=== PATIENT | female | born 1935 | race Caucasian/White ===

== ENCOUNTER 2017-04-15 12:17 | Observation (INO) | payer OTHER ==
[~2017-04-15] VITALS: Ht 157.5 cm; Wt 84.3 kg
[~2017-04-15 12:17] MED LIST: ACET-1487 PO; ASPI325T45 PO; CALC-354 PO; CYAN10004 PO; FLVHFA220 INH; LISI40TA PO; MULTCHW PO; NITR0.4S UT; PRLSR20 PO; ROSU20TA PO; TPRSR/100 PO; WARF-246 PO; WARF5TAB90 PO
--- NOTE | 2017-04-15 12:52 | EMERGENCY ROOM VISIT NOTE ---
History Report prepared by Justine: Demetra Ambrosio Under the Supervision of: Dr. Wilfredo Hauser M.D. First contact with patient: 12:43 Chief Complaint: NECK PAIN Stated Complaint: neck pain History of Present Illness The patient is a 82 year old female who presents to the Emergency Room with complaints of worsening neck pain beginning about 2 months prior to arrival. She notes the pain radiates to the top of her head. She is experiencing a headache, shortness of breath and vomited this morning due to the pain intensity. 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 She notes that the Prednisone works and once she stops the course of steroid her symptoms worsen. The patient is prescribed Tramadol but does not take on a regular basis and notes it has not been alleviating her pain. She is on Coumadin. The patient denies fever. Source of History: patient Onset: 2 months [employer] Position: neck Timing: worsening Associated Symptoms: + headache, + SOB, + vomiting, No fevers Review of Systems See HPI for pertinent positives & negatives. A total of 10 systems reviewed and were otherwise negative. Past Medical & Surgical Medical Problems: (1) Aortic stenosis (2) Arthritis (3) Dyslipidemia (4) Essential tremor (5) GERD (gastroesophageal reflux disease) (6) H/O polymyalgia rheumatica (7) History of palpitations (8) History of syncope (9) Hypertension (10) Hypothyroidism (11) Osteoporosis (12) Paroxysmal tachycardia (13) Pulmonary embolism Surgical Problems: (1) H/O knee surgery (2) History of cataract surgery (3) S/P section (4) S/p fixation of radius/ulna fracture Old medical records were reviewed. Nurse's notes were reviewed and I agree with. Family History FH: heart disease FHx: cancer FHx: gallbladder disease Hypertension Social History Smoking Status: Never Smoker Smokeless Tobacco Use: No Alcohol Use: none Housing Status: lives alone Occupation Status: retired Current/Historical Medications Scheduled Calcium Carbonate-Cholecalcife (Caltrate 600+D), 1 TABLET PO DAILY Levothyroxine Sodium (Synthroid), 75 MCG PO DAILY Lisinopril (Lisinopril), 20 MG PO BID Metoprolol Succinate (Metoprolol Succinate ER), 100 MG PO QPM Multiple Vitamins W/ Minerals (Centrum Silver), 1 TABLET PO DAILY Omeprazole (Prilosec), 20 MG PO HS Rosuvastatin Calcium (Crestor), 20 MG PO QPM Warfarin Sodium (Coumadin), 5 MG PO 2XWK Warfarin Sodium (Warfarin Sodium), 2.5 MG PO 5XWK Scheduled PRN Diclofenac Sodium (Topical) (Voltaren 1% Top Gel), 2 GM EXT QID PRN for Pain Nitroglycerin (Nitrostat), 0.4 MG UT UD PRN for Chest Pain Tramadol (Ultram), 50 MG PO HS PRN for Pain Allergies Coded Allergies: Etodolac (Verified Allergy, Unknown, 04/15/17) Morphine (Verified Allergy, Unknown, ., 04/15/17) NSAIDs (Verified Allergy, Unknown, ITCH, 04/15/17) Hydromorphone (Verified Adverse Reaction, Unknown, DIZZY,NAUSEA, 04/15/17) Physical Exam Vital Signs Date Time Temp Pulse Resp B/P (MAP) Pulse Ox O2 Delivery O2 Flow Rate FiO2 04/15/17 16:26 80 16 141/75 98 Room Air 04/15/17 15:13 181/92 04/15/17 14:35 96 18 208/96 96 Room Air 04/15/17 13:18 61 16 169/89 98 Room Air 04/15/17 12:30 62 04/15/17 12:25 36.4 68 13 155/92 94 Room Air Physical Exam General: Well developed well nourished in no acute distress non toxic older female, breathing comfortably on room air. Normal speech HEENT: Normal cephalic atraumatic. Pupils are equal round and reactive to light. Extraocular movements are intact. Oropharynx is pink with moist mucous membranes. No swelling of the mouth lips or tongue. Neck: Pain with movement of neck. Tender to palpation over posterior neck. No fluctuant. Supple with a midline trachea. No meningeal signs or stiffness, no JVD or bruits. No Stridor. Chest: Clear to auscultation bilaterally. No wheezes or rhonchi. No increased work of breathing. Heart: regular rate and rhythm. Abdomen: Soft nontender, nondistended without rebound guarding or rigidity. Extremities: No cyanosis clubbing or edema. No calf tenderness or assymetry Spine/Back. Non tender to palpation. No CVA tenderness Skin: Good turgor without rashes. Neurologic exam: Cranial nerves two through 12 are intact. Motor and sensation are intact and symmetrical throughout. Medical Decision & Procedures ER Provider Diagnostic Interpretation: CT results as stated below per my review and radiologist interpretation: CT OF THE HEAD WITHOUT CONTRAST CLINICAL HISTORY: Headache. Anticoagulation. COMPARISON STUDY: Head CT January 15, 2014 and MRI of the brain January 16, 2014. CT DOSE: 690.05 mGycm TECHNIQUE: Helical axial images of the head were obtained without IV contrast. Automated exposure control was utilized for the study. FINDINGS: No acute intracranial hemorrhage, midline shift or mass effect is present. Ventricular system is normal for age. Basilar cisterns are patent. There are no extra-axial collections. Motta-white differentiation is maintained. There are no findings to suggest acute dural sinus thrombosis or acute territorial infarct. There are no significant calvarial abnormalities. Visualized portions of the sinuses and mastoid air cells are clear. IMPRESSION: No acute intracranial findings. Electronically signed by: Salas Chaudhari M.D. 04/15/2017 1:39 PM Dictated Date/Time: 04/15/2017 1:37 PM CHEST ONE VIEW PORTABLE CLINICAL HISTORY: Chest and neck pain. COMPARISON STUDY: Chest radiograph January 14, [address] January 15, 2014. FINDINGS: There is mild elevation of the right hemidiaphragm. No pneumothorax or pleural effusion is identified. There is borderline cardiomegaly. No consolidation is identified. There is no evidence of pulmonary edema. There is elevation of both humeral heads which suggests chronic rotator cuff tears. There is severe arthritis of both shoulders. IMPRESSION: No acute cardiopulmonary findings. Electronically signed by: Salas Chaudhari M.D. 04/15/2017 1:28 PM Dictated Date/Time: 04/15/2017 1:[address] OF THE CERVICAL SPINE CLINICAL HISTORY: Neck pain COMPARISON STUDY: No previous studies for comparison. CT DOSE: 402.71 mGycm TECHNIQUE: CT scan of the cervical spine was performed from the skull base to the thoracic inlet. Images are reviewed in the axial, sagittal, and coronal planes. IV contrast was not administered for this examination. FINDINGS: The visualized portions of the lung apices reveal no evidence of pneumothorax. 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 The prevertebral soft tissues are normal. No fractures or trauma subluxations are visualized. There are multilevel degenerative changes. 2 mm of anterior subluxation of C5 on C6 is felt to be degenerative IMPRESSION: 1. No acute fractures or traumatic subluxations identified 2. Mild degenerative changes 3. Incidentally noted aberrant right subclavian artery Electronically signed by: Crescencio Del Valle M.D. 04/15/2017 1:41 PM Dictated Date/Time: 04/15/2017 1:38 PM Laboratory Results 04/15/17 12:15 Red Blood Count 4.53, Mean Corpuscular Volume 92.1, Mean Corpuscular Hemoglobin 30.0, Mean Corpuscular Hemoglobin Concent 32.6, Mean Platelet Volume 8.9, Neutrophils (%) (Auto) 66.1, Lymphocytes (%) (Auto) 23.0, Monocytes (%) (Auto) 9.4, Eosinophils (%) (Auto) 1.1, Basophils (%) (Auto) 0.0, Neutrophils # (Auto) 6.91, Lymphocytes # (Auto) 2.40, Monocytes # (Auto) 0.98, Eosinophils # (Auto) 0.11, Basophils # (Auto) 0.00 04/15/17 12:15 Test 04/15/17 12:15 04/15/17 12:55 04/15/17 13:12 04/15/17 15:24 White Blood Count 10.44 K/uL (4.8-10.8) Red Blood Count 4.53 M/uL (4.2-5.4) Hemoglobin 13.6 g/dL (12.0-16.0) Hematocrit 41.7 % (37-47) Mean Corpuscular Volume 92.1 fL (80-100) Mean Corpuscular Hemoglobin 30.0 pg (25-34) Mean Corpuscular Hemoglobin Concent 32.6 g/dl (32-36) Platelet Count 263 K/uL (130-400) Mean Platelet Volume 8.9 fL (7.4-10.4) Neutrophils (%) (Auto) 66.1 % Lymphocytes (%) (Auto) 23.0 % Monocytes (%) (Auto) 9.4 % Eosinophils (%) (Auto) 1.1 % Basophils (%) (Auto) 0.0 % Neutrophils # (Auto) 6.91 K/uL (1.4-6.5) Lymphocytes # (Auto) 2.40 K/uL (1.2-3.4) Monocytes # (Auto) 0.98 K/uL (0.11-0.59) Eosinophils # (Auto) 0.11 K/uL (0-0.5) Basophils # (Auto) 0.00 K/uL (0-0.2) RDW Standard Deviation 50.3 fL (36.4-46.3) RDW Coefficient of Variation 14.8 % (11.5-14.5) Immature Granulocyte % (Auto) 0.4 % Immature Granulocyte # (Auto) 0.04 K/uL (0.00-0.02) Erythrocyte Sedimentation Rate 12 mm/hr (0-21) Activated Partial Thromboplast Time 33.8 SECONDS (21.0-31.0) Partial Thromboplastin Ratio 1.3 Anion Gap 6.0 mmol/L (3-11) Est Creatinine Clear Calc Drug Dose 36.4 ml/min Estimated GFR () 48.7 Estimated GFR (Non- 42.1 BUN/Creatinine Ratio 17.6 (10-20) Calcium Level 7.6 mg/dl (8.5-10.1) Total Bilirubin 0.8 mg/dl (0.2-1) Direct Bilirubin 0.1 mg/dl (0-0.2) Aspartate Amino Transf (AST/SGOT) 19 U/L (15-37) Alanine Aminotransferase (ALT/SGPT) 26 U/L (12-78) Alkaline Phosphatase 49 U/L (45-117) Total Creatine Kinase 47 U/L (26-192) Creatine Kinase MB 1.0 ng/ml (0.5-3.6) C-Reactive Protein 0.46 mg/dl (0-0.29) Total Protein 5.6 gm/dl (6.4-8.2) Albumin 2.7 gm/dl (3.4-5.0) Lipase 193 U/L (73-393) Creatine Kinase MB Ratio (0-3.0) Bedside Troponin I 0.000 ng/ml (0-0.045) Bedside Glucose 117 mg/dl (70-90) Laboratory studies as stated above per my review. Medications Administered Medications (Trade) Dose Ordered Sig/Sissy Route Start Time Stop Time Status Last Admin Dose Admin Tramadol HCl (Ultram Tab) 50 mg NOW STAT PO 04/15/17 12:55 04/15/17 12:59 DC 04/15/17 13:16 50 MG Dexamethasone Sodium Phosphate (Decadron Inj) 10 mg NOW STAT IV 04/15/17 14:21 04/15/17 14:24 DC 04/15/17 14:33 10 MG Ondansetron HCl (Zofran Inj) 4 mg NOW STAT IV 04/15/17 15:22 04/15/17 15:23 DC 04/15/17 15:28 4 MG ECG Indication: other (neck pain) Rate (beats per minute): 60 Rhythm: normal sinus Findings: nonspecific-ST abn, no acute ischemic change Change: no significant change (from January 17, 2014) ED Course 1245: Past medical records reviewed. The patient was evaluated in room A11, and a complete history and physical examination were performed. 1255: Ultram Tab 50 mg PO. 1420: The patient is resting more comfortably. An MRI will be ordered. 1421: Decadron Inj 10 mg IV. Medical Decision Differentials include, but are not limited to; arthritis, disc disease, intracranial process, intracranial hemorrhage, infection, meningitis, cardiac disease, electrolyte or metabolic abnormalities. Medication Reconciliation: I attest that I have personally reviewed the patient' s current medication list. Blood pressure Screening: Patient was found to have moderately elevated blood pressure and was referred to their primary doctor for recheck and further treatment. This patient comes in as described above. She was placed in room A 11. She is here for treatment and evaluation of neck pain that radiates up into her head is on the right side is worse with movement. she's been on steroids which did help. She does have significant allergies to morphine and can't take NSAIDs as well which makes this difficult to treat. she's been using Ultram does help somewhat but she has not been using it regularly. She has no neurologic deficits. she's had no fever or chills or trauma. Her pain is worse with movement is going on for several months. She has nothing to suggest meningitis or encephalitis. At this point, I do not think she needs a spinal tap and additionally her INR is elevated due to her Coumadin and she could not have one safely done today anyways. I did a CAT scan of her head and neck and there are no acute findings she does have some degenerative she changes. EKG does not suggest acute coronary syndrome or arrhythmia. Cardiac enzymes are not elevated. She has no white count or fever to suggest infection. She's had no acute electrolyte or metabolic abnormalities. She is feeling a little bit better after receiving Ultram here I also gave her Decadron. I did order MRI of her cervical spine to further evaluate this is a family is frustrated has been going on for so long. I did sign the patient out to who will follow-up on the MRI results and reassess the patient when she comes back. Impression Primary Impression: Neck pain Additional Impressions: Cervical spine degeneration Anticoagulated on Coumadin Scribe Attestation The scribe's documentation has been prepared under my direction and personally reviewed by me in its entirety. I confirm that the note above accurately reflects all work, treatment, procedures, and medical decision making performed by me. Departure Information Referrals Moreno Parham M.D. (PCP) Patient Instructions My [facility] Problem Qualifiers
[2017-04-15] MEDS ORDERED: TRAMADOL HCL 50 MG TAB PO STA (12:55)
[2017-04-15 13:27] LABS: COMPLETE YES; EOS % 1.1 %; HEMATOCRIT 41.7 % (37-47); IG% 0.4 %; MEAN CELL VOLUME 92.1 fL (80-100); MEAN CORPUSCULAR HGB CONC 32.6 g/dl (32-36); MEAN PLATELET VOLUME 8.9 fL (7.4-10.4); MONO % 9.4 %; NEUT % 66.1 %; PLATELET COUNT 263 K/uL (130-400); RED BLOOD COUNT 4.53 M/uL (4.2-5.4); WHITE BLOOD COUNT 10.44 K/uL (4.8-10.8)
--- NOTE | 2017-04-15 13:29 | DIAGNOSTIC IMAGING REPORT ---
CHEST ONE VIEW PORTABLE CLINICAL HISTORY: Chest and neck pain. COMPARISON STUDY: Chest radiograph January 14, [address] January 15, 2014. FINDINGS: There is mild elevation of the right hemidiaphragm. No pneumothorax or pleural effusion is identified. There is borderline cardiomegaly. No consolidation is identified. There is no evidence of pulmonary edema. There is elevation of both humeral heads which suggests chronic rotator cuff tears. There is severe arthritis of both shoulders. IMPRESSION: No acute cardiopulmonary findings. Electronically signed by: Salas Chaudhari M.D. 04/15/2017 1:28 PM Dictated Date/Time: 04/15/2017 1:26 PM
[2017-04-15 13:41] LABS: CREATININE 1.2 mg/dl (0.60-1.20)
--- NOTE | 2017-04-15 13:41 | DIAGNOSTIC IMAGING REPORT ---
CT OF THE HEAD WITHOUT CONTRAST CLINICAL HISTORY: Headache. Anticoagulation. COMPARISON STUDY: Head CT January 15, 2014 and MRI of the brain January 16, 2014. CT DOSE: 690.05 mGycm TECHNIQUE: Helical axial images of the head were obtained without IV contrast. Automated exposure control was utilized for the study. FINDINGS: No acute intracranial hemorrhage, midline shift or mass effect is present. Ventricular system is normal for age. Basilar cisterns are patent. There are no extra-axial collections. Motta-white differentiation is maintained. There are no findings to suggest acute dural sinus thrombosis or acute territorial infarct. There are no significant calvarial abnormalities. Visualized portions of the sinuses and mastoid air cells are clear. IMPRESSION: No acute intracranial findings. Electronically signed by: Salas Chaudhari M.D. 04/15/2017 1:39 PM Dictated Date/Time: 04/15/2017 1:37 PM
[2017-04-15 13:42] LABS: BUN/CREATININE RATIO 17.6 (10-20); CALCIUM 7.6 mg/dl (8.5-10.1); POTASSIUM 4.1 mmol/L (3.5-5.1)
[2017-04-15 13:43] LABS: INR 2.6 (0.9-1.1); PARTIAL THROMBOPLASTIN RATIO 1.3; PROTHROMBIN TIME (PATIENT) 28.6 SECONDS (9.0-12.0)
--- NOTE | 2017-04-15 13:43 | DIAGNOSTIC IMAGING REPORT ---
CT OF THE CERVICAL SPINE CLINICAL HISTORY: Neck pain COMPARISON STUDY: No previous studies for comparison. CT DOSE: 402.71 mGycm TECHNIQUE: CT scan of the cervical spine was performed from the skull base to the thoracic inlet. Images are reviewed in the axial, sagittal, and coronal planes. IV contrast was not administered for this examination. FINDINGS: The visualized portions of the lung apices reveal no evidence of pneumothorax. 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 The prevertebral soft tissues are normal. No fractures or trauma subluxations are visualized. There are multilevel degenerative changes. 2 mm of anterior subluxation of C5 on C6 is felt to be degenerative IMPRESSION: 1. No acute fractures or traumatic subluxations identified 2. Mild degenerative changes 3. Incidentally noted aberrant right subclavian artery Electronically signed by: Crescencio Del Valle M.D. 04/15/2017 1:41 PM Dictated Date/Time: 04/15/2017 1:38 PM
[2017-04-15 13:45] LABS: C-REACTIVE PROTEIN 0.46 mg/dl (0-0.29); CKMB/CK RATIO 2.1 (0-3.0)
[2017-04-15] MEDS ORDERED: DEXAMETHASONE SOD INJ 10 MG/ML VIAL IV STA (14:21)
[2017-04-15] MEDS ORDERED: LEVO75TA PO (14:26)
[2017-04-15] MEDS ORDERED: ONDANSETRON INJ 2 MG/ML 2 ML VIAL IV STA (15:22)
--- NOTE | 2017-04-15 16:16 | EMERGENCY ROOM VISIT NOTE ---
ED Visit Note First contact with patient: 16:14 The patient was taken in signout from Dr. Hauser at the change of shift. Please see that note for details. The patient was pending MRI. The patient had the MRI. She is feeling more comfortable. Her MRI shows significant degenerative disease with neural foraminal stenosis. She has not been doing well at home by family's reports. I did discuss treatment options with the patient and family. Case management is meeting with the patient and patient's family to further evaluate the options available. After evaluation by case management admission to the hospital was felt to be most appropriate for further care. [facility] The patient was evaluated for further management.
--- NOTE | 2017-04-15 16:26 | DIAGNOSTIC IMAGING REPORT ---
MRI CERVICAL SPINE COMBO CLINICAL HISTORY: Neck pain. COMPARISON STUDY: CT scan of the cervical spine dated 04/15/2017. TECHNIQUE: MRI of the cervical spine is performed using various T1 and T2-weighted sequences in the axial and sagittal planes. Contrast-enhanced sequences were acquired following the IV administration of 8 cc of Gadavist. FINDINGS: Cervical spine: Vertebral body height and alignment are maintained throughout the cervical spine. Mild hyperlordosis is observed. There is no MRI evidence of fracture. The atlantodental articulation appears preserved. The spinous processes are intact. No destructive bony lesion is seen. Intervertebral discs: There is degenerative disc desiccation seen throughout the cervical spine. Mild loss of height is seen at C4-C5 and C5-C6. Spinal cord: The cervical spinal cord is normal in morphology and signal intensity. No abnormal enhancement is identified on the postcontrast images. C2-C3: Unremarkable. C3-C4: A posterior disc osteophyte complex effaces the ventral subarachnoid space. Uncovertebral and facet arthropathy causes mild bilateral neuroforaminal stenosis. C4-C5: A posterior disc osteophyte complex abuts the ventral cord. Uncovertebral and facet arthropathy cause moderate to severe right and moderate left neural foraminal stenosis. C5-C6: A posterior disc osteophyte complex abuts the ventral cord. Uncovertebral and facet arthropathy cause mild neural foraminal stenosis, left greater than right. C6-C7: A posterior disc osteophyte complex effaces the ventral subarachnoid space. The neural foramina appear clear. C7-T1: Unremarkable. Soft tissues: The prevertebral and paraspinous soft tissues are normal as visualized. An aberrant right subclavian artery is incidentally noted coursing posterior to the esophagus. Brain parenchyma: Partially visualized brain parenchyma at the skull base is within normal limits. IMPRESSION: 1. The cervical spinal cord is normal in morphology and signal intensity. 2. No acute abnormality is seen. 3. Cervical spondylosis as above. See discussion for detailed level by level analysis. Electronically signed by: Robinson Villa M.D. 04/15/2017 4:24 PM Dictated Date/Time: 04/15/2017 4:17 PM
[2017-04-15] MEDS ORDERED: ACETAMINOPHEN 325 MG TAB PO PRN (18:30)
[2017-04-15] MEDS ORDERED: ONDANSETRON INJ 2 MG/ML 2 ML VIAL IV PRN (18:30)
[2017-04-15] MEDS ORDERED: IV FLUIDS COMPLETED PRN (18:30)
[2017-04-15] MEDS ORDERED: DICL1GEL12 EXT (18:41)
[2017-04-15] MEDS ORDERED: TRAM-10 PO (18:41)
[2017-04-15] MEDS ORDERED: LSN20 PO (18:43)
[2017-04-15] MEDS ORDERED: NITROGLYCERIN 0.4 MG SL PER TAB CHARGE UT PRN (18:45)
[2017-04-15] MEDS ORDERED: TRAMADOL HCL 50 MG TAB PO PRN (18:45)
[2017-04-15] MEDS ORDERED: DICLOFENAC SOD 1% GEL 100 GM TUBE EXT PRN (18:45)
[2017-04-15] MEDS ORDERED: LIDODERM (LIDOCAINE) PATCH 5% TD ONE (19:15)
[2017-04-15 19:18] VITALS: BP 174/79; PULSE 67; TEMP 36.9; O2SAT 97; Ht 157.5 cm; Wt 84.3 kg
[2017-04-15] MEDS ORDERED: WARFARIN SOD 5 MG TAB PO SCH (19:30)
--- NOTE | 2017-04-15 20:12 | History and Physical ---
History & Physical Date & Time of Service: Apr 15, 2017 at 18:51 Chief Complaint: Neck Pain Primary Care Physician: Moreno Parham M.D. History of Present Illness Source: patient, family (daughters at bedside), clinic records This is an 82 year old female with PMH of hypertension, aortic stenosis, history of paroxysmal tachycardia, history of PE on Coumadin, dyslipidemia, hypothyroidism, and other problems listed below who presents to the ED with neck pain. Patient states pain started 2 months ago but worsened in severity last night. There was no injury/ trauma. Patient was seen by PCP Dr. Parham had c -spine x-ray and was dx with arthritis. Since that time she was treated with 3 short courses of prednisone. Patient states pain improved during prednisone courses but returned after stopping the medication. Last course ended 4 days ago. Pt was also taking Tramadol 50 mg HS which she states did not help. Last night patient was unable to sleep due to severe pain rated 10/10. She describes pain as ache in the cervical spinal area with radiation to the top of her head. Pain worsens with rotating the neck. In the ER patient was treated with tramadol and IV Decadron. Pain is now improved but still uncomfortable with movement. Patient reports vomiting x 1 earlier today. Nausea resolved with Zofran and pt wishes to eat. Pt bruises easily but denies abnormal bleeding. Denies fever, chills, photophobia, focal numbness or weakness, cough, SOB, chest pain, abdominal pain, bowel or bladder changes. Pt denies prior hx of neck pain. No missed dose of antihypertensives. Past Medical/Surgical History Medical Problems: (1) Aortic stenosis Permanent Comment: moderate Status: Chronic (2) Arthritis Status: Chronic (3) Dyslipidemia Status: Chronic (4) Essential tremor Status: Chronic (5) GERD (gastroesophageal reflux disease) Status: Chronic (6) H/O polymyalgia rheumatica Status: Chronic (7) History of palpitations Status: Chronic (8) History of syncope Status: Chronic (9) Hypertension Status: Chronic (10) Hypothyroidism Status: Chronic (11) Osteoporosis Status: Chronic (12) Paroxysmal tachycardia Permanent Comment: Cardiac Zio event monitor captured a 10 beat trina of non sustained VT and several brief SVT episodes Status: Chronic (13) Pulmonary embolism Status: Resolved Surgical Problems: (1) H/O knee surgery Status: Chronic (2) History of cataract surgery Status: Chronic (3) S/P section Status: Chronic (4) S/p fixation of radius/ulna fracture Status: Chronic Family History FH: heart disease FHx: cancer FHx: gallbladder disease Hypertension Social History Smoking Status: Never Smoker Smokeless Tobacco Use: No Alcohol Use: none Housing status: lives with family (with son. independent with ADLs.) Occupational Status: retired Immunizations History of Influenza Vaccine: Yes Influenza Vaccine Date: Aug 17, 2013 History of Tetanus Vaccine?: Yes Tetanus Immunization Date: Dec 18, 2013 History of Pneumococcal: No History of Hepatitis B Vaccine: No Multi-Drug Resistant Organisms History of MDRO: No Allergies Coded Allergies: Etodolac (Verified Allergy, Unknown, 04/15/17) Morphine (Verified Allergy, Unknown, ., 04/15/17) NSAIDs (Verified Allergy, Unknown, ITCH, 04/15/17) Hydromorphone (Verified Adverse Reaction, Unknown, DIZZY,NAUSEA, 04/15/17) Home Medications Scheduled Calcium Carbonate-Cholecalcife (Caltrate 600+D), 1 TABLET PO DAILY Levothyroxine Sodium (Synthroid), 75 MCG PO DAILY Lisinopril (Lisinopril), 20 MG PO BID Methylprednisolone (Medrol Dosepak), 1 PKT PO UD Metoprolol Succinate (Metoprolol Succinate ER), 100 MG PO QPM Multiple Vitamins W/ Minerals (Centrum Silver), 1 TABLET PO DAILY Omeprazole (Prilosec), 20 MG PO HS Rosuvastatin Calcium (Crestor), 20 MG PO QPM Warfarin Sodium (Coumadin), 5 MG PO 2XWK Warfarin Sodium (Warfarin Sodium), 2.5 MG PO 5XWK Scheduled PRN Diclofenac Sodium (Topical) (Voltaren 1% Top Gel), 2 GM EXT QID PRN for Pain Nitroglycerin (Nitrostat), 0.4 MG UT UD PRN for Chest Pain Tramadol (Ultram), 50 MG PO TID PRN for Pain Review of Systems Ten systems reviewed and negative except as noted in HPI. Physical Exam Vital Signs Date Time Temp Pulse Resp B/P (MAP) Pulse Ox O2 Delivery O2 Flow Rate FiO2 04/15/17 18:11 67 18 141/90 96 Room Air 04/15/17 16:26 80 16 141/75 98 Room Air 04/15/17 15:13 181/92 04/15/17 14:35 96 18 208/96 96 Room Air 04/15/17 13:18 61 16 169/89 98 Room Air 04/15/17 12:30 62 04/15/17 12:25 36.4 68 13 155/92 94 Room Air General Appearance: WD/WN, no apparent distress, + pertinent finding (pleasant alert elderly female, lying in bed, not in distress, daughters at bedside) Head: normocephalic, atraumatic Eyes: normal inspection, PERRL, EOMI, sclerae normal ENT: hearing grossly normal, pharynx normal Neck: supple, trachea midline, + pertinent finding (no point tenderness of c- spine. + left cervical paraspinal muscle tenderness. 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, normal mood/affect, oriented x 3, + pertinent finding (no motor or sensory deficit of upper extremities) Skin: normal color, warm/dry, + pertinent finding (few small ecchymotic areas on upper extremities) Diagnostics Laboratory Results Results Past 24 Hours Test 04/15/17 12:15 04/15/17 12:55 04/15/17 13:12 04/15/17 15:24 Range/Units White Blood Count 10.44 4.8-10.8 K/uL Red Blood Count 4.53 4.2-5.4 M/uL Hemoglobin 13.6 12.0-16.0 g/dL Hematocrit 41.7 37-47 % Mean Corpuscular Volume 92.1 80-100 fL Mean Corpuscular Hemoglobin 30.0 25-34 pg Mean Corpuscular Hemoglobin Concent 32.6 32-36 g/dl Platelet Count 263 130-400 K/uL Mean Platelet Volume 8.9 7.4-10.4 fL Neutrophils (%) (Auto) 66.1 % Lymphocytes (%) (Auto) 23.0 % Monocytes (%) (Auto) 9.4 % Eosinophils (%) (Auto) 1.1 % Basophils (%) (Auto) 0.0 % Neutrophils # (Auto) 6.91 1.4-6.5 K/uL Lymphocytes # (Auto) 2.40 1.2-3.4 K/uL Monocytes # (Auto) 0.98 0.11-0.59 K/uL Eosinophils # (Auto) 0.11 0-0.5 K/uL Basophils # (Auto) 0.00 0-0.2 K/uL RDW Standard Deviation 50.3 36.4-46.3 fL RDW Coefficient of Variation 14.8 11.5-14.5 % Immature Granulocyte % (Auto) 0.4 % Immature Granulocyte # (Auto) 0.04 0.00-0.02 K/uL Erythrocyte Sedimentation Rate 12 0-21 mm/hr Prothrombin Time 28.6 9.0-12.0 SECONDS Prothromb Time International Ratio 2.6 0.9-1.1 Activated Partial Thromboplast Time 33.8 21.0-31.0 SECONDS Partial Thromboplastin Ratio 1.3 Sodium Level 141 136-145 mmol/L Potassium Level 4.1 3.5-5.1 mmol/L Chloride Level 108 98-107 mmol/L Carbon Dioxide Level 27 21-32 mmol/L Anion Gap 6.0 3-11 mmol/L Blood Urea Nitrogen 21 7-18 mg/dl Creatinine 1.20 0.60-1.20 mg/dl Est Creatinine Clear Calc Drug Dose 36.4 ml/min Estimated GFR () 48.7 Estimated GFR (Non- 42.1 BUN/Creatinine Ratio 17.6 10-20 Random Glucose 91 70-99 mg/dl Calcium Level 7.6 8.5-10.1 mg/dl Total Bilirubin 0.8 0.2-1 mg/dl Direct Bilirubin 0.1 0-0.2 mg/dl Aspartate Amino Transf (AST/SGOT) 19 15-37 U/L Alanine Aminotransferase (ALT/SGPT) 26 12-78 U/L Alkaline Phosphatase 49 45-117 U/L Total Creatine Kinase 47 26-192 U/L Creatine Kinase MB 1.0 0.5-3.6 ng/ml Creatine Kinase MB Ratio 2.1 0-3.0 C-Reactive Protein 0.46 0-0.29 mg/dl Total Protein 5.6 6.4-8.2 gm/dl Albumin 2.7 3.4-5.0 gm/dl Lipase 193 73-393 U/L Bedside Troponin I 0.000 0-0.045 ng/ml Bedside Glucose 117 70-90 mg/dl Diagnostic Radiology CT OF THE HEAD WITHOUT CONTRAST CLINICAL HISTORY: Headache. Anticoagulation. COMPARISON STUDY: Head CT January 15, 2014 and MRI of the brain January 16, 2014. CT DOSE: 690.05 mGycm TECHNIQUE: Helical axial images of the head were obtained without IV contrast. Automated exposure control was utilized for the study. FINDINGS: No acute intracranial hemorrhage, midline shift or mass effect is present. Ventricular system is normal for age. Basilar cisterns are patent. There are no extra-axial collections. Motta-white differentiation is maintained. There are no findings to suggest acute dural sinus thrombosis or acute territorial infarct. There are no significant calvarial abnormalities. Visualized portions of the sinuses and mastoid air cells are clear. IMPRESSION: No acute intracranial findings. CHEST ONE VIEW PORTABLE CLINICAL HISTORY: Chest and neck pain. COMPARISON STUDY: Chest radiograph January 14, [address] January 15, 2014. FINDINGS: There is mild elevation of the right hemidiaphragm. No pneumothorax or pleural effusion is identified. There is borderline cardiomegaly. No consolidation is identified. There is no evidence of pulmonary edema. There is elevation of both humeral heads which suggests chronic rotator cuff tears. There is severe arthritis of both shoulders. IMPRESSION: No acute cardiopulmonary findings. CLINICAL HISTORY: Neck pain COMPARISON STUDY: No previous studies for comparison. CT DOSE: 402.71 mGycm TECHNIQUE: CT scan of the cervical spine was performed from the skull base to the thoracic inlet. Images are reviewed in the axial, sagittal, and coronal planes. IV contrast was not administered for this examination. FINDINGS: The visualized portions of the lung apices reveal no evidence of pneumothorax. 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 The prevertebral soft tissues are normal. No fractures or trauma subluxations are visualized. There are multilevel degenerative changes. 2 mm of anterior subluxation of C5 on C6 is felt to be degenerative IMPRESSION: 1. No acute fractures or traumatic subluxations identified 2. Mild degenerative changes 3. Incidentally noted aberrant right subclavian artery MRI CERVICAL SPINE COMBO CLINICAL HISTORY: Neck pain. COMPARISON STUDY: CT scan of the cervical spine dated 04/15/2017. TECHNIQUE: MRI of the cervical spine is performed using various T1 and T2-weighted sequences in the axial and sagittal planes. Contrast-enhanced sequences were acquired following the IV administration of 8 cc of Gadavist. FINDINGS: Cervical spine: Vertebral body height and alignment are maintained throughout the cervical spine. Mild hyperlordosis is observed. There is no MRI evidence of fracture. The atlantodental articulation appears preserved. The spinous processes are intact. No destructive bony lesion is seen. Intervertebral discs: There is degenerative disc desiccation seen throughout the cervical spine. Mild loss of height is seen at C4-C5 and C5-C6. Spinal cord: The cervical spinal cord is normal in morphology and signal intensity. No abnormal enhancement is identified on the postcontrast images. C2-C3: Unremarkable. C3-C4: A posterior disc osteophyte complex effaces the ventral subarachnoid space. Uncovertebral and facet arthropathy causes mild bilateral neuroforaminal stenosis. C4-C5: A posterior disc osteophyte complex abuts the ventral cord. Uncovertebral and facet arthropathy cause moderate to severe right and moderate left neural foraminal stenosis. C5-C6: A posterior disc osteophyte complex abuts the ventral cord. Uncovertebral and facet arthropathy cause mild neural foraminal stenosis, left greater than right. C6-C7: A posterior disc osteophyte complex effaces the ventral subarachnoid space. The neural foramina appear clear. C7-T1: Unremarkable. Soft tissues: The prevertebral and paraspinous soft tissues are normal as visualized. An aberrant right subclavian artery is incidentally noted coursing posterior to the esophagus. Brain parenchyma: Partially visualized brain parenchyma at the skull base is within normal limits. IMPRESSION: 1. The cervical spinal cord is normal in morphology and signal intensity. 2. No acute abnormality is seen. 3. Cervical spondylosis as above. See discussion for detailed level by level analysis. EKG Normal sinus rhythm, no significant change from prior EKG, as per cardiology read, also reviewed by me Impression Assessment and Plan INTRACTABLE NECK PAIN Secondary to C-spine degenerative disc disease CT head negative; CT c-spine- DDD, MRI c-spine- cervical spondylosis Received tramadol 50 mg and Decadron 10 mg IV in ER Will continue steroids with Decadron PO 4 mg daily Continue PRN tramadol Lidocaine patch, heat application Consult pain management Consult ortho spine as per family request PT and OT evaluations HYPERTENSION BP severely elevated to 200s systolic in ER due to pain -> improved to 140s systolic with pain control Continue lisinopril 20 mg BID and metoprolol succinate 100 mg HS Monitor BP 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 Randall DYSLIPIDEMIA Continue statin HYPOTHYROIDISM Continue levothyroxine HISTORY OF PE/ DVT PROPHYLAXIS On Coumadin, INR therapeutic Continue Coumadin FULL CODE per my discussion with patient DISPOSITION Lives with son; consult social economist for discharge planning Follows with Dr. Parham for primary care Patient seen in collaboration with Dr. Stroud. Please see his addendum. Attending Addendum Pt was seen and examined. Agreed with Carri HOWARD, assessment and cristobal. 82 year old female with PMH of hypertension, aortic stenosis, history of paroxysmal tachycardia, history of PE on Coumadin, dyslipidemia, hypothyroidism presents to the ED with neck pain. Pt said that for the last 2 months his neck pain has been getting worst. she said that pain is worst with neck movement, 10/10, radiating to the head. denies nay recent trauma, injury or fall. General- No acute distress Head- atraumatic Eyes- PERRL, EOMI ENT- oropharynx clear Neck- supple, no JVD Lungs- clear to auscultation Heart- regular rhythm; +systolic murmur Abdomen- normal bowel sounds, soft Extremities- no calf tenderness A/P INTRACTABLE NECK PAIN Secondary to C-spine degenerative disc disease CT head negative CT c-spine showed mild degenerative changes MRI C-spine showed no acute abnormality is seen. Cervical spondylosis as above Received tramadol 50 mg and Decadron 10 mg IV in ER Continue PRN tramadol Lidocaine patch, heat application Consult pain management Consult ortho spine as per family request PT and OT evaluations Lab, imaging and EKG reviewed Please Refer to Carri' PA documentation for other problems. Sindy Stroud MD VTE Prophylaxis VTE Risk Assessment Done? Y/N: Yes Risk Level: High Given or contraindicated: Warfarin (Coumadin)
[2017-04-15] MEDS ORDERED: PNEUMOCOCCAL ADMINISTRATION CHARGE ONE (20:30)
[2017-04-15] MEDS ORDERED: PNEUMOCOCCAL POLYSACCHARIDES 25 MCG/0.5 ML VIAL/SYR IM. ONE (20:30)
[2017-04-15 20:54] VITALS: BP 131/73; PULSE 66
[2017-04-15] MEDS: LISINOPRIL 20 MG TAB PO SCH (20:55)
[2017-04-15 23:49] VITALS: BP 168/97; PULSE 68; TEMP 36.2; O2SAT 97
[2017-04-16 00:57] VITALS: BP 149/73; PULSE 67
[2017-04-16 06:00] LABS: INR 2.4 (0.9-1.1); PROTHROMBIN TIME (PATIENT) 26.1 SECONDS (9.0-12.0)
[2017-04-16] MEDS ORDERED: LEVOTHYROXINE 75 MCG TAB PO SCH (06:30)
[2017-04-16 07:29] VITALS: BP 131/85; PULSE 66; TEMP 36.9; O2SAT 96
[2017-04-16] MEDS: LISINOPRIL 20 MG TAB PO SCH (08:26)
--- NOTE | 2017-04-16 08:43 | ORTHOPEDIC CONSULTATION ---
DATE OF CONSULTATION: 04/16/2017 DATE OF CONSULTATION: 04/16/2017. CHIEF COMPLAINT: Cervicalgia. HISTORY OF PRESENT ILLNESS: Very pleasant 82-year-old female that has had a history of some neck issues over the past several months. She has never seen any interventional pain management physician. She denies any recent trauma, fall or event. Symptoms became quite severe over the past day or so with radiation into the head and significant headaches. She denies any radicular component to her pain, numbness or tingling, coordination deficits the upper extremities. PHYSICAL EXAMINATION: On exam today she is sitting up the bedside eating breakfast. She appears much more comfortable today. She has excellent strength to detailed testing, reasonable cervical range of motion without reproduction of pain. Nontender to palpation pericervical musculature. MRI does demonstrate evidence of cervical spondylosis, most impressive at the C5-C6 level with facet hypertrophy. There is no evidence of any significant canal encroachment. The cord appears healthy. ASSESSMENT: Cervicalgia, occipital neuralgia. PLAN: At this time, I emphasized to the patient I do not see any surgical issues; however, she may benefit from a consultation with interventional pain management. If these symptoms return, she may require either facet versus injections for occipital neuralgia to help with her pain. She understands and agrees.
[2017-04-16] MEDS ORDERED: DEXAMETHASONE 4 MG TAB PO SCH (09:00)
[2017-04-16] MEDS ORDERED: DEXAMETHASONE 4 MG TAB PO ONE (09:00)
[2017-04-16] MEDS ORDERED: MULTIVITAMIN TAB PO SCH (09:00)
[2017-04-16] MEDS ORDERED: LIDODERM (LIDOCAINE) PATCH 5% TD SCH (09:00)
[2017-04-16] MEDS ORDERED: CALCIUM 600MG + VIT D 400 IU TAB PO SCH (09:00)
--- NOTE | 2017-04-16 11:13 | Pain Management Consultation ---
Pain Management Consultation Date of Consultation Apr 16, 2017. Reason for Consultation Neck pain History Mrs. Haynes is an 82 year old white female that has been seen at the [facility] for cervicalgia. Patient states that the pain is located along the right upper cervical region. She describes a deep aching pain. Symptoms have been ongoing for 2 months without any known injury. She states that the pain is worsening with twisting and walking. Symptoms are decreased with laying supine. She has been tried on several courses of Prednisone with short term pain relief. Patient is also taking Tramadol 50mg x 6 hrs PRN pain which is efficacious. She has taken one dose of Tramadol since admission. Patient does have associated right occipital headaches. She states that her pain is controlled at this time. She denies any radicular symptoms, arm weakness, or dropping of objects. Case discussed with Dr. Franks Past Medical/Surgical History (1) Arthritis (2) Pulmonary embolism (3) Neck pain (4) Dyslipidemia (5) Essential tremor (6) Hypothyroidism (7) Paroxysmal tachycardia (8) Aortic stenosis (9) H/O polymyalgia rheumatica (10) History of palpitations (11) History of syncope (12) Osteoporosis (13) Hypertension (14) GERD (gastroesophageal reflux disease) (15) History of cataract surgery (16) S/P section (17) H/O knee surgery (18) S/p fixation of radius/ulna fracture Family History FH: heart disease SISTER FHx: cancer FHx: gallbladder disease Hypertension Stroke FATHER Social / Work History Smoking Status: Never smoker Smokeless Tobacco Use: No Alcohol Use: none Drug Use: none Housing Status: lives with family (with son. independent with ADLs.) Occupation: retired Allergies Coded Allergies: Etodolac (Verified Allergy, Unknown, 04/15/17) Morphine (Verified Allergy, Unknown, ., 04/15/17) NSAIDs (Verified Allergy, Unknown, ITCH, 04/15/17) Hydromorphone (Verified Adverse Reaction, Unknown, DIZZY,NAUSEA, 04/15/17) Medications Current Inpatient Medications Medications (Trade) Dose Ordered Sig/Sissy Route Start Time Stop Time Status Last Admin Dose Admin Miscellaneous (Iv Fluids Completed) 1 ea PRN PRN N/A 04/15/17 18:30 04/15/18 18:29 Acetaminophen (Tylenol Tab) 650 mg Q4H PRN PO 04/15/17 18:30 05/15/17 18:29 Ondansetron HCl (Zofran Inj) 4 mg Q6H PRN IV 04/15/17 18:30 05/15/17 18:29 Lidocaine (Lidoderm Patch 5%) 1 patch QAM TD 04/16/17 09:00 05/16/17 08:59 Miscellaneous (Remove Lidoderm Patch) 1 ea DAILY@21 N/A 04/15/17 21:00 05/15/17 20:59 04/15/17 22:37 1 EA Diclofenac Sodium (Voltaren 1% Top Gel) 1 appln QID PRN EXT 04/15/17 18:45 05/15/17 18:44 Levothyroxine Sodium (Synthroid Tab) 75 mcg DAILYBB PO 04/16/17 06:30 05/16/17 06:29 04/16/17 05:51 75 MCG Lisinopril (Zestril Tab) 20 mg BID PO 04/15/17 21:00 05/15/17 20:59 04/15/17 20:55 20 MG Nitroglycerin (Nitrostat Tab) 0.4 mg UD PRN UT 04/15/17 18:45 05/15/17 18:44 Rosuvastatin Calcium (Crestor Tab) 20 mg QPM PO 04/16/17 21:00 05/16/17 20:59 Tramadol HCl (Ultram Tab) 50 mg Q6 PRN PO 04/15/17 18:45 05/15/17 18:44 04/15/17 19:47 50 MG Warfarin Sodium (Coumadin Tab) 2.5 mg SuTuWeThSa@1600 PO 04/16/17 16:00 05/16/17 15:59 Warfarin Sodium (Coumadin Tab) 5 mg MoFr@1600 PO 04/15/17 19:30 05/15/17 19:29 04/15/17 19:48 5 MG Calcium/Vitamin D (Caltrate Plus Tab) 1 tab DAILY PO 04/16/17 09:00 05/16/17 08:59 Metoprolol Succinate (Toprol Xl Tab) 100 mg HS PO 04/16/17 21:00 05/16/17 20:59 Multivitamins (Multivitamin Tab) 1 tab QAM PO 04/16/17 09:00 05/16/17 08:59 Pantoprazole Sodium (Protonix Tab) 40 mg HS PO 04/16/17 21:00 05/16/17 20:59 Dexamethasone (Decadron Tab) 4 mg DAILY PO 04/16/17 09:00 05/16/17 08:59 Review of Systems Denies any constitutional, cardiac, pulmonary, neurological, GI, , extremity, endocrine, neuro, ENT, dermatological, or musculoskeletal complaints other than stated in HPI Physical Exam Height & Weight: Height 5 feet, 2.00 inches. Weight 84.300 (Kilograms) 154 (Pounds) Last Vital Signs Documentation Date Time Temp Pulse Resp B/P (MAP) Pulse Ox O2 Delivery O2 Flow Rate FiO2 04/16/17 07:29 36.9 66 17 131/85 (100) 96 Room Air Exam: GENERAL: Mrs. Haynes is an 82 y/o white female that appears her stated age. Speech and cognition is intact. Mood and affect is appropriate. She is sitting quietly in the hospital bed, eating breakfast. In no acute distress. HEAD: Normocephalic; atraumatic. Mild tenderness of the right greater and lesser occipital nerves. EYES: Pupils are round, equal, and reactive to light; EOM intact. ENT: No external ear discharge or lesions. No rhinorrhea or epistaxis. No mucosal lesions. NECK: There is 45 degrees of bilateral lateral rotation. Minimal extension, full flexion. No midline tenderness. There is focal tenderness of the right C2 -4 cervical facets. No paracervical or trapezius muscle spasm. CHEST: Regular chest respiration and excursion. EXTREMITIES: 4/5 with right shoulder abduction (history of rotator cuff tear), otherwise 5/5 strength of the upper extremities. NEURO: CN II-XII grossly intact with no focal deficits noted. SKIN: No lesions, erythema, or rashes noted. Laboratory Laboratory Results (Last CBC): 04/15/17 12:15 Red Blood Count 4.53, Mean Corpuscular Volume 92.1, Mean Corpuscular Hemoglobin 30.0, Mean Corpuscular Hemoglobin Concent 32.6, Mean Platelet Volume 8.9, Neutrophils (%) (Auto) 66.1, Lymphocytes (%) (Auto) 23.0, Monocytes (%) (Auto) 9.4, Eosinophils (%) (Auto) 1.1, Basophils (%) (Auto) 0.0, Neutrophils # (Auto) 6.91 H, Lymphocytes # (Auto) 2.40, Monocytes # (Auto) 0.98 H, Eosinophils # ( Auto) 0.11, Basophils # (Auto) 0.00 Imaging MRI Findings 04/15/17 Cervical MRI C2-C3: Unremarkable. C3-C4: A posterior disc osteophyte complex effaces the ventral subarachnoid space. Uncovertebral and facet arthropathy causes mild bilateral neuroforaminal stenosis. C4-C5: A posterior disc osteophyte complex abuts the ventral cord. Uncovertebral and facet arthropathy cause moderate to severe right and moderate left neural foraminal stenosis. C5-C6: A posterior disc osteophyte complex abuts the ventral cord. Uncovertebral and facet arthropathy cause mild neural foraminal stenosis, left greater than right. C6-C7: A posterior disc osteophyte complex effaces the ventral subarachnoid space. The neural foramina appear clear. C7-T1: Unremarkable. Assessment 1. Cervical spondylosis 2. Cervical facet syndrome 3. Aortic stenosis Recommendations 1. Patient states that her pain is adequately relieved with the current regimen 2. She may be a candidate for a right C2-3 medial branch block and TON block. She may been seen on an outpatient basis at the [facility] for this. [place] Voice Recognition This chart was completed in part utilizing [employer] Voice Recognition Software. Random word insertions, pronoun errors, and incomplete sentences are an occasional consequence of this system due to software limitations and ambient noise. Any questions or concerns about the content, text or information contained within the body of this dictation should be directly addressed to the provider for clarification.
[2017-04-16] MEDS ORDERED: TRAM-10 PO (13:16)
[2017-04-16] MEDS ORDERED: METH4PAK PO ×2 (13:16→13:17)
--- NOTE | 2017-04-16 13:20 | Discharge Instructions ---
Discharge Instructions Date of Service Apr 16, 2017. Admission Reason for Admission: Neck Pain Discharge Discharge Diagnosis / Problem: NECK PAIN Discharge Goals Goal(s): Decrease discomfort, Improve function Activity Recommendations Activity Limitations: resume your previous activity . Instructions / Follow-Up Instructions / Follow-Up FOLLOWUP WITH FAMILY DOCTOR IN ONE WEEK FOLLOWUP WITH PAIN MANAGEMENT WIN WINTERS PA-C IN 1-2 WEEKS( [facility] [address], [address], [place] [address] ) FOLLOWUP WITH COUMADIN CLINIC FOR COUMADIN DOSING. Current Hospital Diet Patient's current hospital diet: AHA Diet (Heart Healthy) Discharge Diet Recommended Diet: AHA Diet (Heart Healthy) Pending Studies Studies pending at discharge: no Medical Emergencies . Who to Call and When: Medical Emergencies: If at any time you feel your situation is an emergency, please call 911 immediately. . Non-Emergent Contact Non-Emergency issues call your: Primary Care Provider . . "Provider Documentation" section prepared by Nav Bennett. . VTE Core Measure Inpt VTE Proph given/why not?: Warfarin (Coumadin)
[2017-04-16 13:46] VITALS: BP 131/85; PULSE 66; TEMP 36.9; O2SAT 96
[2017-04-16] MEDS ORDERED: WARFARIN SOD 5 MG TAB PO SCH (16:00)
--- NOTE | 2017-04-16 19:28 | Progress Note ---
Internal Med Progress Note Date of Service: Apr 16, 2017. Provider Documentation: SUBJECTIVE: neck pain is much better afebrile no cough no nausea ok to go home and followup with pain management OBJECTIVE: Vital Signs-as noted below Exam: General-alert and awake and oriented ENT-normal hearing Neck-no neck masses Lungs-cta b/l no added sounds Heart-s1 and s2 heard regular rate and rhythm no murmurs Abdomen-soft bowel sounds present non tender Extremities-no erythema Neuro-alert and awake moves extremities Lab data as noted below. ASSESSMENT & PLAN: INTRACTABLE NECK PAIN Secondary to C-spine degenerative disc disease CT head negative; CT c-spine- DDD, MRI c-spine- cervical spondylosis Received tramadol 50 mg and Decadron 10 mg IV in ER improving seen by ortho and pain management discharged on tramadol prn and Medrol dose pack and followup with pain management as out patient. 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 AORTIC STENOSIS Moderate Follows with Dr. Randall DYSLIPIDEMIA Continue statin HYPOTHYROIDISM Continue levothyroxine HISTORY OF PE/ DVT PROPHYLAXIS On Coumadin, INR therapeutic f/u Coumadin clinic discharged home Vital Signs: Date Time Temp Pulse Resp B/P (MAP) Pulse Ox O2 Delivery O2 Flow Rate FiO2 04/16/17 13:46 36.9 66 17 96 Room Air 04/16/17 08:00 Room Air 04/16/17 07:29 36.9 66 17 131/85 (100) 96 Room Air 04/16/17 00:57 67 149/73 (98) 04/16/17 00:50 Room Air 04/15/17 23:49 36.2 68 20 168/97 (120) 97 Room Air 04/15/17 20:54 66 131/73 (92) Lab Results: Results Past 24 Hours Test 04/16/17 05:15 Range/Units Prothrombin Time 26.1 9.0-12.0 SECONDS Prothromb Time International Ratio 2.4 0.9-1.1
--- NOTE | 2017-04-16 19:46 | Discharge Summary ---
Discharge Summary Date of Service Apr 16, 2017. Discharge Summary Admission Date: Apr 15, 2017 at 17:47 Discharge Date: Apr 16, 2017 Discharge Disposition: Home Principal Diagnosis: NECK PAIN Secondary Diagnoses/Problems: (1) Aortic stenosis Permanent Comment: moderate Status: Chronic (2) Arthritis Status: Chronic (3) Dyslipidemia Status: Chronic (4) Essential tremor Status: Chronic (5) GERD (gastroesophageal reflux disease) Status: Chronic (6) H/O polymyalgia rheumatica Status: Chronic (7) History of palpitations Status: Chronic (8) History of syncope Status: Chronic (9) Hypertension Status: Chronic (10) Hypothyroidism Status: Chronic (11) Osteoporosis Status: Chronic (12) Paroxysmal tachycardia Permanent Comment: Cardiac Zio event monitor captured a 10 beat trina of non sustained VT and several brief SVT episodes Status: Chronic (13) Pulmonary embolism Status: Resolved Procedures: CT HEAD: No acute intracranial findings. CXR: No acute cardiopulmonary findings. CT OF CERVICAL SPINE: 1. No acute fractures or traumatic subluxations identified 2. Mild degenerative changes 3. Incidentally noted aberrant right subclavian artery CERVICAL SPINE MRI: 1. The cervical spinal cord is normal in morphology and signal intensity. 2. No acute abnormality is seen. 3. Cervical spondylosis as above. See discussion for detailed level by level analysis. Consultations: ORTHOPEDICS PAIN MANAGEMENT Medication Reconciliation New Medications: Methylprednisolone (Medrol Dosepak) 4 Mg Abdirahman 1 PKT PO UD for 6 Days, #1 PKT Changed Medications: Tramadol (Ultram) 50 Mg Tab 50 MG PO TID PRN for Pain, #30 TAB (Changed from: HS) Continued Medications: Calcium Carbonate-Cholecalcife (Caltrate 600+D) 1 Tab Tab 1 TABLET PO DAILY Diclofenac Sodium (Topical) (Voltaren 1% Top Gel) 1 % Gel 2 GM EXT QID PRN for Pain Levothyroxine Sodium (Synthroid) 75 Mcg Tab 75 MCG PO DAILY, TAB Lisinopril (Lisinopril) 20 Mg Tab 20 MG PO BID Metoprolol Succinate (Metoprolol Succinate ER) 100 Mg Tabcr 100 MG PO QPM Take extra dose for very rapid heart beats. Multiple Vitamins W/ Minerals (Centrum Silver) 1 Chw Chw 1 TABLET PO DAILY Nitroglycerin (Nitrostat) 0.4 Mg Sub 0.4 MG UT UD PRN for Chest Pain, BTL Omeprazole (Prilosec) 20 Mg Capcr 20 MG PO HS, CAP Rosuvastatin Calcium (Crestor) 20 Mg Tab 20 MG PO QPM, TAB Warfarin Sodium (Coumadin) 5 Mg Tab 5 MG PO 2XWK, TAB Saturday and Saturday Warfarin Sodium (Warfarin Sodium) 5 Mg Tab 2.5 MG PO 5XWK Saturday, Saturday, Saturday, , Saturday Admission Information HPI (per Admitting provider): This is an 82 year old female with PMH of hypertension, aortic stenosis, history of paroxysmal tachycardia, history of PE on Coumadin, dyslipidemia, hypothyroidism, and other problems listed below who presents to the ED with neck pain. Patient states pain started 2 months ago but worsened in severity last night. There was no injury/ trauma. Patient was seen by PCP Dr. Parham had c -spine x-ray and was dx with arthritis. Since that time she was treated with 3 short courses of prednisone. Patient states pain improved during prednisone courses but returned after stopping the medication. Last course ended 4 days ago. Pt was also taking Tramadol 50 mg HS which she states did not help. Last night patient was unable to sleep due to severe pain rated 10/10. She describes pain as ache in the cervical spinal area with radiation to the top of her head. Pain worsens with rotating the neck. In the ER patient was treated with tramadol and IV Decadron. Pain is now improved but still uncomfortable with movement. Patient reports vomiting x 1 earlier today. Nausea resolved with Zofran and pt wishes to eat. Pt bruises easily but denies abnormal bleeding. Denies fever, chills, photophobia, focal numbness or weakness, cough, SOB, chest pain, abdominal pain, bowel or bladder changes. Pt denies prior hx of neck pain. No missed dose of antihypertensives. Physical Exam (per Admitting): General Appearance: WD/WN, no apparent distress, + pertinent finding ( pleasant alert elderly female, lying in bed, not in distress, daughters at bedside) Head: normocephalic, atraumatic Eyes: normal inspection, PERRL, EOMI, sclerae normal ENT: hearing grossly normal, pharynx normal Neck: supple, trachea midline, + pertinent finding (no point tenderness of c -spine. + left cervical paraspinal muscle tenderness. + pain with c-spine ROM) Respiratory/Chest: lungs clear, normal breath sounds, no respiratory distress Cardiovascular: regular rate, rhythm, + systolic murmur Abdomen/GI: normal bowel sounds, non tender, soft Back: + pertinent finding (no t-spine or L-spine tenderness) Extremities/Musculoskelatal: no calf tenderness, no pedal edema Neurologic/Psych: catheter builder II-XII nml as tested, normal mood/affect, oriented x 3 , + pertinent finding (no motor or sensory deficit of upper extremities) Skin: normal color, warm/dry, + pertinent finding (few small ecchymotic areas on upper extremities) Hospital Course INTRACTABLE NECK PAIN Secondary to C-spine degenerative disc disease CT head negative; CT c-spine- DDD, MRI c-spine- cervical spondylosis Received tramadol 50 mg and Decadron 10 mg IV in ER improving seen by ortho and pain management discharged on tramadol prn and Medrol dose pack and followup with pain management as out patient. 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 AORTIC STENOSIS Moderate Follows with Dr. Randall DYSLIPIDEMIA Continue statin HYPOTHYROIDISM Continue levothyroxine HISTORY OF PE/ DVT PROPHYLAXIS On Coumadin, INR therapeutic f/u Coumadin clinic discharged home Total time spent on discharge = 35MINUTES This includes examination of the patient, discharge planning, medication reconciliation, and communication with other providers. Discharge Instructions Discharge Instructions Date of Service Apr 16, 2017. Admission Reason for Admission: Neck Pain Discharge Discharge Diagnosis / Problem: NECK PAIN Discharge Goals Goal(s): Decrease discomfort, Improve function Activity Recommendations Activity Limitations: resume your previous activity . Instructions / Follow-Up Instructions / Follow-Up FOLLOWUP WITH FAMILY DOCTOR IN ONE WEEK FOLLOWUP WITH PAIN MANAGEMENT WIN WINTERS PA-C IN 1-2 WEEKS( [facility] [address], [address], [place] [address] ) FOLLOWUP WITH COUMADIN CLINIC FOR COUMADIN DOSING. Current Hospital Diet Patient's current hospital diet: AHA Diet (Heart Healthy) Discharge Diet Recommended Diet: AHA Diet (Heart Healthy) Pending Studies Studies pending at discharge: no Medical Emergencies . Who to Call and When: Medical Emergencies: If at any time you feel your situation is an emergency, please call 911 immediately. . Non-Emergent Contact Non-Emergency issues call your: Primary Care Provider . . "Provider Documentation" section prepared by Nav Bennett. . VTE Core Measure Inpt VTE Proph given/why not?: Warfarin (Coumadin)
[2017-04-16] MEDS ORDERED: METOPROLOL SUCC 50MG EXT REL TAB PO SCH (21:00)
[2017-04-16] MEDS ORDERED: ROSUVASTATIN CALCIUM 20 MG TAB PO SCH (21:00)
[2017-04-16] MEDS ORDERED: PANTOprazole SOD 40 MG TAB PO SCH (21:00)
== END 2017-04-16 15:00 | disposition home or self-care (01) ==
LOC: EDBD 12:17 → C.EDA 12:18 → C.MS2W 17:47 → ENRESERV 18:16
PROVIDERS: ADMIT Internal Medicine; ATTEND Internal Medicine
DX: M50.30 Other cervical disc degeneration, unspecified cervical region (principal); M47.812 Spondylosis without myelopathy or radiculopathy, cervical region; M54.81 Occipital neuralgia; I35.0 Nonrheumatic aortic (valve) stenosis; K21.9 Gastro-esophageal reflux disease without esophagitis; M19.011 Primary osteoarthritis, right shoulder; M19.012 Primary osteoarthritis, left shoulder; E78.5 Hyperlipidemia, unspecified; M35.3 Polymyalgia rheumatica; I10 Essential (primary) hypertension; E03.9 Hypothyroidism, unspecified; M81.0 Age-related osteoporosis without current pathological fracture; Z86.711 Personal history of pulmonary embolism; Z79.01 Long term (current) use of anticoagulants; Z82.49 Family history of ischemic heart disease and other diseases of the circulatory system

== ENCOUNTER 2017-06-08 11:50 | Emergency (ER) | payer OTHER ==
[~2017-06-08] VITALS: Ht 157.5 cm; Wt 68.6 kg
[~2017-06-08 11:50] MED LIST changes: -ACET-1487 PO; -ASPI325T45 PO; -CYAN10004 PO; +DICL1GEL12 EXT; -FLVHFA220 INH; +LEVO75TA PO; -LISI40TA PO; +LSN20 PO; +METH4PAK PO; +TRAM-10 PO
[2017-06-08 12:00] VITALS: TEMP 36.4
[2017-06-08] MEDS ORDERED: WARF5TAB90 PO (12:07)
[2017-06-08] MEDS ORDERED: PRED10TA PO (12:07)
[2017-06-08] MEDS ORDERED: TRAM-10 PO (12:07)
[2017-06-08] MEDS ORDERED: ONDANSETRON INJ 2 MG/ML 2 ML VIAL IV STA (12:38)
[2017-06-08] MEDS ORDERED: SODIUM CHLORIDE 0.9% 1000ML 1,000 ML IV STA (12:38)
[2017-06-08] MEDS ORDERED: LORAZEPAM 2 MG/ML 1 ML VIAL IV STA (12:43)
[2017-06-08] MEDS ORDERED: ACETAMINOPHEN IV 100 ML IV STA (12:43)
[2017-06-08 12:57] VITALS: O2SAT 90
[2017-06-08 12:58] VITALS: Ht 157.5 cm; Wt 68.6 kg
[2017-06-08 13:14] LABS: BASO % 0.5 %; BASO ABS # 0.04 K/uL (0-0.2); COMPLETE YES; EOS % 3.1 %; HEMATOCRIT 38.5 % (37-47); IG% 0.1 %; LYMPH % 41.5 %; LYMPH ABS # 3.23 K/uL (1.2-3.4); MEAN CELL VOLUME 89.7 fL (80-100); MEAN CORPUSCULAR HEMOGLOBIN 29.6 pg (25-34); MEAN PLATELET VOLUME 9.5 fL (7.4-10.4); MONO % 9.6 %; NEUT % 45.2 %; PLATELET COUNT 291 K/uL (130-400); RED BLOOD COUNT 4.29 M/uL (4.2-5.4); WHITE BLOOD COUNT 7.79 K/uL (4.8-10.8)
[2017-06-08 13:21] LABS: INR 2.3 (0.9-1.1); PARTIAL THROMBOPLASTIN RATIO 1.3
[2017-06-08 13:26] LABS: BUN/CREATININE RATIO 11.7 (10-20); CALCIUM 8.2 mg/dl (8.5-10.1); CREATININE 1.1 mg/dl (0.60-1.20); POTASSIUM 3.4 mmol/L (3.5-5.1)
[2017-06-08 13:35] LABS: CKMB/CK RATIO 2.1 (0-3.0); THYROID STIMULATING HORMONE 0.726 uIu/ml (0.300-4.500)
--- NOTE | 2017-06-08 13:43 | DIAGNOSTIC IMAGING REPORT ---
CHEST ONE VIEW PORTABLE CLINICAL HISTORY: Weakness. COMPARISON STUDY: Chest radiograph April 15, 2017. FINDINGS: There is no pneumothorax or pleural effusion. Biapical opacities suggest scarring. Cardiomediastinal silhouette is stable. Patient is mildly rotated. Arthritis of both glenohumeral joints with elevation of the humeral heads suggests chronic bilateral rotator cuff tears. IMPRESSION: No acute cardiopulmonary findings. Electronically signed by: Salas Chaudhari M.D. 06/08/2017 1:42 PM Dictated Date/Time: 06/08/2017 1:41 PM
[2017-06-08 14:14] LABS: URINE APPEARANCE CLEAR (CLEAR); URINE BILIRUBIN NEG (NEG); URINE COLOR ORANGE; URINE NITRITE NEG (NEG); URINE PH 7.5 (4.5-7.5); URINE SPECIFIC GRAVITY 1.013 (1.000-1.030); UROBILINOGEN NEG (NEG)
--- NOTE | 2017-06-08 14:17 | DIAGNOSTIC IMAGING REPORT ---
CT OF THE HEAD WITHOUT CONTRAST CLINICAL HISTORY: Fall. COMPARISON STUDY: Head CT April 15, 2017. CT DOSE: 929.59 mGy.cm TECHNIQUE: Helical axial images of the head were obtained without IV contrast. Automated exposure control was utilized for the study. A dose lowering technique was utilized adhering to the principles of ALARA. FINDINGS: No acute intracranial hemorrhage, midline shift or mass effect is present. Ventricular system is stable. Basilar cisterns are patent. There are no extra-axial collections. There is no calvarial fracture. IMPRESSION: 1. No acute intracranial findings. 2. No calvarial fracture. Electronically signed by: Salas Chaudhari M.D. 06/08/2017 2:16 PM Dictated Date/Time: 06/08/2017 2:14 PM
--- NOTE | 2017-06-08 14:24 | DIAGNOSTIC IMAGING REPORT ---
CT OF THE CERVICAL SPINE WITHOUT CONTRAST CLINICAL HISTORY: Fall. COMPARISON STUDY: Cervical spine CT an MRI April 15, 2017. TECHNIQUE: Helical axial images of the cervical spine were obtained without IV contrast. Sagittal and coronal reconstructions were viewed. A dose lowering technique was utilized adhering to the principles of ALARA. FINDINGS: There is an acute nondisplaced horizontal fracture through the base of the odontoid. No additional cervical spine fractures are present. Craniocervical junction is intact. There is mild multilevel degenerative disc disease and severe multilevel facet arthrosis. Visualized portions the lung apices demonstrate mild interstitial pulmonary edema. IMPRESSION: Acute nondisplaced fracture at the base of the odontoid consistent with a type II odontoid fracture which is typically considered unstable. Electronically signed by: Salas Chaudhari M.D. 06/08/2017 2:22 PM Dictated Date/Time: 06/08/2017 2:16 PM
[2017-06-08 14:26] LABS: MANUAL MICROSCOPIC REQUIRED? NO; REVIEW REQ? NO
[2017-06-08 18:09] VITALS: BP 150/78; PULSE 68; O2SAT 97
--- NOTE | 2017-06-08 19:52 | EMERGENCY ROOM VISIT NOTE ---
History Report prepared by Justine: Akash Rod Under the Supervision of: Dr. Rancho Lai M.D. First contact with patient: 12:12 Stated Complaint: FALL/NAUSEA/NECK PAIN/ABRASIONS History of Present Illness The patient is an 82 year old female who presents to the Emergency Room with complaints of a sudden falling incident that occurred around 2329 last night. The patient is accompanied by her daughter who states that the patient was standing on a chair by her bed last night when she suddenly fell face first onto her carpet. The patient states that she was able to get up and ambulate down the stairs to the lay down on the couch following the incident. Her daughter states that the patient did not call her until 1000 today asking her to come over. The patient's daughter states that when she arrived, the patient was complaining of nausea, neck pain, right upper extremity tenderness, and right lower extremity tenderness. She states that she noticed a contusion to her right shoulder following the incident. The patient states that the neck pain was so severe that she was not able to lift her head. She denies any current neck tenderness in the ED, but admits to head pain. The patient's daughter states that the patient was in the ED a month ago when she was diagnosed with arthritis and nerve compression in the posterior side of her neck. The patient states that her neck pain was worse than her usual pain due to these conditions. The patient's daughter states that she has an allergy to Morphine, Dilaudid, Minocycline, Dopamine and anti inflammatories. The patient states that she experiences dyspnea when she takes Morphine and a rash when she experiences Dilaudid. She admits that she takes Coumadin and Tramadol four times a day. The patient denies LOC, fevers, chills, diaphoresis, visual changes, chest pain, breathing difficulties, vomiting, abdominal pain, back pain , melena, hematochezia, urinary symptoms, numbness, weakness, lymphadenopathy, rash, or other complaints. Source of History: patient, family (daughter) Onset: 2329 last night Position: other (global) Timing: other (sudden) Modifying Factors (Worsening): movement Associated Symptoms: + headache, + neck pain, + nausea Review of Systems See HPI for pertinent positives and negatives. A total of ten systems were reviewed and were otherwise negative. Past Medical & Surgical Medical Problems: (1) Aortic stenosis (2) Arthritis (3) Dyslipidemia (4) Essential tremor (5) GERD (gastroesophageal reflux disease) (6) H/O polymyalgia rheumatica (7) History of palpitations (8) History of syncope (9) Hypertension (10) Hypothyroidism (11) Osteoporosis (12) Paroxysmal tachycardia (13) Pulmonary embolism Surgical Problems: (1) H/O knee surgery (2) History of cataract surgery (3) S/P section (4) S/p fixation of radius/ulna fracture Family History FH: heart disease SISTER FHx: cancer FHx: gallbladder disease Hypertension Stroke FATHER Social History Smoking Status: Never Smoker Alcohol Use: none Housing Status: lives alone Occupation Status: retired Current/Historical Medications Scheduled Calcium Carbonate-Cholecalcife (Caltrate 600+D), 1 TABLET PO BID Levothyroxine Sodium (Synthroid), 75 MCG PO DAILY Lisinopril (Lisinopril), 20 MG PO BID Metoprolol Succinate (Metoprolol Succinate ER), 100 MG PO QPM Multiple Vitamins W/ Minerals (Centrum Silver), 1 TABLET PO DAILY Omeprazole (Prilosec), 20 MG PO HS Prednisone (Prednisone), 10 MG PO DAILY Rosuvastatin Calcium (Crestor), 20 MG PO QPM Warfarin Sodium (Coumadin), 2.5 MG PO DAILY Scheduled PRN Nitroglycerin (Nitrostat), 0.4 MG UT UD PRN for Chest Pain Tramadol (Ultram), 50 MG PO Q4H PRN for Pain Allergies Coded Allergies: Etodolac (Verified Allergy, Unknown, 04/15/17) Morphine (Verified Allergy, Unknown, ., 04/15/17) NSAIDs (Verified Allergy, Unknown, ITCH, 04/15/17) Hydromorphone (Verified Adverse Reaction, Unknown, DIZZY,NAUSEA, 04/15/17) Physical Exam Vital Signs Date Time Temp Pulse Resp B/P (MAP) Pulse Ox O2 Delivery O2 Flow Rate FiO2 06/08/17 18:09 68 18 150/78 97 06/08/17 16:59 60 06/08/17 16:17 64 16 151/93 95 Room Air 06/08/17 14:39 61 16 186/76 91 Nasal Cannula 2.0 06/08/17 13:30 73 16 193/120 95 Nasal Cannula 2.0 06/08/17 13:00 68 7/29/17 12:57 90 Room Air 06/08/17 12:00 36.4 66 20 217/104 96 Room Air Physical Exam GENERAL: Awake, alert, uncomfortable, anxious appearing, moderate distress HEAD: Normocephalic, Hematoma to right forehead superior to eye. No martinez sign. No raccoon eyes. EYES: Normal conjunctiva. PERRL. EARS: External ears normal. Right TM normal. Left TM normal. NOSE: Atraumatic OROPHARYNX: Lips, tongue, and mucosa unremarkable. No erythema or exudate. NECK: No tracheal deviation or JVD. Posterior midline tenderness. No step offs noted. C spine in place. RESPIRATORY: CTA bilaterally CARDIAC: regular rate, normal rhythm. ABDOMEN: Inspection reveals no abnormalities. Soft, non distended. No tenderness to palpation. No hernias. BACK: No midline step offs or tenderness to palpation. Unremarkable. PELVIS: Stable to rock. SKIN: Normal. LYMPH: No adenopathy. MUSCULOSKELETAL: Upper and lower extremities are atraumatic. Good range of motion without tenderness of entire right lower leg. NEURO: GCS 15. Normal sensorium. No sensory or motor deficits noted. Medical Decision & Procedures ER Provider Diagnostic Interpretation: Radiology results as stated below per my review and radiologist interpretation: CT OF THE HEAD WITHOUT CONTRAST CLINICAL HISTORY: Fall. COMPARISON STUDY: Head CT April 15, 2017. CT DOSE: 929.59 mGy.cm TECHNIQUE: Helical axial images of the head were obtained without IV contrast. Automated exposure control was utilized for the study. A dose lowering technique was utilized adhering to the principles of ALARA. FINDINGS: No acute intracranial hemorrhage, midline shift or mass effect is present. Ventricular system is stable. Basilar cisterns are patent. There are no extra-axial collections. There is no calvarial fracture. IMPRESSION: 1. No acute intracranial findings. 2. No calvarial fracture. Electronically signed by: Salas Chaudhari M.D. 06/08/2017 2:16 PM Dictated Date/Time: 06/08/2017 2:14 PM CHEST ONE VIEW PORTABLE CLINICAL HISTORY: Weakness. COMPARISON STUDY: Chest radiograph April 15, 2017. FINDINGS: There is no pneumothorax or pleural effusion. Biapical opacities suggest scarring. Cardiomediastinal silhouette is stable. Patient is mildly rotated. Arthritis of both glenohumeral joints with elevation of the humeral heads suggests chronic bilateral rotator cuff tears. IMPRESSION: No acute cardiopulmonary findings. Electronically signed by: Salas Chaudhari M.D. 06/08/2017 1:42 PM Dictated Date/Time: 06/08/2017 1:[address] OF THE CERVICAL SPINE WITHOUT CONTRAST CLINICAL HISTORY: Fall. COMPARISON STUDY: Cervical spine CT an MRI April 15, 2017. TECHNIQUE: Helical axial images of the cervical spine were obtained without IV contrast. Sagittal and coronal reconstructions were viewed. A dose lowering technique was utilized adhering to the principles of ALARA. FINDINGS: There is an acute nondisplaced horizontal fracture through the base of the odontoid. No additional cervical spine fractures are present. Craniocervical junction is intact. There is mild multilevel degenerative disc disease and severe multilevel facet arthrosis. Visualized portions the lung apices demonstrate mild interstitial pulmonary edema. IMPRESSION: Acute nondisplaced fracture at the base of the odontoid consistent with a type II odontoid fracture which is typically considered unstable. Electronically signed by: Salas Chaudhari M.D. 06/08/2017 2:22 PM Dictated Date/Time: 06/08/2017 2:16 PM Laboratory Results 06/08/17 11:25 Red Blood Count 4.29, Mean Corpuscular Volume 89.7, Mean Corpuscular Hemoglobin 29.6, Mean Corpuscular Hemoglobin Concent 33.0, Mean Platelet Volume 9.5, Neutrophils (%) (Auto) 45.2, Lymphocytes (%) (Auto) 41.5, Monocytes (%) (Auto) 9.6, Eosinophils (%) (Auto) 3.1, Basophils (%) (Auto) 0.5, Neutrophils # (Auto) 3.52, Lymphocytes # (Auto) 3.23, Monocytes # (Auto) 0.75, Eosinophils # (Auto) 0.24, Basophils # (Auto) 0.04 06/08/17 11:25 Test 06/08/17 11:25 06/08/17 13:05 White Blood Count 7.79 K/uL (4.8-10.8) Red Blood Count 4.29 M/uL (4.2-5.4) Hemoglobin 12.7 g/dL (12.0-16.0) Hematocrit 38.5 % (37-47) Mean Corpuscular Volume 89.7 fL (80-100) Mean Corpuscular Hemoglobin 29.6 pg (25-34) Mean Corpuscular Hemoglobin Concent 33.0 g/dl (32-36) Platelet Count 291 K/uL (130-400) Mean Platelet Volume 9.5 fL (7.4-10.4) Neutrophils (%) (Auto) 45.2 % Lymphocytes (%) (Auto) 41.5 % Monocytes (%) (Auto) 9.6 % Eosinophils (%) (Auto) 3.1 % Basophils (%) (Auto) 0.5 % Neutrophils # (Auto) 3.52 K/uL (1.4-6.5) Lymphocytes # (Auto) 3.23 K/uL (1.2-3.4) Monocytes # (Auto) 0.75 K/uL (0.11-0.59) Eosinophils # (Auto) 0.24 K/uL (0-0.5) Basophils # (Auto) 0.04 K/uL (0-0.2) RDW Standard Deviation 44.7 fL (36.4-46.3) RDW Coefficient of Variation 13.7 % (11.5-14.5) Immature Granulocyte % (Auto) 0.1 % Immature Granulocyte # (Auto) 0.01 K/uL (0.00-0.02) Prothrombin Time 25.0 SECONDS (9.0-12.0) Prothromb Time International Ratio 2.3 (0.9-1.1) Activated Partial Thromboplast Time 32.7 SECONDS (21.0-31.0) Partial Thromboplastin Ratio 1.3 Anion Gap 6.0 mmol/L (3-11) Est Creatinine Clear Calc Drug Dose 35.8 ml/min Estimated GFR () 54.1 Estimated GFR (Non- 46.7 BUN/Creatinine Ratio 11.7 (10-20) Calcium Level 8.2 mg/dl (8.5-10.1) Magnesium Level 2.0 mg/dl (1.8-2.4) Total Bilirubin 0.6 mg/dl (0.2-1) Direct Bilirubin 0.2 mg/dl (0-0.2) Aspartate Amino Transf (AST/SGOT) 22 U/L (15-37) Alanine Aminotransferase (ALT/SGPT) 20 U/L (12-78) Alkaline Phosphatase 59 U/L (45-117) Total Creatine Kinase 73 U/L (26-192) Creatine Kinase MB 1.5 ng/ml (0.5-3.6) Creatine Kinase MB Ratio 2.1 (0-3.0) Total Protein 6.0 gm/dl (6.4-8.2) Albumin 3.4 gm/dl (3.4-5.0) Lipase 141 U/L (73-393) Thyroid Stimulating Hormone (TSH) 0.726 uIu/ml (0.300-4.500) Urine Color ORANGE Urine Appearance CLEAR (CLEAR) Urine pH 7.5 (4.5-7.5) Urine Specific Patterson 1.013 (1.000-1.030) Urine Protein NEG (NEG) Urine Glucose (UA) NEG (NEG) Urine Ketones NEG (NEG) Urine Occult Blood NEG (NEG) Urine Nitrite NEG (NEG) Urine Bilirubin NEG (NEG) Urine Urobilinogen NEG (NEG) Urine Leukocyte Esterase NEG (NEG) Laboratory results reviewed by me Medications Administered Medications (Trade) Dose Ordered Sig/Sissy Route Start Time Stop Time Status Last Admin Dose Admin Sodium Chloride 1,000 ml @ 125 mls/hr Q8H STAT IV 06/08/17 12:38 06/08/17 18:30 DC 06/08/17 13:04 125 MLS/HR Ondansetron HCl (Zofran Inj) 4 mg NOW STAT IV 06/08/17 12:38 06/08/17 12:41 DC 06/08/17 13:04 4 MG Acetaminophen 100 ml @ 400 mls/hr NOW STAT IV 06/08/17 12:43 06/08/17 12:57 DC 06/08/17 13:13 400 MLS/HR Lorazepam (Ativan Inj) 0.5 mg NOW STAT IV 06/08/17 12:43 06/08/17 12:45 DC 06/08/17 13:05 0.5 MG ECG Indication: other (fall) Rate (beats per minute): 68 Rhythm: normal sinus Findings: no acute ischemic change, no ectopy, other (LVH, ) ED Course 1238: The patient was evaluated in room A10. A complete history and physical exam was performed. 1238. Zofran Injection 4 mg IV, Sodium Chloride 1000 ml @ 125 mls/hr IV. 1243: Ativan Injection 0.5 mg IV, Acetaminophen 100 ml @ 400 mls/hr IV. 1443: I discussed the patient's case with Dr. Maguire, Orthopedics. He advises to give the patient a [place]-J Collar and pain medication. He states he will see the patient in the office and the patient will most likely no require surgery. 1445: I reevaluated the patient and she is doing well. I will give the patient dinner and see if she can ambulate later to be discharged home. 1728: I reevaluated the patient. She was able to eat and ambulate. The family and patient felt comfortable with going home. Discussed results and discharge instructions: She verbalized understanding and agreement. The patient is ready for discharge. Medical Decision Triage Nursing notes reviewed. The patient's presentation and history were concerning for a fall. Etiologies such as metabolic, fracture, dislocation, soft tissue injury, intra- abdominal, intrathoracic, intracranial, cardiac, infection as well as other pathologies were entertained. The patient was evaluated. She is placed in a cervical collar. She had hematoma on the forehead. She underwent CT imaging of the head and neck. Blood work was obtained. Urinalysis was unremarkable. Blood work is unremarkable. Head CT didn't reveal any evidence of intracranial injury. The patient was found to have a type II odontoid fracture on cervical imaging. She was treated with IV Tylenol, fluids and Ativan. She initially was very anxious about the situation but on reassessment she was doing much better. I did consult with orthopedic spine. Dr. Maguire recommended the [place] J collar and conservative management. He would like to see the patient in the office. The patient and daughter feel comfortable with this. The patient will be with family members. She was given dinner and did well with this. She was ambulated and had no difficulty. I did encourage her to come back in March department if she has any other issues develop. I did go over precautions for neurologic signs and symptoms. The patient and daughter felt comfortable.I gave my usual and customary discussion regarding this issue. By the evaluation outlined above other emergent etiologies such as those listed in the differential, as well as others, were deemed relatively unlikely. The patient was educated about the findings as listed above. All questions were answered and the patient was pleased with the treatment. Return instructions were outlined and the patient was discharged in stable condition. The patient was referred to orthopedic spine and her primary physician for follow-up for a recheck of the current condition. Medication Reconcilliation Current Medication List: was personally reviewed by me Blood Pressure Screening Patient's blood pressure: Elevated blood pressure Blood pressure disposition: Referred to PCP Impression Primary Impression: C2 cervical fracture Additional Impression: Closed head injury Scribe Attestation The scribe's documentation has been prepared under my direction and personally reviewed by me in its entirety. I confirm that the note above accurately reflects all work, treatment, procedures, and medical decision making performed by me. Departure Information Dispostion Home / Self-Care Referrals Moreno Parham M.D. (PCP) Supa Maguire D.O. Forms HOME CARE DOCUMENTATION FORM, IMPORTANT VISIT INFORMATION Additional Instructions Maintain the C[place] J cervical collar in place until follow-up with Dr. Maguire. No sudden movements with your neck. DO NOT drive, drink alcohol, operate machinery, or perform dangerous activities today. You were given medications in the ER that can affect your ability to safely function or operate a vehicle. Continue your tramadol. Acetaminophen(Tylenol) may be used for fever or pain. Use 1000mg every six hours as needed. Avoid using more than 4000mg in a 24 hour period. Rest and avoid heavy lifting . Continue current medications. Return to the ER immediately for any numbness, tingling, severe pain, loss of control of your bowels or bladder, inability to walk, or as needed. Follow up with your primary care physician within 2-3 days for a recheck of your current condition. Call Dr. Maguire's office on Saturday for a follow-up about the neck fracture. 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 Problem Qualifiers
== END 2017-06-08 18:00 | disposition home or self-care (01) ==
LOC: C.EDA 11:50 → EDBD 11:50 → C.EDA 18:00
DX: S12.112A Nondisplaced Type II dens fracture, initial encounter for closed fracture (principal); S09.90XA Unspecified injury of head, initial encounter; R11.0 Nausea; R51 Headache; M54.2 Cervicalgia; E78.5 Hyperlipidemia, unspecified; M19.90 Unspecified osteoarthritis, unspecified site; R25.1 Tremor, unspecified; E03.9 Hypothyroidism, unspecified; I10 Essential (primary) hypertension; M81.0 Age-related osteoporosis without current pathological fracture; Z79.01 Long term (current) use of anticoagulants; Z79.899 Other long term (current) drug therapy; Z86.711 Personal history of pulmonary embolism; Z86.79 Personal history of other diseases of the circulatory system; Z82.0 Family history of epilepsy and other diseases of the nervous system; Z82.3 Family history of stroke; Z82.49 Family history of ischemic heart disease and other diseases of the circulatory system; Z83.3 Family history of diabetes mellitus; Z83.79 Family history of other diseases of the digestive system; W19.XXXA Unspecified fall, initial encounter; Y92.003 Bedroom of unspecified non-institutional (private) residence as the place of occurrence of the external cause

== ENCOUNTER → 2017-11-13 | Outpatient (CLI) | payer OTHER ==
[~2017-11-13] MED LIST changes: +CHOL100010 PO; -DICL1GEL12 EXT; +LISI-726 PO; -LSN20 PO; -METH4PAK PO; +PRED-441 PO; +PRED10TA PO; -WARF-246 PO
--- NOTE | 2017-11-13 10:22 | DIAGNOSTIC IMAGING REPORT ---
DOUBLE CONTRAST BARIUM ESOPHAGRAM CLINICAL HISTORY: Dysphagia. COMPARISON STUDY: No priors.. TECHNIQUE: A standard air contrast barium esophagram is performed. Multiple spot images of the esophagus are acquired both upright and prone. FINDINGS: The patient swallowed barium without difficulty. The mucosal pattern is normal. Dysmotility is seen in the mid to distal third. There is no evidence of intrinsic or extrinsic mass lesion. No aspiration was seen. The gastroesophageal junction only partially distended and the barium pill became lodged just above the gastroesophageal junction. Gastroesophageal reflux was observed. Fluoroscopy time: 2.2 minutes. Fluoroscopic images: 23 IMPRESSION: 1. There is narrowing just above the gastroesophageal junction which failed to fully open. The barium pill became lodged at this level, possibly representing stricture. 2. Mild esophageal dysmotility. 3. Gastroesophageal reflux was observed. Electronically signed by: Robinson Villa M.D. 11/13/2017 10:21 AM Dictated Date/Time: 11/13/2017 10:08 AM
== END | disposition home or self-care (01) ==
LOC: C.RAD 09:26
PROVIDERS: ATTEND Internal Medicine
DX: R13.10 Dysphagia, unspecified (principal); K21.9 Gastro-esophageal reflux disease without esophagitis; M06.9 Rheumatoid arthritis, unspecified

== ENCOUNTER 2018-03-25 12:33 | Inpatient (IN) | payer OTHER ==
[~2018-03-25] VITALS: Ht 157.5 cm; Wt 65.8 kg
[~2018-03-25 12:33] MED LIST changes: -CHOL100010 PO; -LISI-726 PO; +LSN20 PO; -PRED-441 PO
[2018-03-25] MEDS ORDERED: SODIUM CHLORIDE 0.9% 500ML 500 ML IV STA (13:10)
[2018-03-25] MEDS ORDERED: ONDANSETRON INJ 2 MG/ML 2 ML VIAL IV STA (13:10)
[2018-03-25 13:19] LABS: BASO % 0.3 %; BASO ABS # 0.02 K/uL (0-0.2); EOS % 1.5 %; EOS ABS # 0.09 K/uL (0-0.5); HEMOGLOBIN 13.3 g/dL (12.0-16.0); IG# 0.01 K/uL (0.00-0.02); LYMPH % 19.7 %; LYMPH ABS # 1.15 K/uL (1.2-3.4); MEAN CELL VOLUME 85.3 fL (80-100); MEAN CORPUSCULAR HEMOGLOBIN 29.1 pg (25-34); MEAN CORPUSCULAR HGB CONC 34.1 g/dl (32-36); MEAN PLATELET VOLUME 9.3 fL (7.4-10.4); MONO % 13.2 %; MONO ABS # 0.77 K/uL (0.11-0.59); NEUT % 65.1 %; NEUT ABS # 3.81 K/uL (1.4-6.5); PLATELET COUNT 277 K/uL (130-400); RED CELL DISTRIBUTION WIDTH SD 43.6 fL (36.4-46.3); WHITE BLOOD COUNT 5.85 K/uL (4.8-10.8)
[2018-03-25] MEDS ORDERED: PRED-441 PO (13:23)
[2018-03-25] MEDS ORDERED: CHOL100010 PO (13:23)
[2018-03-25] MEDS ORDERED: WARF5TAB90 PO ×2 (13:23)
[2018-03-25] MEDS ORDERED: OPTIRAY 320 IV PRN (13:30)
[2018-03-25 13:31] LABS: ALT/SGPT 15 U/L (12-78); AST/SGOT 15 U/L (15-37); BLOOD UREA NITROGEN 15 mg/dl (7-18); CALCIUM 8.1 mg/dl (8.5-10.1); CARBON DIOXIDE 21 mmol/L (21-32); CREATININE 1.43 mg/dl (0.60-1.20); GLUCOSE 101 mg/dl (70-99); LIPASE 128 U/L (73-393); POTASSIUM 3.1 mmol/L (3.5-5.1); SODIUM 141 mmol/L (136-145)
[2018-03-25 13:34] LABS: ALKALINE PHOSPHATASE 80 U/L (45-117); TOTAL PROTEIN 6.8 gm/dl (6.4-8.2)
--- NOTE | 2018-03-25 15:47 | DIAGNOSTIC IMAGING REPORT ---
ABD/PELVIS ORAL CONT ONLY CLINICAL HISTORY: 83 years-old Female presenting with eval for colitis, diarrhea, weakness. TECHNIQUE: Multidetector CT of the abdomen and pelvis was performed after the administration of oral contrast only. IV contrast: None. A dose lowering technique was used consistent with the principles of ALARA (as low as reasonably achievable). COMPARISON: None. CT DOSE (mGy.cm): The estimated cumulative dose is 274.83 mGy.cm. FINDINGS: Shoes Hand Sewer topogram: Diffuse gaseous distention of bowel. Lung bases: Lungs and pleural spaces clear. Mitral annular calcification. Normal heart size. No pericardial or pleural effusion. Liver: Normal density. Lobular hypodensity in the anterior left hepatic lobe, indeterminant but likely hepatic cyst. Biliary: Mild biliary ductal prominence likely a reservoir effect in the post cholecystectomy state. Gallbladder surgically absent. Pancreas: Moderate parenchymal atrophy. Spleen: Normal noncontrast appearance. Adrenal glands: Normal noncontrast appearance. Kidneys and ureters: Normal noncontrast appearance. No nephrolithiasis. No hydronephrosis. Normal ureters. Bladder: Normal noncontrast appearance. Pelvic organs: Normal noncontrast appearance. Bowel: Fluid noted in the rectum. No stool burden. Oral contrast as transited to the descending colon. The appendix is normal. Diffuse gaseous distention of small bowel without evidence of obstruction. Small bowel tapers smoothly upstream to a normal caliber jejunum. Downstream small bowel tapers to a less dilated caliber somewhat abruptly in the right lower quadrant (series 3 image 290) though this is not convincing for obstruction. No small bowel wall thickening or pericolonic or perienteric inflammatory change. Distention of the stomach without evidence of outlet obstruction. Peritoneal cavity: No free fluid or intraperitoneal gas. Lymph nodes: No gross lymphadenopathy allowing for noncontrast technique. Vasculature: Atherosclerosis of the normal caliber abdominal aorta. Abdominal wall: Diastasis of the rectus abdominis. Musculoskeletal: Degenerative changes of the spine. Degenerative changes of the pubic symphysis. IMPRESSION: 1. Diffuse distention of small bowel without convincing evidence of obstruction or inflammatory change. This is nonspecific and could suggest ileus. 2. No other evidence of acute intra-abdominal pathology. Electronically signed by: Samson English M.D. 03/25/2018 3:46 PM Dictated Date/Time: 03/25/2018 3:39 PM
--- NOTE | 2018-03-25 16:59 | DIAGNOSTIC IMAGING REPORT ---
CHEST 2 VIEWS ROUTINE CLINICAL HISTORY: 83 years-old Female presenting with cp, diarrhea, weakness, eval for pna. TECHNIQUE: PA and lateral views of the chest were obtained. COMPARISON: 06/08/2017. FINDINGS: Atherosclerosis of aortic arch. Cardiac silhouette mildly enlarged. Lungs and pleural spaces clear. Elevation of the right humeral head may indicate chronic rotator cuff tear. Upper abdomen normal. IMPRESSION: 1. Mild cardiomegaly. No other convincing evidence of acute cardiopulmonary disease. Electronically signed by: Samson English M.D. 03/25/2018 4:58 PM Dictated Date/Time: 03/25/2018 4:56 PM
--- NOTE | 2018-03-25 17:14 | EMERGENCY ROOM VISIT NOTE ---
History Report prepared by Justine: Aaron Sharpe Under the Supervision of: Dr. Jeremias Mckeon M.D. First contact with patient: 12:58 Chief Complaint: DIARRHEA Stated Complaint: DIARRHEA, WEAKNESS, CAN'T KEEP ANYTHING HUMA Nursing Triage Summary: pt reports she has had diarrhea since saturday. pt reports some nausea. pt reports generalized abd pain. pt denies vomitting. pt reports her son is also having the same symptoms and her. History of Present Illness The patient is an 83 year old female who presents to the Emergency Room with complaints of a persistent illness that started 3 days ago. Per the patient's family, the patient has been complaining of being nauseous everyday over the past 2 weeks. The patient states that she started having diarrhea and abdominal pain 3 days ago, and they both started around the same time. She says that her abdominal pain is across her lower abdomen, but can radiate up a little higher as well. She states that the pain has been "pretty bad". She notes that she has been having episodes of diarrhea 5 to 6 times per day, and the diarrhea is loose and watery. The patient says that her stools are not black or bloody. She states that anytime she eats she feels the need to have another episode. The patient notes that she feels better after going to the bathroom. She adds that last night she had a short episode of chest pain that was sharp. She had no shortness of breath during the episode. The patient says that she has not had any chest pain today. Per the patient's family, the patient has been seen here several times for chest pain, and the patient has a leaky valve that she is on medicine for. The patient has no heart attack history however. The patient notes that she has been feeling weak today, and per the patient's family, the patient has not been out of bed today. The patient denies any fevers or vomiting. The patient has been on Prednisone the past few days for arthritis. She notes a history of hypertension, and did take her medications today. Any recent foreign travel or antibiotic use were denied. Source of History: patient, family Onset: 3 days ago Position: other (global) Symptom Intensity: 5/6 diarrhea episodes per day Quality: other (illness) Timing: other (persistent) Associated Symptoms: + chest pain (last night), + nausea, + abdominal pain, + diarrhea, + weakness, No vomiting, No melena, No hematochezia Review of Systems See HPI for pertinent positives & negatives. A total of 10 systems reviewed and were otherwise negative. Past Medical & Surgical Medical Problems: (1) Aortic stenosis (2) Arthritis (3) Chest pain (4) Diarrhea (5) Dyslipidemia (6) Essential tremor (7) GERD (gastroesophageal reflux disease) (8) H/O polymyalgia rheumatica (9) History of palpitations (10) History of syncope (11) Hypertension (12) Hypothyroidism (13) Osteoporosis (14) Paroxysmal tachycardia (15) Pulmonary embolism Surgical Problems: (1) H/O knee surgery (2) History of cataract surgery (3) S/P section (4) S/p fixation of radius/ulna fracture Family History FH: heart disease SISTER FHx: cancer FHx: gallbladder disease Hypertension Stroke FATHER Social History Smoking Status: Never Smoker Alcohol Use: none Housing Status: lives alone Occupation Status: retired Current/Historical Medications Scheduled Cholecalciferol (Vitamin D), 1,000 UNITS PO BID Levothyroxine Sodium (Synthroid), 75 MCG PO DAILY Lisinopril (Lisinopril), 20 MG PO BID Metoprolol Succinate (Metoprolol Succinate ER), 100 MG PO QPM Omeprazole (Prilosec), 20 MG PO BID Prednisone (Levi), 10 MG PO DAILY Rosuvastatin Calcium (Crestor), 20 MG PO QPM Warfarin Sodium (Coumadin), 2.5 MG PO [id number] Warfarin Sodium (Coumadin), 5 MG PO WK Scheduled PRN Nitroglycerin (Nitrostat), 0.4 MG UT UD PRN for Chest Pain Tramadol (Ultram), 50 MG PO Q4H PRN for Pain Allergies Coded Allergies: Etodolac (Verified Allergy, Unknown, 03/25/18) Morphine (Verified Allergy, Unknown, ., 03/25/18) NSAIDs (Verified Allergy, Unknown, ITCH, 03/25/18) Hydromorphone (Verified Adverse Reaction, Unknown, DIZZY,NAUSEA, 03/25/18) Physical Exam Vital Signs Date Time Temp Pulse Resp B/P (MAP) Pulse Ox O2 Delivery O2 Flow Rate FiO2 03/25/18 17:09 61 03/25/18 17:07 73 19 216/96 03/25/18 16:31 190/74 03/25/18 16:29 60 12 97 03/25/18 16:01 191/109 03/25/18 15:59 60 14 97 03/25/18 15:53 68 20 186/76 99 Room Air 03/25/18 15:05 59 24 98 03/25/18 15:02 203/80 03/25/18 14:35 55 18 99 03/25/18 14:31 152/72 03/25/18 14:05 59 17 100 03/25/18 14:03 61 20 162/58 98 Room Air 03/25/18 13:20 68 18 147/77 99 Room Air 03/25/18 12:54 67 03/25/18 12:54 97 Room Air 03/25/18 12:40 36.8 73 18 143/84 96 Physical Exam Constitutional: Vital signs reviewed. Eyes: Pupils are equal round reactive to light. Conjunctiva are noninjected. ENT: Pharynx is clear without erythema or exudate. Mucous membranes are dry. Neck supple without meningeal signs. Respiratory: Clear to auscultation bilaterally. Breath sounds are equal bilaterally. Cardiovascular: Regular rate and rhythm. Vibratory early systolic murmur over the left 2nd ICS. No rubs or gallops. GI: Soft, nondistended and nontender. Bowel sounds are present. Musculoskeletal: No peripheral edema. No lower extremity tenderness. Integumentary: No cyanosis. Neurological: The patient is awake and alert. No focal deficits. Psychiatric: Normal affect. Medical Decision & Procedures ER Provider Diagnostic Interpretation: Radiology results as stated below per my review and the radiologist's interpretation: ABD/PELVIS ORAL CONT ONLY CLINICAL HISTORY: 83 years-old Female presenting with eval for colitis, diarrhea, weakness. TECHNIQUE: Multidetector CT of the abdomen and pelvis was performed after the administration of oral contrast only. IV contrast: None. A dose lowering technique was used consistent with the principles of ALARA (as low as reasonably achievable). COMPARISON: None. CT DOSE (mGy.cm): The estimated cumulative dose is 274.83 mGy.cm. FINDINGS: Mineral Surveyor topogram: Diffuse gaseous distention of bowel. Lung bases: Lungs and pleural spaces clear. Mitral annular calcification. Normal heart size. No pericardial or pleural effusion. Liver: Normal density. Lobular hypodensity in the anterior left hepatic lobe, indeterminant but likely hepatic cyst. Biliary: Mild biliary ductal prominence likely a reservoir effect in the post cholecystectomy state. Gallbladder surgically absent. Pancreas: Moderate parenchymal atrophy. Spleen: Normal noncontrast appearance. Adrenal glands: Normal noncontrast appearance. Kidneys and ureters: Normal noncontrast appearance. No nephrolithiasis. No hydronephrosis. Normal ureters. Bladder: Normal noncontrast appearance. Pelvic organs: Normal noncontrast appearance. Bowel: Fluid noted in the rectum. No stool burden. Oral contrast as transited to the descending colon. The appendix is normal. Diffuse gaseous distention of small bowel without evidence of obstruction. Small bowel tapers smoothly upstream to a normal caliber jejunum. Downstream small bowel tapers to a less dilated caliber somewhat abruptly in the right lower quadrant (series 3 image 290) though this is not convincing for obstruction. No small bowel wall thickening or pericolonic or perienteric inflammatory change. Distention of the stomach without evidence of outlet obstruction. Peritoneal cavity: No free fluid or intraperitoneal gas. Lymph nodes: No gross lymphadenopathy allowing for noncontrast technique. Vasculature: Atherosclerosis of the normal caliber abdominal aorta. Abdominal wall: Diastasis of the rectus abdominis. Musculoskeletal: Degenerative changes of the spine. Degenerative changes of the pubic symphysis. IMPRESSION: 1. Diffuse distention of small bowel without convincing evidence of obstruction or inflammatory change. This is nonspecific and could suggest ileus. 2. No other evidence of acute intra-abdominal pathology. Electronically signed by: Samson English M.D. 03/25/2018 3:46 PM Dictated Date/Time: 03/25/2018 3:39 PM CHEST 2 VIEWS ROUTINE CLINICAL HISTORY: 83 years-old Female presenting with cp, diarrhea, weakness, eval for pna. TECHNIQUE: PA and lateral views of the chest were obtained. COMPARISON: 06/08/2017. FINDINGS: Atherosclerosis of aortic arch. Cardiac silhouette mildly enlarged. Lungs and pleural spaces clear. Elevation of the right humeral head may indicate chronic rotator cuff tear. Upper abdomen normal. IMPRESSION: 1. Mild cardiomegaly. No other convincing evidence of acute cardiopulmonary disease. Electronically signed by: Samson English M.D. 03/25/2018 4:58 PM Dictated Date/Time: 03/25/2018 4:56 PM Laboratory Results 03/25/18 12:55 Red Blood Count 4.57, Mean Corpuscular Volume 85.3, Mean Corpuscular Hemoglobin 29.1, Mean Corpuscular Hemoglobin Concent 34.1, Mean Platelet Volume 9.3, Neutrophils (%) (Auto) 65.1, Lymphocytes (%) (Auto) 19.7, Monocytes (%) (Auto) 13.2, Eosinophils (%) (Auto) 1.5, Basophils (%) (Auto) 0.3, Neutrophils # (Auto ) 3.81, Lymphocytes # (Auto) 1.15, Monocytes # (Auto) 0.77, Eosinophils # (Auto ) 0.09, Basophils # (Auto) 0.02 03/25/18 12:55 Test 03/25/18 12:55 03/25/18 13:17 03/25/18 15:27 White Blood Count 5.85 K/uL (4.8-10.8) Red Blood Count 4.57 M/uL (4.2-5.4) Hemoglobin 13.3 g/dL (12.0-16.0) Hematocrit 39.0 % (37-47) Mean Corpuscular Volume 85.3 fL (80-100) Mean Corpuscular Hemoglobin 29.1 pg (25-34) Mean Corpuscular Hemoglobin Concent 34.1 g/dl (32-36) Platelet Count 277 K/uL (130-400) Mean Platelet Volume 9.3 fL (7.4-10.4) Neutrophils (%) (Auto) 65.1 % Lymphocytes (%) (Auto) 19.7 % Monocytes (%) (Auto) 13.2 % Eosinophils (%) (Auto) 1.5 % Basophils (%) (Auto) 0.3 % Neutrophils # (Auto) 3.81 K/uL (1.4-6.5) Lymphocytes # (Auto) 1.15 K/uL (1.2-3.4) Monocytes # (Auto) 0.77 K/uL (0.11-0.59) Eosinophils # (Auto) 0.09 K/uL (0-0.5) Basophils # (Auto) 0.02 K/uL (0-0.2) RDW Standard Deviation 43.6 fL (36.4-46.3) RDW Coefficient of Variation 14.0 % (11.5-14.5) Immature Granulocyte % (Auto) 0.2 % Immature Granulocyte # (Auto) 0.01 K/uL (0.00-0.02) Prothrombin Time 30.1 SECONDS (9.0-12.0) Prothromb Time International Ratio 2.9 (0.9-1.1) Anion Gap 8.0 mmol/L (3-11) Estimated GFR () 39.2 Estimated GFR (Non- 33.8 BUN/Creatinine Ratio 10.8 (10-20) Calcium Level 8.1 mg/dl (8.5-10.1) Magnesium Level 1.8 mg/dl (1.8-2.4) Total Bilirubin 0.6 mg/dl (0.2-1) Direct Bilirubin 0.1 mg/dl (0-0.2) Aspartate Amino Transf (AST/SGOT) 15 U/L (15-37) Alanine Aminotransferase (ALT/SGPT) 15 U/L (12-78) Alkaline Phosphatase 80 U/L (45-117) Total Protein 6.8 gm/dl (6.4-8.2) Albumin 3.0 gm/dl (3.4-5.0) Lipase 128 U/L (73-393) Bedside Troponin I < 0.030 ng/ml (0-0.045) Urine Color YELLOW Urine Appearance CLEAR (CLEAR) Urine pH 6.5 (4.5-7.5) Urine Specific [place] 1.008 (1.000-1.030) Urine Protein NEG (NEG) Urine Glucose (UA) NEG (NEG) Urine Ketones NEG (NEG) Urine Occult Blood NEG (NEG) Urine Nitrite NEG (NEG) Urine Bilirubin NEG (NEG) Urine Urobilinogen NEG (NEG) Urine Leukocyte Esterase NEG (NEG) Laboratory results as reviewed by me. Medications Administered Medications (Trade) Dose Ordered Sig/Sissy Route Start Time Stop Time Status Last Admin Dose Admin Ondansetron HCl (Zofran Inj) 4 mg NOW STAT IV 03/25/18 13:10 03/25/18 13:13 DC 03/25/18 13:19 4 MG Sodium Chloride 500 ml @ 999 mls/hr Q31M STAT IV 03/25/18 13:10 03/25/18 13:40 DC 03/25/18 13:19 999 MLS/HR ECG Per My Interpretation Indication: chest pain Rate (beats per minute): 61 Rhythm: normal sinus Findings: ST depression (slight, lateral), other (no ST elevation) Change: no significant change (from June 08 2017) ED Course 1301: The patient was evaluated in room A2. A complete history and physical exam was performed. 1310: NSS 500 ml @ 999 mls/hr IV, Zofran Inj 4 mg IV. 1615: I reevaluated the patient and she is resting. I talked to her about the test results. We will keep her overnight for fluids and repeat cardiac enzymes. She is agreeable with this plan. She will be evaluated for further treatment. 1625: I spoke with Honey Rivera. We discussed the patient and her results. The patient will be further evaluated by Honey Escamilla. Medical Decision This is an 83-year-old female who presents with vomiting, diarrhea chest pain and abdominal pain. Differential diagnosis includes gastroenteritis, colitis, foodborne illness, reflux, diverticulitis, ACS. I did perform a limited focused review of portions of the patient's old chart on the electronic medical record. The patient has had no recent pertinent visits to this hospital. I did evaluate the patient as noted above. Patient is presenting with vomiting and diarrhea since the weekend. She has also had abdominal pain. She states she feels very weak and has not been getting out of bed. She also developed some brief chest pain yesterday which has now resolved. IV access was established. The patient was placed on a continuous phototypesetting equipment monitor. I did treat her with normal saline IV. I did order and personally review the patient' s 12-lead EKG and chest x-ray as described above. I did order and review the patient's blood work as noted in the electronic medical record. Troponin is negative. She does have hypokalemia likely from her diarrhea. Creatinine is elevated above baseline. I did order a CT of the abdomen and pelvis with oral contrast only. I did review the images myself as well as the radiology report as described above. There is no evidence of colitis or diverticulitis. I did discuss the test results with the patient. She does state she is feeling slightly better but still feels weak. She will be hospitalized for further evaluation, IV fluids and repeat cardiac enzymes. I did discuss the case with the hospitalist and rn case mgr. Medication Reconcilliation Current Medication List: was personally reviewed by me Blood Pressure Screening Patient's blood pressure: Elevated blood pressure Referred to hospitalist. Consults Time Called: 1620 Consulting Physician: Honey Rivera Returned Call: 1625 I spoke with Honey Rivera. We discussed the patient and her results. The patient will be further evaluated by Honey Escamilla. Impression Primary Impression: Dehydration Additional Impressions: Vomiting Diarrhea Hypokalemia Acute chest pain Scribe Attestation The scribe's documentation has been prepared under my direct and personally reviewed by me in its entirety. I confirm that the note above accurately reflects all work, treatment, procedures, and medical decision making performed by me. Departure Information Dispostion Being Evaluated By Hospitalist Referrals Moreno Parham M.D. (PCP) Patient Instructions My [facility] Problem Qualifiers Additional Impressions: Vomiting Vomiting type: unspecified Vomiting Intractability: non-intractable Nausea presence: with nausea Qualified Codes: R11.2 - Nausea with vomiting, unspecified Diarrhea Diarrhea type: unspecified type Qualified Codes: R19.7 - Diarrhea, unspecified
[2018-03-25] MEDS ORDERED: ACETAMINOPHEN 325 MG TAB PO PRN (17:15)
[2018-03-25] MEDS ORDERED: ONDANSETRON INJ 2 MG/ML 2 ML VIAL IV PRN (17:15)
[2018-03-25 17:16] LABS: INR 2.9 (0.9-1.1)
[2018-03-25 17:23] VITALS: O2SAT 97; Ht 157.5 cm; Wt 65.8 kg
[2018-03-25 18:12] VITALS: BP 178/95; PULSE 64; TEMP 36.7; O2SAT 98
[2018-03-25 19:26] VITALS: BP 169/80; PULSE 65; TEMP 36.7; O2SAT 97
--- NOTE | 2018-03-25 19:41 | History and Physical ---
History & Physical Date & Time of Service: March 25, 2018 ~ 16:30 Chief Complaint: Chest Pain, Diarrhea Primary Care Physician: Moreno Parham M.D. History of Present Illness 83-year-old female who presents to the ED with diarrhea and chest pain. Patient reports she has been having diarrhea for the past 4 days. She denies bright red bleeding per rectum or dark tarry stools. She reports lower abdominal cramping. She has had nausea but denies any vomiting. Diarrhea is worsened whenever she takes in food or drink. Throughout the night, patient reports she was awoke with midsternal chest pain. Pain resolved on Saturday she was able to go back to sleep. This morning whenever she woke up the chest pain had returned and again resolved on its own. She denies any associated shortness of breath, diaphoresis, nausea, or radiation of the pain. This morning when she got out of bed she reports she felt very lightheaded. No syncopal event. She has felt hot flashes and chills however did not take her temperature. She denies any urinary symptoms. No recent antibiotic use. Patient reports she has been having difficulty swallowing over the past several months. She feels like heavier foods get stuck in her chest. She denies any difficulty with thin liquids. She had a barium swallow done 11/2017 which showed narrowing just above the gastroesophageal junction which failed to fully open; the barium pill became lodged at this level, possibly representing stricture; mild esophageal dysmotility; gastroesophageal reflux was observed. She has not followed up with GI yet. In the ED, she was given IVF and IV Zofran. Labs show a mild hypokalemia with potassium 3.1, otherwise unremarkable. CT ABD/pelvis suggests a possible ileus however no other acute findings. Past Medical/Surgical History Medical Problems: (1) Aortic stenosis Permanent Comment: moderate Status: Chronic (2) Arthritis Status: Chronic (3) C2 cervical fracture Status: Resolved (4) Dyslipidemia Status: Chronic (5) Essential tremor Status: Chronic (6) GERD (gastroesophageal reflux disease) Status: Chronic (7) H/O polymyalgia rheumatica Status: Chronic (8) History of palpitations Status: Chronic (9) History of syncope Status: Chronic (10) Hypertension Status: Chronic (11) Hypothyroidism Status: Chronic (12) Osteoporosis Status: Chronic (13) Paroxysmal tachycardia Permanent Comment: Cardiac Zio event monitor captured a 10 beat trina of non sustained VT and several brief SVT episodes Status: Chronic (14) Pulmonary embolism Status: Resolved Surgical Problems: (1) H/O knee surgery Status: Chronic (2) History of cataract surgery Status: Chronic (3) S/P section Status: Chronic (4) S/P cholecystectomy Status: Chronic (5) S/p fixation of radius/ulna fracture Status: Chronic Family History Noncontributory secondary to patient's advanced age Social History Smoking Status: Never Smoker Alcohol Use: none Housing status: lives with family Occupational Status: retired Immunizations History of Influenza Vaccine: Yes Influenza Vaccine Date: Sep 12, 2017 History of Tetanus Vaccine?: Yes History of Pneumococcal: Yes Pneumococcal Date: Dec 30, 2003 Allergies Coded Allergies: Etodolac (Verified Allergy, Unknown, 03/25/18) Morphine (Verified Allergy, Unknown, ., 03/25/18) NSAIDs (Verified Allergy, Unknown, ITCH, 03/25/18) Hydromorphone (Verified Adverse Reaction, Unknown, DIZZY,NAUSEA, 03/25/18) Home Medications Scheduled Cholecalciferol (Vitamin D), 1,000 UNITS PO BID Levothyroxine Sodium (Synthroid), 75 MCG PO DAILY Lisinopril (Lisinopril), 20 MG PO BID Metoprolol Succinate (Metoprolol Succinate ER), 100 MG PO QPM Omeprazole (Prilosec), 20 MG PO BID Prednisone (Levi), 10 MG PO DAILY Rosuvastatin Calcium (Crestor), 20 MG PO QPM Warfarin Sodium (Coumadin), 2.5 MG PO [id number] Warfarin Sodium (Coumadin), 5 MG PO WK Scheduled PRN Nitroglycerin (Nitrostat), 0.4 MG UT UD PRN for Chest Pain Tramadol (Ultram), 50 MG PO Q4H PRN for Pain Review of Systems ROS per HPI, all other systems reviewed and negative Physical Exam Vital Signs Date Time Temp Pulse Resp B/P (MAP) Pulse Ox O2 Delivery O2 Flow Rate FiO2 03/25/18 18:12 36.7 64 16 178/95 (122) 98 Room Air 03/25/18 17:40 68 16 169/76 93 03/25/18 17:23 97 Room Air 5/15/18 17:09 61 03/25/18 17:07 73 19 216/96 03/25/18 16:31 190/74 03/25/18 16:29 60 12 97 03/25/18 16:01 191/109 03/25/18 15:59 60 14 97 03/25/18 15:53 68 20 186/76 99 Room Air 03/25/18 15:05 59 24 98 03/25/18 15:02 203/80 03/25/18 14:35 55 18 99 03/25/18 14:31 152/72 03/25/18 14:05 59 17 100 03/25/18 14:03 61 20 162/58 98 Room Air 03/25/18 13:20 68 18 147/77 99 Room Air 03/25/18 12:54 67 03/25/18 12:54 97 Room Air 03/25/18 12:40 36.8 73 18 143/84 96 General Appearance: WD/WN, no apparent distress Head: normocephalic, atraumatic Eyes: normal inspection, EOMI, sclerae normal ENT: hearing grossly normal, + pertinent finding (Mucous membranes moist) Neck: supple, no JVD, trachea midline Respiratory/Chest: lungs clear, normal breath sounds, no respiratory distress Cardiovascular: regular rate, rhythm, no edema, normal peripheral pulses, + systolic murmur Abdomen/GI: normal bowel sounds, non tender, soft, no organomegaly Extremities/Musculoskelatal: normal inspection, no calf tenderness, normal capillary refill Neurologic/Psych: no motor/sensory deficits, alert, normal mood/affect, oriented x 3 Skin: normal color, warm/dry Diagnostics Laboratory Results Results Past 24 Hours Test 03/25/18 12:55 03/25/18 13:17 03/25/18 15:27 03/25/18 19:06 Range/Units White Blood Count 5.85 4.8-10.8 K/uL Red Blood Count 4.57 4.2-5.4 M/uL Hemoglobin 13.3 12.0-16.0 g/dL Hematocrit 39.0 37-47 % Mean Corpuscular Volume 85.3 80-100 fL Mean Corpuscular Hemoglobin 29.1 25-34 pg Mean Corpuscular Hemoglobin Concent 34.1 32-36 g/dl Platelet Count 277 130-400 K/uL Mean Platelet Volume 9.3 7.4-10.4 fL Neutrophils (%) (Auto) 65.1 % Lymphocytes (%) (Auto) 19.7 % Monocytes (%) (Auto) 13.2 % Eosinophils (%) (Auto) 1.5 % Basophils (%) (Auto) 0.3 % Neutrophils # (Auto) 3.81 1.4-6.5 K/uL Lymphocytes # (Auto) 1.15 1.2-3.4 K/uL Monocytes # (Auto) 0.77 0.11-0.59 K/uL Eosinophils # (Auto) 0.09 0-0.5 K/uL Basophils # (Auto) 0.02 0-0.2 K/uL RDW Standard Deviation 43.6 36.4-46.3 fL RDW Coefficient of Variation 14.0 11.5-14.5 % Immature Granulocyte % (Auto) 0.2 % Immature Granulocyte # (Auto) 0.01 0.00-0.02 K/uL Prothrombin Time 30.1 9.0-12.0 SECONDS Prothromb Time International Ratio 2.9 0.9-1.1 Sodium Level 141 136-145 mmol/L Potassium Level 3.1 3.5-5.1 mmol/L Chloride Level 112 98-107 mmol/L Carbon Dioxide Level 21 21-32 mmol/L Anion Gap 8.0 3-11 mmol/L Blood Urea Nitrogen 15 7-18 mg/dl Creatinine 1.43 0.60-1.20 mg/dl Estimated GFR () 39.2 Estimated GFR (Non- 33.8 BUN/Creatinine Ratio 10.8 10-20 Random Glucose 101 70-99 mg/dl Calcium Level 8.1 8.5-10.1 mg/dl Magnesium Level 1.8 1.8-2.4 mg/dl Total Bilirubin 0.6 0.2-1 mg/dl Direct Bilirubin 0.1 0-0.2 mg/dl Aspartate Amino Transf (AST/SGOT) 15 15-37 U/L Alanine Aminotransferase (ALT/SGPT) 15 12-78 U/L Alkaline Phosphatase 80 45-117 U/L Total Protein 6.8 6.4-8.2 gm/dl Albumin 3.0 3.4-5.0 gm/dl Lipase 128 73-393 U/L Bedside Troponin I < 0.030 0-0.045 ng/ml Urine Color YELLOW Urine Appearance CLEAR CLEAR Urine pH 6.5 4.5-7.5 Urine Specific [place] 1.008 1.000-1.030 Urine Protein NEG NEG Urine Glucose (UA) NEG NEG Urine Ketones NEG NEG Urine Occult Blood NEG NEG Urine Nitrite NEG NEG Urine Bilirubin NEG NEG Urine Urobilinogen NEG NEG Urine Leukocyte Esterase NEG NEG Diagnostic Radiology ABD/PELVIS CT IMPRESSION: 1. Diffuse distention of small bowel without convincing evidence of obstruction or inflammatory change. This is nonspecific and could suggest ileus. 2. No other evidence of acute intra-abdominal pathology. CXR IMPRESSION: 1. Mild cardiomegaly. No other convincing evidence of acute cardiopulmonary disease. Impression Assessment and Plan DIARRHEA -Admit to telemetry -Patient presenting with diarrhea 4 days with development of chest pain throughout the night last night -Despite patient's reports of persistent diarrhea 4 days, she does not appear overtly dry on exam or by labs (creatinine is at baseline) -CT ABD/pelvis shows a possible ileus however no other acute findings - will give IVF and clear liquid diet, follow-up abdominal x-ray in the a.m. -Stool studies CHEST PAIN -Likely GI in nature secondary to esophageal stricture -Initial troponin negative, EKG without acute ST changes -Will continue to cycle cardiac enzymes, check resting echo -No history of CAD ESOPHAGEAL STRICTURE -Underwent barium swallow 11/2017 - narrowing just above the gastroesophageal junction which failed to fully open; the barium pill became lodged at this level , possibly representing stricture; mild esophageal dysmotility; gastroesophageal reflux was observed -Likely source of chest pain -GI consult HYPERTENSION -BP mildly elevated however did not take evening blood pressure medications yet -Continue home doses of lisinopril and metoprolol, make adjustments as needed MODERATE AORTIC STENOSIS -Stable, no acute issues -Monitor volume status closely CKD STAGE III -Baseline creatinine 1.3-1.4 -Monitor renal functions, avoid nephrotoxic agents unable PMR -Rheumatology recently started prednisone 10 mg twice daily, decreasing to 5 mg daily next week -BP currently stable, no role for stress dose steroids HYPOTHYROIDISM -Continue levothyroxine HISTORY OF PULMONARY EMBOLISM -Anticoagulant Coumadin, INR 2.9 -Continue home dose of Coumadin, monitor INR daily PAROXYSMAL TACHYCARDIA -Continue metoprolol DVT PROPHYLAXIS -Anticoagulant Coumadin, INR 2.9 CODE STATUS -Patient is a full code as per my discussion with her. DISPOSITION -The patient will be placed as observation status for now until further work up is complete. ATTENDING ADDENDUM: Patient seen and examined care coordinated with Honey KEARNEY Briefly this is an 83-year-old female presents with 2-3 days of ongoing diarrhea /developed chest pain last night Lab work looks unremarkable, no acute EKG change CT abdomen pelvis shows mild ileus/no sign of acute inflammation or infection Bowel rest with clear liquid diet advance as tolerated IV fluids Order for stool for C. difficile/stool culture Chest pain Atypical for angina Possible GI related/history of GERD/esophageal stenosis/spasm Monitoring telemetry with serial cardiac markers GI eval requested Please refer to further documentation by Hnoey KEARNEY discussion of other chronic issues Rena Villegas MD Advanced Directives Existing Living Will: Yes Existing Power of Transport Conductor: Yes Resuscitation Status VTE Prophylaxis Will order VTE Prophylaxis: Yes
[2018-03-25] MEDS: SODIUM CHLORIDE 0.9% 1000ML 1,000 ML IV SCH (19:52)
[2018-03-25] MEDS: LISINOPRIL 20 MG TAB PO SCH (19:53)
[2018-03-25] MEDS: ROSUVASTATIN CALCIUM 20 MG TAB PO SCH (19:54)
[2018-03-25] MEDS: METOPROLOL SUCC 50MG EXT REL TAB PO SCH (19:54)
[2018-03-25] MEDS: PANTOprazole SOD 40 MG TAB PO SCH (19:54)
[2018-03-25] MEDS: CHOLECALCIFEROL 1000 INTER.UNIT TAB PO SCH (19:54)
[2018-03-25] MEDS: WARFARIN SOD 2.5 MG TAB PO SCH (19:55)
[2018-03-25] MEDS: POTASSIUM CHLORIDE 20 MEQ/15 ML UDC PO SCH ×2 (19:55→22:39)
[2018-03-25] MEDS ORDERED: IV FLUIDS COMPLETED PRN (20:30)
--- NOTE | 2018-03-25 23:01 | Progress Note ---
Internal Med Progress Note Date of Service: March 25, 2018. Provider Documentation: Made aware by RN of bloody bowel movement. No unusual abdominal pain. HH stable at 13 INR 2.9 (03/25) AP [facility]IB Hemodynamically stable past history PE on Coumadin, INR tx Vitamin K p.o. for 1 dose Trend H&H, hold Coumadin for now until hemoglobin stable. Vital Signs: Date Time Temp Pulse Resp B/P (MAP) Pulse Ox O2 Delivery O2 Flow Rate FiO2 03/26/18 08:00 Room Air 03/26/18 07:03 37.0 59 18 169/86 (113) 97 Room Air 03/26/18 04:00 Room Air 03/26/18 03:35 36.8 67 20 167/72 (103) 99 Room Air 03/25/18 23:59 36.7 59 16 170/76 (107) 98 Room Air 03/25/18 23:59 Room Air 03/25/18 20:00 Room Air 03/25/18 19:26 36.7 65 16 169/80 (109) 97 Room Air 03/25/18 18:12 36.7 64 16 178/95 (122) 98 Room Air 03/25/18 17:40 68 16 169/76 93 03/25/18 17:23 97 Room Air 03/25/18 17:09 61 03/25/18 17:07 73 19 216/96 03/25/18 16:31 190/74 03/25/18 16:29 60 12 97 03/25/18 16:01 191/109 03/25/18 15:59 60 14 97 03/25/18 15:53 68 20 186/76 99 Room Air 03/25/18 15:05 59 24 98 03/25/18 15:02 203/80 03/25/18 14:35 55 18 99 03/25/18 14:31 152/72 03/25/18 14:05 59 17 100 03/25/18 14:03 61 20 162/58 98 Room Air 03/25/18 13:20 68 18 147/77 99 Room Air 03/25/18 12:54 67 03/25/18 12:54 97 Room Air 03/25/18 12:40 36.8 73 18 143/84 96 Lab Results: Results Past 24 Hours Test 03/25/18 12:55 03/25/18 13:17 03/25/18 15:27 03/25/18 19:06 Range/Units White Blood Count 5.85 4.8-10.8 K/uL Red Blood Count 4.57 4.2-5.4 M/uL Hemoglobin 13.3 12.0-16.0 g/dL Hematocrit 39.0 37-47 % Mean Corpuscular Volume 85.3 80-100 fL Mean Corpuscular Hemoglobin 29.1 25-34 pg Mean Corpuscular Hemoglobin Concent 34.1 32-36 g/dl Platelet Count 277 130-400 K/uL Mean Platelet Volume 9.3 7.4-10.4 fL Neutrophils (%) (Auto) 65.1 % Lymphocytes (%) (Auto) 19.7 % Monocytes (%) (Auto) 13.2 % Eosinophils (%) (Auto) 1.5 % Basophils (%) (Auto) 0.3 % Neutrophils # (Auto) 3.81 1.4-6.5 K/uL Lymphocytes # (Auto) 1.15 1.2-3.4 K/uL Monocytes # (Auto) 0.77 0.11-0.59 K/uL Eosinophils # (Auto) 0.09 0-0.5 K/uL Basophils # (Auto) 0.02 0-0.2 K/uL RDW Standard Deviation 43.6 36.4-46.3 fL RDW Coefficient of Variation 14.0 11.5-14.5 % Immature Granulocyte % (Auto) 0.2 % Immature Granulocyte # (Auto) 0.01 0.00-0.02 K/uL Prothrombin Time 30.1 9.0-12.0 SECONDS Prothromb Time International Ratio 2.9 0.9-1.1 Sodium Level 141 136-145 mmol/L Potassium Level 3.1 3.5-5.1 mmol/L Chloride Level 112 98-107 mmol/L Carbon Dioxide Level 21 21-32 mmol/L Anion Gap 8.0 3-11 mmol/L Blood Urea Nitrogen 15 7-18 mg/dl Creatinine 1.43 0.60-1.20 mg/dl Estimated GFR () 39.2 Estimated GFR (Non- 33.8 BUN/Creatinine Ratio 10.8 10-20 Random Glucose 101 70-99 mg/dl Calcium Level 8.1 8.5-10.1 mg/dl Magnesium Level 1.8 1.8-2.4 mg/dl Total Bilirubin 0.6 0.2-1 mg/dl Direct Bilirubin 0.1 0-0.2 mg/dl Aspartate Amino Transf (AST/SGOT) 15 15-37 U/L Alanine Aminotransferase (ALT/SGPT) 15 12-78 U/L Alkaline Phosphatase 80 45-117 U/L Total Protein 6.8 6.4-8.2 gm/dl Albumin 3.0 3.4-5.0 gm/dl Lipase 128 73-393 U/L Bedside Troponin I < 0.030 0-0.045 ng/ml Urine Color YELLOW Urine Appearance CLEAR CLEAR Urine pH 6.5 4.5-7.5 Urine Specific [place] 1.008 1.000-1.030 Urine Protein NEG NEG Urine Glucose (UA) NEG NEG Urine Ketones NEG NEG Urine Occult Blood NEG NEG Urine Nitrite NEG NEG Urine Bilirubin NEG NEG Urine Urobilinogen NEG NEG Urine Leukocyte Esterase NEG NEG Troponin I 0.028 0-0.045 ng/ml Test 03/25/18 23:17 03/26/18 00:20 03/26/18 06:35 Range/Units Hemoglobin 13.2 12.1 12.0-16.0 g/dL Hematocrit 38.1 36.6 37-47 % Troponin I 0.034 0-0.045 ng/ml White Blood Count 4.85 4.8-10.8 K/uL Red Blood Count 4.24 4.2-5.4 M/uL Mean Corpuscular Volume 86.3 80-100 fL Mean Corpuscular Hemoglobin 28.5 25-34 pg Mean Corpuscular Hemoglobin Concent 33.1 32-36 g/dl RDW Standard Deviation 44.2 36.4-46.3 fL RDW Coefficient of Variation 14.0 11.5-14.5 % Platelet Count 245 130-400 K/uL Mean Platelet Volume 9.1 7.4-10.4 fL Prothrombin Time 34.0 9.0-12.0 SECONDS Prothromb Time International Ratio 3.3 0.9-1.1 Sodium Level 143 136-145 mmol/L Potassium Level 4.1 3.5-5.1 mmol/L Chloride Level 117 98-107 mmol/L Carbon Dioxide Level 21 21-32 mmol/L Anion Gap 5.0 3-11 mmol/L Blood Urea Nitrogen 9 7-18 mg/dl Creatinine 1.21 0.60-1.20 mg/dl Est Creatinine Clear Calc Drug Dose 31.1 ml/min Estimated GFR () 47.9 Estimated GFR (Non- 41.3 BUN/Creatinine Ratio 7.3 10-20 Random Glucose 76 70-99 mg/dl Calcium Level 7.9 8.5-10.1 mg/dl
[2018-03-25 23:26] LABS: HEMATOCRIT 38.1 % (37-47); HEMOGLOBIN 13.2 g/dL (12.0-16.0)
[2018-03-25] MEDS ORDERED: PHYTONADIONE 5 MG TAB PO STA (23:46)
[2018-03-25 23:59] VITALS: BP 170/76; PULSE 59; TEMP 36.7; O2SAT 98
[2018-03-26] VITALS (7 sets, daily range): BP systolic 134–182; BP diastolic 72–89; PULSE 55–67; TEMP 36.7–37; O2SAT 97–100
[2018-03-26] MEDS: TRAMADOL HCL 50 MG TAB PO PRN ×2 (01:01→21:39)
[2018-03-26] MEDS ORDERED: AMLODIPINE BESYLATE 5 MG TAB PO ONE (01:28)
--- NOTE | 2018-03-26 01:29 | Progress Note ---
Internal Med Progress Note Date of Service: March 26, 2018. Provider Documentation: Hg drop from 13 to 12 INR 3.1 AP LGIB Hemoglobin drop Coumadin coagulopathy IV Vitamin K for full reversal of coagulopathy now. Will relay to AM provider. Vital Signs: Date Time Temp Pulse Resp B/P (MAP) Pulse Ox O2 Delivery O2 Flow Rate FiO2 03/26/18 08:00 Room Air 03/26/18 07:03 37.0 59 18 169/86 (113) 97 Room Air 03/26/18 04:00 Room Air 03/26/18 03:35 36.8 67 20 167/72 (103) 99 Room Air 03/25/18 23:59 36.7 59 16 170/76 (107) 98 Room Air 03/25/18 23:59 Room Air 03/25/18 20:00 Room Air 03/25/18 19:26 36.7 65 16 169/80 (109) 97 Room Air 03/25/18 18:12 36.7 64 16 178/95 (122) 98 Room Air 03/25/18 17:40 68 16 169/76 93 03/25/18 17:23 97 Room Air 03/25/18 17:09 61 03/25/18 17:07 73 19 216/96 03/25/18 16:31 190/74 03/25/18 16:29 60 12 97 03/25/18 16:01 191/109 03/25/18 15:59 60 14 97 03/25/18 15:53 68 20 186/76 99 Room Air 03/25/18 15:05 59 24 98 03/25/18 15:02 203/80 03/25/18 14:35 55 18 99 03/25/18 14:31 152/72 03/25/18 14:05 59 17 100 03/25/18 14:03 61 20 162/58 98 Room Air 03/25/18 13:20 68 18 147/77 99 Room Air 03/25/18 12:54 67 03/25/18 12:54 97 Room Air 03/25/18 12:40 36.8 73 18 143/84 96 Lab Results: Results Past 24 Hours Test 03/25/18 12:55 03/25/18 13:17 03/25/18 15:27 03/25/18 19:06 Range/Units White Blood Count 5.85 4.8-10.8 K/uL Red Blood Count 4.57 4.2-5.4 M/uL Hemoglobin 13.3 12.0-16.0 g/dL Hematocrit 39.0 37-47 % Mean Corpuscular Volume 85.3 80-100 fL Mean Corpuscular Hemoglobin 29.1 25-34 pg Mean Corpuscular Hemoglobin Concent 34.1 32-36 g/dl Platelet Count 277 130-400 K/uL Mean Platelet Volume 9.3 7.4-10.4 fL Neutrophils (%) (Auto) 65.1 % Lymphocytes (%) (Auto) 19.7 % Monocytes (%) (Auto) 13.2 % Eosinophils (%) (Auto) 1.5 % Basophils (%) (Auto) 0.3 % Neutrophils # (Auto) 3.81 1.4-6.5 K/uL Lymphocytes # (Auto) 1.15 1.2-3.4 K/uL Monocytes # (Auto) 0.77 0.11-0.59 K/uL Eosinophils # (Auto) 0.09 0-0.5 K/uL Basophils # (Auto) 0.02 0-0.2 K/uL RDW Standard Deviation 43.6 36.4-46.3 fL RDW Coefficient of Variation 14.0 11.5-14.5 % Immature Granulocyte % (Auto) 0.2 % Immature Granulocyte # (Auto) 0.01 0.00-0.02 K/uL Prothrombin Time 30.1 9.0-12.0 SECONDS Prothromb Time International Ratio 2.9 0.9-1.1 Sodium Level 141 136-145 mmol/L Potassium Level 3.1 3.5-5.1 mmol/L Chloride Level 112 98-107 mmol/L Carbon Dioxide Level 21 21-32 mmol/L Anion Gap 8.0 3-11 mmol/L Blood Urea Nitrogen 15 7-18 mg/dl Creatinine 1.43 0.60-1.20 mg/dl Estimated GFR () 39.2 Estimated GFR (Non- 33.8 BUN/Creatinine Ratio 10.8 10-20 Random Glucose 101 70-99 mg/dl Calcium Level 8.1 8.5-10.1 mg/dl Magnesium Level 1.8 1.8-2.4 mg/dl Total Bilirubin 0.6 0.2-1 mg/dl Direct Bilirubin 0.1 0-0.2 mg/dl Aspartate Amino Transf (AST/SGOT) 15 15-37 U/L Alanine Aminotransferase (ALT/SGPT) 15 12-78 U/L Alkaline Phosphatase 80 45-117 U/L Total Protein 6.8 6.4-8.2 gm/dl Albumin 3.0 3.4-5.0 gm/dl Lipase 128 73-393 U/L Bedside Troponin I < 0.030 0-0.045 ng/ml Urine Color YELLOW Urine Appearance CLEAR CLEAR Urine pH 6.5 4.5-7.5 Urine Specific [place] 1.008 1.000-1.030 Urine Protein NEG NEG Urine Glucose (UA) NEG NEG Urine Ketones NEG NEG Urine Occult Blood NEG NEG Urine Nitrite NEG NEG Urine Bilirubin NEG NEG Urine Urobilinogen NEG NEG Urine Leukocyte Esterase NEG NEG Troponin I 0.028 0-0.045 ng/ml Test 03/25/18 23:17 03/26/18 00:20 03/26/18 06:35 Range/Units Hemoglobin 13.2 12.1 12.0-16.0 g/dL Hematocrit 38.1 36.6 37-47 % Troponin I 0.034 0-0.045 ng/ml White Blood Count 4.85 4.8-10.8 K/uL Red Blood Count 4.24 4.2-5.4 M/uL Mean Corpuscular Volume 86.3 80-100 fL Mean Corpuscular Hemoglobin 28.5 25-34 pg Mean Corpuscular Hemoglobin Concent 33.1 32-36 g/dl RDW Standard Deviation 44.2 36.4-46.3 fL RDW Coefficient of Variation 14.0 11.5-14.5 % Platelet Count 245 130-400 K/uL Mean Platelet Volume 9.1 7.4-10.4 fL Prothrombin Time 34.0 9.0-12.0 SECONDS Prothromb Time International Ratio 3.3 0.9-1.1 Sodium Level 143 136-145 mmol/L Potassium Level 4.1 3.5-5.1 mmol/L Chloride Level 117 98-107 mmol/L Carbon Dioxide Level 21 21-32 mmol/L Anion Gap 5.0 3-11 mmol/L Blood Urea Nitrogen 9 7-18 mg/dl Creatinine 1.21 0.60-1.20 mg/dl Est Creatinine Clear Calc Drug Dose 31.1 ml/min Estimated GFR () 47.9 Estimated GFR (Non- 41.3 BUN/Creatinine Ratio 7.3 10-20 Random Glucose 76 70-99 mg/dl Calcium Level 7.9 8.5-10.1 mg/dl
[2018-03-26] MEDS: SODIUM CHLORIDE 0.9% 1000ML 1,000 ML IV SCH ×2 (06:04→18:45)
[2018-03-26] MEDS: LEVOTHYROXINE 75 MCG TAB PO SCH (06:06)
[2018-03-26] MEDS ORDERED: PERFLUTREN LIPID MICROSPHERE (DEFINITY) IV ONE (06:48)
[2018-03-26 06:52] LABS: HEMATOCRIT 36.6 % (37-47); HEMOGLOBIN 12.1 g/dL (12.0-16.0); MEAN CELL VOLUME 86.3 fL (80-100); MEAN CORPUSCULAR HEMOGLOBIN 28.5 pg (25-34); MEAN CORPUSCULAR HGB CONC 33.1 g/dl (32-36); MEAN PLATELET VOLUME 9.1 fL (7.4-10.4); PLATELET COUNT 245 K/uL (130-400); RED CELL DISTRIBUTION WIDTH SD 44.2 fL (36.4-46.3); WHITE BLOOD COUNT 4.85 K/uL (4.8-10.8)
[2018-03-26 07:00] LABS: INR 3.3 (0.9-1.1)
[2018-03-26] MEDS ORDERED: PHYTONADIONE INJ 10 MG in SODIUM CHLORIDE 0.9% 50ML 50 ML IV ONE (07:15)
[2018-03-26 07:43] LABS: CALCIUM 7.9 mg/dl (8.5-10.1); CREATININE 1.21 mg/dl (0.60-1.20); POTASSIUM 4.1 mmol/L (3.5-5.1)
--- NOTE | 2018-03-26 08:12 | DIAGNOSTIC IMAGING REPORT ---
[facility] CLINICAL HISTORY: Ileus. Follow-up study. COMPARISON STUDY: CT scan dated 03/25/2018 FINDINGS: There is mild gaseous prominence of the colon. There are no transition zones indicate bowel obstruction. There is no pathologic small bowel dilatation. IMPRESSION: No evidence of bowel obstruction. No pathologic small bowel dilatation. Electronically signed by: Crescencio Del Valle M.D. 03/26/2018 8:11 AM Dictated Date/Time: 03/26/2018 8:10 AM
[2018-03-26] MEDS: LISINOPRIL 20 MG TAB PO SCH ×2 (08:47→20:38)
[2018-03-26] MEDS: PANTOprazole SOD 40 MG TAB PO SCH ×2 (08:47→20:37)
[2018-03-26] MEDS: CHOLECALCIFEROL 1000 INTER.UNIT TAB PO SCH ×2 (08:47→20:38)
[2018-03-26] MEDS ORDERED: PHYTONADIONE 5 MG TAB PO STA (10:24)
--- NOTE | 2018-03-26 12:23 | Gastrointestinal Consultation ---
Gastrointestinal Consultation Date of Consultation: March 26, 2018 Attending Physician: Dr. Epstein Consulting Physician: Dr. David Reason for Consultation: dysphagia History of Present Illness Patient is a 83 year old female patient of Dr. Parham with a hx of aortic stenosis, arthritis,C2 cervical fx, tremor, GERD, HTN, Hypothyroid, PE on coumadin who presented to the ED yesterday for diarrhea and chest pain. GI is consulted for dysphagia. The patient reports intermittent episodes of feeling like food gets stuck at the base of the chest, typically dry foods but also occasionally water. This began "before and has persisted but w/o worsening of her symptoms. She has had a decreased appetite for a few months and has lost about 10 lbs. She denies any hematemesis or epigastric pain. Though she initially denied any nausea, her daughter, who was at the bedside reminded her that she has c/o some mild, occasional nausea over the past few month but no vomiting. Regarding the diarrhea, she reports 3-4 loose BMs/day starting on Saturday, a large number of BM on Saturday - being the worst day then return to 3-4 loose/liquid BMs since Sat. The BMs became bloody yesterday. Documentation shows two small red mucoid BMs yesterday, one today. She has mild lower abdomen cramping with defecation but no significant pain and no hematochezia. On arrival, Hb 13, INR today 3.5 despite holding Coumadin and receiving 5mg of Vit K yesterday. CT with oral contrast yesterday suggested possible esophageal and jejunal strictures as well as ileus. She is awake, alert, oriented and denies any current abdominal pain, nausea or vomiting. She has a hx of barium swallow in Nov 2017 with question of a lower esophageal stricture (pill held here) for which she has a GI appt with Tiffanie Patel next week. She has never undergone EGD and/or colonoscopy. She is typically independent in all her self care, though a son also lives in her house. Past Medical/Surgical History Medical Problems: (1) Anticoagulated on Coumadin Status: Acute (2) Cervical spine degeneration Status: Acute (3) Neck pain Status: Acute Past Medical History: (1) Aortic stenosis (2) Arthritis (3) C2 cervical fracture (4) Dyslipidemia (5) Essential tremor (6) GERD (gastroesophageal reflux disease) (7) H/O polymyalgia rheumatica (8) History of palpitations (9) History of syncope (10) Hypertension (11) Hypothyroidism (12) Osteoporosis (13) Paroxysmal tachycardia (14) Pulmonary embolism Past Surgical History: (1) H/O knee surgery (2) History of cataract surgery (3) S/P section (4) S/P cholecystectomy (5) S/p fixation of radius/ulna fracture Family History FH: heart disease SISTER FHx: cancer FHx: gallbladder disease Hypertension Stroke FATHER Social History Smoking Status: Never Smoker Alcohol Use: none Housing Status: lives alone Occupation Status: retired Allergies Coded Allergies: Etodolac (Verified Allergy, Unknown, 03/25/18) Morphine (Verified Allergy, Unknown, ., 03/25/18) NSAIDs (Verified Allergy, Unknown, ITCH, 03/25/18) Hydromorphone (Verified Adverse Reaction, Unknown, DIZZY,NAUSEA, 03/25/18) Current Medications Home Meds and Scripts Medications Dose Route/Sig Max Daily Dose Days Date Category Dose Instructions Coumadin (Warfarin Sodium) 5 Mg Tab 5 Mg PO WK 03/25/18 Reported ON WEDNESDAYS Coumadin (Warfarin Sodium) 5 Mg Tab 2.5 Mg PO [id number] 03/25/18 Reported SUN,MON,TUE,TH,FRI,SAT Levi (Prednisone) 5 Mg Tab 10 Mg PO DAILY 03/25/18 Reported decrease to 5mg on 04/01 Vitamin D (Cholecalciferol) 1,000 Unit Tab 1,000 Units PO BID 03/25/18 Reported Ultram (Tramadol HCl) 50 Mg Tab 50 Mg PO Q4H PRN 06/08/17 Reported Lisinopril 20 Mg Tab 20 Mg PO BID 04/15/17 Reported Synthroid (Levothyroxine Sodium) 75 Mcg Tab 75 Mcg PO DAILY 04/15/17 Reported Nitrostat (Nitroglycerin) 0.4 Mg Sub 0.4 Mg UT UD PRN 01/14/14 Reported Crestor (Rosuvastatin Calcium) 20 Mg Tab 20 Mg PO QPM 01/14/14 Reported Metoprolol Succinate ER (Metoprolol Succinate) 100 Mg Tabcr 100 Mg PO QPM 01/14/14 Reported Take extra dose for very rapid heart beats. Prilosec (Omeprazole) 20 Mg Capcr 20 Mg PO BID 01/14/14 Reported Review of Systems Constitutional: + weakness, No fever, No chills, No sweats, No weight loss Eyes: No eye pain, No redness ENT: No sore throat, No trouble swallowing, No pain on swallowing Respiratory: No cough, No wheezing, No shortness of breath, No dyspnea on exertion Cardiac: + chest pain, No edema, No palpitations Abdomen: + see HPI, + nausea, + vomiting, + diarrhea, + dysphagia, No pain, No constipation, No GI bleeding, No odynophagia, No acolic stools, No jaundice, No dark urine Female : No dysuria Neuro: No memory loss, No weakness, No numbness/tingling, No vertigo, No balance problems Psych: No depression symptoms, No anxiety, No insomnia Heme: No abnormal bleeding/bruising, No night sweats Endo: No excessive thirst, No excessive urination Skin: No rash, No itch, No new/changing skin lesions, No jaundice Physical Exam Date Time Temp Pulse Resp B/P (MAP) Pulse Ox O2 Delivery O2 Flow Rate FiO2 03/26/18 11:21 36.7 62 18 134/80 (98) 98 Room Air 03/26/18 08:00 Room Air 03/26/18 07:03 37.0 59 18 169/86 (113) 97 Room Air 03/26/18 04:00 Room Air 03/26/18 03:35 36.8 67 20 167/72 (103) 99 Room Air 03/25/18 23:59 36.7 59 16 170/76 (107) 98 Room Air 03/25/18 23:59 Room Air 03/25/18 20:00 Room Air 03/25/18 19:26 36.7 65 16 169/80 (109) 97 Room Air 03/25/18 18:12 36.7 64 16 178/95 (122) 98 Room Air 03/25/18 17:40 68 16 169/76 93 03/25/18 17:23 97 Room Air 03/25/18 17:09 61 03/25/18 17:07 73 19 216/96 03/25/18 16:31 190/74 03/25/18 16:29 60 12 97 03/25/18 16:01 191/109 03/25/18 15:59 60 14 97 03/25/18 15:53 68 20 186/76 99 Room Air 03/25/18 15:05 59 24 98 03/25/18 15:02 203/80 03/25/18 14:35 55 18 99 03/25/18 14:31 152/72 03/25/18 14:05 59 17 100 03/25/18 14:03 61 20 162/58 98 Room Air 03/25/18 13:20 68 18 147/77 99 Room Air 03/25/18 12:54 67 03/25/18 12:54 97 Room Air 03/25/18 12:40 36.8 73 18 143/84 96 General Appearance: no apparent distress Eyes: normal inspection, EOMI Neck: supple, no adenopathy, thyroid normal Respiratory/Chest: chest non-tender, lungs clear, normal breath sounds, no accessory muscle use Cardiovascular: regular rate, rhythm, no JVD, + systolic murmur (2-3/6 systolic murmur consistent with aortic stenosis) Abdomen: normal bowel sounds, non tender, soft, no organomegaly Extremities: normal inspection, no pedal edema, normal capillary refill Neurologic/Psych: alert, normal mood/affect, oriented x 3 Skin: normal color, no jaundice, warm/dry, no rash Laboratory Results Last 24 Hours Test 03/25/18 12:55 03/25/18 13:17 03/25/18 15:27 03/25/18 19:06 White Blood Count 5.85 K/uL Red Blood Count 4.57 M/uL Hemoglobin 13.3 g/dL Hematocrit 39.0 % Mean Corpuscular Volume 85.3 fL Mean Corpuscular Hemoglobin 29.1 pg Mean Corpuscular Hemoglobin Concent 34.1 g/dl Platelet Count 277 K/uL Mean Platelet Volume 9.3 fL Neutrophils (%) (Auto) 65.1 % Lymphocytes (%) (Auto) 19.7 % Monocytes (%) (Auto) 13.2 % Eosinophils (%) (Auto) 1.5 % Basophils (%) (Auto) 0.3 % Neutrophils # (Auto) 3.81 K/uL Lymphocytes # (Auto) 1.15 K/uL Monocytes # (Auto) 0.77 K/uL Eosinophils # (Auto) 0.09 K/uL Basophils # (Auto) 0.02 K/uL RDW Standard Deviation 43.6 fL RDW Coefficient of Variation 14.0 % Immature Granulocyte % (Auto) 0.2 % Immature Granulocyte # (Auto) 0.01 K/uL Prothrombin Time 30.1 SECONDS Prothromb Time International Ratio 2.9 Sodium Level 141 mmol/L Potassium Level 3.1 mmol/L Chloride Level 112 mmol/L Carbon Dioxide Level 21 mmol/L Anion Gap 8.0 mmol/L Blood Urea Nitrogen 15 mg/dl Creatinine 1.43 mg/dl Estimated GFR () 39.2 Estimated GFR (Non- 33.8 BUN/Creatinine Ratio 10.8 Random Glucose 101 mg/dl Calcium Level 8.1 mg/dl Magnesium Level 1.8 mg/dl Total Bilirubin 0.6 mg/dl Direct Bilirubin 0.1 mg/dl Aspartate Amino Transf (AST/SGOT) 15 U/L Alanine Aminotransferase (ALT/SGPT) 15 U/L Alkaline Phosphatase 80 U/L Total Protein 6.8 gm/dl Albumin 3.0 gm/dl Lipase 128 U/L Bedside Troponin I < 0.030 ng/ml Urine Color YELLOW Urine Appearance CLEAR Urine pH 6.5 Urine Specific Letcher 1.008 Urine Protein NEG Urine Glucose (UA) NEG Urine Ketones NEG Urine Occult Blood NEG Urine Nitrite NEG Urine Bilirubin NEG Urine Urobilinogen NEG Urine Leukocyte Esterase NEG Troponin I 0.028 ng/ml Test 03/25/18 23:17 03/26/18 00:20 03/26/18 06:35 03/26/18 12:00 Hemoglobin 13.2 g/dL 12.1 g/dL Hematocrit 38.1 % 36.6 % Troponin I 0.034 ng/ml White Blood Count 4.85 K/uL Red Blood Count 4.24 M/uL Mean Corpuscular Volume 86.3 fL Mean Corpuscular Hemoglobin 28.5 pg Mean Corpuscular Hemoglobin Concent 33.1 g/dl RDW Standard Deviation 44.2 fL RDW Coefficient of Variation 14.0 % Platelet Count 245 K/uL Mean Platelet Volume 9.1 fL Prothrombin Time 34.0 SECONDS Prothromb Time International Ratio 3.3 Sodium Level 143 mmol/L Potassium Level 4.1 mmol/L Chloride Level 117 mmol/L Carbon Dioxide Level 21 mmol/L Anion Gap 5.0 mmol/L Blood Urea Nitrogen 9 mg/dl Creatinine 1.21 mg/dl Est Creatinine Clear Calc Drug Dose 31.1 ml/min Estimated GFR () 47.9 Estimated GFR (Non- 41.3 BUN/Creatinine Ratio 7.3 Random Glucose 76 mg/dl Calcium Level 7.9 mg/dl Ct abd/pelvis with oral contrast: 1. Diffuse distention of small bowel without convincing evidence of obstruction or inflammatory change. This is nonspecific and could suggest ileus. 2. No other evidence of acute intra-abdominal pathology. Impression Patient is a 83 year old female with nausea, vomiting, dysphagia who had an esophagus x-ray in 11/2017 with question of a distal esophageal stricture. Differentials considered include esophageal dysmotility, reflux esophagitis, gastritis, H Pylori. Plan 1. Will reverse Coumadin with Vit K, 10 mg today and recheck INR tomorrow morning. 2. Clear liquids po today. 3. Plan for EGD tomorrow. 4. Stool studies. 5. Will consider colonoscopy if diarrhea persists, EGD w/o significant abnormalities and pt is able to tolerate drinking the large volume of prep. I performed a history and physical examination of the patient, including specifically no abdominal tenderness I have discussed the patient's management with Chapo Mcdowell. Please refer to the TALENT ACQUISITION PROGRAM MANAGER's note for the documented findings and plan of care. Patient with worsening Dysphagia and evidence of stricture on recent esophagogram. Also reports bloody diarrhea prior to arrival to the hospital. Will plan for EGD with dilation once INR<1.5 and do stool work up to r/o infectious etiology. Colonoscopy can be done as OP.
[2018-03-26 12:26] LABS: HEMOGLOBIN 12.7 g/dL (12.0-16.0)
--- NOTE | 2018-03-26 14:16 | ECHOCARDIOGRAM REPORT ---
*NOTICE TO RECEIVING DEMOCRAT AGENCY This information is strictly Confidential and protected under [place] law. [place] law prohibits you from making any further disclosure of this information unless further disclosure is expressly permitted by the written consent of the person to whom it pertains or is authorized by law. A general authorization for the release of medical or other information is not sufficient for this purpose. Hospital accepts no responsibility if the information is made available to any other person, INCLUDING THE PATIENT. Interpretation Summary * Name: GABRIELA QUAN Study Date: 03/26/2018 06:25 AM BP: 167/72 mmHg * Patient Location: C.2T\S\S242\S\2 HR: 67 * : 1935 (M/d/yy) Gender: Female Height: 62 in * Age: 83 yrs Ethnicity: CA Weight: 142 lb * Ordering Physician: Honey Escamilla * Performed By: Janet Rice RDCS * * Reason For Study: CHEST PAIN * BSA: 1.7 m2 * -- Conclusions -- * Aortic valve is moderately sclerotic * Aortic valve imaging and Doppler studies are discordant. I suspect that this is moderate aortic stenosis. * There is moderate concentric left ventricular hypertrophy. * Left ventricular systolic function is normal. * Ejection Fraction = 65-70%. * The right ventricular systolic function is normal. * There is mild to moderate mitral regurgitation. Procedure Details * A complete two-dimensional transthoracic echocardiogram was performed (2D, M-mode, Doppler and color flow Doppler). * A contrast injection of Definity was performed to improve assessment of LV function. * Contrast was injected into an intravenous site in the right arm. * One vial of Definity ultrasound contrast was diluted in normal saline to a total volume of 10 ml. A total of '3' ml of solution was administered during imaging. * Lot # [id number] of Definity utilized for procedure. * Expiration date 02/27. * The attending nurse who injected the contrast agent was JABIER HDZ RN. Left Ventricle * The left ventricle is normal in size. * There is moderate concentric left ventricular hypertrophy. * Ejection Fraction = 65-70%. * Left ventricular systolic function is normal. * The left ventricular wall motion is normal. Right Ventricle * The right ventricle is normal size. * The right ventricular systolic function is normal. Atria * The left atrial size is normal. * Right atrial size is normal. * No ASD detected; PFO is not assessed. Mitral Valve * There is moderate mitral annular calcification. * There is mild to moderate mitral regurgitation. Tricuspid Valve * The tricuspid valve is not well visualized, but is grossly normal. * Significant tricuspid regurgitation is absent. Aortic Valve * Aortic valve is moderately sclerotic * Aortic valve imaging and Doppler studies are discordant. I suspect that this is moderate aortic stenosis. Pulmonic Valve * The pulmonic valve is not well seen, but is grossly normal. * Moderate pulmonic valvular regurgitation. Great Vessels * The aortic root and proximal ascending aorta are normal sized. Pericardium/Pleural * There is no pericardial effusion. Left Ventricular Diastolic Function * Grade I diastolic dysfunction, (abnormal relaxation pattern). MMode 2D Measurements and Calculations IVSd 1.8 cm IVSs 2.2 cm LVIDd 4.3 cm LVIDs 2.6 cm LVPWd 0.77 cm LVPWs 1.5 cm IVS/LVPW 2.4 FS 38.9 % EDV(Teich) 82.4 ml ESV(Teich) 25.1 ml EF(Teich) 69.6 % EDV(cubed) 78.7 ml ESV(cubed) 18.0 ml EF(cubed) 77.1 % % IVS thick 21.3 % % LVPW thick 90.1 % LV mass(C)d 205.1 grams LV mass(C)dI 124.1 grams/m\S\2 LV mass(C)s 192.4 grams LV mass(C)sI 116.4 grams/m\S\2 SV(Teich) 57.3 ml SI(Teich) 34.7 ml/m\S\2 SV(cubed) 60.7 ml SI(cubed) 36.7 ml/m\S\2 ACS 0.97 cm LA dimension 3.0 cm LVOT diam 1.5 cm LVOT area 1.8 cm\S\2 LVAd ap4 25.7 cm\S\2 LVLd ap4 7.4 cm EDV(MOD-sp4) 72.4 ml EDV(sp4-el) 75.7 ml LVAs ap4 12.8 cm\S\2 LVLs ap4 5.5 cm ESV(MOD-sp4) 24.9 ml ESV(sp4-el) 25.4 ml EF(MOD-sp4) 65.6 % EF(sp4-el) 66.4 % LVAd ap2 27.3 cm\S\2 LVLd ap2 7.3 cm EDV(MOD-sp2) 82.3 ml EDV(sp2-el) 86.4 ml LVAs ap2 13.9 cm\S\2 LVLs ap2 5.7 cm ESV(MOD-sp2) 27.1 ml ESV(sp2-el) 28.7 ml EF(MOD-sp2) 67.1 % EF(sp2-el) 66.8 % LVLd %diff -0.99 % EDV(MOD-bp) 77.4 ml LVLs %diff 3.8 % ESV(MOD-bp) 26.7 ml EF(MOD-bp) 65.5 % SV(MOD-sp4) 47.5 ml SI(MOD-sp4) 28.7 ml/m\S\2 SV(MOD-sp2) 55.2 ml SI(MOD-sp2) 33.4 ml/m\S\2 SV(MOD-bp) 50.7 ml SI(MOD-bp) 30.7 ml/m\S\2 SV(sp4-el) 50.3 ml SI(sp4-el) 30.4 ml/m\S\2 SV(sp2-el) 57.7 ml SI(sp2-el) 34.9 ml/m\S\2 Doppler Measurements and Calculations MV E max prashanth 82.0 cm/sec MV A max prashanth 109.5 cm/sec MV E/A 0.75 MV V2 max 121.7 cm/sec MV max PG 5.9 mmHg MV V2 mean 71.5 cm/sec MV mean PG 2.4 mmHg MV V2 VTI 49.7 cm MV dec time 0.29 sec Ao V2 max 227.3 cm/sec Ao max PG 20.7 mmHg Ao max PG (full) 17.8 mmHg GUERLINE(V,A) 0.68 cm\S\2 GUERLINE(V,D) 0.68 cm\S\2 LV V1 max PG 2.9 mmHg LV V1 max 85.2 cm/sec MR max prashanth 609.5 cm/sec MR max PG 148.6 mmHg PA V2 max 75.5 cm/sec PA max PG 2.3 mmHg PI end-d prashanth 103.5 cm/sec TR max prashanth 231.7 cm/sec
--- NOTE | 2018-03-26 15:34 | Progress Note ---
Internal Med Progress Note Date of Service: March 26, 2018. Provider Documentation: SUBJECTIVE: The patient was seen and examined in telemetry unit She is admitted with the probable gastroenteritis Also complained to have dysphagia which has been ongoing Noted to have blood per rectum with slight drop in hemoglobin Feels a lot better this morning OBJECTIVE: Vital Signs-as noted below Exam: General-no distress at rest Eyes-normal ENT-normal Neck-supple Lungs-clear to auscultate bilaterally Heart-regular Abdomen-benign nontender, bowel sounds present Extremities-no no edema Neuro-alert, awake and oriented 3 Lab data as noted below. ASSESSMENT & PLAN: ESOPHAGEAL STRICTURE -Underwent barium swallow 11/2017 - narrowing just above the gastroesophageal junction which failed to fully open; the barium pill became lodged at this level , possibly representing stricture; mild esophageal dysmotility; gastroesophageal reflux was observed -Likely source of chest pain -GI consult-appreciate Input -EGD tomorrow Nausea/Vomiting and DIARRHEA -Likely Gastroenteritis -Patient presenting with diarrhea 4 days with development of chest pain throughout the night last night -Despite patient's reports of persistent diarrhea 4 days, she does not appear overtly dry on exam or by labs (creatinine is at baseline) -CT ABD/pelvis shows a possible ileus however no other acute findings - will give IVF and clear liquid diet, follow-up abdominal x-ray in the a.m. -Stool studies-negative -has had Lower GI bleed-likely due to ongoing diarrhea and Local Excoriation -Hb remains stable CHEST PAIN -Likely GI in nature secondary to esophageal stricture -Initial troponin negative, EKG without acute ST changes -Will continue to cycle cardiac enzymes, check resting echo-negative for any ACS -No mre pain HYPERTENSION -BP mildly elevated however did not take evening blood pressure medications yet -Continue home doses of lisinopril and metoprolol, make adjustments as needed MODERATE AORTIC STENOSIS -Stable, no acute issues -Monitor volume status closely CKD STAGE III -Baseline creatinine 1.3-1.4 -Monitor renal functions, avoid nephrotoxic agents unable PMR -Rheumatology recently started prednisone 10 mg twice daily, decreasing to 5 mg daily next week -BP currently stable, no role for stress dose steroids HYPOTHYROIDISM -Continue levothyroxine HISTORY OF PULMONARY EMBOLISM -Anticoagulant Coumadin, INR 2.9 -Continue home dose of Coumadin, monitor INR daily -Coumadin is on Hold Received Vit K 5mg +10 mg in total PAROXYSMAL TACHYCARDIA -Continue metoprolol DVT PROPHYLAXIS -Anticoagulant Coumadin, INR 2.9 CODE STATUS -Patient is a full code as per my discussion with her. DISPOSITION -The patient will be placed as observation status for now until further work up is complete. Vital Signs: Date Time Temp Pulse Resp B/P (MAP) Pulse Ox O2 Delivery O2 Flow Rate FiO2 03/26/18 12:00 Room Air 03/26/18 11:21 36.7 62 18 134/80 (98) 98 Room Air 03/26/18 08:00 Room Air 03/26/18 07:03 37.0 59 18 169/86 (113) 97 Room Air 03/26/18 04:00 Room Air 03/26/18 03:35 36.8 67 20 167/72 (103) 99 Room Air 03/25/18 23:59 36.7 59 16 170/76 (107) 98 Room Air 03/25/18 23:59 Room Air 03/25/18 20:00 Room Air 03/25/18 19:26 36.7 65 16 169/80 (109) 97 Room Air 03/25/18 18:12 36.7 64 16 178/95 (122) 98 Room Air 03/25/18 17:40 68 16 169/76 93 03/25/18 17:23 97 Room Air 03/25/18 17:09 61 03/25/18 17:07 73 19 216/96 03/25/18 16:31 190/74 03/25/18 16:29 60 12 97 03/25/18 16:01 191/109 03/25/18 15:59 60 14 97 03/25/18 15:53 68 20 186/76 99 Room Air Lab Results: Results Past 24 Hours Test 03/25/18 19:06 03/25/18 23:17 03/26/18 00:20 03/26/18 06:35 Range/Units Troponin I 0.028 0.034 0-0.045 ng/ml Hemoglobin 13.2 12.1 12.0-16.0 g/dL Hematocrit 38.1 36.6 37-47 % White Blood Count 4.85 4.8-10.8 K/uL Red Blood Count 4.24 4.2-5.4 M/uL Mean Corpuscular Volume 86.3 80-100 fL Mean Corpuscular Hemoglobin 28.5 25-34 pg Mean Corpuscular Hemoglobin Concent 33.1 32-36 g/dl RDW Standard Deviation 44.2 36.4-46.3 fL RDW Coefficient of Variation 14.0 11.5-14.5 % Platelet Count 245 130-400 K/uL Mean Platelet Volume 9.1 7.4-10.4 fL Prothrombin Time 34.0 9.0-12.0 SECONDS Prothromb Time International Ratio 3.3 0.9-1.1 Sodium Level 143 136-145 mmol/L Potassium Level 4.1 3.5-5.1 mmol/L Chloride Level 117 98-107 mmol/L Carbon Dioxide Level 21 21-32 mmol/L Anion Gap 5.0 3-11 mmol/L Blood Urea Nitrogen 9 7-18 mg/dl Creatinine 1.21 0.60-1.20 mg/dl Est Creatinine Clear Calc Drug Dose 31.1 ml/min Estimated GFR () 47.9 Estimated GFR (Non- 41.3 BUN/Creatinine Ratio 7.3 10-20 Random Glucose 76 70-99 mg/dl Calcium Level 7.9 8.5-10.1 mg/dl Test 03/26/18 12:07 Range/Units Hemoglobin 12.7 12.0-16.0 g/dL Hematocrit 38.0 37-47 %
[2018-03-26] MEDS ORDERED: WARFARIN SOD 5 MG TAB PO SCH (16:00)
[2018-03-26] MEDS: ROSUVASTATIN CALCIUM 20 MG TAB PO SCH (20:36)
[2018-03-26] MEDS: METOPROLOL SUCC 50MG EXT REL TAB PO SCH (20:37)
[2018-03-27] VITALS (9 sets, daily range): BP systolic 129–183; BP diastolic 72–84; PULSE 59–116; TEMP 36.4–36.9; O2SAT 92–99
[2018-03-27] MEDS ORDERED: LORAZEPAM 0.5 MG TAB PO STA (00:37)
[2018-03-27] MEDS: LEVOTHYROXINE 75 MCG TAB PO SCH (05:43)
[2018-03-27 07:14] LABS: INR 1.4 (0.9-1.1)
[2018-03-27] MEDS: CHOLECALCIFEROL 1000 INTER.UNIT TAB PO SCH ×2 (08:25→21:03)
[2018-03-27] MEDS: SODIUM CHLORIDE 0.9% 1000ML 1,000 ML IV SCH (08:25)
[2018-03-27] MEDS: PANTOprazole SOD 40 MG TAB PO SCH ×2 (08:26→21:02)
[2018-03-27] MEDS: AMLODIPINE BESYLATE 5 MG TAB PO SCH (08:26)
[2018-03-27] MEDS: LISINOPRIL 20 MG TAB PO SCH ×2 (08:29→21:03)
[2018-03-27] MEDS ORDERED: SODIUM CHLORIDE 0.9% 500ML 500 ML IV ONE (10:30)
--- NOTE | 2018-03-27 10:30 | History & Physical Bridge Note ---
H&P Re-Evaluation Bridge Note: I have examined the patient, reviewed the History & Physical and in the interval since the performance of the History & Physical I have noted the following changes of clinical significance: No changes noted
[2018-03-27] MEDS ORDERED: LABETALOL HCL IV 5 MG/ML 20ML ONE (10:58)
[2018-03-27] MEDS ORDERED: LIDOCAINE HCL 2% 2 ML VIAL (20MG/ML) ONE (10:58)
[2018-03-27] MEDS ORDERED: PROPOFOL IV EMULSION 10 MG/ML 20 ML VIAL ONE (10:58)
--- NOTE | 2018-03-27 11:10 | GI REPORT ---
Patient Name: No Haynes Procedure Date: 03/27/2018 10:21 AM Date of : 1935 Admit Type: Inpatient Age: 83 Gender: Female Attending MD: Dionna David MD Procedure: Upper GI endoscopy Providers: Dionna David MD Referring MD: Megan Epstein Indications: Dysphagia, Abnormal cine-esophagram Medicines: Monitored Anesthesia Care Complications: No immediate complications. Estimated Blood Loss: Estimated blood loss: none. Procedure: Pre-Anesthesia Assessment: - Prior to the procedure, a History and Physical was performed, and patient medications and allergies were reviewed. The patient is competent. The risks and benefits of the procedure and the sedation options and risks were discussed with the patient. All questions were answered and informed consent was obtained. Patient identification and proposed procedure were verified by the physician and the nurse in the procedure room. Mental Status Examination: alert and oriented. Airway Examination: normal oropharyngeal airway and neck mobility. Respiratory Examination: clear to auscultation. CV Examination: normal. ASA Grade Assessment: III - A patient with severe systemic disease. After reviewing the risks and benefits, the patient was deemed in satisfactory condition to undergo the procedure. The anesthesia plan was to use monitored anesthesia care (MAC). Immediately prior to administration of medications, the patient was re-assessed for adequacy to receive sedatives. The heart rate, respiratory rate, oxygen saturations, blood pressure, adequacy of pulmonary ventilation, and response to care were monitored throughout the procedure. The physical status of the patient was re-assessed after the procedure. After obtaining informed consent, the endoscope was passed under direct vision. Throughout the procedure, the patient's blood pressure, pulse, and oxygen saturations were monitored continuously. The Scope was introduced through the mouth, and advanced to the second part of duodenum. The upper GI endoscopy was accomplished without difficulty. The patient tolerated the procedure well. Findings: The Z-line was regular and was found 40 cm from the incisors. One benign-appearing, intrinsic stenosis was found 37 cm from the incisors. This stenosis was mildly severe (non-circumferential scarring) . The stenosis was traversed. A TTS dilator was passed through the scope. Dilation with an 18-19-20 mm balloon dilator was performed to 20 mm. The dilation site was examined following endoscope reinsertion and showed complete resolution of luminal narrowing and no bleeding and adequate mucosal disruption. No gross lesions were noted in the entire examined stomach. The duodenal bulb and second portion of the duodenum were normal. Impression: - Z-line regular, 40 cm from the incisors. - Benign-appearing esophageal stenosis. Dilated. - No gross lesions in the stomach. - Normal duodenal bulb and second portion of the duodenum. - No specimens collected. Recommendation: - Discharge patient to home. - Clear liquid diet today. - Full liquid diet for 1 day. - Follow an antireflux regimen. - Use Prilosec (omeprazole) 40 mg PO daily for 4 weeks. - Can resume Coumadin tomorrow. - Return to referring physician. Dionna David MD 03/27/2018 11:10:08 AM This report has been signed electronically. Note Initiated On: 03/27/2018 10:21 AM Number of Addenda: 0 I attest to the content of the Intraoperative Record and orders documented therein, exceptions below {[id number]}
--- NOTE | 2018-03-27 11:32 | Anesthesiology Progress Note ---
Anesthesia Post Op Note Date & Time March 27, 2018 at 11:32 Vital Signs Pain Intensity: 0.0 Vital Signs Past 12 Hours Date Time Temp Pulse Resp B/P (MAP) Pulse Ox O2 Delivery O2 Flow Rate FiO2 03/27/18 11:21 72 97 171/73 (105) 98 Room Air 03/27/18 11:06 36 71 95 110/77 (88) 95 Room Air 03/27/18 11:00 36.7 116 16 129/82 (98) 97 Nasal Cannula 2.0 03/27/18 10:06 36.6 66 16 179/92 (121) 98 Room Air 03/27/18 08:00 Room Air 03/27/18 07:20 36.9 61 18 183/83 (116) 92 Room Air 03/27/18 04:00 99 Room Air 03/27/18 03:33 36.5 59 14 156/84 (108) 99 Room Air 03/27/18 00:01 97 Room Air Notes Mental Status: alert / awake / arousable, participated in evaluation Pt Amnestic to Procedure: Yes Nausea / Vomiting: adequately controlled Pain: adequately controlled Airway Patency, RR, SpO2: stable & adequate BP & HR: stable & adequate Hydration State: stable & adequate Anesthetic Complications: no major complications apparent
--- NOTE | 2018-03-27 17:53 | Progress Note ---
Internal Med Progress Note Date of Service: March 27, 2018. Provider Documentation: SUBJECTIVE: The patient was seen and examined in telemetry unit She is admitted with the probable gastroenteritis Also complained to have dysphagia which has been ongoing Noted to have blood per rectum with slight drop in hemoglobin Feels a lot better this morning 03/27 No complaints this AM S/P EGD and dilatation OBJECTIVE: Vital Signs-as noted below Exam: General-no distress at rest Eyes-normal ENT-normal Neck-supple Lungs-clear to auscultate bilaterally Heart-regular Abdomen-benign nontender, bowel sounds present Extremities-no no edema Neuro-alert, awake and oriented 3 Lab data as noted below. ASSESSMENT & PLAN: ESOPHAGEAL STRICTURE -Underwent barium swallow 11/2017 - narrowing just above the gastroesophageal junction which failed to fully open; the barium pill became lodged at this level , possibly representing stricture; mild esophageal dysmotility; gastroesophageal reflux was observed -Likely source of chest pain -GI consult-appreciate Input -EGD 03/27-Mildly severe Stenosis at 20CM,Dilated -will start clears -start Coumadin Likely discharge tomorrow Nausea/Vomiting and DIARRHEA -Likely Gastroenteritis -Patient presenting with diarrhea 4 days with development of chest pain throughout the night last night -Despite patient's reports of persistent diarrhea 4 days, she does not appear overtly dry on exam or by labs (creatinine is at baseline) -CT ABD/pelvis shows a possible ileus however no other acute findings - will give IVF and clear liquid diet, follow-up abdominal x-ray in the a.m. -Stool studies-negative -has had Lower GI bleed-likely due to ongoing diarrhea and Local Excoriation -Hb remains stable -stopped CHEST PAIN -Likely GI in nature secondary to esophageal stricture -Initial troponin negative, EKG without acute ST changes -Will continue to cycle cardiac enzymes, check resting echo-negative for any ACS -No more pain HYPERTENSION -BP mildly elevated however did not take evening blood pressure medications yet -Continue home doses of lisinopril and metoprolol, make adjustments as needed MODERATE AORTIC STENOSIS -Stable, no acute issues -Monitor volume status closely CKD STAGE III -Baseline creatinine 1.3-1.4 -Monitor renal functions, avoid nephrotoxic agents unable PMR -Rheumatology recently started prednisone 10 mg twice daily, decreasing to 5 mg daily next week -BP currently stable, no role for stress dose steroids HYPOTHYROIDISM -Continue levothyroxine HISTORY OF PULMONARY EMBOLISM -Anticoagulant Coumadin, INR 2.9 -Continue home dose of Coumadin, monitor INR daily -Coumadin is on Hold Received Vit K 5mg +10 mg in total PAROXYSMAL TACHYCARDIA -Continue metoprolol DVT PROPHYLAXIS -Anticoagulant Coumadin, INR 2.9 CODE STATUS -Patient is a full code as per my discussion with her. DISPOSITION -The patient will be placed as observation status for now until further work up is complete. Likely discharge tomorrow Vital Signs: Date Time Temp Pulse Resp B/P (MAP) Pulse Ox O2 Delivery O2 Flow Rate FiO2 03/27/18 16:07 36.4 67 17 167/72 (103) 98 Room Air 03/27/18 16:00 Room Air 03/27/18 12:20 36.5 72 20 165/75 (105) 99 Room Air 03/27/18 12:00 Room Air 03/27/18 11:35 71 18 163/73 (103) 99 Room Air 03/27/18 11:21 72 97 171/73 (105) 98 Room Air 03/27/18 11:06 36 71 95 110/77 (88) 95 Room Air 03/27/18 11:00 36.7 116 16 129/82 (98) 97 Nasal Cannula 2.0 03/27/18 10:06 36.6 66 16 179/92 (121) 98 Room Air 03/27/18 08:00 Room Air 03/27/18 07:20 36.9 61 18 183/83 (116) 92 Room Air 03/27/18 04:00 99 Room Air 03/27/18 03:33 36.5 59 14 156/84 (108) 99 Room Air 03/27/18 00:01 97 Room Air 03/26/18 23:00 36.7 55 12 182/76 (111) 100 Room Air 03/26/18 20:00 100 Room Air 03/26/18 19:08 36.7 58 18 160/76 (104) 100 Room Air Lab Results: Results Past 24 Hours Test 03/27/18 06:50 Range/Units Prothrombin Time 14.8 9.0-12.0 SECONDS Prothromb Time International Ratio 1.4 0.9-1.1
[2018-03-27] MEDS: METOPROLOL SUCC 50MG EXT REL TAB PO SCH (21:02)
[2018-03-27] MEDS: TRAMADOL HCL 50 MG TAB PO PRN (21:02)
[2018-03-27] MEDS: ROSUVASTATIN CALCIUM 20 MG TAB PO SCH (21:03)
[2018-03-28 03:49] VITALS: BP 175/75; PULSE 57; TEMP 36.8; O2SAT 100
[2018-03-28] MEDS: LEVOTHYROXINE 75 MCG TAB PO SCH (05:40)
[2018-03-28 06:32] LABS: HEMATOCRIT 35.1 % (37-47); HEMOGLOBIN 11.9 g/dL (12.0-16.0); MEAN CELL VOLUME 85.8 fL (80-100); MEAN CORPUSCULAR HEMOGLOBIN 29.1 pg (25-34); MEAN CORPUSCULAR HGB CONC 33.9 g/dl (32-36); MEAN PLATELET VOLUME 8.7 fL (7.4-10.4); PLATELET COUNT 238 K/uL (130-400); RED CELL DISTRIBUTION WIDTH CV 13.9 % (11.5-14.5); RED CELL DISTRIBUTION WIDTH SD 43.8 fL (36.4-46.3); WHITE BLOOD COUNT 5.57 K/uL (4.8-10.8)
[2018-03-28 06:40] LABS: INR 1.2 (0.9-1.1)
[2018-03-28 06:50] VITALS: BP 153/63; PULSE 63; TEMP 36.7; O2SAT 99
[2018-03-28 07:14] LABS: CALCIUM 7.7 mg/dl (8.5-10.1); CREATININE 1.21 mg/dl (0.60-1.20); POTASSIUM 3.2 mmol/L (3.5-5.1)
[2018-03-28] MEDS: CHOLECALCIFEROL 1000 INTER.UNIT TAB PO SCH (08:51)
[2018-03-28] MEDS: AMLODIPINE BESYLATE 5 MG TAB PO SCH (08:51)
[2018-03-28] MEDS: LISINOPRIL 20 MG TAB PO SCH (08:51)
[2018-03-28] MEDS: PANTOprazole SOD 40 MG TAB PO SCH (08:51)
[2018-03-28 10:34] VITALS: BP 143/83; PULSE 69; TEMP 36.8; O2SAT 99
[2018-03-28] MEDS ORDERED: POTASSIUM CHLORIDE 10 MEQ TABCR PO STA (11:12)
[2018-03-28] MEDS ORDERED: NURSING VERBAL MED ORDER ONE (12:30)
[2018-03-28 15:27] VITALS: BP 137/71; PULSE 65; TEMP 36.8; O2SAT 99
[2018-03-28] MEDS: WARFARIN SOD 2.5 MG TAB PO SCH (15:51)
--- NOTE | 2018-03-28 16:38 | Progress Note ---
Internal Med Progress Note Date of Service: March 28, 2018. Provider Documentation: SUBJECTIVE: The patient was seen and examined in telemetry unit She is admitted with the probable gastroenteritis Also complained to have dysphagia which has been ongoing Noted to have blood per rectum with slight drop in hemoglobin Feels a lot better this morning 03/27 No complaints this AM S/P EGD and dilatation 03/28 Remains stable Tolerating diet Likes to go home this evening No other issue OBJECTIVE: Vital Signs-as noted below Exam: General-no distress at rest Eyes-normal ENT-normal Neck-supple Lungs-clear to auscultate bilaterally Heart-regular Abdomen-benign nontender, bowel sounds present Extremities-no no edema Neuro-alert, awake and oriented 3 Lab data as noted below. ASSESSMENT & PLAN: ESOPHAGEAL STRICTURE -Underwent barium swallow 11/2017 - narrowing just above the gastroesophageal junction which failed to fully open; the barium pill became lodged at this level , possibly representing stricture; mild esophageal dysmotility; gastroesophageal reflux was observed -Likely source of chest pain -GI consult-appreciate Input -EGD 03/27-Mildly severe Stenosis at 20CM,Dilated -will start clears and advance as tolerated - Coumadin started -discharge today Nausea/Vomiting and DIARRHEA -Likely Gastroenteritis -Patient presenting with diarrhea 4 days with development of chest pain throughout the night last night -Despite patient's reports of persistent diarrhea 4 days, she does not appear overtly dry on exam or by labs (creatinine is at baseline) -CT ABD/pelvis shows a possible ileus however no other acute findings - will give IVF and clear liquid diet, follow-up abdominal x-ray in the a.m. -Stool studies-negative -has had Lower GI bleed-likely due to ongoing diarrhea and Local Excoriation -Hb remains stable -Resolved CHEST PAIN -Likely GI in nature secondary to esophageal stricture -Initial troponin negative, EKG without acute ST changes -Will continue to cycle cardiac enzymes, check resting echo-negative for any ACS -No more pain -No cardiac issue HYPERTENSION -BP mildly elevated however did not take evening blood pressure medications yet -Continue home doses of lisinopril and metoprolol, make adjustments as needed MODERATE AORTIC STENOSIS -Stable, no acute issues -Monitor volume status closely CKD STAGE III -Baseline creatinine 1.3-1.4 -Monitor renal functions, avoid nephrotoxic agents unable PMR -Rheumatology recently started prednisone 10 mg twice daily, decreasing to 5 mg daily next week -BP currently stable, no role for stress dose steroids HYPOTHYROIDISM -Continue levothyroxine HISTORY OF PULMONARY EMBOLISM -Anticoagulant Coumadin, INR 2.9 -Continue home dose of Coumadin, monitor INR daily -Coumadin is on Hold Received Vit K 5mg +10 mg in total PAROXYSMAL TACHYCARDIA -Continue metoprolol DVT PROPHYLAXIS -Anticoagulant Coumadin, INR 2.9 CODE STATUS -Patient is a full code as per my discussion with her. DISPOSITION -The patient will be placed as observation status for now until further work up is complete. Likely discharge today Vital Signs: Date Time Temp Pulse Resp B/P (MAP) Pulse Ox O2 Delivery O2 Flow Rate FiO2 03/28/18 16:00 Room Air 03/28/18 15:27 36.8 65 18 137/71 (93) 99 Room Air 03/28/18 12:18 Room Air 03/28/18 12:00 Room Air 03/28/18 10:34 36.8 69 18 143/83 (103) 99 Room Air 03/28/18 08:00 Room Air 03/28/18 08:00 Room Air 03/28/18 06:50 36.7 63 18 153/63 (93) 99 Room Air 03/28/18 04:00 Room Air 03/28/18 03:49 36.8 57 20 175/75 (108) 100 Room Air 03/28/18 00:00 Room Air 03/27/18 23:15 36.9 60 20 163/82 (109) 99 Room Air 03/27/18 20:00 Room Air 03/27/18 19:54 36.6 68 16 156/84 (108) 96 Room Air Lab Results: Results Past 24 Hours Test 03/28/18 06:13 Range/Units White Blood Count 5.57 4.8-10.8 K/uL Red Blood Count 4.09 4.2-5.4 M/uL Hemoglobin 11.9 12.0-16.0 g/dL Hematocrit 35.1 37-47 % Mean Corpuscular Volume 85.8 80-100 fL Mean Corpuscular Hemoglobin 29.1 25-34 pg Mean Corpuscular Hemoglobin Concent 33.9 32-36 g/dl RDW Standard Deviation 43.8 36.4-46.3 fL RDW Coefficient of Variation 13.9 11.5-14.5 % Platelet Count 238 130-400 K/uL Mean Platelet Volume 8.7 7.4-10.4 fL Prothrombin Time 12.2 9.0-12.0 SECONDS Prothromb Time International Ratio 1.2 0.9-1.1 Sodium Level 143 136-145 mmol/L Potassium Level 3.2 3.5-5.1 mmol/L Chloride Level 113 98-107 mmol/L Carbon Dioxide Level 23 21-32 mmol/L Anion Gap 7.0 3-11 mmol/L Blood Urea Nitrogen 7 7-18 mg/dl Creatinine 1.21 0.60-1.20 mg/dl Est Creatinine Clear Calc Drug Dose 31.4 ml/min Estimated GFR () 47.9 Estimated GFR (Non- 41.3 BUN/Creatinine Ratio 5.4 10-20 Random Glucose 77 70-99 mg/dl Calcium Level 7.7 8.5-10.1 mg/dl
--- NOTE | 2018-03-28 16:41 | Discharge Instructions ---
Discharge Instructions Date of Service March 28, 2018. Admission Reason for Admission: Chest Pain, Diarrhea Discharge Discharge Diagnosis / Problem: Nausea ,vomiting ,Diarrhea-resolved,Esophageal Stricture-dilated Discharge Goals Goal(s): Prevent Disease Progression Activity Recommendations Activity Limitations: resume your previous activity . Instructions / Follow-Up Instructions / Follow-Up Please make an appointment with Dr Parham in 1 week.Keep appointment with Coagulation clinic Current Hospital Diet Patient's current hospital diet: Regular Diet Discharge Diet Recommended Diet: Regular Diet Procedures Procedures Performed: EGD Pending Studies Studies pending at discharge: no Medical Emergencies . Who to Call and When: Medical Emergencies: If at any time you feel your situation is an emergency, please call 911 immediately. . Non-Emergent Contact Non-Emergency issues call your: Primary Care Provider . Past History Medical & Surgical History: (1) Dysphagia (2) GI bleed (3) Pulmonary embolism (4) Hypothyroidism (5) Aortic stenosis (6) Hypertension (7) GERD (gastroesophageal reflux disease) (8) History of cataract surgery (9) S/P section (10) H/O knee surgery (11) S/p fixation of radius/ulna fracture (12) S/P cholecystectomy . "Provider Documentation" section prepared by Megan Epstein. .
[2018-03-28 17:02] VITALS: BP 137/71; PULSE 65; TEMP 36.8; O2SAT 99
--- NOTE | 2018-03-29 08:22 | Discharge Summary ---
Discharge Summary Date of Service March 29, 2018. Discharge Summary Admission Date: March 28, 2018 at 11:21 Discharge Date: March 28, 2018 Principal Diagnosis: Nausea ,vomiting ,Diarrhea-resolved,Esophageal Stricture-dilated Secondary Diagnoses/Problems: Please see H&P and Hospital Progress note Procedures: EGD Consultations: GI Medication Reconciliation Continued Medications: Cholecalciferol (Vitamin D) 1,000 Unit Tab 1000 UNITS PO BID Levothyroxine Sodium (Synthroid) 75 Mcg Tab 75 MCG PO DAILY, TAB Lisinopril (Lisinopril) 20 Mg Tab 20 MG PO BID Metoprolol Succinate (Metoprolol Succinate ER) 100 Mg Tabcr 100 MG PO QPM Take extra dose for very rapid heart beats. Nitroglycerin (Nitrostat) 0.4 Mg Sub 0.4 MG UT UD PRN for Chest Pain, BTL Omeprazole (Prilosec) 20 Mg Capcr 20 MG PO BID Prednisone (Levi) 5 Mg Tab 10 MG PO DAILY decrease to 5mg on 04/01 Rosuvastatin Calcium (Crestor) 20 Mg Tab 20 MG PO QPM, TAB Tramadol (Ultram) 50 Mg Tab 50 MG PO Q4H PRN for Pain, TAB Warfarin Sodium (Coumadin) 5 Mg Tab 2.5 MG PO [id number] SUN,MON,TUE,THUR,SAT,SAT Warfarin Sodium (Coumadin) 5 Mg Tab 5 MG PO WK ON WEDNESDAYS Admission Information HPI (per Admitting provider): 83-year-old female who presents to the ED with diarrhea and chest pain. Patient reports she has been having diarrhea for the past 4 days. She denies bright red bleeding per rectum or dark tarry stools. She reports lower abdominal cramping. She has had nausea but denies any vomiting. Diarrhea is worsened whenever she takes in food or drink. Throughout the night, patient reports she was awoke with midsternal chest pain. Pain resolved on Saturday she was able to go back to sleep. This morning whenever she woke up the chest pain had returned and again resolved on its own. She denies any associated shortness of breath, diaphoresis, nausea, or radiation of the pain. This morning when she got out of bed she reports she felt very lightheaded. No syncopal event. She has felt hot flashes and chills however did not take her temperature. She denies any urinary symptoms. No recent antibiotic use. Patient reports she has been having difficulty swallowing over the past several months. She feels like heavier foods get stuck in her chest. She denies any difficulty with thin liquids. She had a barium swallow done 11/2017 which showed narrowing just above the gastroesophageal junction which failed to fully open; the barium pill became lodged at this level, possibly representing stricture; mild esophageal dysmotility; gastroesophageal reflux was observed. She has not followed up with GI yet. In the ED, she was given IVF and IV Zofran. Labs show a mild hypokalemia with potassium 3.1, otherwise unremarkable. CT ABD/pelvis suggests a possible ileus however no other acute findings. Past Medical/Surgical History Medical Problems: (1) Aortic stenosis Permanent Comment: moderate Status: Chronic (2) Arthritis Status: Chronic (3) C2 cervical fracture Status: Resolved (4) Dyslipidemia Status: Chronic (5) Essential tremor Status: Chronic (6) GERD (gastroesophageal reflux disease) Status: Chronic (7) H/O polymyalgia rheumatica Status: Chronic (8) History of palpitations Status: Chronic (9) History of syncope Status: Chronic (10) Hypertension Status: Chronic (11) Hypothyroidism Status: Chronic (12) Osteoporosis Status: Chronic (13) Paroxysmal tachycardia Permanent Comment: Cardiac Zio event monitor captured a 10 beat trina of non sustained VT and several brief SVT episodes Status: Chronic (14) Pulmonary embolism Status: Resolved Surgical Problems: (1) H/O knee surgery Status: Chronic (2) History of cataract surgery Status: Chronic (3) S/P section Status: Chronic (4) S/P cholecystectomy Status: Chronic (5) S/p fixation of radius/ulna fracture Status: Chronic Family History Noncontributory secondary to patient's advanced age Social History Smoking Status: Never Smoker Alcohol Use: none Housing status: lives with family Occupational Status: retired Immunizations History of Influenza Vaccine: Yes Influenza Vaccine Date: Sep 12, 2017 History of Tetanus Vaccine?: Yes History of Pneumococcal: Yes Pneumococcal Date: Dec 30, 2003 Allergies Coded Allergies: Etodolac (Verified Allergy, Unknown, 03/25/18) Morphine (Verified Allergy, Unknown, ., 03/25/18) NSAIDs (Verified Allergy, Unknown, ITCH, 03/25/18) Hydromorphone (Verified Adverse Reaction, Unknown, DIZZY,NAUSEA, 03/25/18) Home Medications Scheduled Cholecalciferol (Vitamin D), 1,000 UNITS PO BID Levothyroxine Sodium (Synthroid), 75 MCG PO DAILY Lisinopril (Lisinopril), 20 MG PO BID Metoprolol Succinate (Metoprolol Succinate ER), 100 MG PO QPM Omeprazole (Prilosec), 20 MG PO BID Prednisone (Levi), 10 MG PO DAILY Rosuvastatin Calcium (Crestor), 20 MG PO QPM Warfarin Sodium (Coumadin), 2.5 MG PO [id number] Warfarin Sodium (Coumadin), 5 MG PO WK Scheduled PRN Nitroglycerin (Nitrostat), 0.4 MG UT UD PRN for Chest Pain Tramadol (Ultram), 50 MG PO Q4H PRN for Pain Review of Systems ROS per HPI, all other systems reviewed and negative Physical Exam H&P v2 Physical Exam Vital Signs Date Time Temp Pulse Resp B/P (MAP) Pulse Ox O2 Delivery O2 Flow Rate FiO2 03/25/18 18:12 36.7 64 16 178/95 (122) 98 Room Air 03/25/18 17:40 68 16 169/76 93 03/25/18 17:23 97 Room Air 03/25/18 17:09 61 03/25/18 17:07 73 19 216/96 03/25/18 16:31 190/74 03/25/18 16:29 60 12 97 03/25/18 16:01 191/109 03/25/18 15:59 60 14 97 03/25/18 15:53 68 20 186/76 99 Room Air 03/25/18 15:05 59 24 98 03/25/18 15:02 203/80 03/25/18 14:35 55 18 99 03/25/18 14:31 152/72 03/25/18 14:05 59 17 100 03/25/18 14:03 61 20 162/58 98 Room Air 03/25/18 13:20 68 18 147/77 99 Room Air 03/25/18 12:54 67 03/25/18 12:54 97 Room Air 03/25/18 12:40 36.8 73 18 143/84 96 General Appearance: WD/WN, no apparent distress Head: normocephalic, atraumatic Eyes: normal inspection, EOMI, sclerae normal ENT: hearing grossly normal, + pertinent finding (Mucous membranes moist) Neck: supple, no JVD, trachea midline Respiratory/Chest: lungs clear, normal breath sounds, no respiratory distress Cardiovascular: regular rate, rhythm, no edema, normal peripheral pulses, + systolic murmur Abdomen/GI: normal bowel sounds, non tender, soft, no organomegaly Extremities/Musculoskelatal: normal inspection, no calf tenderness, normal capillary refill Neurologic/Psych: no motor/sensory deficits, alert, normal mood/affect, oriented x 3 Skin: normal color, warm/dry Diagnostics H&P v2 Diagnostics Laboratory Results Results Past 24 Hours Test 03/25/18 12:55 03/25/18 13:17 03/25/18 15:27 03/25/18 19:06 Range/Units White Blood Count 5.85 4.8-10.8 K/uL Red Blood Count 4.57 4.2-5.4 M/uL Hemoglobin 13.3 12.0-16.0 g/dL Hematocrit 39.0 37-47 % Mean Corpuscular Volume 85.3 80-100 fL Mean Corpuscular Hemoglobin 29.1 25-34 pg Mean Corpuscular Hemoglobin Concent 34.1 32-36 g/dl Platelet Count 277 130-400 K/uL Mean Platelet Volume 9.3 7.4-10.4 fL Neutrophils (%) (Auto) 65.1 % Lymphocytes (%) (Auto) 19.7 % Monocytes (%) (Auto) 13.2 % Eosinophils (%) (Auto) 1.5 % Basophils (%) (Auto) 0.3 % Neutrophils # (Auto) 3.81 1.4-6.5 K/uL Lymphocytes # (Auto) 1.15 1.2-3.4 K/uL Monocytes # (Auto) 0.77 0.11-0.59 K/uL Eosinophils # (Auto) 0.09 0-0.5 K/uL Basophils # (Auto) 0.02 0-0.2 K/uL RDW Standard Deviation 43.6 36.4-46.3 fL RDW Coefficient of Variation 14.0 11.5-14.5 % Immature Granulocyte % (Auto) 0.2 % Immature Granulocyte # (Auto) 0.01 0.00-0.02 K/uL Prothrombin Time 30.1 9.0-12.0 SECONDS Prothromb Time International Ratio 2.9 0.9-1.1 Sodium Level 141 136-145 mmol/L Potassium Level 3.1 3.5-5.1 mmol/L Chloride Level 112 98-107 mmol/L Carbon Dioxide Level 21 21-32 mmol/L Anion Gap 8.0 3-11 mmol/L Blood Urea Nitrogen 15 7-18 mg/dl Creatinine 1.43 0.60-1.20 mg/dl Estimated GFR () 39.2 Estimated GFR (Non- 33.8 BUN/Creatinine Ratio 10.8 10-20 Random Glucose 101 70-99 mg/dl Calcium Level 8.1 8.5-10.1 mg/dl Magnesium Level 1.8 1.8-2.4 mg/dl Total Bilirubin 0.6 0.2-1 mg/dl Direct Bilirubin 0.1 0-0.2 mg/dl Aspartate Amino Transf (AST/SGOT) 15 15-37 U/L Alanine Aminotransferase (ALT/SGPT) 15 12-78 U/L Alkaline Phosphatase 80 45-117 U/L Total Protein 6.8 6.4-8.2 gm/dl Albumin 3.0 3.4-5.0 gm/dl Lipase 128 73-393 U/L Bedside Troponin I < 0.030 0-0.045 ng/ml Urine Color YELLOW Urine Appearance CLEAR CLEAR Urine pH 6.5 4.5-7.5 Urine Specific Matthews 1.008 1.000-1.030 Urine Protein NEG NEG Urine Glucose (UA) NEG NEG Urine Ketones NEG NEG Urine Occult Blood NEG NEG Urine Nitrite NEG NEG Urine Bilirubin NEG NEG Urine Urobilinogen NEG NEG Urine Leukocyte Esterase NEG NEG Diagnostic Radiology ABD/PELVIS CT IMPRESSION: 1. Diffuse distention of small bowel without convincing evidence of obstruction or inflammatory change. This is nonspecific and could suggest ileus. 2. No other evidence of acute intra-abdominal pathology. CXR IMPRESSION: 1. Mild cardiomegaly. No other convincing evidence of acute cardiopulmonary disease. Impression H&P v2 Impression Assessment and Plan DIARRHEA -Admit to telemetry -Patient presenting with diarrhea 4 days with development of chest pain throughout the night last night -Despite patient's reports of persistent diarrhea 4 days, she does not appear overtly dry on exam or by labs (creatinine is at baseline) -CT ABD/pelvis shows a possible ileus however no other acute findings - will give IVF and clear liquid diet, follow-up abdominal x-ray in the a.m. -Stool studies CHEST PAIN -Likely GI in nature secondary to esophageal stricture -Initial troponin negative, EKG without acute ST changes -Will continue to cycle cardiac enzymes, check resting echo -No history of CAD ESOPHAGEAL STRICTURE -Underwent barium swallow 11/2017 - narrowing just above the gastroesophageal junction which failed to fully open; the barium pill became lodged at this level , possibly representing stricture; mild esophageal dysmotility; gastroesophageal reflux was observed -Likely source of chest pain -GI consult HYPERTENSION -BP mildly elevated however did not take evening blood pressure medications yet -Continue home doses of lisinopril and metoprolol, make adjustments as needed MODERATE AORTIC STENOSIS -Stable, no acute issues -Monitor volume status closely CKD STAGE III -Baseline creatinine 1.3-1.4 -Monitor renal functions, avoid nephrotoxic agents unable PMR -Rheumatology recently started prednisone 10 mg twice daily, decreasing to 5 mg daily next week -BP currently stable, no role for stress dose steroids HYPOTHYROIDISM -Continue levothyroxine HISTORY OF PULMONARY EMBOLISM -Anticoagulant Coumadin, INR 2.9 -Continue home dose of Coumadin, monitor INR daily PAROXYSMAL TACHYCARDIA -Continue metoprolol DVT PROPHYLAXIS -Anticoagulant Coumadin, INR 2.9 CODE STATUS -Patient is a full code as per my discussion with her. DISPOSITION -The patient will be placed as observation status for now until further work up is complete. ATTENDING ADDENDUM: Patient seen and examined care coordinated with Honey KEARNEY Briefly this is an 83-year-old female presents with 2-3 days of ongoing diarrhea /developed chest pain last night Lab work looks unremarkable, no acute EKG change CT abdomen pelvis shows mild ileus/no sign of acute inflammation or infection Bowel rest with clear liquid diet advance as tolerated IV fluids Order for stool for C. difficile/stool culture Chest pain Atypical for angina Possible GI related/history of GERD/esophageal stenosis/spasm Monitoring telemetry with serial cardiac markers GI eval requested Please refer to further documentation by Honey KEARNEY discussion of other chronic issues Rena Villegas MD Advanced Directives Existing Living Will: Yes Existing Power of Theater Set Production Designer: Yes Resuscitation Status VTE Prophylaxis Will order VTE Prophylaxis: Yes Physical Exam (per Admitting): General Appearance: WD/WN, no apparent distress Head: normocephalic, atraumatic Eyes: normal inspection, EOMI, sclerae normal ENT: hearing grossly normal, + pertinent finding (Mucous membranes moist) Neck: supple, no JVD, trachea midline Respiratory/Chest: lungs clear, normal breath sounds, no respiratory distress Cardiovascular: regular rate, rhythm, no edema, normal peripheral pulses, + systolic murmur Abdomen/GI: normal bowel sounds, non tender, soft, no organomegaly Extremities/Musculoskelatal: normal inspection, no calf tenderness, normal capillary refill Neurologic/Psych: no motor/sensory deficits, alert, normal mood/affect, oriented x 3 Skin: normal color, warm/dry Hospital Course ESOPHAGEAL STRICTURE -Underwent barium swallow 11/2017 - narrowing just above the gastroesophageal junction which failed to fully open; the barium pill became lodged at this level , possibly representing stricture; mild esophageal dysmotility; gastroesophageal reflux was observed -Likely source of chest pain -GI consult-appreciate Input -EGD 03/27-Mildly severe Stenosis at 20CM,Dilated -will start clears and advance as tolerated - Coumadin started -discharge today Nausea/Vomiting and DIARRHEA -Likely Gastroenteritis -Patient presenting with diarrhea 4 days with development of chest pain throughout the night last night -Despite patient's reports of persistent diarrhea 4 days, she does not appear overtly dry on exam or by labs (creatinine is at baseline) -CT ABD/pelvis shows a possible ileus however no other acute findings - will give IVF and clear liquid diet, follow-up abdominal x-ray in the a.m. -Stool studies-negative -has had Lower GI bleed-likely due to ongoing diarrhea and Local Excoriation -Hb remains stable -Resolved CHEST PAIN -Likely GI in nature secondary to esophageal stricture -Initial troponin negative, EKG without acute ST changes -Will continue to cycle cardiac enzymes, check resting echo-negative for any ACS -No more pain -No cardiac issue HYPERTENSION -BP mildly elevated however did not take evening blood pressure medications yet -Continue home doses of lisinopril and metoprolol, make adjustments as needed MODERATE AORTIC STENOSIS -Stable, no acute issues -Monitor volume status closely CKD STAGE III -Baseline creatinine 1.3-1.4 -Monitor renal functions, avoid nephrotoxic agents unable PMR -Rheumatology recently started prednisone 10 mg twice daily, decreasing to 5 mg daily next week -BP currently stable, no role for stress dose steroids HYPOTHYROIDISM -Continue levothyroxine HISTORY OF PULMONARY EMBOLISM -Anticoagulant Coumadin, INR 2.9 -Continue home dose of Coumadin, monitor INR daily -Coumadin is on Hold Received Vit K 5mg +10 mg in total PAROXYSMAL TACHYCARDIA -Continue metoprolol DVT PROPHYLAXIS -Anticoagulant Coumadin, INR 2.9 CODE STATUS -Patient is a full code as per my discussion with her. DISPOSITION -The patient will be placed as observation status for now until further work up is complete. Likely discharge today Total time spent on discharge = This includes examination of the patient, discharge planning, medication reconciliation, and communication with other providers. Discharge Instructions Date of Service March 28, 2018. Admission Reason for Admission: Chest Pain, Diarrhea Discharge Discharge Diagnosis / Problem: Nausea ,vomiting ,Diarrhea-resolved,Esophageal Stricture-dilated Discharge Goals Goal(s): Prevent Disease Progression Activity Recommendations Activity Limitations: resume your previous activity . Instructions / Follow-Up Instructions / Follow-Up Please make an appointment with Dr Parham in 1 week.Keep appointment with Coagulation clinic Current Hospital Diet Patient's current hospital diet: Regular Diet Discharge Diet Recommended Diet: Regular Diet Procedures Procedures Performed: EGD Pending Studies Studies pending at discharge: no Medical Emergencies . Who to Call and When: Medical Emergencies: If at any time you feel your situation is an emergency, please call 911 immediately. . Non-Emergent Contact Non-Emergency issues call your: Primary Care Provider . Past History Medical & Surgical History: (1) Dysphagia (2) GI bleed (3) Pulmonary embolism (4) Hypothyroidism (5) Aortic stenosis (6) Hypertension (7) GERD (gastroesophageal reflux disease) (8) History of cataract surgery (9) S/P section (10) H/O knee surgery (11) S/p fixation of radius/ulna fracture (12) S/P cholecystectomy . "Provider Documentation" section prepared by Megan Epstein. . <Electronically signed by Megan Epstein M.D.> Signed: 03/28/18 1796 Additional Copies To Moreno Parham M.D.
== END 2018-03-28 17:34 | disposition home or self-care (01) | DRG 392 ==
LOC: C.EDB 12:34 → C.2T 17:09 → ENRESERV 17:18 → OBSVTOIN 03-28 11:21
PROVIDERS: ADMIT Hospitalist; ATTEND Internal Medicine
PROC: 0DJ08ZZ Inspection of Upper Intestinal Tract, Via Natural or Artificial Opening Endoscopic (ICD-10-PCS; principal; 2018-03-27 10:01)
DX: K22.2 Esophageal obstruction (principal); K52.9 Noninfective gastroenteritis and colitis, unspecified; I35.0 Nonrheumatic aortic (valve) stenosis; E78.5 Hyperlipidemia, unspecified; K21.9 Gastro-esophageal reflux disease without esophagitis; I10 Essential (primary) hypertension; E03.9 Hypothyroidism, unspecified; M81.0 Age-related osteoporosis without current pathological fracture; R07.9 Chest pain, unspecified; E87.6 Hypokalemia; I47.9 Paroxysmal tachycardia, unspecified; M35.3 Polymyalgia rheumatica; R13.10 Dysphagia, unspecified; Z86.711 Personal history of pulmonary embolism; Z79.01 Long term (current) use of anticoagulants; Z88.5 Allergy status to narcotic agent; Z98.49 Cataract extraction status, unspecified eye; Z82.3 Family history of stroke; Z80.9 Family history of malignant neoplasm, unspecified; Z82.49 Family history of ischemic heart disease and other diseases of the circulatory system

== ENCOUNTER 2020-04-12 12:37 | Observation (INO) ==
[2020-04-12 13:19] LABS: Basophils # (auto) 0.04 K/uL (0-0.2); Basophils % (auto) 0.8 %; Eosinophils # (auto) 0.15 K/uL (0-0.5); Eosinophils % (auto) 3.1 %; Hematocrit (blood only) 36.9 % (37-47); Hemoglobin 12.2 g/dL (12.0-16.0); Lymphocytes # (auto) 1.85 K/uL (1.2-3.4); Lymphocytes % (auto) 38.8 %; Mean Corpuscular Hemoglobin 29.7 pg (25-34); Mean Corpuscular Hgb Conc 33.1 g/dL (32-36); Mean Corpuscular Volume 89.8 fL (80-100); Mean Platelet Volume 9.7 fL (7.4-10.4); Monocytes # (auto) 0.51 K/uL (0.11-0.59); Monocytes % (auto) 10.7 %; Neutrophils # (auto) 2.22 K/uL (1.4-6.5); Neutrophils % (auto) 46.6 %; Platelet Count 239 K/uL (130-400); RDW Coefficient of Variation 13.4 % (11.5-14.5); RDW Standard Deviation 43.9 fL (36.4-46.3); Red Blood Count 4.11 M/uL (4.2-5.4); White Blood Count 4.77 K/uL (4.8-10.8)
--- NOTE | 2020-04-12 13:23 | Emergency Department Note ---
Impression & Plan Chest pain, Headache, Elevated troponin I level ED Provider Note NAME: GABRIELA QUAN AGE: 85 SEX: F : 1935 ARRIVES VIA: Ambulance INFORMANT: Patient, ED PROVIDER(S): Kolby Hand DO CHIEF COMPLAINT: Headache HPI: The patient is an 85-year-old female who presented to the emergency department by ambulance for an evaluation of headache. The patient was seen in our facility recently with a nosebleed. She had epistaxis and generalized weakness. She started having epistaxis again today which stopped spontaneously. She has been noticing a left-sided headache which goes into her neck. She has had no fever. She is had no nausea or vomiting. She called her family doctor but was instructed to go to the emergency department after visiting nurses felt that her headache required further evaluation. The patient took Tylenol as well as her prescription pain medication without complete relief. She states the pain is somewhat improved at this time. She denies having any cough or cold symptoms. She states that she has been compliant with her medications. ROS: See above HPI for pertinent positives & negatives. A total of 10 systems reviewed and were otherwise negative. PAST MEDICAL HISTORY: See Below PAST SURGICAL HISTORY: See Below FAMILY HISTORY: See Below SOCIAL HISTORY: See Below HOME MEDICATIONS: See Below ALLERGIES: See Below VITALS: See Below PHYSICAL EXAMINATION: GENERAL: The patient is awake and alert. She is mildly anxious appearing but overall comfortable. EYES: The conjunctivae are clear. The pupils are round and reactive. EARS, NOSE, MOUTH AND THROAT: The nose is without any evidence of any deformity. Mucous membranes are moist. No active epistaxis was noted. NECK: The neck is nontender and supple. RESPIRATORY: Normal respiratory effort is noted there is no evidence of wheezing rhonchi or rales CARDIOVASCULAR: Regular rate and rhythm was noted to auscultation. Systolic murmur was suggested. GASTROINTESTINAL: The abdomen is soft. Abdomen is nontender. MUSCULOSKELETAL/EXTREMITIES: There is no evidence of gross deformity full range of motion is noted in the hips and shoulders. SKIN: There is no obvious evidence of any rash. Pedal edema was noted bilaterally. NEUROLOGIC: Patient is awake alert and oriented x3. There is no facial droop. No drift was noted. Strength was symmetric in both lower extremities. MEDICAL DECISION MAKING: The patient is an 85-year-old female who presented to the emergency department with multiple complaints. The patient was having problems with epistaxis as well as easy bruising. She also complained of headache. The patient was seen previously with similar complaints. She was also found to have elevated blood pressure. I discussed the patient's laboratory and radiographic studies with her. She was found to have an elevated troponin. The patient has had episodes of elevated troponin in the past but this does appear higher than her usual baseline. [facility]. It is possible she is experiencing an anginal equivalent as her troponin was elevated. I discussed the patient's laboratory and radiographic studies with her and her family member. Triage Nursing notes reviewed. Prior medical records reviewed Vital Signs: reviewed and remarkable for elevated blood pressure Differential diagnosis: Migraine headache, meningitis, sinusitis, CO exposure, ICH, SAH, infection, tumor, headache, sinus thrombosis, arterial dissection, as well as other pathologies. ER treatment provided: See below Diagnostics interpreted by me: ECG: EKG was obtained in the emergency department. My interpretation is normal sinus rhythm at 69 bpm. There is no ectopy. There is no acute ST segment abnormalities noted. This was compared to a tracing from April 10, 2020. No significant changes were noted. Cardiac Monitoring: An order was placed for continuous cardiac monitoring. The monitor shows a rate of 88 with sinus rhythm. Laboratory studies: As stated above and show below. Imaging studies: See below Consultation(s): 1530: I discussed this case with Radha who [facility] She is agreed to evaluate the patient in the emergency department for further management and disposition. Past Med/Surg History Medical History Aortic stenosis (Chronic) "moderate" Arthritis (Chronic) C2 cervical fracture (Resolved) Chest pain (Acute) Dyslipidemia (Chronic) Dysphagia Essential tremor (Chronic) GERD (gastroesophageal reflux disease) (Chronic) GI bleed H/O polymyalgia rheumatica (Chronic) History of palpitations (Chronic) History of pulmonary embolism History of syncope (Chronic) Hypertension (Chronic) Hypothyroidism (Chronic) Osteoporosis (Chronic) Paroxysmal tachycardia (Chronic) "Cardiac Zio event monitor captured a 10 beat trina of non sustained VT and several brief SVT episodes" Pulmonary embolism (Resolved) Surgical History H/O knee surgery (Chronic) History of cataract surgery (Chronic) S/P section (Chronic) S/P cholecystectomy (Chronic) Family History Other Cancer Coronary heart disease Rheumatoid arthritis Stroke Social History Preferred Language: [place] Communication Ability: Effective Enforcement Manager Required: No Beliefs That Will Affect Care: None marital status: / Current Living Situation: Family Current Living Situation Comment: lives w/ son Feels Safe at Home: Yes Smoking Status: Never smoker Hx Alcohol Use: No Hx Substance Use: No Allergies Allergies Allergy/AdvReac Type Severity Reaction Status Date / Time etodolac Allergy Unknown Unknown Verified 04/12/20 15:51 morphine Allergy Unknown . Verified 04/12/20 15:51 NSAIDS (Non-Steroidal Allergy Unknown ITCH Verified 04/12/20 15:51 Anti-Inflamma hydromorphone AdvReac Unknown DIZZY,NAUSE Verified 04/12/20 15:51 A Home Meds Home Medications Medication Instructions Recorded Confirmed apixaban [Eliquis] 2.5 mg PO BID 05/29/19 04/12/20 levothyroxine [Synthroid] 75 mcg PO QAM 05/29/19 04/12/20 metoprolol succinate [Toprol XL] 50 mg PO AMHS 05/29/19 04/12/20 nitroglycerin [Nitrostat] 0.4 mg SUBLINGUAL UD PRN 05/29/19 04/12/20 pantoprazole [Protonix] 20 mg PO BID 05/29/19 04/12/20 tramadol [Ultram] 50 mg PO Q4H PRN 05/29/19 04/12/20 trazodone 50 mg PO HS 05/29/19 04/12/20 cholecalciferol (vitamin D3) 125 mcg PO DAILY@1200 04/10/20 04/12/20 ferrous sulfate 324 mg PO MOWEFR 04/10/20 04/12/20 acetaminophen [Tylenol Extra 500 mg PO TID 04/12/20 04/12/20 Strength] Results & Data (ED) Vital Signs Vital Signs - 24 hr 04/12/20 12:47 04/12/20 13:15 04/12/20 14:21 Temperature 36.9 C Temperature Source Oral Pulse Rate 88 Pulse Rate [Apical] 62 Pulse Rhythm [Apical] Regular Pulse Strength [Apical] Normal Respiratory Rate 18 16 Respiratory Effort / Characteristics Non-Labored Spontaneous Respiratory Depth Normal Respiratory Pattern Regular Blood Pressure 151/91 H Blood Pressure [Right Arm] 164/95 H Blood Pressure Mean 111 Blood Pressure Mean [Right Arm] 118 Blood Pressure Position [Right Arm] Semi-fowlers Pulse Oximetry 96 96 96 Oxygen Delivery Method Room Air Room Air Room Air Sepsis Recent Fever Within 48 Hours No Sepsis New/Unexplained Change in Mental Status No Sepsis Action Taken by Nursing No Action Required 04/12/20 16:00 Temperature Temperature Source Pulse Rate Pulse Rate [Apical] 74 Pulse Rhythm [Apical] Pulse Strength [Apical] Respiratory Rate 18 Respiratory Effort / Characteristics Respiratory Depth Respiratory Pattern Blood Pressure Blood Pressure [Right Arm] 152/84 H Blood Pressure Mean Blood Pressure Mean [Right Arm] 106 Blood Pressure Position [Right Arm] Pulse Oximetry 94 Oxygen Delivery Method Room Air Sepsis Recent Fever Within 48 Hours Sepsis New/Unexplained Change in Mental Status Sepsis Action Taken by Nursing Laboratory Data Result diagrams: 04/12/20 12:30 04/12/20 12:30 Lab Results 04/12/20 04/12/20 04/12/20 Range/Units 12:30 12:30 12:30 WBC 4.77 L (4.8-10.8) K/uL RBC 4.11 L (4.2-5.4) M/uL Hgb 12.2 (12.0-16.0) g/dL Hct 36.9 L (37-47) % MCV 89.8 (80-100) fL MCH 29.7 (25-34) pg MCHC 33.1 (32-36) g/dL RDW Std Deviation 43.9 (36.4-46.3) fL RDW Coeff of Jing 13.4 (11.5-14.5) % Plt Count 239 (130-400) K/uL MPV 9.7 (7.4-10.4) fL Immature Gran % (Auto) 0.0 % Neut % (Auto) 46.6 % Lymph % (Auto) 38.8 % [place] % (Auto) 10.7 % Eos % (Auto) 3.1 % Baso % (Auto) 0.8 % Immature Gran # (Auto) 0.00 (0.00-0.02) K/uL Neut # (Auto) 2.22 (1.4-6.5) K/uL Lymph # (Auto) 1.85 (1.2-3.4) K/uL [place] # (Auto) 0.51 (0.11-0.59) K/uL Eos # (Auto) 0.15 (0-0.5) K/uL Baso # (Auto) 0.04 (0-0.2) K/uL PT 11.7 (9.0-12.0) Seconds INR 1.1 (0.9-1.1) APTT 31.4 H (21.0-31.0) Seconds PTT Ratio 1.1 D-Dimer (0-500) ug/L FEU Sodium 139 (136-145) mmol/L Potassium 3.3 L D (3.5-5.1) mmol/L Chloride 107 (98-107) mmol/L Carbon Dioxide 25 (21-32) mmol/L Anion Gap 7.0 (3-11) BUN 18 (7-18) mg/dl Creatinine 1.58 H (0.6-1.2) mg/dl Est Cr Clr Drug Dosing 25.1 ml/min Est GFR ( Amer) 34.2 Est GFR (Non-Af Amer) 29.5 BUN/Creatinine Ratio 11.2 (10-20) Glucose 108 H (70-99) mg/dl Calcium 8.6 (8.5-10.1) mg/dl Magnesium 1.9 (1.8-2.4) mg/dl Total Bilirubin 0.5 (0.2-1) mg/dl AST 27 (15-37) U/L ALT 19 (12-78) U/L Alkaline Phosphatase 68 (45-117) U/L Troponin I 0.282 H* (0-0.045) ng/ml Total Protein 6.1 L (6.4-8.2) gm/dl Albumin 2.8 L (3.4-5.0) gm/dl Globulin 3.3 (2.5-4.0) gm/dl Albumin/Globulin Ratio 0.9 (0.9-2) TSH 3.900 (0.300-4.500) uIu/ml 04/12/20 Range/Units 12:30 WBC (4.8-10.8) K/uL RBC (4.2-5.4) M/uL Hgb (12.0-16.0) g/dL Hct (37-47) % MCV (80-100) fL MCH (25-34) pg MCHC (32-36) g/dL RDW Std Deviation (36.4-46.3) fL RDW Coeff of Jing (11.5-14.5) % Plt Count (130-400) K/uL MPV (7.4-10.4) fL Immature Gran % (Auto) % Neut % (Auto) % Lymph % (Auto) % [place] % (Auto) % Eos % (Auto) % Baso % (Auto) % Immature Gran # (Auto) (0.00-0.02) K/uL Neut # (Auto) (1.4-6.5) K/uL Lymph # (Auto) (1.2-3.4) K/uL [place] # (Auto) (0.11-0.59) K/uL Eos # (Auto) (0-0.5) K/uL Baso # (Auto) (0-0.2) K/uL PT (9.0-12.0) Seconds INR (0.9-1.1) APTT (21.0-31.0) Seconds PTT Ratio D-Dimer 2040 H* (0-500) ug/L FEU Sodium (136-145) mmol/L Potassium (3.5-5.1) mmol/L Chloride (98-107) mmol/L Carbon Dioxide (21-32) mmol/L Anion Gap (3-11) BUN (7-18) mg/dl Creatinine (0.6-1.2) mg/dl Est Cr Clr Drug Dosing ml/min Est GFR ( Amer) Est GFR (Non-Af Amer) BUN/Creatinine Ratio (10-20) Glucose (70-99) mg/dl Calcium (8.5-10.1) mg/dl Magnesium (1.8-2.4) mg/dl Total Bilirubin (0.2-1) mg/dl AST (15-37) U/L ALT (12-78) U/L Alkaline Phosphatase (45-117) U/L Troponin I (0-0.045) ng/ml Total Protein (6.4-8.2) gm/dl Albumin (3.4-5.0) gm/dl Globulin (2.5-4.0) gm/dl Albumin/Globulin Ratio (0.9-2) TSH (0.300-4.500) uIu/ml Administered Medications Amoxicillin/Clavulanate Potassium (Augmentin 875mg) 1 tab PO BIDM JORGE Stop: 04/22/20 16:14 Last Admin: 04/12/20 17:24 Dose: 1 tab Documented by: [id number] Discontinued Medications Potassium Chloride (Klor-Con M20) 20 meq PO NOW STA Stop: 04/12/20 16:15 Last Admin: 04/12/20 17:24 Dose: 20 meq Documented by: [id number] Discharge Plan Visit Data *Final* Discharge Date/Time: 04/12/20 17:44 Chief Complaint: Headache ED Provider: Kolby Hand Discharge Problem: Chest pain, Headache, Elevated troponin I level Patient Disposition: Admitted As Inpatient Condition: Good Discharge Instructions Interventions: ED Discharge Assessment Last Done: 04/12/20 17:44
[2020-04-12 13:30] LABS: Albumin Level 2.8 gm/dl (3.4-5.0); BUN Creatinine Ratio 11.2 (10-20); Calcium 8.6 mg/dl (8.5-10.1); Creatinine Clr Calc Pharmacy 25.1 ml/min; Est GFR (African American) 34.2; Est GFR (Non-African American) 29.5; Magnesium 1.9 mg/dl (1.8-2.4); Potassium 3.3 mmol/L (3.5-5.1)
--- NOTE | 2020-04-12 13:34 | XRay Report ---
XR chest 1V portable CLINICAL HISTORY: weakness COMPARISON STUDY: 09/08/2018 FINDINGS: The bones soft tissues and hemidiaphragms are normal. The cardiomediastinal silhouette is n ormal. The lungs are clear. The pulmonary vasculature is normal. IMPRESSION: Negative chest. ACT 112: Negative or not required by law. The above report was generated using voice recognition software. It may contain grammatical, syntax or spelling errors. Electronically signed by: Jhony Lynch M.D. 04/12/2020 1:33 PM
[2020-04-12 13:42] LABS: INR 1.1 (0.9-1.1); Partial Thromboplastin Ratio 1.1; Partial Thromboplastin Time 31.4 Seconds (21.0-31.0); Prothrombin Time 11.7 Seconds (9.0-12.0)
[2020-04-12 13:43] LABS: Albumin Globulin Ratio 0.9 (0.9-2); Bilirubin,Total 0.5 mg/dl (0.2-1); Globulin 3.3 gm/dl (2.5-4.0); Thyroid Stimulating Hormone 3.9 uIu/ml (0.300-4.500); Total Protein 6.1 gm/dl (6.4-8.2); Troponin I 0.282 ng/ml (0-0.045)
--- NOTE | 2020-04-12 14:23 | CT Scan Report ---
HEAD CT NONCONTRAST CT DOSE: 537.48 mGy.cm HISTORY: Headache. Dizziness. TECHNIQUE: Multiaxial CT images of the head were performed without the use of intravenous contrast. A utomated exposure control was utilized for this study. A dose lowering technique was utilized adheri ng to the principles of ALARA. Comparison: Head CT 04/10/2020. Findings: The paranasal sinuses and right mastoid air cells are clear. Complete opacification of the left mastoid air cells and left middle ear cavity, unchanged. This may represent an otomastoiditis. N o erosive changes identified. The calvarium and skull base are intact. There is no mass, hematoma, mi dline shift, acute infarct. White matter hypodensity is nonspecific but suggestive of microvascular i schemic change. The ventricles and sulci demonstrate mild age-related involutional changes. Impression: 1. No acute intracranial abnormality. 2. No change in the opacified left mastoid air cells and left middle ear cavity. This favors an otoma stoiditis. No erosive changes identified. ACT 112: Negative or not required by law. Electronically signed by: Kory Harris M.D. 04/12/2020 2:21 PM
--- NOTE | 2020-04-12 15:03 | Electrocardiogram Report ---
Test Reason : Blood Pressure : / mmHG Vent. Rate : 069 BPM Atrial Rate : 069 BPM P-R Int : 220 ms QRS Dur : 090 ms QT Int : 436 ms P-R-T Axes : 065 027 047 degrees QTc Int : 467 ms Sinus rhythm with sinus arrhythmia with 1st degree A-V block Otherwise normal ECG When compared with ECG of 10-APR-2020 22:35, Premature supraventricular complexes are no longer Present Confirmed by Fabio Meyer ([id number]) on 04/12/2020 3:03:41 PM Referred By: Confirmed By:Fabio Meyer
[2020-04-12] MEDS ORDERED: POTASSIUM CHLORIDE 20 MEQ TABCR PO STA (16:14)
--- NOTE | 2020-04-12 16:40 | History & Physical Report ---
Date of Service April 12, 2020 Assessment & Plan (1) Headache: (2) Mastoiditis of left side: This is an 85-year-old female who has significant past medical history of PE anticoagulated on Eliquis, HTN, HLD, severe left ear, iron deficiency, hypothyroidism, history of PAT, history of PMR, osteoporosis who presents to ED secondary to headache. Of significance patient was seen in ED on 04/10 secondary to headache and hypertensive urgency. Headache likely 2/2 to sinusitis/ otomastoiditis given L sided with change in L hearing. 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 (6) Aortic stenosis: Follows [facility] cardiology Last echocardiogram 05/2019 revealed progression to severe aortic stenosis She was to undergo cardiac catheterization and eval for TAVR at [facility]; however this has been postponed secondary to pandemic Given elevated troponin repeat echocardiogram to monitor and ejection fraction (7) History of pulmonary embolism: Continue Eliquis Previously had been on Coumadin but secondary to labile INRs was transitioned to Eliquis (8) CKD (chronic kidney disease) stage 4, GFR 15-29 ml/min: Baseline creatinine 1.5-1.7 BUN/creatinine stable at 18 and 1.58 Monitor (9) Hypothyroidism: Continue levothyroxine TSH 3.9 (10) GERD (gastroesophageal reflux disease): continue PPI (11) DVT prophylaxis: Continue apixaban Disposition: Admit to telemetry Follow-up: PCP Dr. Parham upon discharge Patient was seen and examined in collaboration with Dr. Villegas, please see addendum History of Present Illness Chief Complaint: Headache, change in hearing x several days. Primary Care Provider: Moreno Parham This is an 85-year-old female who has significant past medical history of PE anticoagulated on Eliquis, HTN, HLD, severe left ear, iron deficiency, hypothyroidism, history of PAT, history of PMR, osteoporosis who presents to ED secondary to headache. Of significance patient was seen in ED on 04/10 secondary to headache and hypertensive urgency. During evaluation she was noted to have elevated troponin which was felt to be chronic in nature. She was eventually discharged home after receiving a treatment of IV Benadryl, Ativan, Reglan and IVF. She elicits over the past several days she has been having off and on left-sided frontal headache. She also complains of headache being on the top of her head. She further complains of decreased hearing to left ear, persistent morning nausea, epistaxis x2 and feelings of losing weight. She denies any dizziness, tinnitus, change in vision, syncope, off balance, chest pain, shortness of breath at rest, shortness breath with exertion, orthopnea, PND, palpitations, abdominal pain, dysuria, increased urgency or frequency with urination, melena, hematochezia. She elicit she recently has been followed by GI secondary to persistent morning nausea as well as a positive Cologuard test. She was told she was not a candidate for EGD/colonoscopy. Her H&H has been stable therefore no reason to pursue otherwise. Daughter notes she was diagnosed with iron deficiency and placed on supplemental iron 1 week ago. Also of note patient does have severe aortic stenosis followed by [facility] cardiology. She was to have a cardiac catheterization and evaluation for TAVR in [place] however this was postponed secondary to current pandemic. She has taken Tylenol [id number] with minimal improvement of symptoms. She denies any upper respiratory-like symptoms including cough, sinus congestion, rhinorrhea, otorrhea and sore throat. Recently had tried nasal spray with no improvement in her left ear hearing. She currently lives at home with her son. She ambulates without assist device. In ED patient remained hemodynamically stable although mildly hypertensive with a BP of 164/95. Lab work notable for H&H 12.2 and 36.9, WBC 4.77, platelet 239, INR 1.1, sodium 139, K3.3, BUN 18, creatinine 1.58, glucose 108, troponin 0.282, TSH 3.9. Chest x-ray was negative for acute cardiopulmonary abnormality. [id number] normal sinus rhythm with a first-degree AV block. There was no ST or T wave changes concerning for ischemia. CT head positive for opacified left mastoid air cells and left middle ear cavity. This favors an otomastoiditis, but negative for acute intracranial hemorrhage. She did not receive any treatment in ED and recommended for admission. Allergies Allergy/AdvReac Type Severity Reaction Status Date / Time etodolac Allergy Unknown Unknown Verified 04/12/20 15:51 morphine Allergy Unknown . Verified 04/12/20 15:51 NSAIDS (Non-Steroidal Allergy Unknown ITCH Verified 04/12/20 15:51 Anti-Inflamma hydromorphone AdvReac Unknown DIZZY,NAUSE Verified 04/12/20 15:51 A Home Medications Home Medications Medication Instructions Recorded Confirmed Type apixaban [Eliquis] 2.5 mg PO BID 05/29/19 04/12/20 History levothyroxine [Synthroid] 75 mcg PO QAM 05/29/19 04/12/20 History metoprolol succinate [Toprol XL] 50 mg PO AMHS 05/29/19 04/12/20 History nitroglycerin [Nitrostat] 0.4 mg SUBLINGUAL UD PRN 05/29/19 04/12/20 History pantoprazole [Protonix] 20 mg PO BID 05/29/19 04/12/20 History tramadol [Ultram] 50 mg PO Q4H PRN 05/29/19 04/12/20 History trazodone 50 mg PO HS 05/29/19 04/12/20 History cholecalciferol (vitamin D3) 125 mcg PO DAILY@1200 04/10/20 04/12/20 History ferrous sulfate 324 mg PO MOWEFR 04/10/20 04/12/20 History acetaminophen [Tylenol Extra 500 mg PO TID 04/12/20 04/12/20 History Strength] Past Med/Surg History Medical History Aortic stenosis (Chronic) "moderate" Arthritis (Chronic) C2 cervical fracture (Resolved) Chest pain (Acute) Dyslipidemia (Chronic) Dysphagia Essential tremor (Chronic) GERD (gastroesophageal reflux disease) (Chronic) GI bleed H/O polymyalgia rheumatica (Chronic) History of palpitations (Chronic) History of pulmonary embolism History of syncope (Chronic) Hypertension (Chronic) Hypothyroidism (Chronic) Osteoporosis (Chronic) Paroxysmal tachycardia (Chronic) "Cardiac Zio event monitor captured a 10 beat trina of non sustained VT and several brief SVT episodes" Pulmonary embolism (Resolved) Surgical History H/O knee surgery (Chronic) History of cataract surgery (Chronic) S/P section (Chronic) S/P cholecystectomy (Chronic) Family History Other Cancer Coronary heart disease Rheumatoid arthritis Stroke Social History Preferred Language: [place] Communication Ability: Effective Manager Creative Services Required: No Beliefs That Will Affect Care: None marital status: / Current Living Situation: Family Current Living Situation Comment: lives w/ son Feels Safe at Home: Yes Safety Concerns: Feels Safe At This Time Smoking Status: Never smoker Hx Alcohol Use: No Hx Substance Use: No Review of Systems Review of Systems: All systems reviewed & are unremarkable except as noted in HPI & below Physical Exam Physical Exam: Constitutional: WD/WN, elderly, female, vitals as above, NAD, sitting up in bed, pleasant, conversing easily Head: Normocephalic, Atraumatic Eyes: PERRL, conjunctivae normal, anicteric sclerae ENMT: external ear and nose normal, bilateral external ear canals were clear and dry. Right TM WNL. Left TM with serous otitis, nonbulging TM, mild air- fluid level. No pain to palpation of tragus or mastoid. Oropharynx normal Neck: trachea midline, no thyromegaly normal visual inspection Respiratory: normal respiratory effort, lungs clear to auscultation, no wheeze, rales, rhonchi. Normal insp/exp effort, no accessory muscle use Cardiovascular: RRR, harsh blowing 3/6 SHANE noted precordial he, best RUSB with radiation to carotid, bilateral venous insufficiency noted, trace edema, negative Homans, no erythema. Vessels: no JVD or carotid bruit Chest: normal inspection of chest Abdomen: normal bowel sounds, soft, nontender, no hepatosplenomegaly Musculoskeletal: no cyanosis or clubbing, extremities motor strength 5/5 Skin: no rashes, warm and dry normal turgor Neurologic: PERRL, EOMI, accommodation nl, no face palsy, no dysarthria CN's II-XI intact bilaterally and moves all extremities Psychiatric: A+Ox3, euthymic affect Lymphatic: no cervical or axillary lymphadenopathy : deferred Results & Data Results & Data ([facility]) Vital Signs (Past 12 Hours) Vital Signs Temp Pulse Pulse Resp BP BP Pulse Ox 04/12/20 14:21 62 16 164/95 H 96 04/12/20 13:15 96 04/12/20 12:47 36.9 C 88 18 151/91 H 96 Laboratory Results Short CBC 04/12/20 Range/Units 12:30 WBC 4.77 L (4.8-10.8) K/uL Hgb 12.2 (12.0-16.0) g/dL Hct 36.9 L (37-47) % Plt Count 239 (130-400) K/uL BMP 04/12/20 12:30 Sodium 139 Potassium 3.3 L D Chloride 107 Carbon Dioxide 25 BUN 18 Creatinine 1.58 H Glucose 108 H Calcium 8.6 Cardiac Enzymes 04/12/20 Range/Units 12:30 Troponin I 0.282 H* (0-0.045) ng/ml Liver Function 04/12/20 Range/Units 12:30 Total Bilirubin 0.5 (0.2-1) mg/dl AST 27 (15-37) U/L ALT 19 (12-78) U/L Alkaline Phosphatase 68 (45-117) U/L Albumin 2.8 L (3.4-5.0) gm/dl Diagnostic Findings CXR: IMPRESSION: Negative chest. CT head: Impression: 1. No acute intracranial abnormality. 2. No change in the opacified left mastoid air cells and left middle ear cavity. This favors an otomastoiditis. No erosive changes identified. ECG Rhythm: normal sinus Findings: + 1st degree AV block Code Status & VTE Plan Code Status Full Code VTE Prophylaxis Plan VTE Prophylaxis will be ordered: Yes Supervising Physician Co-Signing Physician Notes ATTENDING ADDENDUM : this is a 85 yo F presented with complain of frontal headache , for past 2-3 days no visual symptoms , no weakness or parthestsia did not had any fever or chills complains of nasal congestion , sinus pressure and occasional yellow sputum with cough MRI of brain shows no acute change, Left middle ear infection with mastoiditis pt's headache possibly secondary to acute mastoiditis with left ear infection started on PO Augmentis Hyeprtensive episodes noted , no complain of chest pain or SOB monitor in tele recently as taken off ACEI /lisinopril for CKD stage 4 cont on beta andrei may need furhter titration of BP meds Rena Villegas MD (1) Headache Headache chronicity pattern: acute headache Headache type: unspecified Intractability: not intractable Qualified Code(s): R51 - Headache (2) Hypertension Hypertension type: unspecified Qualified Code(s): I10 - Essential (primary) hypertension
[2020-04-12 16:56] LABS: D Dimer 2040 ug/L FEU (0-500)
[2020-04-12] MEDS: AMOXICILLIN/CLAVULANATE 875 MG TAB PO SCH ×2 (17:24→19:11)
--- NOTE | 2020-04-12 18:30 | Ultrasound Report ---
BILATERAL LOWER EXTREMITY VENOUS DOPPLER HISTORY: Elevated d-dimer. Assess for DVT. COMPARISON STUDY: None. FINDINGS: There is normal compressibility, flow, and augmentation within the bilateral lower extremit y deep venous systems. IMPRESSION: No DVT within the right or left lower extremity. ACT 112: Negative or not required by law. Electronically signed by: Kory Harris M.D. 04/12/2020 6:28 PM
[2020-04-12] MEDS ORDERED: MAGNESIUM HYDROXIDE SUSP 30 ML UDC PO PRN (18:37)
[2020-04-12] MEDS ORDERED: POLYETHYLENE (MIRALAX) 17 GM PACK PO PRN (18:37)
[2020-04-12] MEDS ORDERED: NITROGLYCERIN SL 0.4 MG/TAB TAB SL PRN (18:37)
[2020-04-12] MEDS ORDERED: ONDANSETRON INJ 2 MG/ML 2 ML VIAL IV PRN (18:37)
[2020-04-12] MEDS ORDERED: ALUMINUM/MAGNESIUM SUSP 30 ML UDC PO PRN (18:37)
[2020-04-12] MEDS: APIXABAN 2.5 MG TAB PO SCH (20:06)
[2020-04-12] MEDS: SACCHAROMYCES BOULARDII 250 MG CAP PO SCH (20:06)
[2020-04-12] MEDS: PANTOprazole 40 MG TAB PO SCH (20:06)
[2020-04-12] MEDS: METOPROLOL SUCC 50MG EXT REL TAB PO SCH (20:06)
[2020-04-12] MEDS: ACETAMINOPHEN 500 MG TAB PO SCH (20:06)
[2020-04-12] MEDS: TRAZODONE HCL 50 MG TAB PO SCH (20:06)
[2020-04-12 21:40] LABS: Appearance Urine Clear (Clear); Bacteria Urine Automated Negative (Negative); Bilirubin Urine Negative (Negative); Blood Urine Negative (Negative); Color Urine Yellow; Epithelial Cell Urine Auto >30 /lpf (0-5); Glucose Urine UA Negative (Negative); Ketones Urine Negative (Negative); Leukocyte Esterase Urine Trace (Negative); Nitrite Urine Negative (Negative); Protein Urine Negative (Negative); RBC Urine Automated 0-4 /hpf (0-4); Specific Gravity Urine 1.013 (1.000-1.030); Urobilinogen Urine Negative (Negative)
[2020-04-13] MEDS: LEVOTHYROXINE SODIUM 75 MCG TABLET PO SCH (06:36)
[2020-04-13 07:29] LABS: BUN Creatinine Ratio 10.4 (10-20); Calcium 8.7 mg/dl (8.5-10.1); Creatinine Clr Calc Pharmacy 23.8 ml/min; Est GFR (African American) 33.2; Est GFR (Non-African American) 28.6; Magnesium 1.9 mg/dl (1.8-2.4); Potassium 3.9 mmol/L (3.5-5.1)
[2020-04-13] MEDS: APIXABAN 2.5 MG TAB PO SCH ×2 (08:05→20:33)
[2020-04-13] MEDS: AMOXICILLIN/CLAVULANATE 500 MG TAB PO SCH ×2 (08:05→17:36)
[2020-04-13] MEDS: PANTOprazole 40 MG TAB PO SCH ×2 (08:05→20:34)
[2020-04-13] MEDS: SACCHAROMYCES BOULARDII 250 MG CAP PO SCH ×2 (08:05→20:33)
[2020-04-13] MEDS: ACETAMINOPHEN 500 MG TAB PO SCH ×3 (08:06→20:33)
[2020-04-13] MEDS: METOPROLOL SUCC 50MG EXT REL TAB PO SCH ×2 (08:06→20:34)
[2020-04-13] MEDS ORDERED: HydrALAZINE HCL 20 MG/ML VIAL IV STA (08:45)
[2020-04-13] MEDS ORDERED: FERROUS SULFATE 325 MG TAB PO SCH (09:00)
--- NOTE | 2020-04-13 10:48 | Hospitalist Progress Note ---
Date of Service April 13, 2020 Assessment & Plan (1) Hypertensive urgency: Recently stopped lisinopril (was taking MWF) on 04/06 with subsequent BP increase leading to two visits in the ER and this admission. present so she is preload dependent. Small amount of vasodilator (hydralazine) given cautiously this morning with improvement. Lisinopril was stopped as outpatient in setting of CKD Stage IV. Will consult cardiology for BP optimization strategy in the setting of severe with hypertensive urgency and upcoming TAVR for severe . (2) Mastoiditis of left side: Reports of L sided ear pain with hearing decline in left ear a few months ago without improvement. CT revealed complete opacification in the left mastoid air cells and left middle ear cavity. Pt was placed on a course of Augmentin. Son reports that she has nausea in the mornings. She is nautious today and reports one episode of loose stool. May be a side effect from Augmentin. Will cont to monitor while completing course of antibiotics. (3) Headache: CT scan negative for acute changes. Likely related to elevated BP. (4) Aortic stenosis: Severe , following with [facility] as outpatient. Plan for cardiac catheterization and evaluation for TAVR at [facility] was postponed in setting of pandemic. (5) Elevated d-dimer: venous dopplers are negative. Pt has a h/o PE on Eliquis, and has CKD making contrast administration not ideal without clinical symptoms that are concerning for an acute PE. She is not hypoxic, reports no shortness of breath and is not tachycardic. She presented on Eliquis. Would not proceed with CT chest at this time for those reasons, but would have a low threshold to test should any of those issues arise. Cont Eliquis per home regimen. (6) Elevated troponin: Do not believe this is ACS with lack of chest pain and no acute ischemia on EKG. She has reasons for trop leak including CKD Stage III and valvular heart disease in the setting of uncontrolled HTN. She has a h/o mildly elevated troponin in the past. Echo to ensure no acute wall motion abnormalities. Last echo was 2017. Trop trend reveals decrease overnight. (7) Hypokalemia: repleted. Resolved. (8) History of pulmonary embolism: Continue Eliquis Previously had been on Coumadin but secondary to labile INRs was transitioned to Eliquis (9) CKD (chronic kidney disease) stage 4, GFR 15-29 ml/min: Baseline creatinine 1.5-1.7, and she is at her baseline. BUN/creatinine stable at 18 and 1.58 (10) Hypothyroidism: TSH WNL, cont levothyroxine per home regimen. (11) DVT prophylaxis: Zoeyunielkarsten Full Code Dispo-cont telemetry monitoring. I spoke with son, Goyo, with whom she lives who is in agreement with the plan. I would like to see some stability in her BP and ensure she is feeling better prior to discharge. Would like to keep her today if she is agreeing to stay. Gisselle Gillespie DO [facility] and [facility]ticipated Discharge Date Admission Date: April 12, 2020 Subjective 10:45am: BP 180 systolic, gave hydralazine 10mg IV and recheck was 107 systolic. Recheck at bedside within one hour was 131/69, P 83. She is reporting a consistent dull headache all over including posterior and frontal areas that is a 4/10. She reports improvement from yesterday where her ROSSI was 10/10. She reports feeling well without ear pain, sinus congestion, fevers, chills or recent cold symptoms in the past few weeks. She was feeling well up until her headache yesterday and came to the ER because of the intensity of jose enrique n. BP was elevated on admission and continued to rise overnight. She is on Toprol XL at home, and outpatient record review reveals BP at goal. Review of Systems Review of Systems: All systems reviewed & are unremarkable except as noted in Subjective (denies chest pain, head congestion, SOB. Baseline ambulation with walker, and cannot climb steps. Lives with son at home.) Physical Exam Physical Exam: CONSTITUTIONAL: WNWD, vitals as above, generally ill-appearing EYES: pupils are equal and round bilaterally, normal conjunctivae, no scleral icterus ENT: external ear and nose normal, oropharynx clear, MMM NECK: trachea midline RESPIRATORY: clear to auscultation bilaterally, no crackles, rales or wheezes, normal respiratory effort CARDIOVASCULAR: regular rate and rhythm, 3/6 SHANE heard across precordium, no gallops or rubs, no JVD, no peripheral edema GASTROINTESTINAL: normal bowel sounds, soft, nontender, nondistended, no guarding. MUSCULOSKELETAL: strength 5/5 throughout, head is normocephalic and atraumatic, neck supple SKIN: warm and dry, some erythematous papules are present and scattered along face in T-zones and across nose and cheeks. NEUROLOGIC: No facial palsy, no dysarthria. CN 2-12 grossly intact, normal cognition, normal speech, no gross focal deficits. PSYCHIATRIC: alert cooperative and oriented to person, place and time. Results & Data Results & Data ([facility]) Vital Signs (Past 12 Hours) Vital Signs Temp Pulse Pulse Pulse Resp BP BP 04/13/20 08:45 184/81 H 180/80 H 04/13/20 08:15 71 04/13/20 07:13 36.9 C 82 18 199/89 H 04/13/20 05:20 36.9 C 76 18 164/80 H 04/13/20 03:44 72 04/12/20 23:00 36.9 C 75 18 151/77 H Pulse Ox 04/13/20 08:45 04/13/20 08:15 04/13/20 07:13 95 04/13/20 05:20 96 04/13/20 03:44 04/12/20 23:00 95 Laboratory Results Short CBC 04/12/20 Range/Units 12:30 WBC 4.77 L (4.8-10.8) K/uL Hgb 12.2 (12.0-16.0) g/dL Hct 36.9 L (37-47) % Plt Count 239 (130-400) K/uL BMP 04/12/20 04/13/20 12:30 06:38 Sodium 139 141 Potassium 3.3 L D 3.9 D Chloride 107 108 H Carbon Dioxide 25 28 BUN 18 17 Creatinine 1.58 H 1.62 H Glucose 108 H 71 Calcium 8.6 8.7 Cardiac Enzymes 04/12/20 04/12/20 04/13/20 Range/Units 12:30 18:39 00:28 Troponin I 0.282 H* 0.304 H* 0.284 H* (0-0.045) ng/ml 04/13/20 Range/Units 06:38 Troponin I 0.259 H* (0-0.045) ng/ml Liver Function 04/12/20 Range/Units 12:30 Total Bilirubin 0.5 (0.2-1) mg/dl AST 27 (15-37) U/L ALT 19 (12-78) U/L Alkaline Phosphatase 68 (45-117) U/L Albumin 2.8 L (3.4-5.0) gm/dl Urine 04/12/20 Range/Units 21:26 Urine Color Yellow Urine Appearance Clear (Clear) Urine pH 6.0 (4.5-7.5) Ur Specific [place] 1.013 (1.000-1.030) Urine Protein Negative (Negative) Urine Glucose (UA) Negative (Negative) Medications Administered Current Inpatient Medications Acetaminophen (Tylenol) 500 mg PO TID [facility] Stop: 05/12/20 20:59 Last Admin: 04/13/20 08:06 Dose: 500 mg Documented by: Al Hydrox/Mg Hydrox/Simethicone (Maalox) 15 ml PO Q4H PRN PRN Reason: Dyspepsia Stop: 05/12/20 18:36 Amoxicillin/Clavulanate Potassium (Augmentin 500mg) 1 tab PO BIDM [facility] Stop: 04/23/20 07:59 Last Admin: 04/13/20 08:05 Dose: 1 tab Documented by: Apixaban (Eliquis) 2.5 mg PO BID [facility] Stop: 05/12/20 20:59 Last Admin: 04/13/20 08:05 Dose: 2.5 mg Documented by: Ferrous Sulfate (Feosol) 325 mg PO MoWeFr@0900 [facility] Stop: 05/13/20 08:59 Last Admin: 04/13/20 08:06 Dose: 325 mg Documented by: Levothyroxine Sodium (Synthroid) 75 mcg PO DAILYBB [facility] Stop: 05/13/20 06:29 Last Admin: 04/13/20 06:36 Dose: 75 mcg Documented by: Magnesium Hydroxide (Milk Of Magnesia) 30 ml PO Q12H PRN PRN Reason: Constipation Stop: 05/12/20 18:36 Metoprolol Succinate (Toprol Xl) 50 mg PO AMHS [facility] Stop: 05/12/20 20:59 Last Admin: 04/13/20 08:06 Dose: 50 mg Documented by: Nitroglycerin (Nitrostat) 0.4 mg SL UD PRN PRN Reason: Chest Pain Stop: 05/12/20 18:36 Ondansetron HCl (Zofran) 4 mg IV Q6H PRN PRN Reason: Nausea Stop: 05/12/20 18:36 Pantoprazole Sodium (Protonix) 40 mg PO BID J[facility]GE Stop: 05/12/20 20:59 Last Admin: 04/13/20 08:05 Dose: 40 mg Documented by: Polyethylene Glycol (Miralax Powder Packet) 17 gm PO DAILY PRN PRN Reason: Constipation Stop: 05/12/20 18:36 Saccharomyces Boulardii (Florastor) 250 mg PO BID JORGE Stop: 05/12/20 20:59 Last Admin: 04/13/20 08:05 Dose: 250 mg Documented by: Tramadol HCl (Ultram) 50 mg PO Q4H PRN PRN Reason: pain Stop: 05/12/20 18:36 Trazodone HCl (Desyrel) 50 mg PO HS [facility] Stop: 05/12/20 20:59 Last Admin: 04/12/20 20:06 Dose: 50 mg Documented by: Vitamin D (Vitamin D3) 1,000 units PO DAILY@1200 [facility] Stop: 05/13/20 11:59 (1) Headache Headache chronicity pattern: acute headache Headache type: unspecified Intractability: not intractable Qualified Code(s): R51 - Headache
[2020-04-13] MEDS ORDERED: ONDANSETRON INJ 2 MG/ML 2 ML VIAL IV ONE (10:51)
[2020-04-13] MEDS: CHOLECALCIFEROL 1,000 UNITS 25 MCG TAB PO SCH (11:16)
[2020-04-13] MEDS: TRAMADOL HCL 50 MG TABLET PO PRN ×2 (11:16→23:38)
--- NOTE | 2020-04-13 17:35 | Cardiology Consultation ---
Date of Consultation April 13, 2020 Assessment & Plan (1) Hypertension: (2) Severe aortic stenosis: (3) Elevated troponin: (4) Mastoiditis of left side: Blood pressure improved since approximately 11 AM. Agree with holding lisinopril at this time due to renal insufficiency. Continue daily metoprolol. I would consider addition of low-dose amlodipine, 2.5 mg daily, if systolic blood pressure remains consistently above 160mmHg. I would recommend avoiding IV antihypertensive medications due to the presence of severe aortic stenosis. She will follow-up in the outpatient clinic regarding scheduling of TAVR. Continue Eliquis as previously ordered. Antibiotics per internal medicine. History of Present Illness Reason for Consultation: Hypertension, aortic stenosis Requesting Physician: Dr. Gillespie Attending Physician: Gisselle Gillespie, History of Present Illness Patient seen and examined at the bedside. She is a poor historian. Blood pressure elevated initially during hospitalization, however, she received a dose of IV hydralazine at approximately 9 AM. Blood pressure has been controlled since approximately 11 AM per chart review. Patient denies pain, headache, visual changes, chest discomfort, lightheadedness, dizziness, or dyspnea with exertion. Treated with metoprolol daily as well as lisinopril 3 days/week as outpatient. Lisinopril has not been ordered during this admission. Repeat resting 2D transthoracic echocardiogram performed at bedside demonstrating severe left ear. Patient is followed in the cardiology clinic regarding her aortic stenosis. She is awaiting TAVR. Allergies Allergy/AdvReac Type Severity Reaction Status Date / Time etodolac Allergy Unknown Unknown Verified 04/12/20 15:51 morphine Allergy Unknown . Verified 04/12/20 15:51 NSAIDS (Non-Steroidal Allergy Unknown ITCH Verified 04/12/20 15:51 Anti-Inflamma hydromorphone AdvReac Unknown DIZZY,NAUSE Verified 04/12/20 15:51 A Home Medications Home Medications Medication Instructions Recorded Confirmed Type apixaban [Eliquis] 2.5 mg PO BID 05/29/19 04/12/20 History levothyroxine [Synthroid] 75 mcg PO QAM 05/29/19 04/12/20 History metoprolol succinate [Toprol XL] 50 mg PO AMHS 05/29/19 04/12/20 History nitroglycerin [Nitrostat] 0.4 mg SUBLINGUAL UD PRN 05/29/19 04/12/20 History pantoprazole [Protonix] 20 mg PO BID 05/29/19 04/12/20 History tramadol [Ultram] 50 mg PO Q4H PRN 05/29/19 04/12/20 History trazodone 50 mg PO HS 05/29/19 04/12/20 History cholecalciferol (vitamin D3) 125 mcg PO DAILY@1200 04/10/20 04/12/20 History ferrous sulfate 324 mg PO MOWEFR 04/10/20 04/12/20 History acetaminophen [Tylenol Extra 500 mg PO TID 04/12/20 04/12/20 History Strength] Patient History Medical History Aortic stenosis (Chronic) "moderate" Arthritis (Chronic) C2 cervical fracture (Resolved) Chest pain (Acute) Dyslipidemia (Chronic) Dysphagia Essential tremor (Chronic) GERD (gastroesophageal reflux disease) (Chronic) GI bleed H/O polymyalgia rheumatica (Chronic) History of palpitations (Chronic) History of pulmonary embolism History of syncope (Chronic) Hypertension (Chronic) Hypothyroidism (Chronic) Osteoporosis (Chronic) Paroxysmal tachycardia (Chronic) "Cardiac Zio event monitor captured a 10 beat trina of non sustained VT and several brief SVT episodes" Pulmonary embolism (Resolved) Surgical History H/O knee surgery (Chronic) History of cataract surgery (Chronic) S/P section (Chronic) S/P cholecystectomy (Chronic) Family History Other Cancer Coronary heart disease Rheumatoid arthritis Stroke Social History Preferred Language: Romansh Communication Ability: Effective 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: No Beliefs That Will Affect Care: None marital status: / Current Living Situation: Family Current Living Situation Comment: lives w/ son Feels Safe at Home: Yes Safety Concerns: Feels Safe At This Time Smoking Status: Never smoker Hx Alcohol Use: No Hx Substance Use: No Review of Systems Review of Systems: All systems reviewed & are unremarkable except as noted in HPI & below Physical Exam Constitutional: well developed, well nourished and average body habitus; no acute distress and not ill appearing Respiratory: normal respiratory effort; no respiratory distress and no labored breathing Auscultation: no crackles, no rales, no rhonchi and no wheezes Cardiovascular: Rate/Rhythm: regular rate and regular rhythm; not tachycardic Heart Sounds: normal S1 and + murmur (3/6 high-pitched late peaking systolic ejection murmur heard best at the right second intercostal space.); + abnormal S2 (Diminished) Vessels: no JVD and no carotid bruit Extremities: + edema (Trace bilateral pedal edema) Gastrointestinal (Abdomen): Inspection/Auscultation: abdomen normal to inspection and normal bowel sounds; abdomen not distended Percussion/Palpation: abdomen soft; abdomen nontender, no guarding and abdomen not rigid Skin: no rashes, warm and dry Neurologic: moves all extremities; no focal motor deficits Speech / Cognition: normal speech Motor/Sensory: no tremor Psychiatric: Orientation: alert; + not oriented x 3 Results & Data ([facility]) Vital Signs (Past 12 Hours) Vital Signs Temp Pulse Pulse Resp BP BP Pulse Ox 04/13/20 16:01 94 04/13/20 15:47 36.9 C 70 17 116/67 95 04/13/20 14:55 69 04/13/20 11:17 36.5 C 70 16 128/74 97 04/13/20 11:14 04/13/20 08:45 184/81 H 180/80 H 04/13/20 08:15 71 04/13/20 07:13 36.9 C 82 18 199/89 H 95 Pulse Ox 04/13/20 16:01 04/13/20 15:47 04/13/20 14:55 04/13/20 11:17 04/13/20 11:14 95 04/13/20 08:45 04/13/20 08:15 04/13/20 07:13 (1) Hypertension Hypertension type: unspecified Qualified Code(s): I10 - Essential (primary) hypertension
[2020-04-13] MEDS: TRAZODONE HCL 50 MG TAB PO SCH (20:33)
[2020-04-14] MEDS ORDERED: AMLODIPINE BESYLATE 5 MG TAB PO ONE ×2 (00:38→08:30)
[2020-04-14] MEDS ORDERED: METOPROLOL SUCC 50MG EXT REL TAB PO SCH (05:00)
[2020-04-14] MEDS: LEVOTHYROXINE SODIUM 75 MCG TABLET PO SCH (05:52)
[2020-04-14 07:19] LABS: BUN Creatinine Ratio 9.3 (10-20); Calcium 8.7 mg/dl (8.5-10.1); Creatinine Clr Calc Pharmacy 24.3 ml/min; Est GFR (Non-African American) 29.3; Potassium 3.7 mmol/L (3.5-5.1)
[2020-04-14] MEDS: PANTOprazole 40 MG TAB PO SCH (08:10)
[2020-04-14] MEDS: SACCHAROMYCES BOULARDII 250 MG CAP PO SCH (08:10)
[2020-04-14] MEDS: ACETAMINOPHEN 500 MG TAB PO SCH ×2 (08:10→12:19)
[2020-04-14] MEDS: AMOXICILLIN/CLAVULANATE 500 MG TAB PO SCH (08:11)
[2020-04-14] MEDS: APIXABAN 2.5 MG TAB PO SCH (08:11)
--- NOTE | 2020-04-14 11:09 | Cardiology Progress Note ---
Date of Service April 14, 2020 Assessment & Plan (1) Hypertension: (2) Severe aortic stenosis: (3) Elevated troponin: (4) Mastoiditis of left side: Blood pressure control mildly improved with addition of calcium channel andrei therapy. Her intermittent headache and discomfort is also affecting her blood pressure readings. I would not titrate amlodipine beyond 5 mg daily today. Continue to monitor blood pressure per protocol. Continue metoprolol daily. Chronically anticoagulated with Eliquis due to history of pulmonary embolus. Outpatient cardiology follow-up as scheduled regarding TAVR. Antibiotics/pain management per direction of internal medicine. Subjective Patient seen and examined at the bedside. Notes mild headache this morning. Blood pressure elevated overnight. She received dose of amlodipine 2.5 mg at a pproximately 1:20 AM then again early this morning. Currently ordered amlodipine 5 mg nightly. Denies chest pain or palpitations. No orthopnea or paroxysmal nocturnal dyspnea. Offers no other concerns/complaints at this time. Review of Systems Review of Systems: All systems reviewed & are unremarkable except as noted in HPI & below Physical Exam Constitutional: well developed, well nourished and average body habitus; no acute distress and not ill appearing Respiratory: normal respiratory effort; no respiratory distress and no labored breathing Auscultation: no crackles, no rales, no rhonchi and no wheezes Cardiovascular: Rate/Rhythm: regular rate and regular rhythm; not tachycardic Heart Sounds: normal S1 and + murmur (3/6 high-pitched late peaking systolic ejection murmur heard best at the right second intercostal space.); + abnormal S2 (Diminished) Vessels: no JVD and no carotid bruit Extremities: + edema (Trace bilateral pedal edema) Gastrointestinal (Abdomen): Inspection/Auscultation: abdomen normal to inspection and normal bowel sounds; abdomen not distended Percussion/Palpation: abdomen soft; abdomen nontender, no guarding and abdomen not rigid Skin: no rashes, warm and dry Neurologic: moves all extremities; no focal motor deficits Speech / Cognition: normal speech Motor/Sensory: no tremor Psychiatric: Orientation: alert; + not oriented x 3 Results & Data Vital Signs (Past 12 Hours) Vital Signs Temp Pulse Pulse Resp BP BP Pulse Ox 04/14/20 07:18 36.6 C 76 16 167/77 H 95 04/14/20 04:39 36.3 C L 66 20 184/79 H 94 04/14/20 00:00 71 04/13/20 23:44 36.7 C 68 18 180/80 H 170/82 H 96 (1) Hypertension Hypertension type: unspecified Qualified Code(s): I10 - Essential (primary) hypertension
--- NOTE | 2020-04-14 11:29 | Discharge Summary ---
Date of Service April 14, 2020 Admission HPI Per Admitting Provider This is an 85-year-old female who has significant past medical history of PE anticoagulated on Eliquis, HTN, HLD, severe left ear, iron deficiency, hypothyroidism, history of PAT, history of PMR, osteoporosis who presents to ED secondary to headache. Of significance patient was seen in ED on 04/10 secondary to headache and hypertensive urgency. During evaluation she was noted to have elevated troponin which was felt to be chronic in nature. She was eventually discharged home after receiving a treatment of IV Benadryl, Ativan, Reglan and IVF. She elicits over the past several days she has been having off and on left-sided frontal headache. She also complains of headache being on the top of her head. She further complains of decreased hearing to left ear, persistent morning nausea, epistaxis x2 and feelings of losing weight. She denies any dizziness, tinnitus, change in vision, syncope, off balance, chest pain, shortness of breath at rest, shortness breath with exertion, orthopnea, PND, palpitations, abdominal pain, dysuria, increased urgency or frequency with urination, melena, hematochezia. She elicit she recently has been followed by GI secondary to persistent morning nausea as well as a positive Cologuard test. She was told she was not a candidate for EGD/colonoscopy. Her H&H has been stable therefore no reason to pursue otherwise. Daughter notes she was diagnosed with iron deficiency and placed on supplemental iron 1 week ago. Also of note patient does have severe aortic stenosis followed by [facility] cardiology. She was to have a cardiac catheterization and evaluation for TAVR i [facility] however this was postponed secondary to current pandemic. She has taken Tylenol [id number] with minimal improvement of symptoms. She denies any upper respiratory-like symptoms including cough, sinus congestion, rhinorrhea, otorrhea and sore throat. Recently had tried nasal spray with no improvement in her left ear hearing. She currently lives at home with her son. She ambulates without assist device. In ED patient remained hemodynamically stable although mildly hypertensive with a BP of 164/95. Lab work notable for H&H 12.2 and 36.9, WBC 4.77, platelet 239, INR 1.1, sodium 139, K3.3, BUN 18, creatinine 1.58, glucose 108, troponin 0.282, TSH 3.9. Chest x-ray was negative for acute cardiopulmonary abnormality. [id number] normal sinus rhythm with a first-degree AV block. There was no ST or T wave changes concerning for ischemia. CT head positive for opacified left mastoid air cells and left middle ear cavity. This favors an otomastoiditis, but negative for acute intracranial hemorrhage. She did not receive any treatment in ED and recommended for admission. Admission Exam Per Admitting Provider Constitutional: WD/WN, elderly, female, vitals as above, NAD, sitting up in bed, pleasant, conversing easily Head: Normocephalic, Atraumatic Eyes: PERRL, conjunctivae normal, anicteric sclerae ENMT: external ear and nose normal, bilateral external ear canals were clear and dry. Right TM WNL. Left TM with serous otitis, nonbulging TM, mild air- fluid level. No pain to palpation of tragus or mastoid. Oropharynx normal Neck: trachea midline, no thyromegaly normal visual inspection Respiratory: normal respiratory effort, lungs clear to auscultation, no wheeze, rales, rhonchi. Normal insp/exp effort, no accessory muscle use Cardiovascular: RRR, harsh blowing 3/6 SHANE noted precordial he, best RUSB with radiation to carotid, bilateral venous insufficiency noted, trace edema, negative Homans, no erythema. Vessels: no JVD or carotid bruit Chest: normal inspection of chest Abdomen: normal bowel sounds, soft, nontender, no hepatosplenomegaly Musculoskeletal: no cyanosis or clubbing, extremities motor strength 5/5 Skin: no rashes, warm and dry normal turgor Neurologic: PERRL, EOMI, accommodation nl, no face palsy, no dysarthria CN's II-XI intact bilaterally and moves all extremities Psychiatric: A+Ox3, euthymic affect Lymphatic: no cervical or axillary lymphadenopathy : deferred Principal Diagnosis Hypertensive Urgency Chronic left hearing loss CKD Stage IV Discharge Exam CONSTITUTIONAL: WNWD, vitals as above, generally well-appearing EYES: pupils are equal and round bilaterally, normal conjunctivae, no scleral icterus ENT: external ear and nose normal, oropharynx clear, MMM NECK: trachea midline RESPIRATORY: clear to auscultation bilaterally, no crackles, rales or wheezes, normal respiratory effort CARDIOVASCULAR: regular rate and rhythm, 3/6 SHANE heard across precordium, no gallops or rubs, no JVD, no peripheral edema GASTROINTESTINAL: normal bowel sounds, soft, nontender, nondistended, no guarding. MUSCULOSKELETAL: strength 5/5 throughout, head is normocephalic and atraumatic, neck supple SKIN: warm and dry, facial rash has resolved NEUROLOGIC: No facial palsy, no dysarthria. CN 2-12 grossly intact, normal cognition, normal speech, no gross focal deficits. PSYCHIATRIC: alert cooperative and oriented to person, place and time. Discharge Data Allergies Allergy/AdvReac Type Severity Reaction Status Date / Time etodolac Allergy Unknown Unknown Verified 04/12/20 15:51 morphine Allergy Unknown . Verified 04/12/20 15:51 NSAIDS (Non-Steroidal Allergy Unknown ITCH Verified 04/12/20 15:51 Anti-Inflamma hydromorphone AdvReac Unknown DIZZY,NAUSE Verified 04/12/20 15:51 A Consultations 04/12/20 15:34 ED Decision to Admit Stat 04/12/20 18:37 Consult Case Management - Discharge Planning Routine 04/13/20 11:15 Consult Cardiology Routine Ordered Studies 04/12/20 13:13 CT head/brain wo con Stat 04/12/20 17:02 US venous doppler LE BI Routine Hospital Course (1) Hypertensive urgency: (2) Headache: (3) Aortic stenosis: (4) Elevated d-dimer: (5) Hearing loss in left ear: (6) Elevated troponin: 85-year-old female admitted with headache and elevated blood pressure. As she has a history of severe aortic stenosis, cardiology was consulted to assist. They recommended low-dose amlodipine which was started at time of discharge. Additionally, a CT of her head revealed complete opacities in the left mastoid air cells and left middle ear cavity. The patient also reportedly had hearing loss, and was started on Augmentin for presumed mastoiditis. However on further questioning, she did not present with any signs or symptoms of mastoiditis or ear infection. Additionally, examination of her ear canal and tympanic membrane was within normal limits. Furthermore, she reported hearing loss that upon further review of the records had been ongoing for approximately 18 months. In fact, she had already been seen by otorhinolaryngology last summer with recommendations. Augmentin was stopped and no further steroid was pursued to treat hearing loss which was now chronic. Work-up included an elevated d-dimer and venous Dopplers were performed and were negative for DVT. The patient has a history of pulmonary embolus and is on Eliquis with CKD stage IV making contrast administration for a CT angiogram less desirable without clinical symptoms concerning for acute PE and with the patient on appropriate anticoagulation. Elevated blood pressure may have been influenced by lisinopril discontinuation just a few days prior to presentation. Lisinopril was reportedly stopped in the setting of CKD stage IV by her primary care physician. During the hospitalization an echocardiogram was performed with an elevated troponin present on work-up. Ejection fraction was found to be 60 to 65%, there was moderate concentric LVH, aortic valve was severely calcified with severe valvular aortic stenosis. Mild mitral and tricuspid regurgitation was seen. Doppler findings did not suggest pulmonary hypertension and grade 1 diastolic dysfunction was present. Lisinopril was not restarted in the setting of known CKD stage IV, and she was ultimately discharged on amlodipine 5 mg daily in addition to her other home medications. Close follow-up with primary care doctor was recommended to recheck blood pressure and titrate medications as needed. Further outpatient cardiology follow-up was recommended to schedule her TAVR, previously planned but delayed in the setting of the COVID-19 pandemic. At time of discharge she was mentating and ambulating at baseline and tolerating p.o. She was hemodynamically stable and afebrile and oxygenating well on room air. She was sent home in stable condition. Total Time Total Time Spent Total Time Spent (In Minutes): 60 Total Time Includes: Examination of the Patient, Discharge Planning, Medication Reconciliation and Communication With Other Providers Discharge Plan Discharge Items Patient Disposition: Home - Self-Care Reason For Visit: HEADACHE Discharge Diagnosis: Hypertensive Urgency Chronic left hearing loss CKD Stage IV Condition on Discharge: Good Activity: Resume your previous activity Non-emergency contact: Primary Care Provider Call non-emergency contact if: you have any medication questions, your symptoms worsen, your pain is not controlled, your pain is worsening, your pain is unusual for you, your pain is concerning for you and you have a fever Follow-up/Referrals: Moreno Parham [Primary Care Provider] - Diet: Low Sodium (2gm) Addtl Attending Provider Instructions: Please take all medications as instructed on discharge list below. You are being given a new blood pressure medication today. Therefore, you will need a one week follow-up with your primary care physician (PCP) for a recheck of your blood pressure and to ensure you are still doing well after discharge. A low salt (sodium) diet is recommended with a maximum sodium limit of 2000mg daily. It is recommended that you establish care with a [facility] (kidney specialist) for your chronic kidney disease. Please follow-up with [facility] Cardiology as instructed to re-establish care goals for treatment of your heart valve disorder. You have chronic left-sided hearing loss. It is recommended that you follow-up with Otorhinolaryngology (Ear, Nose, & Throat) -Dr. Corry Lama-for a one year follow-up. There is no evidence of acute infection, so antibiotics will not be recommended moving forward unless acute symptoms of infection develop (eg: fever, ear pain, discharge from ear, etc) It was a pleasure taking care of you! Please call if you have any questions or problems. You can reach a [facility] hospitalist on duty at [facility] 24 hours a day by calling [phone]. Take care of yourself. Gisselle Gillespie, DO [facility] Hospitalist Pending Studies at Discharge: No Stand-Alone Forms: My [facility], Smoking Cessation Medications and DC Order Prescriptions: New amlodipine [Norvasc] 5 mg Tablet 5 mg PO HS Qty: 30 RF: 1 Continued trazodone 50 mg tablet 50 mg PO HS RF: 0 metoprolol succinate [Toprol XL] 50 mg tablet extended release 24 hr 50 mg PO AMHS RF: 0 tramadol [Ultram] 50 mg tablet 50 mg PO Q4H PRN (Reason: pain) RF: 0 pantoprazole [Protonix] 20 mg tablet,delayed release (DR/EC) 20 mg PO BID RF: 0 levothyroxine [Synthroid] 75 mcg tablet 75 mcg PO QAM RF: 0 nitroglycerin [Nitrostat] 0.4 mg tablet, sublingual 0.4 mg sublingual UD PRN (Reason: Chest Pain) RF: 0 Eliquis 2.5 mg tablet 2.5 mg PO BID RF: 0 cholecalciferol (vitamin D3) 125 mcg (5,000 unit) capsule 125 mcg PO DAILY@1200 RF: 0 ferrous sulfate 324 mg (65 mg iron) Tablet,Delayed Release (Dr/Ec) 324 mg PO MOWEFR RF: 0 acetaminophen [Tylenol Extra Strength] 500 mg Tablet 500 mg PO TID RF: 0 Discharge Orders: Discharge Order (Routine); Ordered 04/14/20 Ordered By: Gisselle Gillespie Admission Data Admit Date/Time: 04/12/20 16:20 Attending Provider: Gisselle Gillespie Admit Provider: Rena Villegas Primary Care Provider: Moreno Parham Other Providers: Rena Villegas ; Jeremias Barrow Other Interventions: Discharge Summary Assessment (RN) Last Done: 04/14/20 13:09 DC Date/Time DO NOT enter until pt leaves facility: 04/14/20 14:35
[2020-04-14] MEDS: CHOLECALCIFEROL 1,000 UNITS 25 MCG TAB PO SCH (12:18)
[2020-04-14] MEDS ORDERED: AMLODIPINE BESYLATE 5 MG TAB PO SCH ×2 (21:00)
[2020-04-15] MEDS ORDERED: AMLODIPINE BESYLATE 5 MG TAB PO SCH (09:00)
== END 2020-04-14 14:35 | disposition home or self-care (01) ==
LOC: 2N 12:37 → ED 12:37 → SUATTDRO 16:20 → 2N 17:44

== ENCOUNTER 2021-06-12 21:03 | Inpatient (IN) ==
[2021-06-13] MEDS ORDERED: METOPROLOL SUCC 50MG EXT REL TAB PO STA
--- NOTE | 2021-06-13 00:07 | Emergency Department Note ---
Impression & Plan Acute pain of right knee ED Provider Note Name: GABRIELA QUAN Age: 86 Sex: F Arrives Via: Ambulance Informant: Patient, Daughter ED Provider: Mikel Chappell MD Chief Complaint: knee pain Impression: Acute right knee pain Medical Decision Makin yr old female with history right knee replacement in addition to CAD, Aortic disease, HTN, CKD, PE, Hypothyroid, PMR, GERD amongst others and is on Eliquis arrives for second time today with right knee pain. Ongoing for several days felt inciting event might have been vacuuming. On exam difficulty to tell though maybe mild effusion though primarily issue is pain with movement, though no pain with staying still. Labs unremarkable witih normal CRP and WBC. I do not feel this is consistent with joint infection. While on eliquis may be related to hemarthrosis. No evidence neuro deficits nor arterial issues. Xray similar to earlier and femur unremarkable. US doppler negative for dvt. As persistent symptoms will give dose Decadron. She is unable to tolerate walking and can not be placed in rehab tonight. Family does not feel safe with her getting around at home. Hospitalist consulted for further management. Prior Medical Record and Triage/Nursing Notes reviewed by Me Additional history obtained from chart Differentials:MSK, Effusion, hemarthrosis, septic joint, dvt, hardware movement, amongst other pathologies. Vital Signs: reviewed and remarkable for no significant abnormalities Interventions: saline lock, decadron 10mg IV Labs:Reviewed and remarkable for no significant abnormalities Imaging:Xray Results per my interpretation: Right knee & Femur: no fracture, slipped hardware, dislocation, nor other acute findings [facility] Radiologist interpretation reviewed by me: US Doppler right leg: no acute findings Consults: Dr Pito Rivera Hospitalist Plan: Disposition:Hospitalization. Condition: Good History of Present Illness:86 yr old female arrives for evaluation of right knee pain. Patient arrives with acute right knee pain over the last 5 days. Associated with increased swelling today. Notes seen yesterday with Xray normal and started Tramadol without improvement. She has had no falls, trauma, injury. Inciting event seems to have been while she was vacuuming but she is not completely sure of this. Denies hip, ankle, back, abdominal pain. History of right knee replacement in [facility] many years ago. No previous issues with acute knee pain. Denies fevers, chills, redness, calf pain/swelling ,nausea, vomiting, nor other symptoms. Notes she did not have her evening medications. Patient does have history of DVT/PE but states she has been on Eliquis and has had no missed doses prior to knee pain starting. ROS: See above HPI for pertinent positives & negatives. A total of 10 systems reviewed and were otherwise negative. Past Medical History:See Below Past Surgical History:See Below Family History:See Below Social History:See Below Home Medications:See Below Allergies:See Below Vitals:Blood Pressure: 185/105, Pulse 58, RR 18, T 36.2C, O2 98% on RA Physical Exam: GENERAL: Patient is anxious appearing and in mild distress. EYES: No scleral icterus, unremarkable pupils. ENT: Mucous membranes moist, no nasal congestion. NECK: No masses appreciated, nomeningismus, trachea is midline. RESPIRATORY: No dyspnea. Clear to auscultation and equal bilaterally. No wheeze, no rhonchi. CARDIOVASCULAR: Regular rate and rhythm.No murmurs, rubs, gallops appreciated. GASTROINTESTINAL: Abdomen soft, non-tender, no peritonitis.Bowel sounds positive.No masses appreciated. BACK: No midline tenderness, no CVA tenderness EXTREMITIES: Right Knee: Vague TTP palpation entire knee, mild effusion palpated, no erythema, no increased warmth, no calf TTP, otherwise normal motion all extremities, no cyanosis, no edema. NEUROLOGIC: Alert and oriented, no acute motor or sensory deficits, no focal weakness, cranial nerves grossly intact. SKIN: No rash, no jaundice, no diaphoresis. PSYCH: Anxious GCS: 15 ED Course: Times/Reassessments: Stable though unable to get up due to pain Mikel Chappell MD Past Med/Surg History Medical History Aortic stenosis "moderate" Arthritis C2 cervical fracture Chest pain Dyslipidemia Dysphagia Essential tremor GERD (gastroesophageal reflux disease) GI bleed H/O polymyalgia rheumatica Hearing loss in left ear History of palpitations History of pulmonary embolism History of syncope Hypertension Hypothyroidism Osteoporosis Paroxysmal tachycardia "Cardiac Zio event monitor captured a 10 beat trina of non sustained VT and several brief SVT episodes" Pulmonary embolism Surgical History H/O knee surgery History of cataract surgery S/P section S/P cholecystectomy Family History Other Cancer Coronary heart disease Rheumatoid arthritis Stroke Social History Smoking Status: Never smoker Hx Alcohol Use: No Hx Substance Use: No Preferred Language: Setswana Communication Ability: Effective 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 Beliefs That Will Affect Care: None marital status: / Current Living Situation: Family Current Living Situation Comment: lives w/ son How many Children do You have: 3 Feels Safe at Home: Yes Assistive Devices: Walker Allergies Allergies Allergy/AdvReac Type Severity Reaction Status Date / Time etodolac Allergy Unknown Unknown Verified 06/12/21 23:55 morphine Allergy Unknown Could not Verified 06/13/21 03:59 breathe as per px NSAIDS (Non-Steroidal Allergy Unknown ITCH Verified 06/12/21 23:55 Anti-Inflamma hydromorphone AdvReac Unknown DIZZY,NAUSE Verified 06/12/21 23:55 A Home Meds Home Medications Medication Instructions Recorded Confirmed apixaban 2.5 mg tablet (Eliquis) 2.5 mg PO BID 05/29/19 06/12/21 levothyroxine 75 mcg tablet 75 mcg PO QAM 05/29/19 06/12/21 (Synthroid) metoprolol succinate 50 mg 50 mg PO AMHS 05/29/19 06/12/21 tablet,extended release 24 hr (Toprol XL) nitroglycerin 0.4 mg sublingual 0.4 mg SUBLINGUAL UD PRN 05/29/19 06/12/21 tablet (Nitrostat) pantoprazole 20 mg tablet,delayed 20 mg PO BID 05/29/19 06/12/21 release (Protonix) tramadol 50 mg tablet (Ultram) 50 mg PO Q4H PRN 05/29/19 06/12/21 trazodone 50 mg tablet 50 mg PO HS 05/29/19 06/12/21 acetaminophen 500 mg tablet 500 mg PO TID 04/12/20 06/12/21 (Tylenol Extra Strength) aspirin 81 mg tablet,delayed 81 mg PO DAILY 06/12/21 06/12/21 release ([place] Aspirin) diclofenac sodium 1 % topical gel 2 g TOPICAL DIRECTED PRN 06/12/21 06/12/21 rosuvastatin 10 mg tablet 10 mg PO HS 06/12/21 06/12/21 Results & Data (ED) Vital Signs Vital Signs - 24 hr 06/12/21 21:31 06/12/21 23:18 06/12/21 23:55 Temperature 36.2 C L Temperature Source Temporal Artery Scan Pulse Rate 58 L 54 L 71 Pulse Rate from SpO2 Sensor 55 L 71 Respiratory Rate 18 15 23 Respiratory Depth Normal Blood Pressure 185/105 H 239/113 H 201/121 H Blood Pressure Mean 131 155 147 Pulse Oximetry 98 96 96 Oxygen Delivery Method Room Air Sepsis Recent Fever Within 48 Hours No Sepsis New/Unexplained Change in Mental Status N/A Sepsis Action Taken by Nursing No Action Required 06/13/21 00:00 06/13/21 00:26 06/13/21 00:30 Temperature Temperature Source Pulse Rate 58 L 59 L 59 L Pulse Rate from SpO2 Sensor 58 L 57 L 54 L Respiratory Rate 17 15 12 Respiratory Depth Blood Pressure 218/108 H 185/97 H 187/101 H Blood Pressure Mean 144 126 129 Pulse Oximetry 97 97 96 Oxygen Delivery Method Sepsis Recent Fever Within 48 Hours Sepsis New/Unexplained Change in Mental Status Sepsis Action Taken by Nursing 06/13/21 01:02 06/13/21 01:10 06/13/21 01:20 Temperature Temperature Source Pulse Rate 82 52 L 53 L Pulse Rate from SpO2 Sensor 53 L 53 L Respiratory Rate 18 21 14 Respiratory Depth Blood Pressure Blood Pressure Mean Pulse Oximetry 97 94 Oxygen Delivery Method Sepsis Recent Fever Within 48 Hours Sepsis New/Unexplained Change in Mental Status Sepsis Action Taken by Nursing 06/13/21 01:30 06/13/21 04:01 06/13/21 04:16 Temperature Temperature Source Pulse Rate 54 L 56 L 59 L Pulse Rate from SpO2 Sensor 54 L 56 L 59 L Respiratory Rate 13 18 20 Respiratory Depth Blood Pressure 224/111 H 207/101 H Blood Pressure Mean 148 136 Pulse Oximetry 93 96 97 Oxygen Delivery Method Sepsis Recent Fever Within 48 Hours Sepsis New/Unexplained Change in Mental Status Sepsis Action Taken by Nursing 06/13/21 04:31 06/13/21 05:00 Temperature Temperature Source Pulse Rate 62 64 Pulse Rate from SpO2 Sensor 62 63 Respiratory Rate 18 19 Respiratory Depth Blood Pressure 139/70 128/75 Blood Pressure Mean 93 92 Pulse Oximetry 96 94 Oxygen Delivery Method Sepsis Recent Fever Within 48 Hours Sepsis New/Unexplained Change in Mental Status Sepsis Action Taken by Nursing Laboratory Data Result diagrams: 06/13/21 00:25 06/13/21 00:25 Lab Results 06/13/21 06/13/21 06/13/21 Range/Units 00:25 00:25 00:25 WBC 7.25 (4.8-10.8) K/uL RBC 4.72 (4.2-5.4) M/uL Hgb 14.5 (12.0-16.0) g/dL Hct 43.7 (37-47) % MCV 92.6 (80-100) fL MCH 30.7 (25-34) pg MCHC 33.2 (32-36) g/dL RDW Std Deviation 49.1 H (36.4-46.3) fL RDW Coeff of Jing 14.3 (11.5-14.5) % Plt Count 228 (130-400) K/uL MPV 9.0 (7.4-10.4) fL Immature Gran % (Auto) 0.1 % Neut % (Auto) 73.4 % Lymph % (Auto) 17.9 % [place] % (Auto) 7.0 % Eos % (Auto) 1.5 % Baso % (Auto) 0.1 % Neut # (Auto) 5.31 (1.4-6.5) K/uL Lymph # (Auto) 1.30 (1.2-3.4) K/uL [place] # (Auto) 0.51 (0.11-0.59) K/uL Eos # (Auto) 0.11 (0-0.5) K/uL Baso # (Auto) 0.01 (0-0.2) K/uL Immature Gran # (Auto) 0.01 (0.00-0.02) K/uL ESR 13 (0-30) mm/hr Sodium 140 (136-145) mmol/L Potassium 4.3 (3.5-5.1) mmol/L Chloride 107 (98-107) mmol/L Carbon Dioxide 31 (21-32) mmol/L Anion Gap 2.0 L (3-11) BUN 20 H (7-18) mg/dl Creatinine 1.41 H (0.6-1.2) mg/dl Est Cr Clr Drug Dosing Not Reportable Est GFR ( Amer) 39.0 ml/min Est GFR (Non-Af Amer) 33.6 ml/min BUN/Creatinine Ratio 14.2 (10-20) Glucose 105 H (70-99) mg/dl Calcium 8.3 L (8.5-10.1) mg/dl Magnesium 2.1 (1.8-2.4) mg/dl Total Bilirubin 0.3 (0.2-1) mg/dl Direct Bilirubin 0.2 (0-0.2) mg/dl AST 22 (15-37) U/L ALT 21 (12-78) U/L Alkaline Phosphatase 72 (45-117) U/L Troponin I 0.041 (0-0.045) ng/ml C-Reactive Protein < 0.29 (0-0.29) mg/dl Total Protein 6.8 (6.4-8.2) gm/dl Albumin 3.3 L (3.4-5.0) gm/dl TSH 1.960 (0.300-4.500) uIu/ml Urine Color Urine Appearance (Clear) Urine pH (4.5-7.5) Ur Specific [place] (1.000-1.030) Urine Protein (Negative) Urine Glucose (UA) (Negative) Urine Ketones (Negative) Urine Blood (Negative) Urine Nitrite (Negative) Urine Bilirubin (Negative) Urine Urobilinogen (Negative) Ur Leukocyte Esterase (Negative) COVID-19 Eval Order SARS-CoV-2 (PCR) (Negative) 06/13/21 06/13/21 06/13/21 Range/Units 01:41 03:32 03:32 WBC (4.8-10.8) K/uL RBC (4.2-5.4) M/uL Hgb (12.0-16.0) g/dL Hct (37-47) % MCV (80-100) fL MCH (25-34) pg MCHC (32-36) g/dL RDW Std Deviation (36.4-46.3) fL RDW Coeff of Jing (11.5-14.5) % Plt Count (130-400) K/uL MPV (7.4-10.4) fL Immature Gran % (Auto) % Neut % (Auto) % Lymph % (Auto) % [place] % (Auto) % Eos % (Auto) % Baso % (Auto) % Neut # (Auto) (1.4-6.5) K/uL Lymph # (Auto) (1.2-3.4) K/uL [place] # (Auto) (0.11-0.59) K/uL Eos # (Auto) (0-0.5) K/uL Baso # (Auto) (0-0.2) K/uL Immature Gran # (Auto) (0.00-0.02) K/uL ESR (0-30) mm/hr Sodium (136-145) mmol/L Potassium (3.5-5.1) mmol/L Chloride (98-107) mmol/L Carbon Dioxide (21-32) mmol/L Anion Gap (3-11) BUN (7-18) mg/dl Creatinine (0.6-1.2) mg/dl Est Cr Clr Drug Dosing Est GFR ( Amer) ml/min Est GFR (Non-Af Amer) ml/min BUN/Creatinine Ratio (10-20) Glucose (70-99) mg/dl Calcium (8.5-10.1) mg/dl Magnesium (1.8-2.4) mg/dl Total Bilirubin (0.2-1) mg/dl Direct Bilirubin (0-0.2) mg/dl AST (15-37) U/L ALT (12-78) U/L Alkaline Phosphatase (45-117) U/L Troponin I (0-0.045) ng/ml C-Reactive Protein (0-0.29) mg/dl Total Protein (6.4-8.2) gm/dl Albumin (3.4-5.0) gm/dl TSH (0.300-4.500) uIu/ml Urine Color Yellow Urine Appearance Clear (Clear) Urine pH 7.0 (4.5-7.5) Ur Specific [place] 1.014 (1.000-1.030) Urine Protein Negative (Negative) Urine Glucose (UA) Negative (Negative) Urine Ketones Negative (Negative) Urine Blood Negative (Negative) Urine Nitrite Negative (Negative) Urine Bilirubin Negative (Negative) Urine Urobilinogen Negative (Negative) Ur Leukocyte Esterase Negative (Negative) COVID-19 Eval Order Covid19 at [facility] SARS-CoV-2 (PCR) NEGATIVE (Negative) Administered Medications Acetaminophen (Acetaminophen 325 Mg Tab) 650 mg PO Q6H PRN PRN Reason: Fever/pain Stop: 07/13/21 03:57 Last Admin: 06/13/21 04:12 Dose: 650 mg Documented by: [id number] Sodium Chloride (Nss) 500 mls @ 50 mls/hr IV .Q10H ONE Stop: 06/13/21 14:32 Last Admin: 06/13/21 05:22 Dose: 50 mls/hr Documented by: [id number] Discontinued Medications Dexamethasone Sodium Phosphate (DexamethasonePf 10 Mg/Ml Vial) 10 mg IV NOW ONE Stop: 06/13/21 03:02 Last Admin: 06/13/21 03:32 Dose: 10 mg Documented by: [id number] Hydralazine HCl (Hydralazine Hcl 20 Mg/Ml Vial) 10 mg IV NOW STA Stop: 06/13/21 03:55 Last Admin: 06/13/21 04:11 Dose: 10 mg Documented by: [id number] Hydromorphone HCl (Hydromorphone Inj 0.5 Mg/0.5 Ml Syr) 0.25 mg IV NOW STA Stop: 06/13/21 03:54 Last Admin: 06/13/21 04:11 Dose: 0.25 mg Documented by: [id number] Promethazine HCl 6.25 mg/ (Sodium Chloride) 50.25 mls @ 201 mls/hr IV NOW STA Stop: 06/13/21 04:09 Last Admin: 06/13/21 05:22 Dose: 201 mls/hr Documented by: [id number] Metoprolol Succinate (Metoprolol Succ 50mg Ext Rel Tab) 50 mg PO NOW STA Stop: 06/13/21 00:01 Last Admin: 06/13/21 00:29 Dose: 50 mg Documented by: [id number] Discharge Plan Visit Data Chief Complaint: Swelling/Edema to Extremity Stated Complaint: KNEE PAIN ED Provider: Mikle Chappell Discharge Problem: Acute pain of right knee Forms Stand Alone Forms: [facility] Prescriptions Prescriptions: No Action trazodone 50 mg tablet 50 mg PO HS RF: 0 metoprolol succinate [Toprol XL] 50 mg tablet extended release 24 hr 50 mg PO AMHS RF: 0 tramadol [Ultram] 50 mg tablet 50 mg PO Q4H PRN (Reason: pain) RF: 0 pantoprazole [Protonix] 20 mg tablet,delayed release (DR/EC) 20 mg PO BID RF: 0 levothyroxine [Synthroid] 75 mcg tablet 75 mcg PO QAM RF: 0 nitroglycerin [Nitrostat] 0.4 mg tablet, sublingual 0.4 mg sublingual UD PRN (Reason: Chest Pain) RF: 0 Eliquis 2.5 mg tablet 2.5 mg PO BID RF: 0 acetaminophen [Tylenol Extra Strength] 500 mg Tablet 500 mg PO TID RF: 0 rosuvastatin 10 mg tablet 10 mg PO HS RF: 0 aspirin [Marsing Aspirin] 81 mg Tablet,Delayed Release (Dr/Ec) 81 mg PO DAILY RF: 0 diclofenac sodium 1 % Gel 2 g TOPICAL DIRECTED PRN (Reason: Pain) RF: 0 Referrals Referrals: Moreno Parham [Primary Care Provider] -
[2021-06-13 00:34] LABS: Basophils # (auto) 0.01 K/uL (0-0.2); Basophils % (auto) 0.1 %; Eosinophils # (auto) 0.11 K/uL (0-0.5); Eosinophils % (auto) 1.5 %; Hematocrit (blood only) 43.7 % (37-47); Hemoglobin 14.5 g/dL (12.0-16.0); Immature Granulocytes # (auto) 0.01 K/uL (0.00-0.02); Immature Granulocytes % (auto) 0.1 %; Lymphocytes % (auto) 17.9 %; Mean Corpuscular Hemoglobin 30.7 pg (25-34); Mean Corpuscular Hgb Conc 33.2 g/dL (32-36); Mean Corpuscular Volume 92.6 fL (80-100); Monocytes # (auto) 0.51 K/uL (0.11-0.59); Neutrophils # (auto) 5.31 K/uL (1.4-6.5); Neutrophils % (auto) 73.4 %; Platelet Count 228 K/uL (130-400); RDW Coefficient of Variation 14.3 % (11.5-14.5); RDW Standard Deviation 49.1 fL (36.4-46.3); Red Blood Count 4.72 M/uL (4.2-5.4); White Blood Count 7.25 K/uL (4.8-10.8)
[2021-06-13 00:50] LABS: BUN Creatinine Ratio 14.2 (10-20); Blood Urea Nitrogen 20 mg/dl (7-18); C Reactive Protein < 0.29 mg/dl (0-0.29); Calcium 8.3 mg/dl (8.5-10.1); Carbon Dioxide 31 mmol/L (21-32); Chloride 107 mmol/L (98-107); Est GFR (Non-African American) 33.6 ml/min; Glucose 105 mg/dl (70-99); Magnesium 2.1 mg/dl (1.8-2.4); Potassium 4.3 mmol/L (3.5-5.1); Sodium 140 mmol/L (136-145)
[2021-06-13 00:55] LABS: Troponin I 0.041 ng/ml (0-0.045)
[2021-06-13 01:48] LABS: Appearance Urine Clear (Clear); Bilirubin Urine Negative (Negative); Blood Urine Negative (Negative); Color Urine Yellow; Glucose Urine UA Negative (Negative); Ketones Urine Negative (Negative); Leukocyte Esterase Urine Negative (Negative); Nitrite Urine Negative (Negative); Protein Urine Negative (Negative); Specific Gravity Urine 1.014 (1.000-1.030); Urobilinogen Urine Negative (Negative)
[2021-06-13] MEDS ORDERED: dexAMETHasone**PF** 10 MG/ML VIAL IV ONE (03:01)
[2021-06-13 03:41] LABS: Alanine Aminotransferase 21 U/L (12-78); Albumin Level 3.3 gm/dl (3.4-5.0); Alkaline Phosphatase 72 U/L (45-117); Aspartate Aminotransferase 22 U/L (15-37); Bilirubin Direct 0.2 mg/dl (0-0.2); Bilirubin,Total 0.3 mg/dl (0.2-1); Total Protein 6.8 gm/dl (6.4-8.2)
[2021-06-13] MEDS ORDERED: HYDROmorphone INJ 0.5 MG/0.5 ML SYR IV STA (03:53)
[2021-06-13] MEDS ORDERED: hydrALAZINE HCL 20 MG/ML VIAL IV STA (03:54)
[2021-06-13] MEDS ORDERED: PROMETHAZINE HCL 6.25 MG in SODIUM CHLORIDE 0.9% 50 ML IV STA (03:55)
--- NOTE | 2021-06-13 03:57 | History & Physical Report ---
Date of Service June 13, 2021 Assessment & Plan (1) Acute pain of right knee: Plan: Unclear etiology Hypertensive urgency secondary above history of CAD/PVD as per records status post TAVR, PVD hyperlipidemia on statin Rx hx PE on Eliquis CRI, creatinine at baseline hypothyroidism, euthyroid as of today's TSH hx PMR, currently off daily steroid Rx OBS Medical telemetry given uncontrolled BP Analgesia IV hydralazine now Initiate amlodipine if BP still uncontrolled Orthopedics consult Re: Right knee pain Hold Eliquis until patient seen by orthopedics. PT OT eval DVT prophylaxis. SCDs while Eliquis on hold Full code Patient daughter requesting updates from providers. Ms. Elizabeth Jacobo, contact #[phone]. Text document was generated using [employer] voice recognition software. It may contain grammatical or spelling errors. Kindly contact undersigned for clarification of any documentation item in question. History of Present Illness Chief Complaint: Right knee pain Primary Care Provider: Moreno Parham History obtained from patient, family, and records. Medical history significant for history of CAD, status post TAVR, PVD, hypertension, hyperlipidemia, PE on Eliquis, CRI (baseline creatinine 1.5), hypothyroidism, history of polymyalgia rheumatica as per records. Last confinement April 2020 for hypertensive urgency. 5 days history of right knee pain and swelling. No fever, no chills. No chest pain, no S OB, no headache. No prior episodes. Intractable right knee pain at the ER. Decadron given at the ER. Patient daughter not comfortable taking patient home with steps at patient's home and patient's son who recently had surgery.. 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 Allergies Allergy/AdvReac Type Severity Reaction Status Date / Time etodolac Allergy Unknown Unknown Verified 06/12/21 23:55 morphine Allergy Unknown Could not Verified 06/13/21 03:59 breathe as per px NSAIDS (Non-Steroidal Allergy Unknown ITCH Verified 06/12/21 23:55 Anti-Inflamma hydromorphone AdvReac Unknown DIZZY,NAUSE Verified 06/12/21 23:55 A Home Medications Medication Instructions Recorded Confirmed Type apixaban 2.5 mg tablet (Eliquis) 2.5 mg PO BID 05/29/19 06/12/21 History levothyroxine 75 mcg tablet 75 mcg PO QAM 05/29/19 06/12/21 History (Synthroid) metoprolol succinate 50 mg 50 mg PO AMHS 05/29/19 06/12/21 History tablet,extended release 24 hr (Toprol XL) nitroglycerin 0.4 mg sublingual 0.4 mg SUBLINGUAL UD PRN 05/29/19 06/12/21 History tablet (Nitrostat) pantoprazole 20 mg tablet,delayed 20 mg PO BID 05/29/19 06/12/21 History release (Protonix) tramadol 50 mg tablet (Ultram) 50 mg PO Q4H PRN 05/29/19 06/12/21 History trazodone 50 mg tablet 50 mg PO HS 05/29/19 06/12/21 History acetaminophen 500 mg tablet 500 mg PO TID 04/12/20 06/12/21 History (Tylenol Extra Strength) aspirin 81 mg tablet,delayed 81 mg PO DAILY 06/12/21 06/12/21 History release ([place] Aspirin) diclofenac sodium 1 % topical gel 2 g TOPICAL DIRECTED PRN 06/12/21 06/12/21 History rosuvastatin 10 mg tablet 10 mg PO HS 06/12/21 06/12/21 History Past Med/Surg History Medical History Aortic stenosis "moderate" Arthritis C2 cervical fracture Chest pain Dyslipidemia Dysphagia Essential tremor GERD (gastroesophageal reflux disease) GI bleed H/O polymyalgia rheumatica Hearing loss in left ear History of palpitations History of pulmonary embolism History of syncope Hypertension Hypothyroidism Osteoporosis Paroxysmal tachycardia "Cardiac Zio event monitor captured a 10 beat trina of non sustained VT and several brief SVT episodes" Pulmonary embolism Surgical History H/O knee surgery History of cataract surgery S/P section S/P cholecystectomy Family History Other Cancer Coronary heart disease Rheumatoid arthritis Stroke Social History Smoking Status: Never smoker Second Hand Exposure: No; Do You Dip or Chew Tobacco: No; Hx Alcohol Use: No Hx Substance Use: No Preferred Language: Tunisian Communication Ability: Effective Cnp Required: No Beliefs That Will Affect Care: None marital status: / Current Living Situation: Family Current Living Situation Comment: lives w/ son How many Children do You have: 3 Other Information That Helps Us Care for You: No Feels Safe at Home: Yes Assistive Devices: Glasses Review of Systems Review of Systems: As per HPI, all 10 systems reviewed, all other ROS negative Physical Exam Physical Exam: GENERAL: Slightly uncomfortable and anxious, pleasant, no respiratory distress SKIN: Normal color, warm HEENT: [place] palpebral conjunctivae, no ptosis, dry buccal mucosa NECK : Supple, short neck, no tenderness CHEST : CTA, no tenderness HEART : RRR, no obvious murmurs ABDOMEN: Some distention, nontender EXTREMITIES : Minimal bilateral LE swelling, right knee tenderness, limited right knee flexion motion, no other conspicuous deformities noted NEUROLOGIC : Coherent, no facial asymmetry, slightly hard of hearing, no other gross focality Results & Data Results & Data ([facility]) Vital Signs (Past 12 Hours) Vital Signs Temp Pulse Resp BP Pulse Ox 06/13/21 01:30 54 L 13 93 06/13/21 01:20 53 L 14 94 06/13/21 01:10 52 L 21 97 06/13/21 01:02 82 18 06/13/21 00:30 59 L 12 187/101 H 96 06/13/21 00:26 59 L 15 185/97 H 97 06/13/21 00:00 58 L 17 218/108 H 97 06/12/21 23:55 71 23 201/121 H 96 06/12/21 23:18 54 L 15 239/113 H 96 06/12/21 21:31 36.2 C L 58 L 18 185/105 H 98 Laboratory Results Laboratory Results WBC 7.25 K/uL (4.8-10.8) 06/13/21 00:25 RBC 4.72 M/uL (4.2-5.4) 06/13/21 00:25 Hgb 14.5 g/dL (12.0-16.0) 06/13/21 00:25 Hct 43.7 % (37-47) 06/13/21 00:25 MCV 92.6 fL (80-100) 06/13/21 00:25 MCH 30.7 pg (25-34) 06/13/21 00:25 MCHC 33.2 g/dL (32-36) 06/13/21 00:25 RDW Std Deviation 49.1 fL (36.4-46.3) H 06/13/21 00:25 RDW Coeff of Jing 14.3 % (11.5-14.5) 06/13/21 00:25 Plt Count 228 K/uL (130-400) 06/13/21 00:25 MPV 9.0 fL (7.4-10.4) 06/13/21 00:25 Immature Gran % (Auto) 0.1 % 06/13/21 00:25 Neut % (Auto) 73.4 % 06/13/21 00:25 Lymph % (Auto) 17.9 % 06/13/21 00:25 [place] % (Auto) 7.0 % 06/13/21 00:25 Eos % (Auto) 1.5 % 06/13/21 00:25 Baso % (Auto) 0.1 % 06/13/21 00:25 Neut # (Auto) 5.31 K/uL (1.4-6.5) 06/13/21 00:25 Lymph # (Auto) 1.30 K/uL (1.2-3.4) 06/13/21 00:25 [place] # (Auto) 0.51 K/uL (0.11-0.59) 06/13/21 00:25 Eos # (Auto) 0.11 K/uL (0-0.5) 06/13/21 00:25 Baso # (Auto) 0.01 K/uL (0-0.2) 06/13/21 00:25 Immature Gran # (Auto) 0.01 K/uL (0.00-0.02) 06/13/21 00:25 ESR 13 mm/hr (0-30) 06/13/21 00:25 Sodium 140 mmol/L (136-145) 06/13/21 00:25 Potassium 4.3 mmol/L (3.5-5.1) 06/13/21 00:25 Chloride 107 mmol/L (98-107) 06/13/21 00:25 Carbon Dioxide 31 mmol/L (21-32) 06/13/21 00:25 Anion Gap 2.0 (3-11) L 06/13/21 00:25 BUN 20 mg/dl (7-18) H 06/13/21 00:25 Creatinine 1.41 mg/dl (0.6-1.2) H 06/13/21 00:25 Est Cr Clr Drug Dosing Not Reportable 06/13/21 00:25 Est GFR ( Amer) 39.0 ml/min 06/13/21 00:25 Est GFR (Non-Af Amer) 33.6 ml/min 06/13/21 00:25 BUN/Creatinine Ratio 14.2 (10-20) 06/13/21 00:25 Glucose 105 mg/dl (70-99) H 06/13/21 00:25 Calcium 8.3 mg/dl (8.5-10.1) L 06/13/21 00:25 Magnesium 2.1 mg/dl (1.8-2.4) 06/13/21 00:25 Total Bilirubin 0.3 mg/dl (0.2-1) 06/13/21 00:25 Direct Bilirubin 0.2 mg/dl (0-0.2) 06/13/21 00:25 AST 22 U/L (15-37) 06/13/21 00:25 ALT 21 U/L (12-78) 06/13/21 00:25 Alkaline Phosphatase 72 U/L (45-117) 06/13/21 00:25 Troponin I 0.041 ng/ml (0-0.045) 06/13/21 00:25 C-Reactive Protein < 0.29 mg/dl (0-0.29) 06/13/21 00:25 Total Protein 6.8 gm/dl (6.4-8.2) 06/13/21 00:25 Albumin 3.3 gm/dl (3.4-5.0) L 06/13/21 00:25 TSH 1.960 uIu/ml (0.300-4.500) 06/13/21 00:25 Urine Color Yellow 06/13/21 01:41 Urine Appearance Clear (Clear) 06/13/21 01:41 Urine pH 7.0 (4.5-7.5) 06/13/21 01:41 Ur Specific [place] 1.014 (1.000-1.030) 06/13/21 01:41 Urine Protein Negative (Negative) 06/13/21 01:41 Urine Glucose (UA) Negative (Negative) 06/13/21 01:41 Urine Ketones Negative (Negative) 06/13/21 01:41 Urine Blood Negative (Negative) 06/13/21 01:41 Urine Nitrite Negative (Negative) 06/13/21 01:41 Urine Bilirubin Negative (Negative) 06/13/21 01:41 Urine Urobilinogen Negative (Negative) 06/13/21 01:41 Ur Leukocyte Esterase Negative (Negative) 06/13/21 01:41 Diagnostic Findings LE venous Dopplers initial read: No RLE DVT Right knee x-ray as per my interpretation no obvious fracture or effusion Right femur x-ray as per my interpretation no obvious fracture EKG as per my interpretation rate 65, NSR, normal axis, no ischemia
[2021-06-13] MEDS ORDERED: ACETAMINOPHEN 325 MG TAB PO PRN (03:58)
[2021-06-13] MEDS ORDERED: traMADol HCL 50 MG TABLET PO PRN (03:58)
[2021-06-13] MEDS ORDERED: SODIUM CHLORIDE 0.9% 500 ML IV ONE (04:33)
[2021-06-13] MEDS ORDERED: oxyCODONE HCL IR 5 MG TAB (IMMEDIATE RELEASE) PO PRN (05:04)
[2021-06-13] MEDS ORDERED: DICLOFENAC SOD 1% GEL 100 GM TUBE EXT PRN (05:43)
[2021-06-13] MEDS ORDERED: HYDROmorphone INJ 0.5 MG/0.5 ML SYR IV PRN (05:43)
[2021-06-13] MEDS ORDERED: NITROGLYCERIN SL 0.4 MG/TAB TAB SL PRN (05:43)
[2021-06-13 06:35] LABS: Creatine Kinase 100 U/L (26-192)
[2021-06-13] MEDS: LEVOTHYROXINE SODIUM 75 MCG TABLET PO SCH (07:05)
--- NOTE | 2021-06-13 07:22 | XRay Report ---
XR knee RT 3V, XR femur RT 2V routine HISTORY: 86 years-old Female persistent right knee pain, new swelling acute pain and swelling of the right right knee and thigh COMPARISON: Right knee radiographs 06/12/2021 TECHNIQUE: 3 views of the right knee with 2 views of the right femur FINDINGS: KNEE: Demineralized appearance of the bones. Right knee total joint arthroplasty and patella resurfacing wi thout evidence of complication. No acute fracture, dislocation, opaque foreign body or large joint ef fusion. Vascular calcifications. FEMUR: Demineralized appearance of the bones. Vascular calcifications. Mild to moderate right hip osteoarthr itis. IMPRESSION: No acute fracture. ACT 112: Negative or not required by law. The above report was generated using voice recognition software. It may contain grammatical, syntax o r spelling errors. Electronically signed by: David Barber M.D. 06/13/2021 7:21 AM
[2021-06-13] MEDS: PANTOprazole 40 MG TAB PO SCH ×2 (08:20→20:37)
[2021-06-13] MEDS: ASPIRIN 81 MG ECTAB PO SCH (08:20)
[2021-06-13] MEDS: METOPROLOL SUCC 50MG EXT REL TAB PO SCH ×2 (08:20→20:38)
[2021-06-13] MEDS: amLODIPine BESYLATE 5 MG TAB PO SCH (08:20)
--- NOTE | 2021-06-13 08:53 | Ultrasound Report ---
US venous doppler LE RT CLINICAL HISTORY: Acute right knee pain x 5 days,ho dvt, on eliquis COMPARISON STUDY: No previous studies for comparison. FINDINGS: Real-time and color flow Doppler imaging were performed. Flow was seen within the femoral, popliteal and calf veins with no intraluminal thrombus demonstrated. The saphenous vein is patent. IMPRESSION: No evidence of deep venous thrombosis. ACT 112: Negative or not required by law. The above report was generated using voice recognition software. It may contain grammatical, syntax o r spelling errors. Electronically signed by: Barbara Vargas DO 06/13/2021 8:51 AM
--- NOTE | 2021-06-13 11:52 | Orthopedic Consultation ---
Date of Consultation June 13, 2021 Assessment & Plan (1) Acute pain of right knee: X-rays reviewed with Dr. Dove. No fractures identified. No overt evidence of loosening of the prosthesis. She does look like she may have a small effusion but is not overtly concerning. I discussed the exam with Dr. Dove. Patient does not currently look like an acute septic joint infection. She does not appear to have a chronic infection as well. She has been afebrile and white count is normal. Inflammatory markers including sed rate and CRP are within normal limits. At this time we will plan for Lidoderm patch over her point of intensity for her knee pain at the tibia, add tramadol to her pain management. We will also get a CT scan of the right knee. Once her CT scan is reviewed, plan for PT and OT protocols pending results. History of Present Illness Reason for Consultation: Right knee pain Attending Physician: Sindy Stroud MD History of Present Illness Patient is an 86-year-old white female who is being admitted with hypertensive crisis as well as right knee pain. Patient can be a little bit confused sometimes with her history and history will be taken from the patient as well as from her daughter who I talked to over the phone. Per her daughter, she had her right total knee arthroplasty many years ago around [id number] Brewer. She states that her mother has had problems with the knee off and on since that time but has been able to get around fairly well. Due to the problems that she had with her right knee, she did not want to have her left knee taken care of and has developed arthritis with that one as well. Over the years she has had a decrease in her ambulatory function to some extent. The patient states that she fell twice approximately a month ago. She was unsure if she had passed out the first time and the second time was likely mechanical fall. She did have pain in both of her knees at that time but was still able to get around with ambulation. She denied using a walker or cane. She denies any fevers, chills, nausea or vomiting at home. Currently over the last week she began noticing some increased pain in the right knee to the point she was having difficulty ambulating. 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 She was seen by the staff and x-rays were taken which showed total knee prosthesis without fractures or loosening. No large effusion. She was treated with tramadol, Voltaren gel and this did help her with her discomfort. She was able to ambulate with a walker and at that point was given a walker to use at home and told to follow-up with her primary care physician. The daughter states that when they brought her home they had a lot of difficulty with her ambulation and trying to get up some steps. She had increasing inability to ambulate and they brought her back to the emergency room. She was seen by the staff and another x-ray was taken which showed no overt changes. She was also noted to be in hypertensive crisis. Plans were to admit for hypertensive crisis and ambulatory dysfunction. Currently the patient is lying comfortably in bed. She states that she does have some general pain in both knees at rest but her pain control is much better at this time. We have been asked to see her for her right knee pain. Allergies Allergy/AdvReac Type Severity Reaction Status Date / Time etodolac Allergy Unknown Unknown Verified 06/12/21 23:55 morphine Allergy Unknown Could not Verified 06/13/21 03:59 breathe as per px NSAIDS (Non-Steroidal Allergy Unknown ITCH Verified 06/12/21 23:55 Anti-Inflamma hydromorphone AdvReac Unknown DIZZY,NAUSE Verified 06/12/21 23:55 A Home Medications Medication Instructions Recorded Confirmed Type apixaban 2.5 mg tablet (Eliquis) 2.5 mg PO BID 05/29/19 06/12/21 History levothyroxine 75 mcg tablet 75 mcg PO QAM 05/29/19 06/12/21 History (Synthroid) metoprolol succinate 50 mg 50 mg PO AMHS 05/29/19 06/12/21 History tablet,extended release 24 hr (Toprol XL) nitroglycerin 0.4 mg sublingual 0.4 mg SUBLINGUAL UD PRN 05/29/19 06/12/21 History tablet (Nitrostat) pantoprazole 20 mg tablet,delayed 20 mg PO BID 05/29/19 06/12/21 History release (Protonix) tramadol 50 mg tablet (Ultram) 50 mg PO Q4H PRN 05/29/19 06/12/21 History trazodone 50 mg tablet 50 mg PO HS 05/29/19 06/12/21 History acetaminophen 500 mg tablet 500 mg PO TID 04/12/20 06/12/21 History (Tylenol Extra Strength) aspirin 81 mg tablet,delayed 81 mg PO DAILY 06/12/21 06/12/21 History release ([place] Aspirin) diclofenac sodium 1 % topical gel 2 g TOPICAL DIRECTED PRN 06/12/21 06/12/21 History rosuvastatin 10 mg tablet 10 mg PO HS 06/12/21 06/12/21 History Patient History Medical History Aortic stenosis "moderate" Arthritis C2 cervical fracture Chest pain Dyslipidemia Dysphagia Essential tremor GERD (gastroesophageal reflux disease) GI bleed H/O polymyalgia rheumatica Hearing loss in left ear History of palpitations History of pulmonary embolism History of syncope Hypertension Hypothyroidism Osteoporosis Paroxysmal tachycardia "Cardiac Zio event monitor captured a 10 beat trina of non sustained VT and several brief SVT episodes" Pulmonary embolism Surgical History H/O knee surgery History of cataract surgery S/P section S/P cholecystectomy Family History Other Cancer Coronary heart disease Rheumatoid arthritis Stroke Social History Smoking Status: Never smoker Second Hand Exposure: No; Do You Dip or Chew Tobacco: No; Hx Alcohol Use: No Hx Substance Use: No Preferred Language: Irish Communication Ability: Effective Assistant Center Manager Required: No Beliefs That Will Affect Care: None marital status: / Current Living Situation: Family Current Living Situation Comment: lives w/ son How many Children do You have: 3 Other Information That Helps Us Care for You: No Feels Safe at Home: Yes Assistive Devices: Glasses Review of Systems Review of Systems: All systems reviewed & are unremarkable except as noted in HPI & below Physical Exam Physical Exam: On examination, the patient is lying in her bed asleep sitting up. She is easily awoken. She appears comfortable and is in no acute distress, pleasant and cooperative. She is oriented to person and place. On examination of her right lower extremity, she has a well-healed scar over her right knee. She does not appear to have any overt swelling of the right knee compared to the left. Both appear similar. There is no erythema on the right knee or the left. On palpation both knees feel the same temperature and are not overtly hot. I can palpate her right knee without any discomfort. I cannot appreciate any tears in the quadricep tendon. And she has no pain on palpation in this area or over the patella. No overt pain along the joint line but she does have pain on palpation at the proximal anterior tibial close to the joint line. She has multiple bruises on the lower extremity below the knee and some varicosities noted. She is unable to do a straight leg raise off of the bed by herself however whenever I assist her she is able to keep the leg up on her own for a brief amount of time. She states when she does that it hurts the area where her tibia has been painful. She has no erythema at this area. On examination of the collateral ligaments, she has a noted valgus deformity and she does have laxity noted in the medial collateral. This does not cause her any discomfort when examining for medial collateral laxity. She has some slight lateral collateral laxity but is also nontender. She is stable anterior to posterior no obvious pivot shifting. She does have difficulty with flexion of her knee. She currently is at full extension and I can get her to approximately 30 degrees of flexion before she complains of pain at that proximal tibial point. When doing gentle range of motion of the knee from 0 to 20 degrees she does not have any pain however once you get to that point, she complains of that pain in the tibia. Axial loading does not cause any discomfort. Knee exam is is fairly benign. She does have some mild crepitus and some mild discomfort but has good range of motion of the left knee without difficulty. She has no calf tenderness bilaterally. She has good range of motion of her ankles and toes. And complains of no pain in her hips. She denies any radicular pain. Pulses appear equal bilaterally. She has no gross motor or sensory loss at this time. Results & Data ([facility]) Vital Signs (Past 12 Hours) Vital Signs Temp Pulse Pulse Resp BP BP Pulse Ox 06/13/21 10:08 143/98 H 06/13/21 08:18 36.6 C 68 16 150/111 H 97 06/13/21 06:30 65 20 177/92 H 96 06/13/21 06:01 63 13 165/107 H 96 06/13/21 05:46 36.7 C 61 19 138/70 95 06/13/21 05:30 62 16 138/70 94 06/13/21 05:00 64 19 128/75 94 06/13/21 04:31 62 18 139/70 96 06/13/21 04:16 59 L 20 207/101 H 97 06/13/21 04:01 56 L 18 224/111 H 96 06/13/21 01:30 54 L 13 93 06/13/21 01:20 53 L 14 94 06/13/21 01:10 52 L 21 97 06/13/21 01:02 82 18 06/13/21 00:30 59 L 12 187/101 H 96 06/13/21 00:26 59 L 15 185/97 H 97 06/13/21 00:00 58 L 17 218/108 H 97 06/12/21 23:55 71 23 201/121 H 96
[2021-06-13] MEDS: LIDOCAINE 5% 1 PATCH TD SCH (13:54)
--- NOTE | 2021-06-13 14:58 | CT Scan Report ---
CT SCAN OF THE RIGHT KNEE WITHOUT IV CONTRAST CLINICAL HISTORY: Right knee pain. COMPARISON STUDY: Radiographs of the right knee dated 06/13/2021. TECHNIQUE: CT scan of the right knee is performed from the distal femur to the proximal tibia and fib viraj. Images reviewed in the axial, sagittal, and coronal planes. IV contrast was not administered for this examination. A dose lowering technique was utilized adhering to the principles of ALARA. The ex amination is significantly compromised by streak artifact from a right knee arthroplasty. CT DOSE: 150.17 mGy.cm FINDINGS: The skeletal structures are heterogeneously osteopenic. No acute fracture is identified. A right knee arthroplasty is in near-anatomic alignment. There has been undersurface remodeling of the patella. No periprosthetic lucency is identified. There are large patellar enthesophytes. A small antony nt effusion is suggested. This is not well assessed. There is no evidence of full-thickness rupture o r retraction of the quadriceps or patellar tendons. These are not well assessed. There is generalized atrophy of the regional musculature. Advanced atherosclerotic calcification is noted in the regional arteries. There is no evidence of organized fluid collection. Venous varicosities are seen in the di stal thigh and upper calf. IMPRESSION: 1. The examination is significantly degraded by streak artifact from a right knee arthroplasty. 2. There is no evidence of fracture. 3. There is no CT evidence of full-thickness rupture or retraction of the quadriceps or patellar tend ons. These structures are not well evaluated. ACT 112: Negative or not required by law. Dictated: 06/13/2021 2:26 PM Transcribed: 06/13/2021 2:50 PM Camille [id number] [facility] Electronically signed by: Robinson Villa M.D. 06/13/2021 2:57 PM
[2021-06-13] MEDS: traMADol HCL 50 MG TABLET PO PRN (17:37)
--- NOTE | 2021-06-13 17:42 | Communication Note ---
Date of Service: June 13, 2021 Patient was seen and examined for follow-up of R knee pain. Lying in bed with no acute distress Patient said that she does not have any pain when her knee extents but when she tries to flex it or putting weight pain gets worse Spoke to orthopedic that recommend to get CT of the right knee, and if CT is negative consider to get a bone scan to rule out loosening. CT finding showed: The skeletal structures are heterogeneously osteopenic. No acute fracture is identified. A right knee arthroplasty is in near-anatomic alignment. There has been undersurface remodeling of the patella. No periprosthetic lucency is identified. There are large patellar enthesophytes. A small joint effusion is suggested. This is not well assessed. There is no evidence of full-thickness rupture or retraction of the quadriceps or patellar tendons. These are not well assessed. There is generalized atrophy of the regional musculature. Advanced atherosclerotic calcification is noted in the regional arteries. There is no evidence of organized fluid collection. Venous varicosities are seen in the distal thigh and upper calf. Continue pain control with Lidoderm patch and tramadol as needed We will get PT/OT eval and fall precaution. Continue monitor closely.
[2021-06-13] MEDS ORDERED: LORazepam 0.5 MG TAB PO ONE (19:15)
[2021-06-13] MEDS: traZODone HCL 50 MG TAB PO SCH (20:36)
[2021-06-13] MEDS: ROSUVASTATIN CALCIUM 10 MG TAB PO SCH (20:37)
[2021-06-13] MEDS ORDERED: amLODIPine BESYLATE 5 MG TAB PO SCH (21:00)
[2021-06-14] MEDS: LEVOTHYROXINE SODIUM 75 MCG TABLET PO SCH (06:29)
[2021-06-14 06:46] LABS: Basophils # (auto) 0.01 K/uL (0-0.2); Basophils % (auto) 0.1 %; Hematocrit (blood only) 42.7 % (37-47); Hemoglobin 14.3 g/dL (12.0-16.0); Immature Granulocytes # (auto) 0.02 K/uL (0.00-0.02); Immature Granulocytes % (auto) 0.2 %; Lymphocytes # (auto) 1.62 K/uL (1.2-3.4); Lymphocytes % (auto) 15.2 %; Mean Corpuscular Hemoglobin 30.3 pg (25-34); Mean Corpuscular Hgb Conc 33.5 g/dL (32-36); Mean Corpuscular Volume 90.5 fL (80-100); Mean Platelet Volume 9.3 fL (7.4-10.4); Monocytes # (auto) 0.82 K/uL (0.11-0.59); Monocytes % (auto) 7.7 %; Neutrophils # (auto) 8.16 K/uL (1.4-6.5); Neutrophils % (auto) 76.8 %; Platelet Count 232 K/uL (130-400); RDW Coefficient of Variation 14.3 % (11.5-14.5); RDW Standard Deviation 47.5 fL (36.4-46.3); Red Blood Count 4.72 M/uL (4.2-5.4); White Blood Count 10.63 K/uL (4.8-10.8)
[2021-06-14 07:22] LABS: BUN Creatinine Ratio 19.5 (10-20); Calcium 8.3 mg/dl (8.5-10.1); Creatinine Clr Calc Pharmacy 25.9 ml/min; Est GFR (African American) 35.3 ml/min; Est GFR (Non-African American) 30.5 ml/min; Potassium 4.2 mmol/L (3.5-5.1)
[2021-06-14] MEDS: METOPROLOL SUCC 50MG EXT REL TAB PO SCH (09:25)
[2021-06-14] MEDS: ASPIRIN 81 MG ECTAB PO SCH (09:39)
[2021-06-14] MEDS: LIDOCAINE 5% 1 PATCH TD SCH (09:39)
[2021-06-14] MEDS: PANTOprazole 40 MG TAB PO SCH ×2 (09:39→20:11)
[2021-06-14] MEDS: amLODIPine BESYLATE 5 MG TAB PO SCH (10:24)
[2021-06-14] MEDS ORDERED: PNEUMOCOCCAL Polysaccharide Vaccine 25mcg/0.5mL vial/Syr IM ONE (10:30)
[2021-06-14] MEDS ORDERED: HYDROCODONE/ACETAMOPHEN 5/325MG TAB PO PRN (11:25)
--- NOTE | 2021-06-14 12:00 | Hospitalist Progress Note ---
Date of Service June 14, 2021 Assessment & Plan (1) Acute pain of right knee: Plan: -- CT Knee: unrevealing -- MRI Knee: pending -- Ortho consulted -- planning for steroid injection today -- PRN [place] Hypertensive urgency secondary above -- improving -- Amlodipine 2.5mg po daily started Metoprolol held due to 5min episode of sinus niharika in the 40s -- monitor history of CAD/PVD as per records status post TAVR, PVD -- no cardiac symptoms hyperlipidemia on statin Rx hx PE on Eliquis -- hold Eliquis for planned steroid injection CKD -- creatinine at baseline hypothyroidism, euthyroid as of today's TSH hx PMR, currently off daily steroid Rx PT OT eval -- patient agreeable to transition to Rehab if recommended DVT prophylaxis. SCDs while Eliquis on hold Full code Admission and Anticipated Discharge Date Admission Date: June 13, 2021 Subjective ff up for R knee pain seen resting in bedside chair, not in distress reports severe right knee pain with movement no fever/chills, chest pain, dizziness, palpitations no other symptoms Review of Systems Review of Systems: all noted and negative except for above Physical Exam Physical Exam: General- oriented x 3, not in distress, speaks in sentences with no effort or accessory muscle use Head- atraumatic Eyes- PERRL, EOMI, anicteric ENT- oropharynx clear Neck- supple, no JVD, no adenopathy, no thyromegaly; carotids +2/2, no bruits appreciated Lungs- clear to auscultation bilaterally, no rales/wheezes Heart- normal rate, regular rhythm; no murmur, no gallop, no rub appreciated Abdomen- normal bowel sounds, nondistended, soft, nontender, no masses or hepatosplenomegaly Extremities- no pretibial edema, no calf tenderness; peripheral pulses intact right knee: mild edema, moderate tenderness, no warmth Neuro- alert, oriented x 3; CN 2-12 grossly intact; motor 5/5 bilaterally;sensation 100% on all extremities; no other gross focal neurologic deficits Skin- warm & dry Results & Data Results & Data ([facility]) Vital Signs (Past 12 Hours) Vital Signs Temp Pulse Pulse Resp BP Pulse Ox 06/14/21 11:14 36.7 C 65 20 109/72 96 06/14/21 08:30 156/81 H 06/14/21 07:49 36.6 C 107 H 20 137/79 93 06/14/21 07:16 56 L 06/14/21 00:45 71 all noted and reviewed including below
[2021-06-14] MEDS ORDERED: methylPREDNISolone acetate 40 MG/ML VIAL IM ONE (13:26)
--- NOTE | 2021-06-14 13:47 | Magnetic Resonance Report ---
MR knee RT wo con CLINICAL HISTORY: 86 years-old Female with severe right knee pain. Acute severe right-sided knee jose enrique n COMPARISON: CT of the right knee of same day TECHNIQUE: Multiplanar, multisequence MRI of the right knee was performed without intravenous contras t. FINDINGS: The exam is markedly degraded by artifact from the right knee total joint arthroplasty. The visualize d patellar and quadriceps tendons appear intact. The remaining tendons and ligaments of the knee are obscured. Subcutaneous superficial venous varicosities. Nonspecific anterior subcutaneous edema with midline surgical scar. No drainable fluid collection or appreciable marrow edema. Trace joint effusio n suggested. IMPRESSION: 1. Limited study secondary to artifact from total joint arthroplasty. No focal abnormality identified . 2. Trace joint effusion suggested. ACT 112: Negative or not required by law. The above report was generated using voice recognition software. It may contain grammatical, syntax o r spelling errors. Electronically signed by: David Barber M.D. 06/14/2021 1:46 PM
--- NOTE | 2021-06-14 13:50 | Orthopedic Progress Note ---
Date of Service June 14, 2021 Assessment & Plan (1) Acute pain of right knee: Plan: X-rays reviewed by Dr. Jorge and patient was examined by him as well. No obvious loosening of the total knee prosthesis. No fractures noted. She has had marked improvement with her range of motion but continues to have the pain around the pes bursa. He feels that this is a pes bursa inflammation and plans will be for injection of Depo-Medrol today. Continue PT and OT protocols. No further radiologic studies needed at this time. Patient may follow-up with Dr. Morales who was the physician that did her total knee replacement. Or if she likes she can follow-up with [facility] with Dr. Jorge if she has any needs in the future. Admission and Anticipated Discharge Date Admission Date: June 13, 2021 Subjective Hospital day 1 Patient is sitting up in her chair at the bedside. She states she is feeling better and is able to bend her knee a lot better. She states that there is one area that still is very painful when she is flexing and extending the knee. No other complaints at this time. Physical Exam Physical Exam: On examination, her knee appears about the same as it did prior day. No overt swelling compared to the left knee. There is no erythema. She continues to have some point tenderness at the proximal tibia near the pes anserine bursa. This area is fairly exquisitely tender on palpation and with gentle range of motion. No difference in stability of the knee joint compared to yesterday. Calves are soft nontender. Neurovascular appears intact. Results & Data ([facility]) Vital Signs (Past 12 Hours) Vital Signs Temp Pulse Pulse Resp BP Pulse Ox 06/14/21 11:14 36.7 C 65 20 109/72 96 06/14/21 08:30 156/81 H 06/14/21 07:49 36.6 C 107 H 20 137/79 93 06/14/21 07:16 56 L
[2021-06-14] MEDS ORDERED: LIDOCAINE 2%/EPINEPHRINE 1:200,000 20 ML SDV INFIL ONE (13:51)
[2021-06-14] MEDS ORDERED: methylPREDNISolone acetate 40 MG/ML VIAL IA ONE (14:15)
[2021-06-14] MEDS: ROSUVASTATIN CALCIUM 10 MG TAB PO SCH (20:11)
[2021-06-14] MEDS: traZODone HCL 50 MG TAB PO SCH (21:21)
--- NOTE | 2021-06-15 06:06 | Electrocardiogram Report ---
Test Reason : Blood Pressure : / mmHG Vent. Rate : 065 BPM Atrial Rate : 065 BPM P-R Int : 198 ms QRS Dur : 088 ms QT Int : 446 ms P-R-T Axes : 060 023 061 degrees QTc Int : 463 ms Poor data quality, interpretation may be adversely affected Normal sinus rhythm with sinus arrhythmia Nonspecific ST abnormality Abnormal ECG When compared with ECG of 12-APR-2020 13:00, No significant change was found Confirmed by Watson Victoria ([id number]) on 06/15/2021 6:05:56 AM Referred By: REFERRED SELF Confirmed By:Watson Victoria
[2021-06-15] MEDS: LEVOTHYROXINE SODIUM 75 MCG TABLET PO SCH (06:09)
[2021-06-15] MEDS: amLODIPine BESYLATE 5 MG TAB PO SCH (08:36)
[2021-06-15] MEDS: ASPIRIN 81 MG ECTAB PO SCH (08:36)
[2021-06-15] MEDS: LIDOCAINE 5% 1 PATCH TD SCH (08:37)
[2021-06-15] MEDS: METOPROLOL SUCC 25MG EXT REL TAB PO SCH (09:30)
[2021-06-15] MEDS: APIXABAN 2.5 MG TAB PO SCH ×2 (09:31→20:28)
[2021-06-15] MEDS: PANTOprazole 40 MG TAB PO SCH ×2 (09:31→20:29)
[2021-06-15] MEDS: ACETAMINOPHEN 325 MG TAB PO SCH ×2 (15:29→20:26)
[2021-06-15] MEDS: traMADol HCL 50 MG TABLET PO PRN (15:29)
--- NOTE | 2021-06-15 17:14 | Hospitalist Progress Note ---
Date of Service June 15, 2021 Assessment & Plan (1) Acute pain of right knee: Plan: -- CT Knee: unrevealing -- MRI Knee: Canceled per Ortho -- Ortho consulted --Status post steroid injection 06/14/2021 -- PRN [place] --Pain seems to be about the same, discussed with Ortho, recommends observation, as full effect of steroid injection may be seen within 48 to 72 hours Continue pain control, increased Hale, scheduled Tylenol ordered --PT and OT evaluation Hypertensive urgency secondary above -- improving -- Amlodipine 2.5mg po daily started Metoprolol held due to 5min episode of sinus niharika in the 40s--> intrapelvic dose from 50 twice daily to 25 in a.m. --Sinus bradycardia now resolved -- monitor history of CAD/PVD as per records status post TAVR, PVD -- no cardiac symptoms hyperlipidemia on statin Rx hx PE on Eliquis --Resumed Eliquis CKD -- creatinine at baseline hypothyroidism, euthyroid as of today's TSH hx PMR, currently off daily steroid Rx PT OT eval -- patient agreeable to transition to Rehab if recommended DVT prophylaxis. SCDs while Eliquis on hold Full code Admission and Anticipated Discharge Date Admission Date: June 13, 2021 Subjective Follow-up for right knee pain Seen resting in bedside chair, doing puzzles, not in distress States she is comfortable when not moving, but right knee pain is about the same with movement Denies fevers or chills Left knee seems to be having mild pain also No other symptoms Review of Systems Review of Systems: All reviewed and negative except for above Physical Exam Physical Exam: General- oriented x 3, not in distress, speaks in sentences with no effort or accessory muscle use Eyes- anicteric Neck- no JVD Lungs- clear breath sounds bilaterally, no rales/wheezes Heart- normal rate, regular rhythm; no murmurs Abdomen- normal bowel sounds, nondistended, soft, nontender Extremities- Right knee: Very mild edema, mild tenderness, no erythema, no warmth Left knee: No edema/tenderness//erythema, positive crepitus no pretibial edema, no calf tenderness Neuro- alert, oriented x 3; no gross focal neurologic deficits Skin- warm & dry Results & Data Results & Data ([facility]) Vital Signs (Past 12 Hours) Vital Signs Temp Pulse Pulse Resp BP BP Pulse Ox 06/15/21 15:06 36.7 C 59 L 20 151/81 H 95 06/15/21 11:29 36.4 C L 72 70 18 136/77 99 06/15/21 07:39 36.5 C 68 70 17 159/83 H 97 All reviewed and negative including below
[2021-06-15] MEDS: HYDROcodone/ACETAMINOPHEN 10/325 TAB PO PRN ×2 (18:17→23:51)
[2021-06-15] MEDS: ROSUVASTATIN CALCIUM 10 MG TAB PO SCH (20:27)
[2021-06-15] MEDS: traZODone HCL 50 MG TAB PO SCH (20:28)
[2021-06-16] MEDS: ACETAMINOPHEN 325 MG TAB PO SCH ×4 (02:26→21:28)
[2021-06-16] MEDS: LEVOTHYROXINE SODIUM 75 MCG TABLET PO SCH (06:20)
[2021-06-16] MEDS: APIXABAN 2.5 MG TAB PO SCH ×2 (08:39→21:28)
[2021-06-16] MEDS: PANTOprazole 40 MG TAB PO SCH ×2 (08:39→21:29)
[2021-06-16] MEDS: ASPIRIN 81 MG ECTAB PO SCH (08:40)
[2021-06-16] MEDS: amLODIPine BESYLATE 5 MG TAB PO SCH (08:40)
[2021-06-16] MEDS: LIDOCAINE 5% 1 PATCH TD SCH (08:40)
[2021-06-16] MEDS: METOPROLOL SUCC 25MG EXT REL TAB PO SCH (08:40)
--- NOTE | 2021-06-16 18:14 | Hospitalist Progress Note ---
Date of Service June 16, 2021 delayed entry , date of service as noted above Assessment & Plan (1) Acute pain of right knee: Plan: likely secondary to Pes Anserine Bursitis -- CT Knee: no fracture -- Ortho consulted --Status post steroid injection 06/14/2021 -- PRN [place], scheduled tylenol -- pain much better -- PT/OT: recommend return home -- d/c on PRN [place], scheduled Tylenol 650mg po q8h Hypertensive urgency secondary above -- improved -- Amlodipine 2.5mg po daily started -- Metoprolol held due to 5min episode of sinus niharika in the 40s--> Metoprolol dose decreased from 50 twice daily to 25 in a.m. HR improved -- BP and HR improved -- d/c on Amlodipine 2.5mg po daily and Metoprolol succinate 25 mg po in AM History of CAD/PVD as per records status post TAVR, PVD -- no cardiac symptoms Hyperlipidemia on statin Rx History of PE on Eliquis --Resumed Eliquis CKD -- creatinine at baseline Hypothyroidism --normal TSH History of PMR -- currently off daily steroid Rx PT OT eval --recommend d/c home DVT prophylaxis. 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 Admission and Anticipated Discharge Date Admission Date: June 15, 2021 Subjective ff up for knee pain, etc seen resting in chair, doing puzzles comfortable states right knee pain is significantly improved able to ambulate much better with minimal pain no chest pain, dizziness, palpitations no other symptoms Review of Systems Review of Systems: all reviewed and negative except for above Physical Exam Physical Exam: General- oriented x 3, not in distress, speaks in sentences with no effort or accessory muscle use Eyes- anicteric Neck- no JVD Lungs- clear BS BL Heart- normal rate, regular rhythm; no murmurs Abdomen- normal bowel sounds, nondistended, soft, nontender Extremities- no pretibial edema, no calf tenderness Right knee: no edema, warmth, tenderness, erythema Neuro- alert, oriented x 3; no gross focal neurologic deficits Skin- warm & dry Results & Data Results & Data ([facility]) Vital Signs (Past 12 Hours) Vital Signs Temp Pulse Pulse Resp BP Pulse Ox 06/16/21 15:30 62 06/16/21 14:56 36.7 C 72 18 113/71 95 06/16/21 12:37 116/73 06/16/21 11:58 106/68 06/16/21 11:00 36.8 C 78 20 118/72 97 06/16/21 09:51 62 06/16/21 07:50 36.4 C L 70 18 154/78 H 97 all noted and reviewed including below
[2021-06-16] MEDS: traZODone HCL 50 MG TAB PO SCH (21:29)
[2021-06-16] MEDS: ROSUVASTATIN CALCIUM 10 MG TAB PO SCH (21:30)
[2021-06-17] MEDS: ACETAMINOPHEN 325 MG TAB PO SCH ×3 (02:22→13:40)
[2021-06-17] MEDS: traMADol HCL 50 MG TABLET PO PRN (03:07)
[2021-06-17] MEDS: LEVOTHYROXINE SODIUM 75 MCG TABLET PO SCH (05:46)
[2021-06-17] MEDS: LIDOCAINE 5% 1 PATCH TD SCH (08:18)
[2021-06-17] MEDS: amLODIPine BESYLATE 5 MG TAB PO SCH (08:18)
[2021-06-17] MEDS: APIXABAN 2.5 MG TAB PO SCH (08:18)
[2021-06-17] MEDS: ASPIRIN 81 MG ECTAB PO SCH (08:18)
[2021-06-17] MEDS: METOPROLOL SUCC 25MG EXT REL TAB PO SCH (08:19)
[2021-06-17] MEDS: PANTOprazole 40 MG TAB PO SCH (08:19)
--- NOTE | 2021-06-17 14:14 | Hospitalist Progress Note ---
Date of Service June 17, 2021 Assessment & Plan (1) Acute pain of right knee: Plan: likely secondary to Pes Anserine Bursitis -- CT Knee: no fracture --Status post steroid injection 06/14/2021 --Appreciate Ortho input and recommendation -- pain much better -- PT/OT: recommend return home -- d/c on PRN [place], scheduled Tylenol 650mg po q8h --Remains medically stable without any pain and will be discharged home this afternoon Hypertensive urgency secondary above -- improved -- Amlodipine 2.5mg po daily started -- Metoprolol held due to 5min episode of sinus niharika in the 40s--> Metoprolol dose decreased from 50 twice daily to 25 in a.m. -- BP and HR improved -- d/c on Amlodipine 2.5mg po daily and Metoprolol succinate 25 mg po in AM --Blood pressure remains stable and without any symptoms History of CAD/PVD as per records status post TAVR, PVD -- no cardiac symptoms Hyperlipidemia on statin Rx History of PE on Eliquis --Resumed Eliquis CKD -- creatinine at baseline -30/1.53 on 06/14/2021 Hypothyroidism --normal TSH History of PMR -- currently off daily steroid Rx PT OT eval --recommend d/c home DVT prophylaxis. Marko Full code Will be discharged home this afternoon Her daughter will pick her up as planned Admission and Anticipated Discharge Date Admission Date: June 15, 2021 Subjective 06/17/2021 The patient was seen and examined in medical telemetry unit She has been feeling much better and denies any symptoms whatsoever She plans to go home this afternoon Review of Systems Review of Systems: All systems reviewed and are unremarkable except as noted below Musculoskeletal: Minimal generalized weakness Physical Exam Physical Exam: Lying in bed comfortably Constitutional: well developed, well nourished and + obese; not ill appearing Eyes: PERRL, conjunctivae normal, anicteric sclerae ENMT: external ear and nose normal, oropharynx normal Neck: trachea midline, no thyromegaly Respiratory: normal respiratory effort; no respiratory distress and no cough Auscultation: lungs clear to auscultation bilaterally and + diminished lung sounds Cardiovascular: Rate/Rhythm: regular rate and regular rhythm Heart Sounds: normal S1 and normal S2; no murmur Extremities: + edema (Trace edema bilaterally) Gastrointestinal (Abdomen): normal bowel sounds, soft, nontender, no hepatosplenomegaly Musculoskeletal: No acute arthritis in any joint Skin: Has multiple bruising involving the upper extremities Neurologic: Alert, awake and oriented oriented x3. No focal sensory and motor deficit appreciated Lymphatic: no cervical or axillary lymphadenopathy Results & Data Results & Data ([facility]) Vital Signs (Past 12 Hours) Vital Signs Temp Pulse Pulse Resp BP BP Pulse Ox 06/17/21 11:18 36.4 C L 78 18 120/79 96 06/17/21 07:35 36.8 C 79 18 160/83 H 96 06/17/21 07:22 74 06/17/21 05:53 80 06/17/21 03:00 36.6 C 82 20 118/76 97 Medications Administered Current Inpatient Medications Acetaminophen (Acetaminophen 325 Mg Tab) 650 mg PO Q6H PRN PRN Reason: Fever/pain Stop: 07/13/21 03:57 Last Admin: 06/13/21 04:12 Dose: 650 mg Documented by: Acetaminophen (Acetaminophen 325 Mg Tab) 650 mg PO Q6H JORGE Stop: 07/15/21 13:59 Last Admin: 06/17/21 13:40 Dose: 650 mg Documented by: Hydrocodone Bitart/Acetaminophen (Hydrocodone/Acetaminophen 10/325 Tab) 1 tab PO Q4H PRN PRN Reason: Pain Stop: 06/29/21 13:26 Last Admin: 06/15/21 23:51 Dose: 1 tab Documented by: Amlodipine Besylate (Amlodipine Besylate 5 Mg Tab) 2.5 mg PO DAILY JORGE Stop: 07/13/21 07:44 Last Admin: 06/17/21 08:18 Dose: 2.5 mg Documented by: Apixaban (Apixaban 2.5 Mg Tab) 2.5 mg PO BID JORGE Stop: 07/15/21 08:59 Last Admin: 06/17/21 08:18 Dose: 2.5 mg Documented by: Aspirin (Aspirin 81 Mg Ectab) 81 mg PO DAILY JORGE Stop: 07/13/21 08:59 Last Admin: 06/17/21 08:18 Dose: 81 mg Documented by: Diclofenac Sodium (Diclofenac Sod 1% Gel 100 Gm Tube) 2 gm EXT TID PRN PRN Reason: Pain Stop: 07/13/21 05:42 Hydromorphone HCl (Hydromorphone Inj 0.5 Mg/0.5 Ml Syr) 0.25 mg IV Q3H PRN PRN Reason: Pain Stop: 06/27/21 05:42 Levothyroxine Sodium (Levothyroxine Sodium 75 Mcg Tablet) 75 mcg PO [facility] Stop: 07/13/21 06:29 Last Admin: 06/17/21 05:46 Dose: 75 mcg Documented by: Lidocaine (Lidocaine 5% 1 Patch) 1 patch TD [facility] Stop: 07/13/21 12:44 Last Admin: 06/17/21 08:18 Dose: 1 patch Documented by: Metoprolol Succinate (Metoprolol Succ 50mg Ext Rel Tab) 50 mg PO [facility] Stop: 07/13/21 08:59 Last Admin: 06/14/21 09:25 Dose: Not Given Documented by: Metoprolol Succinate (Metoprolol Succ 25mg Ext Rel Tab) 25 mg PO [facility] Stop: 07/15/21 08:59 Last Admin: 06/17/21 08:19 Dose: 25 mg Documented by: Miscellaneous (Remove Lidoderm Patch) 1 ea N/A DAILY@2100 [facility] Stop: 07/13/21 20:59 Last Admin: 06/16/21 21:28 Dose: 1 ea Documented by: Nitroglycerin (Nitroglycerin Sl 0.4 Mg/Tab Tab) 0.4 mg SL UD PRN PRN Reason: Chest Pain Stop: 07/13/21 05:42 Pantoprazole Sodium (Pantoprazole 40 Mg Tab) 20 mg PO BID [facility] Stop: 07/13/21 08:59 Last Admin: 06/17/21 08:19 Dose: 20 mg Documented by: Rosuvastatin Calcium (Rosuvastatin Calcium 10 Mg Tab) [address] [facility] Stop: 07/13/21 20:59 Last Admin: 06/16/21 21:30 Dose: 10 mg Documented by: Tramadol HCl (Tramadol Hcl 50 Mg Tablet) 50 mg PO Q4H PRN PRN Reason: Pain Stop: 07/13/21 12:35 Last Admin: 06/17/21 03:07 Dose: 50 mg Documented by: Trazodone HCl (Trazodone Hcl 50 Mg Tab) [address] [facility] Stop: 07/13/21 20:59 Last Admin: 06/16/21 21:29 Dose: 50 mg Documented by:
--- NOTE | 2021-06-18 08:17 | Discharge Summary ---
Date of Service June 18, 2021 Admission HPI Per Admitting Provider History obtained from patient, family, and records. Medical history significant for history of CAD, status post TAVR, PVD, hypertension, hyperlipidemia, PE on Eliquis, CRI (baseline creatinine 1.5), hypothyroidism, history of polymyalgia rheumatica as per records. Last confinement April 2020 for hypertensive urgency. 5 days history of right knee pain and swelling. No fever, no chills. No chest pain, no S OB, no headache. No prior episodes. Intractable right knee pain at the ER. Decadron given at the ER. Patient daughter not comfortable taking patient home with steps at patient's home and patient's son who recently had surgery.. 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 Admission Exam Per Admitting Provider Physical Exam: GENERAL: Slightly uncomfortable and anxious, pleasant, no respiratory distress SKIN: Normal color, warm HEENT: [place] palpebral conjunctivae, no ptosis, dry buccal mucosa NECK : Supple, short neck, no tenderness CHEST : CTA, no tenderness HEART : RRR, no obvious murmurs ABDOMEN: Some distention, nontender EXTREMITIES : Minimal bilateral LE swelling, right knee tenderness, limited right knee flexion motion, no other conspicuous deformities noted NEUROLOGIC : Coherent, no facial asymmetry, slightly hard of hearing, no other gross focality Principal Diagnosis RIGHT KNEE PAIN SECONDARY TO PES ANSERINE BURSITIS HYPERTENSION Discharge Exam Constitutional well developed, well nourished and + obese; not ill appearing Eyes PERRL, conjunctivae normal, anicteric sclerae ENMT external ear and nose normal, oropharynx normal Neck trachea midline, no thyromegaly Respiratory normal respiratory effort; no respiratory distress and no cough Auscultation: lungs clear to auscultation bilaterally and + diminished lung sounds Cardiovascular Rate/Rhythm: regular rate and regular rhythm Heart Sounds: normal S1 and normal S2; no murmur Extremities: + edema (Trace edema bilaterally) Gastrointestinal (Abdomen) normal bowel sounds, soft, nontender, no hepatosplenomegaly Lymphatic no cervical or axillary lymphadenopathy Discharge Data Allergies Allergy/AdvReac Type Severity Reaction Status Date / Time etodolac Allergy Unknown Unknown Verified 06/12/21 23:55 morphine Allergy Unknown Could not Verified 06/13/21 03:59 breathe as per px NSAIDS (Non-Steroidal Allergy Unknown ITCH Verified 06/12/21 23:55 Anti-Inflamma hydromorphone AdvReac Unknown DIZZY,NAUSE Verified 06/12/21 23:55 A Consultations 06/13/21 03:01 ED Decision to Admit Stat 06/13/21 05:43 Consult Orthopedic Surgery Routine Ordered Studies 06/13/21 00:00 US venous doppler LE RT Urgent 06/13/21 12:27 CT knee RT wo con Routine 06/14/21 11:23 MR knee RT wo con Urgent Hospital Course (1) Acute pain of right knee: likely secondary to Pes Anserine Bursitis -- CT Knee: no fracture --Status post steroid injection 06/14/2021 --Appreciate Ortho input and recommendation -- pain much better -- PT/OT: recommend return home -- d/c on PRN [place], scheduled Tylenol 650mg po q8h --Remains medically stable without any pain and will be discharged home this afternoon Hypertensive urgency secondary above -- improved -- Amlodipine 2.5mg po daily started -- Metoprolol held due to 5min episode of sinus niharika in the 40s--> Metoprolol dose decreased from 50 twice daily to 25 in a.m. -- BP and HR improved -- d/c on Amlodipine 2.5mg po daily and Metoprolol succinate 25 mg po in AM --Blood pressure remains stable and without any symptoms History of CAD/PVD as per records status post TAVR, PVD -- no cardiac symptoms Hyperlipidemia on statin Rx History of PE on Eliquis --Resumed Eliquis CKD -- creatinine at baseline -30/1.53 on 06/14/2021 Hypothyroidism --normal TSH History of PMR -- currently off daily steroid Rx PT OT eval --recommend d/c home DVT prophylaxis. Marko Full code Will be discharged home this afternoon Her daughter will pick her up as planned Home Health Attestation I certify that this patient is under my care and that I, or a physicians service center assistant working with me, had a face to-face encounter that meets the home health [id number] encounter requirements with this patient. The encounter with the patient was in whole, or in part, for the following medical condition, which is the primary reason for home health care (list medical condition): I certify that, based on my findings, the following services are medically necessary home health services: My clinical findings support the need for the above services because: OT Assess ADL Status and Restore Function w ADLs PT Assessment for Endurance / Balance / Strength Skilled Nsg Assessment Further, I certify that my clinical findings support that this patient is homebound (i.e. absences from home require considerable and taxing effort and are for medical reasons or hinduism services or infrequently or of short duration when for other reasons) because: Certification for Home Health Services: Based on the above findings, I certify that this patient is confined to the home and needs intermittent detention care, physical therapy and/or speech therapy or continues to need occupational therapy. The patient is under my care, and I have initiated the establishment of the plan of care. This patient will be followed by a physician who will periodically review the plan of care. Total Time Total Time Spent Total Time Spent (In Minutes): 35 minutes Discharge Plan Discharge Items Patient Disposition: Home - Home Health Services Reason For Visit: HTN URGENCY, RT KNEE PAIN Discharge Diagnosis: RIGHT KNEE PAIN SECONDARY TO PES ANSERINE BURSITIS HYPERTENSION Activity: As commented below Activity Comment: GRADUALLY TOLERATED, ALWAYS AMBULATE CAREFULLY Lifting: Wait until after follow-up appointment Exercise/Sports: Wait until after follow-up appointment Non-emergency contact: Primary Care Provider Call non-emergency contact if: you have any medication questions, your symptoms worsen, your pain is not controlled, your pain is worsening, your pain is unusual for you, your pain is concerning for you and you have a fever Follow-up/Referrals: Moreno Parham [Primary Care Provider] - Diet: Heart Healthy Addtl Attending Provider Instructions: PLEASE REVIEW YOUR NEW MEDICATION LIST AND FOLLOW INSTRUCTIONS BELOW. YOUR NEW MEDICATIONS INCLUDE: NORCO- as needed for pain METOPROLOL REDUCED TO ONCE DAY. AMLODIPINE 2.5MG PO DAILY ORDERED. DO NOT TAKE MORE THAN 3,000MG OF ACETAMINOPHEN PER DAY. CALL PRIMARY CARE PHYSICIAN OR RETURN TO THE ER IMMEDIATELY IF WITH WORSENING OF SYMPTOMS INCLUDING WORSENING OF KNEE PAIN, SWELLING. FOLLOW UP WITH PRIMARY CARE PHYSICIAN IN 1 WEEK. Pending Studies at Discharge: No Stand-Alone Forms: My [facility] Medications and DC Order Prescriptions: New amlodipine [Norvasc] 5 mg Tablet 2.5 mg PO DAILY Qty: 30 RF: 2 hydrocodone-acetaminophen 10-325 mg Tablet 1 tab PO Q6H PRN (Reason: SEVERE PAIN) Qty: 14 RF: 0 Continued trazodone 50 mg tablet 50 mg PO HS RF: 0 tramadol [Ultram] 50 mg tablet 50 mg PO Q4H PRN (Reason: pain) RF: 0 pantoprazole [Protonix] 20 mg tablet,delayed release (DR/EC) 20 mg PO BID RF: 0 levothyroxine [Synthroid] 75 mcg tablet 75 mcg PO QAM RF: 0 nitroglycerin [Nitrostat] 0.4 mg tablet, sublingual 0.4 mg sublingual UD PRN (Reason: Chest Pain) RF: 0 Eliquis 2.5 mg tablet 2.5 mg PO BID RF: 0 acetaminophen [Tylenol Extra Strength] 500 mg Tablet 500 mg PO TID RF: 0 rosuvastatin 10 mg tablet 10 mg PO HS RF: 0 aspirin [[place] Aspirin] 81 mg Tablet,Delayed Release (Dr/Ec) 81 mg PO DAILY RF: 0 diclofenac sodium 1 % Gel 2 g TOPICAL DIRECTED PRN (Reason: Pain) RF: 0 Changed metoprolol succinate [Toprol XL] 50 mg tablet extended release 24 hr 50 mg PO QAM Qty: 0 RF: 0 Discharge Orders: Discharge Order (Routine); Ordered 06/17/21 Ordered By: Megan Epstein Admission Data Admit Date/Time: 06/15/21 16:34 Attending Provider: Megan Epstein Admit Provider: Fermín Sheldon Primary Care Provider: Moreno Parham Other Providers: Fermín Sheldon ; Supa Maguire ; Daniel Nielsen ; Bart Trammell ; Janet Guzman Thomas J ; Joanne Modi ; Deshawn Rosenberg ; Farzad Ramos ; Jhony Pulliam Andrew J. ; Farzad Allred ; Lavell Badillo ; Juan M Wolf ; Calvin rBown ; Taco Macias ; Joanne Ortiz ; Joesph Dove ; Pérez De Dios ; Gaby Young ; Rancho Patel ; Honey Pak ; Sindy Stroud ; Jimmy Campos [facility] ; Alejandro Vázquez. Other Interventions: Discharge Summary Assessment (RN) Last Done: 06/17/21 14:07
== END 2021-06-17 16:25 | disposition home health service (06) | DRG 558 ==
LOC: EDINP 21:03 → ED 21:03 → SUATTDRO 06-13 05:12 → 2N 06-13 07:00 → SUATTDRO 06-15 16:34

== ENCOUNTER 2022-03-29 19:06 | Inpatient (IN) ==
[2022-03-29] MEDS ORDERED: NITROGLYCERIN SL 0.4 MG/TAB TAB SL STA (19:42)
[2022-03-29 20:20] LABS: Base Excess VBG 1.2 mEq/L; HCO3 VBG 27 mmol/L; PCO2 VBG 46 mmHg (38-50); PO2 VBG 27 mmHg; pH VBG 7.38 (7.36-7.41)
[2022-03-29 20:22] LABS: Basophils # (auto) 0.03 K/uL (0-0.2); Basophils % (auto) 0.5 %; Eosinophils # (auto) 0.28 K/uL (0-0.5); Eosinophils % (auto) 4.9 %; Hematocrit (blood only) 40.5 % (37-47); Hemoglobin 13.7 g/dL (12.0-16.0); Lymphocytes # (auto) 1.91 K/uL (1.2-3.4); Lymphocytes % (auto) 33.6 %; Mean Corpuscular Hemoglobin 31.4 pg (25-34); Mean Corpuscular Hgb Conc 33.8 g/dL (32-36); Mean Corpuscular Volume 92.9 fL (80-100); Mean Platelet Volume 9.6 fL (7.4-10.4); Monocytes # (auto) 0.63 K/uL (0.11-0.59); Monocytes % (auto) 11.1 %; Neutrophils # (auto) 2.84 K/uL (1.4-6.5); Neutrophils % (auto) 49.9 %; Platelet Count 183 K/uL (130-400); RDW Coefficient of Variation 14.1 % (11.5-14.5); Red Blood Count 4.36 M/uL (4.2-5.4); White Blood Count 5.69 K/uL (4.8-10.8)
--- NOTE | 2022-03-29 20:29 | XRay Report ---
XR chest 1V portable CLINICAL HISTORY: Shortness of breath. COMPARISON STUDY: Chest CT September 08, 2018. Chest radiograph April 12, 2020. FINDINGS: Lung volumes are normal. Lungs are clear. There is no pneumothorax or pleural effusion. Car diomegaly is unchanged. Prostatic aortic valve is noted. Mediastinal contours are normal. There is no evidence for pulmonary edema. Mild opacity along the left heart border favors epicardial fat pad. De generative changes of both shoulders are noted with elevation of the humeral heads. IMPRESSION: No acute cardiopulmonary findings. Cardiomegaly. ACT 112: Negative or not required by law. Electronically signed by: Salas Chaudhari M.D. 03/29/2022 8:27 PM
[2022-03-29 20:30] LABS: Partial Thromboplastin Time 26.9 Seconds (21.0-31.0); Prothrombin Time 10.9 Seconds (9.0-12.0)
[2022-03-29 20:38] LABS: Alanine Aminotransferase 13 U/L (7-52); Albumin Level 3.6 gm/dl (3.4-5.0); Alkaline Phosphatase 64 U/L (34-104); Anion Gap 8 (3-11); Aspartate Aminotransferase 23 U/L (13-39); BUN Creatinine Ratio 10.4 (10-20); Bilirubin Direct 0.1 mg/dl (0-0.2); Bilirubin,Total 0.6 mg/dl (0.2-1.0); Blood Urea Nitrogen 16 mg/dl (6-23); Calcium 8.7 mg/dl (8.5-10.1); Carbon Dioxide 27 mmol/L (21-32); Chloride 107 mmol/L (98-107); Est GFR (African American) 34.8 ml/min; Glucose 85 mg/dl (70-99(Fasting)); Magnesium 2.1 mg/dl (1.7-2.4); Potassium 4.2 mmol/L (3.5-5.1); Sodium 142 mmol/L (136-145); Total Protein 6.1 gm/dl (6.0-8.3)
[2022-03-29 20:39] LABS: Oxygen Saturation VBG < 60.0 %
--- NOTE | 2022-03-29 20:47 | CT Scan Report ---
CT OF THE ABDOMEN AND PELVIS WITHOUT CONTRAST CLINICAL HISTORY: Abdominal pain. COMPARISON STUDY: CT of the abdomen and pelvis March 25, 2018. TECHNIQUE: Axial images of the abdomen and pelvis were obtained without IV contrast. Images were revi ewed in the axial, sagittal, and coronal planes. Automated exposure control was utilized for the liliana dy. A dose lowering technique was utilized adhering to the principles of ALARA. FINDINGS: Linear and groundglass opacities within the lower lungs favor atelectasis. No pneumatosis, free air or portal venous gas is present. No renal, ureteral or bladder calculi are present. There is no hydronephrosis or hydroureter. Evaluation of the remainder of the abdomen and pelvis is suboptima l on this unenhanced study. Mild dilatation of the common bile duct is unchanged. This may be related to cholecystectomy. Unenhanced images of the liver, spleen, adrenal glands and pancreas are unremark able. Left hepatic lobe cyst is incidentally noted. The appendix is normal. There is no evidence for a bowel obstruction. No ascites is present. There is no lymphadenopathy. No acute fracture or suspici ous lesion within the visualized skeletal structures is identified. Calcified peritoneal body along t he right aspect of the sigmoid colon is incidentally noted. IMPRESSION: 1. No acute process within the abdomen or pelvis on unenhanced exam. 2. No bowel obstruction. Normal appendix. 3. No urinary calculi or hydronephrosis. ACT 112: Negative or not required by law. Electronically signed by: Salas Chaudhari M.D. 03/29/2022 8:45 PM
[2022-03-29 20:57] LABS: Troponin I High Sensitivity 132.4 pg/ml (0-14)
[2022-03-29 20:58] LABS: Influenza A virus by PCR Negative (Neg); Influenza B virus by PCR Negative (Neg); RSV by PCR Negative (Neg); SARS CoV2 RNA(COVID-19) InHosp NEGATIVE (Negative)
[2022-03-29] MEDS ORDERED: FUROSEMIDE 40 MG/4 ML VIAL IV ONE (21:25)
[2022-03-29] MEDS ORDERED: METOPROLOL TARTRATE 50 MG TAB PO STA (21:47)
--- NOTE | 2022-03-29 23:00 | Emergency Department Note ---
History of Present Illness General Chief complaint: Shortness of Breath/Dyspnea Stated complaint: SOB Time Seen by Provider: 03/29/22 19:36 History of Present Illness Provider complaint: Shortness of breath Onset (ago): day(s) 1 Location: chest Radiation: non-radiation Severity: moderate Maximum Pain Intensity: 5 Current Pain Intensity: 5 Quality: + aching Relieved By: + none Exacerbated By: + none Associated symptoms: + shortness of breath; no chest pain, no cough, no fever/chills, no headaches, no nausea/vomiting or no weakness 87-year-old female presents to the emergency department for shortness of breath. Patient daughter reports that earlier today she became very shaky and was having abdominal pain and shortness of breath. No chest pain. Patient reports her legs have been more swollen. No history of CHF per the daughter. Patient is on Eliquis. No falls or trauma. Home Medications Medication Instructions Recorded Confirmed Type apixaban 2.5 mg tablet (Eliquis) 2.5 mg PO AMHS 05/29/19 03/29/22 History levothyroxine 75 mcg tablet 75 mcg PO QAM 05/29/19 03/29/22 History (Synthroid) nitroglycerin 0.4 mg sublingual 0.4 mg SUBLINGUAL UD PRN 05/29/19 03/29/22 History tablet (Nitrostat) pantoprazole 20 mg tablet,delayed 20 mg PO BID 05/29/19 03/29/22 History release (Protonix) trazodone 50 mg tablet 50 mg PO HS 05/29/19 03/29/22 History acetaminophen 500 mg tablet 500 mg PO TID 04/12/20 03/29/22 History (Tylenol Extra Strength) rosuvastatin 10 mg tablet 10 mg PO HS 06/12/21 03/29/22 History cholecalciferol (vitamin D3) 50 50 mcg PO DAILY 03/29/22 03/29/22 History mcg (2,000 unit) tablet (Vitamin D3) fexofenadine 180 mg tablet 180 mg PO AMPM 03/29/22 03/29/22 History (Allergy Relief (fexofenadine)) metoprolol tartrate 50 mg tablet 50 mg PO BID 03/29/22 03/29/22 History Allergies Allergy/AdvReac Type Severity Reaction Status Date / Time etodolac Allergy Unknown Unknown Verified 03/29/22 21:15 morphine Allergy Unknown Could not Verified 03/29/22 21:15 breathe as per px NSAIDS (Non-Steroidal Allergy Unknown ITCH Verified 03/29/22 21:15 Anti-Inflamma hydromorphone AdvReac Unknown DIZZY,NAUSE Verified 03/29/22 21:15 A Past Med/Surg History Medical History Aortic stenosis "moderate" Arthritis C2 cervical fracture Chest pain Dyslipidemia Dysphagia Essential tremor GERD (gastroesophageal reflux disease) GI bleed H/O polymyalgia rheumatica Hearing loss in left ear History of palpitations History of pulmonary embolism History of syncope Hypertension Hypothyroidism Osteoporosis Paroxysmal tachycardia "Cardiac Zio event monitor captured a 10 beat trina of non sustained VT and several brief SVT episodes" Pulmonary embolism Surgical History H/O knee surgery History of cataract surgery S/P section S/P cholecystectomy Family History Other Cancer Coronary heart disease Rheumatoid arthritis Stroke Social History Smoking Status: Unknown if ever smoked Second Hand Exposure: No; Hx Alcohol Use: No Hx Substance Use: No Preferred Language: Algerian Communication Ability: Effective Thiokol Operator Required: No Beliefs That Will Affect Care: None marital status: / Current Living Situation: Family Current Living Situation Comment: lives w/ son How many Children do You have: 3 Feels Safe at Home: Yes Assistive Devices: Walker Review of Systems A total of 10 systems reviewed and were otherwise negative Physical Exam Vital Signs Vital Signs - 24 hr 03/29/22 19:32 03/29/22 19:39 Temperature 36.3 C L Temperature Source Oral Pulse Rate 67 Respiratory Rate 14 Blood Pressure 211/110 H Blood Pressure Mean 143 Pulse Oximetry 97 Oxygen Delivery Method Room Air Sepsis Recent Fever Within 48 Hours No Sepsis New/Unexplained Change in Mental Status N/A Sepsis Action Taken by Nursing No Action Required Physical Exam GENERAL: She is oriented to person, place, and time. She appears well-developed and well-nourished. She does not appear distressed. HENT: Exam performed. -Head: Normocephalic and atraumatic. -Right Ear: External ear normal. No mastoid tenderness. -Left Ear: External ear normal. No mastoid tenderness. -Mouth/Throat: The oropharynx is clear and moist. No trismus in the jaw. No dental abscesses or uvula swelling. No oropharyngeal exudate or tonsillar abscesses. EYES: Conjunctivae and EOM are normal. Pupils are equal, round, and reactive to light. Right eye exhibits no discharge. Left eye exhibits no discharge. No scleral icterus. NECK: Normal range of motion. Neck supple. No JVD present. No spinous process tenderness present. No carotid bruit present. No rigidity. No tracheal deviation and normal range of motion present. No Brudzinski's sign and no Kernig's sign noted. CV: Normal rate, regular rhythm, systolic murmur and intact distal pulses. 2+ pitting edema bilateral lower extremities. Palpable radial pulses bue. PULM/CHEST: Rales at the bases bilaterally. -Chest Wall: She exhibits no tenderness. ABD: The abdomen is soft. Bowel sounds are normal. She has no distension. No mass is present. There is no tenderness. There is no rebound, no guarding, no Gonzalez's sign and no tenderness at McBurney's point. Rovsig negative MUSC/SKEL: Normal range of motion. 2+ pitting edema bilateral lower extremities. LYMPH: No cervical adenopathy. NEURO: She is alert and oriented to person, place, and time. She has normal strength. No cranial nerve deficit or sensory deficit. Coordination and gait normal. GCS eye subscore is 4. GCS verbal subscore is 5. GCS motor subscore is 6. Cerebellar tests wnl. SKIN: Skin is warm and dry. She is not diaphoretic. PSYCH: She has a normal mood and affect. Behavior is normal. Judgment and thought content normal. Course Course 193: The patient was evaluated in room B5. A complete history and physical exam was performed Cardiac monitoring: An order was placed for continuous cardiac monitoring. The monitor shows a rate of 70 with sinus rhythm 2124: Vital signs stable. Chest x-ray viewed by vt shows cardiomegaly with mild cephalization. CT abdomen within normal limits. Labs are within normal limits with the exception of an elevated BNP of 172 as well as troponin 132.4. Patient not reporting any chest pain currently. Patient is resting comfortably. Patient will be given Lasix 40 mg IV push. It is thought that the patient could be having CHF due to her aortic stenosis. [facility] team Dr. Tucker notified. Administered Medications Discontinued Medications Furosemide (Furosemide 40 Mg/4 Ml Vial) 40 mg IV ONE ONE Stop: 03/29/22 21:26 Last Admin: 03/29/22 21:59 Dose: 40 mg Documented by: [id number] Metoprolol Tartrate (Metoprolol Tartrate 50 Mg Tab) 50 mg PO NOW STA Stop: 03/29/22 21:48 Last Admin: 03/29/22 21:59 Dose: 50 mg Documented by: [id number] Nitroglycerin (Nitroglycerin Sl 0.4 Mg/Tab Tab) 0.4 mg SL NOW STA Stop: 03/29/22 19:43 Last Admin: 03/29/22 19:48 Dose: 0.4 mg Documented by: [id number] Medical Decision Making Laboratory Data Result diagrams: 03/29/22 19:30 03/29/22 19:30 Lab Results 03/29/22 03/29/22 03/29/22 Range/Units 19:30 19:30 19:30 WBC 5.69 (4.8-10.8) K/uL RBC 4.36 (4.2-5.4) M/uL Hgb 13.7 (12.0-16.0) g/dL Hct 40.5 (37-47) % MCV 92.9 (80-100) fL MCH 31.4 (25-34) pg MCHC 33.8 (32-36) g/dL RDW Std Deviation 48.0 H (36.4-46.3) fL RDW Coeff of Jing 14.1 (11.5-14.5) % Plt Count 183 (130-400) K/uL MPV 9.6 (7.4-10.4) fL Immature Gran % (Auto) 0.0 % Neut % (Auto) 49.9 % Lymph % (Auto) 33.6 % Scott % (Auto) 11.1 % Eos % (Auto) 4.9 % Baso % (Auto) 0.5 % Neut # (Auto) 2.84 (1.4-6.5) K/uL Lymph # (Auto) 1.91 (1.2-3.4) K/uL Scott # (Auto) 0.63 H (0.11-0.59) K/uL Eos # (Auto) 0.28 (0-0.5) K/uL Baso # (Auto) 0.03 (0-0.2) K/uL Immature Gran # (Auto) 0.00 (0.00-0.02) K/uL PT 10.9 (9.0-12.0) Seconds INR 1.0 (0.9-1.1) APTT 26.9 (21.0-31.0) Seconds PTT Ratio 1.0 VBG pH (7.36-7.41) VBG pCO2 (38-50) mmHg VBG pO2 mmHg VBG HCO3 mmol/L VBG O2 Saturation % VBG Base Excess mEq/L Barometric Pressure mm/Hg Sodium 142 (136-145) mmol/L Potassium 4.2 (3.5-5.1) mmol/L Chloride 107 (98-107) mmol/L Carbon Dioxide 27 (21-32) mmol/L Anion Gap 8 (3-11) BUN 16 (6-23) mg/dl Creatinine 1.54 H (0.6-1.2) mg/dl Est Cr Clr Drug Dosing Not Reportable Est GFR ( Amer) 34.8 ml/min Est GFR (Non-Af Amer) 30.0 ml/min BUN/Creatinine Ratio 10.4 (10-20) Glucose 85 (70-99(Fasting)) mg/dl Calcium 8.7 (8.5-10.1) mg/dl Magnesium 2.1 (1.7-2.4) mg/dl Total Bilirubin 0.6 (0.2-1.0) mg/dl Direct Bilirubin 0.1 (0-0.2) mg/dl AST 23 (13-39) U/L ALT 13 (7-52) U/L Alkaline Phosphatase 64 (34-104) U/L Troponin I High Sens (0-14) pg/ml B-Natriuretic Peptide (0-100) pg/ml Total Protein 6.1 (6.0-8.3) gm/dl Albumin 3.6 (3.4-5.0) gm/dl Lipase (11-82) U/L SARS-CoV-2 (PCR) (Negative) Influenza Type A (PCR) (Neg) Influenza Type B (PCR) (Neg) RSV (RT-PCR) (Neg) 03/29/22 03/29/22 03/29/22 Range/Units 19:30 19:30 20:00 WBC (4.8-10.8) K/uL RBC (4.2-5.4) M/uL Hgb (12.0-16.0) g/dL Hct (37-47) % MCV (80-100) fL MCH (25-34) pg MCHC (32-36) g/dL RDW Std Deviation (36.4-46.3) fL RDW Coeff of Jing (11.5-14.5) % Plt Count (130-400) K/uL MPV (7.4-10.4) fL Immature Gran % (Auto) % Neut % (Auto) % Lymph % (Auto) % Scott % (Auto) % Eos % (Auto) % Baso % (Auto) % Neut # (Auto) (1.4-6.5) K/uL Lymph # (Auto) (1.2-3.4) K/uL Scott # (Auto) (0.11-0.59) K/uL Eos # (Auto) (0-0.5) K/uL Baso # (Auto) (0-0.2) K/uL Immature Gran # (Auto) (0.00-0.02) K/uL PT (9.0-12.0) Seconds INR (0.9-1.1) APTT (21.0-31.0) Seconds PTT Ratio VBG pH (7.36-7.41) VBG pCO2 (38-50) mmHg VBG pO2 mmHg VBG HCO3 mmol/L VBG O2 Saturation % VBG Base Excess mEq/L Barometric Pressure mm/Hg Sodium (136-145) mmol/L Potassium (3.5-5.1) mmol/L Chloride (98-107) mmol/L Carbon Dioxide (21-32) mmol/L Anion Gap (3-11) BUN (6-23) mg/dl Creatinine (0.6-1.2) mg/dl Est Cr Clr Drug Dosing Est GFR ( Amer) ml/min Est GFR (Non-Af Amer) ml/min BUN/Creatinine Ratio (10-20) Glucose (70-99(Fasting)) mg/dl Calcium (8.5-10.1) mg/dl Magnesium (1.7-2.4) mg/dl Total Bilirubin (0.2-1.0) mg/dl Direct Bilirubin (0-0.2) mg/dl AST (13-39) U/L ALT (7-52) U/L Alkaline Phosphatase (34-104) U/L Troponin I High Sens 132.4 H* (0-14) pg/ml B-Natriuretic Peptide 172 H (0-100) pg/ml Total Protein (6.0-8.3) gm/dl Albumin (3.4-5.0) gm/dl Lipase 24 (11-82) U/L SARS-CoV-2 (PCR) NEGATIVE (Negative) Influenza Type A (PCR) Negative (Neg) Influenza Type B (PCR) Negative (Neg) RSV (RT-PCR) Negative (Neg) 03/29/22 Range/Units 20:04 WBC (4.8-10.8) K/uL RBC (4.2-5.4) M/uL Hgb (12.0-16.0) g/dL Hct (37-47) % MCV (80-100) fL MCH (25-34) pg MCHC (32-36) g/dL RDW Std Deviation (36.4-46.3) fL RDW Coeff of Jing (11.5-14.5) % Plt Count (130-400) K/uL MPV (7.4-10.4) fL Immature Gran % (Auto) % Neut % (Auto) % Lymph % (Auto) % Scott % (Auto) % Eos % (Auto) % Baso % (Auto) % Neut # (Auto) (1.4-6.5) K/uL Lymph # (Auto) (1.2-3.4) K/uL Scott # (Auto) (0.11-0.59) K/uL Eos # (Auto) (0-0.5) K/uL Baso # (Auto) (0-0.2) K/uL Immature Gran # (Auto) (0.00-0.02) K/uL PT (9.0-12.0) Seconds INR (0.9-1.1) APTT (21.0-31.0) Seconds PTT Ratio VBG pH 7.38 (7.36-7.41) VBG pCO2 46 (38-50) mmHg VBG pO2 27 mmHg VBG HCO3 27 mmol/L VBG O2 Saturation < 60.0 % VBG Base Excess 1.2 mEq/L Barometric Pressure 726.0 mm/Hg Sodium (136-145) mmol/L Potassium (3.5-5.1) mmol/L Chloride (98-107) mmol/L Carbon Dioxide (21-32) mmol/L Anion Gap (3-11) BUN (6-23) mg/dl Creatinine (0.6-1.2) mg/dl Est Cr Clr Drug Dosing Est GFR ( Amer) ml/min Est GFR (Non-Af Amer) ml/min BUN/Creatinine Ratio (10-20) Glucose (70-99(Fasting)) mg/dl Calcium (8.5-10.1) mg/dl Magnesium (1.7-2.4) mg/dl Total Bilirubin (0.2-1.0) mg/dl Direct Bilirubin (0-0.2) mg/dl AST (13-39) U/L ALT (7-52) U/L Alkaline Phosphatase (34-104) U/L Troponin I High Sens (0-14) pg/ml B-Natriuretic Peptide (0-100) pg/ml Total Protein (6.0-8.3) gm/dl Albumin (3.4-5.0) gm/dl Lipase (11-82) U/L SARS-CoV-2 (PCR) (Negative) Influenza Type A (PCR) (Neg) Influenza Type B (PCR) (Neg) RSV (RT-PCR) (Neg) Imaging Data Radiologist's Impression: Abdomen/Pelvis CT 03/29/22 19:44 CT OF THE ABDOMEN AND PELVIS WITHOUT CONTRAST CLINICAL HISTORY: Abdominal pain. COMPARISON STUDY: CT of the abdomen and pelvis March 25, 2018. TECHNIQUE: Axial images of the abdomen and pelvis were obtained without IV contrast. Images were reviewed in the axial, sagittal, and coronal planes. Automated exposure control was utilized for the study. A dose lowering technique was utilized adhering to the principles of ALARA. FINDINGS: Linear and groundglass opacities within the lower lungs favor atelectasis. No pneumatosis, free air or portal venous gas is present. No renal, ureteral or bladder calculi are present. There is no hydronephrosis or hydroureter. Evaluation of the remainder of the abdomen and pelvis is suboptimal on this unenhanced study. Mild dilatation of the common bile duct is unchanged. This may be related to cholecystectomy. Unenhanced images of the liver, spleen, adrenal glands and pancreas are unremarkable. Left hepatic lobe cyst is incidentally noted. The appendix is normal. There is no evidence for a bowel obstruction. No ascites is present. There is no lymphadenopathy. No acute fracture or suspicious lesion within the visualized skeletal structures is identified. Calcified peritoneal body along the right aspect of the sigmoid colon is incidentally noted. IMPRESSION: 1. No acute process within the abdomen or pelvis on unenhanced exam. 2. No bowel obstruction. Normal appendix. 3. No urinary calculi or hydronephrosis. ACT 112: Negative or not required by law. Electronically signed by: Salas Chaudhari M.D. 03/29/2022 8:45 PM Chest X-Ray 03/29/22 19:44 XR chest 1V portable CLINICAL HISTORY: Shortness of breath. COMPARISON STUDY: Chest CT September 08, 2018. Chest radiograph April 12, 2020. FINDINGS: Lung volumes are normal. Lungs are clear. There is no pneumothorax or pleural effusion. Cardiomegaly is unchanged. Prostatic aortic valve is noted. Mediastinal contours are normal. There is no evidence for pulmonary edema. Mild opacity along the left heart border favors epicardial fat pad. Degenerative changes of both shoulders are noted with elevation of the humeral heads. IMPRESSION: No acute cardiopulmonary findings. Cardiomegaly. ACT 112: Negative or not required by law. Electronically signed by: Salas Chaudhari M.D. 03/29/2022 8:27 PM ECG Data Indication: + SOB/dyspnea Rate (beats per minute): 66 Rhythm: + normal sinus ECG Intervals/blocks: + Normal QRS, + Normal ME and + Normal QT-c ECG ST segments: + Normal ST segments MDM Narrative Vital signs stable. Chest x-ray viewed by vt shows cardiomegaly with mild cephalization. CT abdomen within normal limits. Labs are within normal limits with the exception of an elevated BNP of 172 as well as troponin 132.4. Patient not reporting any chest pain currently. Patient is resting comfortably. Patient will be given Lasix 40 mg IV push. It is thought that the patient could be having CHF due to her aortic stenosis. Patient will be admitted to the [facility] hospitalist team Dr. Tucker notified. Impression & Plan CHF (congestive heart failure), Aortic stenosis, CKD (chronic kidney disease) stage 4, GFR 15-29 ml/min Discharge Plan Visit Data Chief Complaint: Shortness of Breath/Dyspnea Stated Complaint: SOB Discharge Problem: CHF (congestive heart failure), Aortic stenosis, CKD (chronic kidney disease) stage 4, GFR 15-29 ml/min Forms Stand Alone Forms: [facility] Prescriptions Prescriptions: No Action trazodone 50 mg tablet 50 mg PO HS RF: 0 pantoprazole [Protonix] 20 mg tablet,delayed release (DR/EC) 20 mg PO BID RF: 0 levothyroxine [Synthroid] 75 mcg tablet 75 mcg PO QAM RF: 0 nitroglycerin [Nitrostat] 0.4 mg tablet, sublingual 0.4 mg sublingual UD PRN (Reason: Chest Pain) RF: 0 Eliquis 2.5 mg tablet 2.5 mg PO AMHS RF: 0 acetaminophen [Tylenol Extra Strength] 500 mg Tablet 500 mg PO TID RF: 0 rosuvastatin 10 mg tablet 10 mg PO HS RF: 0 fexofenadine [Allergy Relief (fexofenadine)] 180 mg tablet 180 mg PO AMPM RF: 0 metoprolol tartrate 50 mg Tablet 50 mg PO BID RF: 0 cholecalciferol (vitamin D3) [Vitamin D3] 50 mcg (2,000 unit) Tablet 50 mcg PO DAILY RF: 0 Referrals Referrals: Moreno Parham [Primary Care Provider] -
[2022-03-29 23:47] LABS: Appearance Urine Clear (Clear); Bilirubin Urine Negative (Negative); Blood Urine Negative (Negative); Color Urine Yellow; Glucose Urine UA Negative (Negative); Ketones Urine Negative (Negative); Leukocyte Esterase Urine Negative (Negative); Nitrite Urine Negative (Negative); Protein Urine Negative (Negative); Specific Gravity Urine 1.006 (1.000-1.030); Urobilinogen Urine Negative (Negative)
--- NOTE | 2022-03-30 00:42 | History & Physical Report ---
Date of Service March 30, 2022 Assessment & Plan (1) SOB (shortness of breath): Plan: With fluid retention ? Right-sided heart failure with note of clear CXR ? 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 Eliquis Full code as per daughter, Ms. Elizabeth Jacobo. She requests updates from providers through contact #[phone]. Text document was generated using [employer] voice recognition software. It may contain grammatical or spelling errors. Kindly contact undersigned for clarification of any documentation item in question. History of Present Illness Chief Complaint: Short of breath Primary Care Provider: Moreno Parham History obtained from patient, family, and records. Patient is a fair historian. Medical history significant for history of CAD, status post TAVR, PVD, hypertension, hyperlipidemia, recurrent PE on Eliquis, CRI (baseline creatinine 1.5), hypothyroidism, history of polymyalgia rheumatica as per records. Last confinement June 2021 for right knee pain attributed to anserine bursitis. Blood pressure elevated during confinement. Patient discharged on amlodipine. 2 days history of shortness of breath symptoms without chest pain. Legs more swollen than usual. Patient compliant with home medications. Patient complains of abdominal discomfort to daughter which patient currently denies. Usual confusion as per daughter. Patient noted to have weight gain at PCPs office. Patient sent to the ER for evaluation. IV Lasix administered at the ER. 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 Allergies Allergy/AdvReac Type Severity Reaction Status Date / Time etodolac Allergy Unknown Unknown Verified 03/29/22 21:15 morphine Allergy Unknown Could not Verified 03/29/22 21:15 breathe as per px NSAIDS (Non-Steroidal Allergy Unknown ITCH Verified 03/29/22 21:15 Anti-Inflamma hydromorphone AdvReac Unknown DIZZY,NAUSE Verified 03/29/22 21:15 A Home Medications Medication Instructions Recorded Confirmed Type apixaban 2.5 mg tablet (Eliquis) 2.5 mg PO AMHS 05/29/19 03/29/22 History levothyroxine 75 mcg tablet 75 mcg PO QAM 05/29/19 03/29/22 History (Synthroid) nitroglycerin 0.4 mg sublingual 0.4 mg SUBLINGUAL UD PRN 05/29/19 03/29/22 History tablet (Nitrostat) pantoprazole 20 mg tablet,delayed 20 mg PO BID 05/29/19 03/29/22 History release (Protonix) trazodone 50 mg tablet 50 mg PO HS 05/29/19 03/29/22 History acetaminophen 500 mg tablet 500 mg PO TID 04/12/20 03/29/22 History (Tylenol Extra Strength) rosuvastatin 10 mg tablet 10 mg PO HS 06/12/21 03/29/22 History cholecalciferol (vitamin D3) 50 50 mcg PO DAILY 03/29/22 03/29/22 History mcg (2,000 unit) tablet (Vitamin D3) fexofenadine 180 mg tablet 180 mg PO AMPM 03/29/22 03/29/22 History (Allergy Relief (fexofenadine)) metoprolol tartrate 50 mg tablet 50 mg PO BID 03/29/22 03/29/22 History Past Med/Surg History Medical History Aortic stenosis "moderate" Arthritis C2 cervical fracture Chest pain Dyslipidemia Dysphagia Essential tremor GERD (gastroesophageal reflux disease) GI bleed H/O polymyalgia rheumatica Hearing loss in left ear History of palpitations History of pulmonary embolism History of syncope Hypertension Hypothyroidism Osteoporosis Paroxysmal tachycardia "Cardiac Zio event monitor captured a 10 beat trina of non sustained VT and several brief SVT episodes" Pulmonary embolism Surgical History H/O knee surgery History of cataract surgery S/P section S/P cholecystectomy Family History Other Cancer Coronary heart disease Rheumatoid arthritis Stroke Social History Smoking Status: Never smoker Second Hand Exposure: No; Hx Alcohol Use: No Hx Substance Use: No Preferred Language: Belgian Communication Ability: Effective Ribbon Cleaner Required: No Beliefs That Will Affect Care: None marital status: / Current Living Situation: Family Current Living Situation Comment: lives w/ son How many Children do You have: 3 Other Information That Helps Us Care for You: No Feels Safe at Home: Yes Safety Concerns: Feels Safe At This Time Assistive Devices: Walker Review of Systems Review of Systems: Could not be reliably obtained secondary to disorientation Physical Exam Physical Exam: GENERAL: Oriented to place, slightly uncomfortable and anxious, slightly hard of hearing, obese, no respiratory distress SKIN: Normal color, warm HEENT: [place] palpebral conjunctivae, no ptosis, dry buccal mucosa NECK : Supple, short neck, no tenderness CHEST : Decreased breath sounds, no tenderness HEART : RRR, no obvious murmurs ABDOMEN: Some distention, nontender EXTREMITIES : bilateral LE swelling, no tenderness NEUROLOGIC : Oriented to place , no facial asymmetry, slightly hard of hearing, gait and stance not assessed Constitutional: WD/WN, vitals as above Eyes: no conjunctival abnormality and sclerae not anicteric ENMT: external ear and nose normal, oropharynx normal Neck: trachea midline Respiratory: normal respiratory effort and able to speak in complete sentences; does not use accessory muscles Musculoskeletal: Head/Neck/Chest: head atraumatic Gait: normal gait Skin: no rashes and no lesions Psychiatric: A+Ox3, euthymic affect Results & Data Results & Data ([facility]) Vital Signs (Past 12 Hours) Vital Signs Temp Pulse Pulse Resp BP BP Pulse Ox 03/29/22 23:08 65 14 194/105 H 97 03/29/22 19:32 36.3 C L 67 14 211/110 H 97 Laboratory Results Laboratory Results WBC 5.69 K/uL (4.8-10.8) 03/29/22 19:30 RBC 4.36 M/uL (4.2-5.4) 03/29/22 19:30 Hgb 13.7 g/dL (12.0-16.0) 03/29/22 19:30 Hct 40.5 % (37-47) 03/29/22 19:30 MCV 92.9 fL (80-100) 03/29/22: MCH 31.4 pg (25-34) 03/29/22: MCHC 33.8 g/dL (32-36) 03/29/22 RDW Std Deviation 48.0 fL (36.4-46.3) H 03/29/22: RDW Coeff of Jing 14.1 % (11.5-14.5) 03/29/22: Plt Count 183 K/uL (130-400) 03/29/22: MPV 9.6 fL (7.4-10.4) 03/29/22: Immature Gran % (Auto) 0.0 % 03/29/22: Neut % (Auto) 49.9 % 03/29/22: Lymph % (Auto) 33.6 % 03/29/22: [place] % (Auto) 11.1 % 03/29/22: Eos % (Auto) 4.9 % 03/29/22: Baso % (Auto) 0.5 % 03/29/22 Neut # (Auto) 2.84 K/uL (1.4-6.5) 03/29/22: Lymph # (Auto) 1.91 K/uL (1.2-3.4) 03/29/22: [place] # (Auto) 0.63 K/uL (0.11-0.59) H 03/29/22: Eos # (Auto) 0.28 K/uL (0-0.5) 03/29/22 Baso # (Auto) 0.03 K/uL (0-0.2) 03/29/22: Immature Gran # (Auto) 0.00 K/uL (0.00-0.02) 03/29/22: PT 10.9 Seconds (9.0-12.0) 03/29/22: INR 1.0 (0.9-1.1) 03/29/22: APTT 26.9 Seconds (21.0-31.0) 03/29/22: PTT Ratio 1.0 03/29/22 VBG pH 7.38 (7.36-7.41) 03/29/22 20:04 VBG pCO2 46 mmHg (38-50) 03/29/22 20:04 VBG pO2 27 mmHg 03/29/22 20:04 VBG HCO3 27 mmol/L 03/29/22 20:04 VBG O2 Saturation < 60.0 % 03/29/22 20:04 VBG Base Excess 1.2 mEq/L 03/29/22 20: Barometric Pressure 726.0 mm/Hg 03/29/22 20: Sodium 142 mmol/L (136-145) 03/29/22: Potassium 4.2 mmol/L (3.5-5.1) 03/29/22 Chloride 107 mmol/L (98-107) 03/29/22 Carbon Dioxide 27 mmol/L (21-32) 03/29/22 Anion Gap 8 (3-11) 03/29/22 BUN 16 mg/dl (6-23) 03/29/22 Creatinine 1.54 mg/dl (0.6-1.2) H 03/29/22 Est Cr Clr Drug Dosing Not Reportable 03/29/22 Est GFR ( Amer) 34.8 ml/min 03/29/22 Est GFR (Non-Af Amer) 30.0 ml/min 03/29/22 BUN/Creatinine Ratio 10.4 (10-20) 03/29/22 Glucose 85 mg/dl (70-99(Fasting)) 03/29/22 Calcium 8.7 mg/dl (8.5-10.1) 03/29/22 Magnesium 2.1 mg/dl (1.7-2.4) 03/29/22 Total Bilirubin 0.6 mg/dl (0.2-1.0) 03/29/22 Direct Bilirubin 0.1 mg/dl (0-0.2) 03/29/22 AST 23 U/L (13-39) 03/29/22 ALT 13 U/L (7-52) 03/29/22 Alkaline Phosphatase 64 U/L (34-104) 05/19/22 19:30 Troponin I High Sens 137.7 pg/ml (0-14) H* 03/29/22 22:56 B-Natriuretic Peptide 172 pg/ml (0-100) H 03/29/22 19:30 Total Protein 6.1 gm/dl (6.0-8.3) 03/29/22 19:30 Albumin 3.6 gm/dl (3.4-5.0) 03/29/22 19: Lipase 24 U/L (11-82) 03/29/22 19:30 Urine Color Yellow 03/29/22 23:40 Urine Appearance Clear (Clear) 03/29/22 23:40 Urine pH 7.0 (4.5-7.5) 03/29/22 23:40 Ur Specific [place] 1.006 (1.000-1.030) 03/29/22 23:40 Urine Protein Negative (Negative) 03/29/22 23:40 Urine Glucose (UA) Negative (Negative) 03/29/22 23:40 Urine Ketones Negative (Negative) 03/29/22 23:40 Urine Blood Negative (Negative) 03/29/22 23:40 Urine Nitrite Negative (Negative) 03/29/22 23:40 Urine Bilirubin Negative (Negative) 03/29/22 23:40 Urine Urobilinogen Negative (Negative) 03/29/22 23:40 Ur Leukocyte Esterase Negative (Negative) 03/29/22 23:40 SARS-CoV-2 (PCR) NEGATIVE (Negative) 03/29/22 20:00 Influenza Type A (PCR) Negative (Neg) 03/29/22 20:00 Influenza Type B (PCR) Negative (Neg) 03/29/22 20:00 RSV (RT-PCR) Negative (Neg) 03/29/22 20:00 Impressions Abdomen/Pelvis CT 03/29/22 19:44 CT OF THE ABDOMEN AND PELVIS WITHOUT CONTRAST CLINICAL HISTORY: Abdominal pain. COMPARISON STUDY: CT of the abdomen and pelvis March 25, 2018. TECHNIQUE: Axial images of the abdomen and pelvis were obtained without IV contrast. Images were reviewed in the axial, sagittal, and coronal planes. Aut omated exposure control was utilized for the study. A dose lowering technique was utilized adhering to the principles of ALARA. FINDINGS: Linear and groundglass opacities within the lower lungs favor atelectasis. No pneumatosis, free air or portal venous gas is present. No renal, ureteral or bladder calculi are present. There is no hydronephrosis or hydroureter. Evaluation of the remainder of the abdomen and pelvis is suboptimal on this unenhanced study. Mild dilatation of the common bile duct is unchanged. This may be related to cholecystectomy. Unenhanced images of the liver, spleen, adrenal glands and pancreas are unremarkable. Left hepatic lobe cyst is incidentally noted. The appendix is normal. There is no evidence for a bowel obstruction. No ascites is present. There is no lymphadenopathy. No acute fracture or suspicious lesion within the visualized skeletal structures is identified. Calcified peritoneal body along the right aspect of the sigmoid colon is incidentally noted. IMPRESSION: 1. No acute process within the abdomen or pelvis on unenhanced exam. 2. No bowel obstruction. Normal appendix. 3. No urinary calculi or hydronephrosis. ACT 112: Negative or not required by law. Electronically signed by: Salas Chaudhari M.D. 03/29/2022 8:45 PM Chest X-Ray 03/29/22 19:44 XR chest 1V portable CLINICAL HISTORY: Shortness of breath. COMPARISON STUDY: Chest CT September 08, 2018. Chest radiograph April 12, 2020. FINDINGS: Lung volumes are normal. Lungs are clear. There is no pneumothorax or pleural effusion. Cardiomegaly is unchanged. Prostatic aortic valve is noted. Mediastinal contours are normal. There is no evidence for pulmonary edema. Mild opacity along the left heart border favors epicardial fat pad. Degenerative changes of both shoulders are noted with elevation of the humeral heads. IMPRESSION: No acute cardiopulmonary findings. Cardiomegaly. ACT 112: Negative or not required by law. Electronically signed by: Salas Chaudhari M.D. 03/29/2022 8:27 PM Diagnostic Findings EKG as per my interpretation:Rate 65, NSR, normal axis, no ischemia
[2022-03-30] MEDS ORDERED: NITROGLYCERIN SL 0.4 MG/TAB TAB SL PRN ×2 (02:06)
[2022-03-30] MEDS ORDERED: PROMETHAZINE HCL 6.25 MG in SODIUM CHLORIDE 0.9% 50 ML IV PRN (02:06)
[2022-03-30] MEDS ORDERED: ACETAMINOPHEN 325 MG TAB PO PRN (02:06)
[2022-03-30] MEDS: LEVOTHYROXINE SODIUM 75 MCG TABLET PO SCH (05:13)
[2022-03-30 05:38] LABS: Basophils # (auto) 0.03 K/uL (0-0.2); Basophils % (auto) 0.5 %; Eosinophils # (auto) 0.33 K/uL (0-0.5); Hematocrit (blood only) 40.4 % (37-47); Hemoglobin 13.7 g/dL (12.0-16.0); Immature Granulocytes # (auto) 0.01 K/uL (0.00-0.02); Immature Granulocytes % (auto) 0.2 %; Lymphocytes # (auto) 1.89 K/uL (1.2-3.4); Lymphocytes % (auto) 34.4 %; Mean Corpuscular Hemoglobin 31.1 pg (25-34); Mean Corpuscular Hgb Conc 33.9 g/dL (32-36); Mean Corpuscular Volume 91.6 fL (80-100); Mean Platelet Volume 9.3 fL (7.4-10.4); Monocytes # (auto) 0.59 K/uL (0.11-0.59); Monocytes % (auto) 10.7 %; Neutrophils # (auto) 2.65 K/uL (1.4-6.5); Neutrophils % (auto) 48.2 %; Platelet Count 179 K/uL (130-400); RDW Coefficient of Variation 14.2 % (11.5-14.5); RDW Standard Deviation 48.1 fL (36.4-46.3); Red Blood Count 4.41 M/uL (4.2-5.4)
[2022-03-30 06:36] LABS: BUN Creatinine Ratio 10.4 (10-20); Calcium 8.8 mg/dl (8.5-10.1); Est GFR (African American) 34.8 ml/min; Potassium 3.8 mmol/L (3.5-5.1)
[2022-03-30] MEDS ORDERED: FUROSEMIDE 40 MG/4 ML VIAL IV ONE (08:00)
[2022-03-30] MEDS: PANTOprazole 40 MG TAB PO SCH ×2 (08:11→19:56)
[2022-03-30] MEDS: METOPROLOL TARTRATE 50 MG TAB PO SCH ×2 (08:11→19:55)
[2022-03-30] MEDS: APIXABAN 2.5 MG TAB PO SCH ×2 (08:11→21:12)
--- NOTE | 2022-03-30 09:03 | Hospitalist Progress Note ---
Date of Service March 30, 2022 Assessment & Plan (1) Acute right-sided congestive heart failure: Plan: Reduced right ventricular function on echo. She had a clear chest xray but was considered to be fluid overloaded with 2+ peripheral edema in lower extremities and subsequently given lasix x 2 overnight. Either she is more compensated today or just couldn't tolerate the diuresis being given, either was the Bumex was cancelled and she was given IVF and felt better. Will cont to monitor her overnight with normal BP as she is currently asymptomatic. Will reassess in am for need of additional diuretics. There is no edema or JVD today by my exam and lungs are clear without any respiratory distress at rest. PT/OT (2) Hypertensive urgency: Plan: Possibly the etiology of her dyspnea. This has resolved now today with normalization of her blood pressure. She doesn't have HTN but is on Toprol in setting of nonobstructive CAD. She has CKD and was very stressed out last night just before arrival. (3) Elevated troponin: Plan: 2/2 fluid retention vs critical BP in setting of CKD. No evidence os ACS. (4) Itching: Plan: New itching issues with back rash that has been going on for a couple of months. 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 (5) CKD (chronic kidney disease) stage 4, GFR 15-29 ml/min: Plan: chronic, stable. cont to follow with nephrology as outpatient (6) Anticoagulated on Coumadin: Plan: h/o PE in the past, chronic apixaban (7) Aortic stenosis: Plan: s/p TAVR. Bioprosthetic valve appeared fine on echo this admission. (8) H/O polymyalgia rheumatica: Plan: not on prednisone at this time. (9) DVT prophylaxis: Plan: Apixaban Full dipso-to home in 1-2 days. She lives with her son who I spoke with by phone today. He described details above and all questions were answered to his satisfaction. DO [facility] Hospital[facility] Admission and Anticipated Discharge Date Admission Date: March 30, 2022 Subjective 87-year-old female presents with shortness of breath and abdominal pain. Work- up revealed a elevated troponin of 132 and EKG revealed sinus rhythm with no evidence of acute ischemia. CT of the abdomen was performed and within normal limits. The patient was not reporting any chest pain. There was some possible volume overload exhibited on chest x-ray and she was given 40 mg of Lasix IV. In the setting of aortic stenosis CHF was thought possible and she was admitted to the hospitalist service. She was also noted to have hypertensive urgency with a blood pressure of 211/110 she is only on metoprolol as outpatient and no other antihypertensives. She was given nitroglycerin in the ER followed by 40 mg of Lasix. Earlier this morning she was also given 60 mg of Lasix x1 dose. Blood pressure is normal at 135 systolic this morning. She is oxygenating well on room air. Today she was dizzy and feeling poorly in the early afternoon Orthostatic vitals were positive and she was hypotensive after two doses of IV LAsix overnight She was given NSS and felt better with an improvement in BP She cannot give any history 2/2 memory issues Daughter was unavailable by phone. Recently had a rash and pruritis--put her on prednisone which helped but symptoms returned off of that. She was then put on claritin and she became too fatigued She was switched to mariana which is what she is currently taking. SOB with exertion developed yesterday when she had to exert herself, her SOB continued at rest and was concerning to family prompting evaluation. Pt was very anxious at that time and had a critical blood pressure on arrival to the ER. Review of Systems Review of Systems: She was initially lightheaded and not feeling well , however, this resolved after the IVF bolus. All other systems were reviewed and negative except as indicated above. Physical Exam Physical Exam: CONSTITUTIONAL: WNWD, vitals as above, generally well- appearing, NAD EYES: normal conjunctivae, no scleral icterus ENT: external ear and nose normal, MMM NECK: trachea midline RESPIRATORY: clear to auscultation bilaterally, no crackles, rales or wheezes, normal respiratory effort CARDIOVASCULAR: regular rate and rhythm, S1 and 2 heard without murmurs, gallops or rubs, no JVD, no peripheral edema CHEST: inspection of chest was normal GASTROINTESTINAL: soft, nontender, ND, no guarding MUSCULOSKELETAL: strength 5/5 throughout, head is normocephalic and atraumatic SKIN: warm and dry, no rashes NEUROLOGIC: CN 2-12 grossly intact, no sensory deficit, normal cognition, normal speech, no tremor PSYCHIATRIC: alert cooperative and answering questions appropriately, poor historian for details. Results & Data Results & Data ([facility]) Vital Signs (Past 12 Hours) Vital Signs Temp Pulse Pulse Resp BP BP Pulse Ox 03/30/22 08:05 81 135/83 03/30/22 07:57 65 03/30/22 06:43 36.3 C L 71 16 141/90 H 94 03/30/22 03:29 161/87 H 03/30/22 02:16 161/85 H 03/30/22 01:52 36.7 C 84 20 97 03/30/22 01:42 66 17 186/93 H 96 03/30/22 01:38 67 17 186/93 H 98 03/29/22 23:08 65 14 194/105 H 97 Laboratory Results Short CBC 03/29/22 03/30/22 Range/Units 19:30 05:25 WBC 5.69 5.50 (4.8-10.8) K/uL Hgb 13.7 13.7 (12.0-16.0) g/dL Hct 40.5 40.4 (37-47) % Plt Count 183 179 (130-400) K/uL BMP 03/29/22 03/30/22 19:30 05:25 Sodium 142 140 Potassium 4.2 3.8 Chloride 107 105 Carbon Dioxide 27 26 BUN 16 16 Creatinine 1.54 H 1.54 H Glucose 85 86 Calcium 8.7 8.8 Liver Function 03/29/22 Range/Units 19:30 Total Bilirubin 0.6 (0.2-1.0) mg/dl Direct Bilirubin 0.1 (0-0.2) mg/dl AST 23 (13-39) U/L ALT 13 (7-52) U/L Alkaline Phosphatase 64 (34-104) U/L Albumin 3.6 (3.4-5.0) gm/dl Urine 03/29/22 Range/Units 23:40 Urine Color Yellow Urine Appearance Clear (Clear) Urine pH 7.0 (4.5-7.5) Ur Specific [place] 1.006 (1.000-1.030) Urine Protein Negative (Negative) Urine Glucose (UA) Negative (Negative) Medications Administered Current Inpatient Medications Acetaminophen (Acetaminophen 325 Mg Tab) 650 mg PO Q4H PRN PRN Reason: Pain or Fever Stop: 04/29/22 02:05 Apixaban (Apixaban 2.5 Mg Tab) 2.5 mg PO AMHS [facility] Stop: 04/29/22 08:59 Last Admin: 03/30/22 08:11 Dose: 2.5 mg Documented by: Promethazine HCl 6.25 mg/ (Sodium Chloride) 50.25 mls @ 201 mls/hr IV Q6H PRN PRN Reason: Nausea And Vomiting Stop: 04/29/22 02:05 Levothyroxine Sodium (Levothyroxine Sodium 75 Mcg Tablet) 75 mcg PO DAILYBB [facility] Stop: 04/29/22 06:29 Last Admin: 03/30/22 05:13 Dose: 75 mcg Documented by: Metoprolol Tartrate (Metoprolol Tartrate 50 Mg Tab) 50 mg PO BID [facility] Stop: 04/29/22 08:59 Last Admin: 03/30/22 08:11 Dose: 50 mg Documented by: Nitroglycerin (Nitroglycerin Sl 0.4 Mg/Tab Tab) 0.4 mg SL Q5M PRN PRN Reason: Chest Pain Stop: 04/29/22 02:05 Pantoprazole Sodium (Pantoprazole 40 Mg Tab) 40 mg PO BID [facility] Stop: 04/29/22 08:59 Last Admin: 03/30/22 08:11 Dose: 40 mg Documented by: Rosuvastatin Calcium (Rosuvastatin Calcium 10 Mg Tab) 10 mg PO HS [facility] Stop: 04/29/22 20:59 Trazodone HCl (Trazodone Hcl 50 Mg Tab) 50 mg PO HS [facility] Stop: 04/29/22 20:59 (1) Aortic stenosis Cardiac valve disease etiology: etiology unspecified Qualified Code(s): I35.0 - Nonrheumatic aortic (valve) stenosis
--- NOTE | 2022-03-30 11:34 | Cardiology Consultation ---
Date of Consultation March 30, 2022 Assessment & Plan (1) SOB (shortness of breath): (2) CHF (congestive heart failure): (3) Pulmonary embolism: (4) Aortic stenosis: (5) Paroxysmal tachycardia: Patient with right greater than left-sided CHF, acute decompensation. Does carry history of PEs on chronic Eliquis anticoagulation. Will give an additional dose of Bumex 2 mg IV x1 today and supplement potassium. Reassess volume status clinically in the a.m. History of Present Illness Reason for Consultation: CHF Requesting Physician: PERRY Attending Physician: Gisselle Gillespie DO History of Present Illness Pt is a 87 yo female with a pmh significant for of Aortic Stenosis s/p TAVR, CAD, recurrent PE presenting with increasing shortness of breath. She is a moderately poor historian. There was no chest pain but the pt did report swelling in her legs. The pt has no prior history of CHF, as per daughter, and is on Eliquis following TAVR for aortic stenosis. Daughter also reported one day history of abdominal. CXR showed cardiomegaly with mild cephalization. Trop was elevated at 132 and elevated BNP of 172. She was given 40 mg of Lasix push and admitted to hospital. Today the patient reports no shortness of breath or chest pain. She was uncertain if her legs felt swollen. She denied any dizziness. Nursing reports 2000 ml of urine output overnight with an additional 350 ml this morning. Pt received a bolus of 60 mg furosemide this morning. She is receiving her regular home medications Allergies Allergy/AdvReac Type Severity Reaction Status Date / Time etodolac Allergy Unknown Unknown Verified 03/29/22 21:15 morphine Allergy Unknown Could not Verified 03/29/22 21:15 breathe as per px NSAIDS (Non-Steroidal Allergy Unknown ITCH Verified 03/29/22 21:15 Anti-Inflamma hydromorphone AdvReac Unknown DIZZY,NAUSE Verified 03/29/22 21:15 A Home Medications Medication Instructions Recorded Confirmed Type apixaban 2.5 mg tablet (Eliquis) 2.5 mg PO AMHS 05/29/19 03/29/22 History levothyroxine 75 mcg tablet 75 mcg PO QAM 05/29/19 03/29/22 History (Synthroid) nitroglycerin 0.4 mg sublingual 0.4 mg SUBLINGUAL UD PRN 05/29/19 03/29/22 History tablet (Nitrostat) pantoprazole 20 mg tablet,delayed 20 mg PO BID 05/29/19 03/29/22 History release (Protonix) trazodone 50 mg tablet 50 mg PO HS 05/29/19 03/29/22 History acetaminophen 500 mg tablet 500 mg PO TID 04/12/20 03/29/22 History (Tylenol Extra Strength) rosuvastatin 10 mg tablet 10 mg PO HS 06/12/21 03/29/22 History cholecalciferol (vitamin D3) 50 50 mcg PO DAILY 03/29/22 03/29/22 History mcg (2,000 unit) tablet (Vitamin D3) fexofenadine 180 mg tablet 180 mg PO AMPM 03/29/22 03/29/22 History (Allergy Relief (fexofenadine)) metoprolol tartrate 50 mg tablet 50 mg PO BID 03/29/22 03/29/22 History Patient History Medical History (Updated 03/30/22 @ 15:43 by Aime Pinedo DO) Aortic stenosis s/p TAVR Arthritis C2 cervical fracture Chest pain Dyslipidemia Dysphagia Essential tremor GERD (gastroesophageal reflux disease) GI bleed H/O polymyalgia rheumatica Hearing loss in left ear History of palpitations History of pulmonary embolism History of syncope Hypertension Hypothyroidism Osteoporosis Paroxysmal tachycardia "Cardiac Zio event monitor captured a 10 beat trina of non sustained VT and several brief SVT episodes" Pulmonary embolism Surgical History H/O knee surgery History of cataract surgery S/P section S/P cholecystectomy Family History Other Cancer Coronary heart disease Rheumatoid arthritis Stroke Social History Smoking Status: Never smoker Second Hand Exposure: No; Hx Alcohol Use: No Hx Substance Use: No Preferred Language: Estonian Communication Ability: Effective 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 No acute distress. HEENT: Normocephalic, atraumatic. Pupils equal, round and reactive to light and accommodation. Extraocular muscles are intact. Anicteric sclera. Moist mucous membranes. Neck: No JVD. No bruit. Cardiovascular: Regular. Positive S-4. Normal S-1 and S-2. No S-3. 3/6 mid to late systolic ejection murmur, greatest at the right sternal border, second intercostal space with radiation to the bilateral carotids. No rubs. Pulmonary: Clear to auscultation bilaterally. No rales, rhonchi, or wheezing. Abdomen: Bowel sounds x 4, soft. No rebound, guarding or tenderness. No organomegaly. Extremities: No clubbing, cyanosis or edema. +2 pedal pulses bilaterally. Skin: Warm and dry. Results & Data ([facility]) Vital Signs (Past 12 Hours) Vital Signs Temp Pulse Pulse Resp BP BP Pulse Ox 03/30/22 11:15 36.4 C L 75 16 105/69 96 03/30/22 08:05 81 135/83 03/30/22 08:00 03/30/22 07:57 65 03/30/22 06:43 36.3 C L 71 16 141/90 H 94 03/30/22 03:29 161/87 H 03/30/22 02:16 161/85 H 03/30/22 01:52 36.7 C 84 20 97 03/30/22 01:42 66 17 186/93 H 96 03/30/22 01:38 67 17 186/93 H 98 Pulse Ox 03/30/22 11:15 03/30/22 08:05 03/30/22 08:00 98 03/30/22 07:57 03/30/22 06:43 03/30/22 03:29 03/30/22 02:16 03/30/22 01:52 03/30/22 01:42 03/30/22 01:38 (1) CHF (congestive heart failure) Heart failure chronicity: acute Heart failure type: unspecified Qualified Code(s): I50.9 - Heart failure, unspecified (2) Pulmonary embolism Acute cor pulmonale presence: without acute cor pulmonale Chronicity: acute Pulmonary embolism type: other Qualified Code(s): I26.99 - Other pulmonary embolism without acute cor pulmonale (3) Aortic stenosis Cardiac valve disease etiology: etiology unspecified Qualified Code(s): I35.0 - Nonrheumatic aortic (valve) stenosis
[2022-03-30] MEDS ORDERED: BUMETANIDE 2 MG in SYRINGE 0 ML IV ONE ×2 (11:38→16:00)
[2022-03-30] MEDS ORDERED: SODIUM CHLORIDE 0.9% 1000ML 500 ML IV ONE (14:40)
[2022-03-30] MEDS: POTASSIUM CHLORIDE CRTAB 20 MEQ TABCR PO SCH (16:42)
--- NOTE | 2022-03-30 18:01 | Electrocardiogram Report ---
Test Reason : Blood Pressure : / mmHG Vent. Rate : 066 BPM Atrial Rate : 066 BPM P-R Int : 174 ms QRS Dur : 090 ms QT Int : 438 ms P-R-T Axes : 035 022 053 degrees QTc Int : 459 ms Poor data quality, interpretation may be adversely affected Normal sinus rhythm When compared with ECG of 13-JUN-2021 04:57, No significant change was found Confirmed by Kyrie Wallace ([id number]) on 03/30/2022 6:01:34 PM Referred By: REFERRED SELF Confirmed By:Jasbir Wallace
[2022-03-30] MEDS: ROSUVASTATIN CALCIUM 10 MG TAB PO SCH (19:55)
[2022-03-30] MEDS: traZODone HCL 50 MG TAB PO SCH (19:56)
[2022-03-31] MEDS: LEVOTHYROXINE SODIUM 75 MCG TABLET PO SCH (06:52)
[2022-03-31 08:14] LABS: Calcium 8.2 mg/dl (8.5-10.1); Creatinine Clr Calc Pharmacy 20.7 ml/min; Est GFR (African American) 27.7 ml/min; Est GFR (Non-African American) 23.9 ml/min
[2022-03-31] MEDS: PANTOprazole 40 MG TAB PO SCH ×2 (08:18→21:18)
[2022-03-31] MEDS: METOPROLOL TARTRATE 50 MG TAB PO SCH ×2 (08:19→21:18)
[2022-03-31] MEDS: POTASSIUM CHLORIDE CRTAB 20 MEQ TABCR PO SCH ×2 (08:19→16:59)
[2022-03-31] MEDS: APIXABAN 2.5 MG TAB PO SCH ×2 (09:20→21:18)
--- NOTE | 2022-03-31 10:52 | Cardiology Progress Note ---
Date of Service March 31, 2022 Assessment & Plan (1) SOB (shortness of breath): (2) CHF (congestive heart failure): (3) Pulmonary embolism: (4) Aortic stenosis: (5) Paroxysmal tachycardia: Plan: The patient is clinically stable. A daily diuretic could be problematic as she needs high filling pressures to maintain cardiac output with her pulmonary hypertension. I would make her diuretics on a as needed basis. Admission and Anticipated Discharge Date Admission Date: March 30, 2022 Subjective The patient is resting comfortably and in no acute distress. Review of Systems Review of Systems: Review of Systems: See HPI for pertinent positives. All other 10 point review of systems are negative. Physical Exam Physical Exam: General: no acute distress and stated age Head: normocephalic, no masses, lesions, tenderness or abnormalities Eyes: conjunctiva are pink and non-injected, sclera clear Neck: supple, no adenopathy, no bruits, normal jugular venous pulse, no hepatojugular reflux Chest: normal shape and normal respiratory effort Lungs: clear to auscultation and percussion Cardiac Exam: - regular rate & rhythm, no murmurs gallops or rubs - normal S1, normal S2 Pulses: 2(+) throughout Abdomen: abdomen soft, non-tender, no abnormal masses and no hepatosplenomegaly Musculoskeletal: no gait disturbance, no joint inflammation, no deforming arthritis Extremities: Lower extremity edema improved Neuro: grossly normal exam Results & Data ([facility]) Vital Signs (Past 12 Hours) Vital Signs Temp Pulse Pulse Resp BP BP Pulse Ox 03/31/22 08:58 66 03/31/22 08:11 36.7 C 90 18 162/80 H 92 03/31/22 08:00 03/31/22 03:53 36.6 C 77 18 169/99 H 96 Pulse Ox 03/31/22 08:58 03/31/22 08:11 03/31/22 08:00 92 03/31/22 03:53 Laboratory Results Laboratory Results - last 24 hr 03/31/22 07:06 Sodium 140 Potassium 4.0 Chloride 105 Carbon Dioxide 27 Anion Gap 8 BUN 26 H Creatinine 1.86 H D Est Cr Clr Drug Dosing 20.7 Est GFR ( Amer) 27.7 Est GFR (Non-Af Amer) 23.9 BUN/Creatinine Ratio 14.0 Glucose 85 Calcium 8.2 L Medications Administered Current Inpatient Medications Acetaminophen (Acetaminophen 325 Mg Tab) 650 mg PO Q4H PRN PRN Reason: Pain or Fever Stop: 04/29/22 02:05 Apixaban (Apixaban 2.5 Mg Tab) 2.5 mg PO AMHS [facility] Stop: 04/29/22 08:59 Last Admin: 03/31/22 09:20 Dose: 2.5 mg Documented by: Promethazine HCl 6.25 mg/ (Sodium Chloride) 50.25 mls @ 201 mls/hr IV Q6H PRN PRN Reason: Nausea And Vomiting Stop: 04/29/22 02:05 Levothyroxine Sodium (Levothyroxine Sodium 75 Mcg Tablet) 75 mcg PO DAILYBB [facility] Stop: 04/29/22 06:29 Last Admin: 03/31/22 06:52 Dose: 75 mcg Documented by: Metoprolol Tartrate (Metoprolol Tartrate 50 Mg Tab) 50 mg PO BID [facility] Stop: 04/29/22 08:59 Last Admin: 03/31/22 08:19 Dose: 50 mg Documented by: Nitroglycerin (Nitroglycerin Sl 0.4 Mg/Tab Tab) 0.4 mg SL Q5M PRN PRN Reason: Chest Pain Stop: 04/29/22 02:05 Pantoprazole Sodium (Pantoprazole 40 Mg Tab) 40 mg PO BID [facility] Stop: 04/29/22 08:59 Last Admin: 03/31/22 08:18 Dose: 40 mg Documented by: Potassium Chloride (Potassium Chloride Crtab 20 Meq Tabcr) 40 meq PO BID17 [facility] Stop: 04/29/22 16:59 Last Admin: 03/31/22 08:19 Dose: 40 meq Documented by: Rosuvastatin Calcium (Rosuvastatin Calcium 10 Mg Tab) 10 mg PO HS [facility] Stop: 04/29/22 20:59 Last Admin: 03/30/22 19:55 Dose: 10 mg Documented by: Trazodone HCl (Trazodone Hcl 50 Mg Tab) 50 mg PO [facility] Stop: 04/29/22 20:59 Last Admin: 03/30/22 19:56 Dose: 50 mg Documented by: (1) CHF (congestive heart failure) Heart failure chronicity: acute Heart failure type: unspecified Qualified Code(s): I50.9 - Heart failure, unspecified (2) Aortic stenosis Cardiac valve disease etiology: etiology unspecified Qualified Code(s): I35.0 - Nonrheumatic aortic (valve) stenosis (3) Pulmonary embolism Acute cor pulmonale presence: without acute cor pulmonale Chronicity: acute Pulmonary embolism type: other Qualified Code(s): I26.99 - Other pulmonary embolism without acute cor pulmonale
--- NOTE | 2022-03-31 16:17 | Hospitalist Progress Note ---
Date of Service March 31, 2022 Assessment & Plan (1) Acute kidney injury superimposed on chronic kidney disease: Plan: likely related to diuresis. Cr baseline of 1.5, currently 1.86. Diuresis has been on hold. No other nephrotoxic. Recheck Cr in am. (2) Acute right-sided congestive heart failure: Plan: Reduced right ventricular function on echo. She had a clear chest xray but was considered to be fluid overloaded with 2+ peripheral edema in lower extremities and subsequently given lasix x 2 overnight the earlier day. She was symptomatic with dizziness and hence given IVF while holding any further diuresis. She remains euvolemic and looks and feels better - Cardio following- might need diuresis prn (3) Hypertensive urgency: Plan: Possibly the etiology of her dyspnea. This has resolved now today with normalization of her blood pressure. She doesn't have HTN but is on Toprol in setting of nonobstructive CAD. She has CKD and was very stressed out last night just before arrival. (4) Elevated troponin: Plan: 2/2 fluid retention vs critical BP in setting of CKD. No evidence os ACS. (5) Itching: Plan: New itching issues with back rash that has been going on for a couple of months. 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 (6) CKD (chronic kidney disease) stage 4, GFR 15-29 ml/min: Plan: Follows with nephro (7) Aortic stenosis: Plan: s/p TAVR. Bioprosthetic valve appeared fine on echo this admission. (8) H/O polymyalgia rheumatica: Plan: not on prednisone at this time. (9) DVT prophylaxis: Plan: Apixaban Full dipso- likely dischcarge tomorrow if clincially and labs remain stable Admission and Anticipated Discharge Date Admission Date: March 30, 2022 Subjective No new issues. She feels fine and feels ready to go home. Normal oral intake. She states she ambulated around the [place] Physical Exam Physical Exam: General: Lying comfortably in bed, not in distress, on room air HEENT: EOMI, LUZMA, MMM Chest: Clear breath sounds bilaterally, no wheezes or crackles CVS: Regular rate and rhythm, normal heart sounds, no murmur Abdomen: Soft, non tender, not distended, normal bowel sounds Neuro: Awake, alert, oriented, conversing well, non focal Extremities: No cyanosis, clubbing, mild edema Results & Data Results & Data ([facility]) Vital Signs (Past 12 Hours) Vital Signs Temp Pulse Pulse Resp BP Pulse Ox Pulse Ox 03/31/22 16:04 36.7 C 81 17 125/81 97 03/31/22 16:00 95 03/31/22 12:26 36.8 C 66 19 96 03/31/22 11:00 75 18 100/65 03/31/22 08:58 66 03/31/22 08:11 36.7 C 90 18 162/80 H 92 03/31/22 08:00 92 Laboratory Results BMP 03/31/22 07:06 Sodium 140 Potassium 4.0 Chloride 105 Carbon Dioxide 27 BUN 26 H Creatinine 1.86 H D Glucose 85 Calcium 8.2 L Medications Administered Current Inpatient Medications Acetaminophen (Acetaminophen 325 Mg Tab) 650 mg PO Q4H PRN PRN Reason: Pain or Fever Stop: 04/29/22 02:05 Apixaban (Apixaban 2.5 Mg Tab) 2.5 mg PO [facility] Stop: 04/29/22 08:59 Last Admin: 03/31/22 09:20 Dose: 2.5 mg Documented by: Promethazine HCl 6.25 mg/ (Sodium Chloride) 50.25 mls @ 201 mls/hr IV Q6H PRN PRN Reason: Nausea And Vomiting Stop: 04/29/22 02:05 Levothyroxine Sodium (Levothyroxine Sodium 75 Mcg Tablet) 75 mcg PO DAILYBB [facility] Stop: 04/29/22 06:29 Last Admin: 03/31/22 06:52 Dose: 75 mcg Documented by: Metoprolol Tartrate (Metoprolol Tartrate 50 Mg Tab) 50 mg PO BID [facility] Stop: 04/29/22 08:59 Last Admin: 03/31/22 08:19 Dose: 50 mg Documented by: Nitroglycerin (Nitroglycerin Sl 0.4 Mg/Tab Tab) 0.4 mg SL Q5M PRN PRN Reason: Chest Pain Stop: 04/29/22 02:05 Pantoprazole Sodium (Pantoprazole 40 Mg Tab) 40 mg PO BID [facility] Stop: 04/29/22 08:59 Last Admin: 03/31/22 08:18 Dose: 40 mg Documented by: Potassium Chloride (Potassium Chloride Crtab 20 Meq Tabcr) 40 meq PO BID17 [facility] Stop: 04/29/22 16:59 Last Admin: 03/31/22 08:19 Dose: 40 meq Documented by: Rosuvastatin Calcium (Rosuvastatin Calcium 10 Mg Tab) 10 mg PO HS [facility] Stop: 04/29/22 20:59 Last Admin: 03/30/22 19:55 Dose: 10 mg Documented by: Trazodone HCl (Trazodone Hcl 50 Mg Tab) 50 mg PO [facility] Stop: 04/29/22 20:59 Last Admin: 03/30/22 19:56 Dose: 50 mg Documented by: (1) Aortic stenosis Cardiac valve disease etiology: etiology unspecified Qualified Code(s): I35.0 - Nonrheumatic aortic (valve) stenosis
[2022-03-31] MEDS: traZODone HCL 50 MG TAB PO SCH (21:18)
[2022-03-31] MEDS: ROSUVASTATIN CALCIUM 10 MG TAB PO SCH (21:18)
[2022-04-01] MEDS: LEVOTHYROXINE SODIUM 75 MCG TABLET PO SCH (05:24)
[2022-04-01] MEDS: POTASSIUM CHLORIDE CRTAB 20 MEQ TABCR PO SCH ×2 (08:14→18:00)
[2022-04-01] MEDS: METOPROLOL TARTRATE 50 MG TAB PO SCH ×2 (08:14→19:48)
[2022-04-01] MEDS: PANTOprazole 40 MG TAB PO SCH ×2 (08:14→19:48)
[2022-04-01] MEDS: APIXABAN 2.5 MG TAB PO SCH ×2 (08:14→19:48)
[2022-04-01 08:30] LABS: BUN Creatinine Ratio 18.4 (10-20); Calcium 8.3 mg/dl (8.5-10.1); Creatinine Clr Calc Pharmacy 19.3 ml/min; Est GFR (African American) 25.2 ml/min; Est GFR (Non-African American) 21.8 ml/min; Magnesium 1.8 mg/dl (1.7-2.4); Potassium 4.8 mmol/L (3.5-5.1)
[2022-04-01] MEDS: LACTATED RINGER'S 1,000 ML IV SCH ×2 (09:04→22:30)
--- NOTE | 2022-04-01 09:08 | Cardiology Progress Note ---
Date of Service April 01, 2022 Assessment & Plan (1) SOB (shortness of breath): (2) CHF (congestive heart failure): (3) Pulmonary embolism: (4) Aortic stenosis: (5) Paroxysmal tachycardia: Plan: The patient is clinically stable. She can be discharged per the hospitalist service. Admission and Anticipated Discharge Date Admission Date: March 30, 2022 Subjective The patient is more alert today. She is stating that she wants to return home. Review of Systems Review of Systems: Review of Systems: See HPI for pertinent positives. All other 10 point review of systems are negative. Physical Exam Physical Exam: General: no acute distress and stated age Head: normocephalic, no masses, lesions, tenderness or abnormalities Eyes: conjunctiva are pink and non-injected, sclera clear Neck: supple, no adenopathy, no bruits, normal jugular venous pulse, no hepatojugular reflux Chest: normal shape and normal respiratory effort Lungs: clear to auscultation and percussion Cardiac Exam: - regular rate & rhythm, no murmurs gallops or rubs - normal S1, normal S2 Pulses: 2(+) throughout Abdomen: abdomen soft, non-tender, no abnormal masses and no hepatosplenomegaly Musculoskeletal: no gait disturbance, no joint inflammation, no deforming arthritis Extremities: Lower extremity edema improved Neuro: grossly normal exam Results & Data ([facility]) Vital Signs (Past 12 Hours) Vital Signs Temp Pulse Pulse Pulse Resp BP BP 04/01/22 08:00 04/01/22 07:40 36.7 C 73 18 134/81 04/01/22 07:23 65 04/01/22 03:56 36.6 C 89 16 140/83 03/31/22 22:04 36.6 C 79 18 99/65 L Pulse Ox Pulse Ox 04/01/22 08:00 94 04/01/22 07:40 94 04/01/22 07:23 04/01/22 03:56 94 03/31/22 22:04 94 Laboratory Results Laboratory Results - last 24 hr 04/01/22 04/01/22 06:30 06:30 Sodium 138 Potassium 4.8 Chloride 108 H Carbon Dioxide 25 Anion Gap 5 BUN 37 H Creatinine 2.01 H Est Cr Clr Drug Dosing 19.3 Est GFR ( Amer) 25.2 Est GFR (Non-Af Amer) 21.8 BUN/Creatinine Ratio 18.4 Glucose 80 Calcium 8.3 L Magnesium 1.8 B-Natriuretic Peptide 31 Medications Administered Current Inpatient Medications Acetaminophen (Acetaminophen 325 Mg Tab) 650 mg PO Q4H PRN PRN Reason: Pain or Fever Stop: 04/29/22 02:05 Apixaban (Apixaban 2.5 Mg Tab) 2.5 mg PO AMHS [facility] Stop: 04/29/22 08:59 Last Admin: 04/01/22 08:14 Dose: 2.5 mg Documented by: Promethazine HCl 6.25 mg/ (Sodium Chloride) 50.25 mls @ 201 mls/hr IV Q6H PRN PRN Reason: Nausea And Vomiting Stop: 04/29/22 02:05 Lactated Ringer's (Lr) 1,000 mls @ 80 mls/hr IV .[id number] [facility] Stop: 04/02/22 08:44 Last Admin: 04/01/22 09:04 Dose: 80 mls/hr Documented by: Levothyroxine Sodium (Levothyroxine Sodium 75 Mcg Tablet) 75 mcg PO DAILYBB [facility] Stop: 04/29/22 06:29 Last Admin: 04/01/22 05:24 Dose: 75 mcg Documented by: Metoprolol Tartrate (Metoprolol Tartrate 50 Mg Tab) 50 mg PO BID [facility] Stop: 04/29/22 08:59 Last Admin: 04/01/22 08:14 Dose: 50 mg Documented by: Nitroglycerin (Nitroglycerin Sl 0.4 Mg/Tab Tab) 0.4 mg SL Q5M PRN PRN Reason: Chest Pain Stop: 04/29/22 02:05 Pantoprazole Sodium (Pantoprazole 40 Mg Tab) 40 mg PO BID [facility] Stop: 04/29/22 08:59 Last Admin: 04/01/22 08:14 Dose: 40 mg Documented by: Potassium Chloride (Potassium Chloride Crtab 20 Meq Tabcr) 40 meq PO BID17 [facility] Stop: 04/29/22 16:59 Last Admin: 04/01/22 08:14 Dose: 40 meq Documented by: Rosuvastatin Calcium (Rosuvastatin Calcium 10 Mg Tab) 10 mg PO HS [facility] Stop: 04/29/22 20:59 Last Admin: 03/31/22 21:18 Dose: 10 mg Documented by: Trazodone HCl (Trazodone Hcl 50 Mg Tab) 50 mg PO HS [facility] Stop: 04/29/22 20:59 Last Admin: 03/31/22 21:18 Dose: 50 mg Documented by: (1) CHF (congestive heart failure) Heart failure chronicity: acute Heart failure type: unspecified Qualified Code(s): I50.9 - Heart failure, unspecified (2) Pulmonary embolism Acute cor pulmonale presence: without acute cor pulmonale Chronicity: acute Pulmonary embolism type: other Qualified Code(s): I26.99 - Other pulmonary embolism without acute cor pulmonale (3) Aortic stenosis Cardiac valve disease etiology: etiology unspecified Qualified Code(s): I35.0 - Nonrheumatic aortic (valve) stenosis
--- NOTE | 2022-04-01 19:12 | Hospitalist Progress Note ---
Date of Service April 01, 2022 Assessment & Plan (1) Acute kidney injury superimposed on chronic kidney disease: Plan: likely related to diuresis. Cr baseline of 1.5, trending up progressively now to 2. Will give gentle ivf and continue to hold diuretic. Recheck cr in am. (2) Acute right-sided congestive heart failure: Plan: Reduced right ventricular function on echo. She had a clear chest xray but was considered to be fluid overloaded with 2+ peripheral edema in lower extremities and subsequently given lasix x 2 overnight the earlier day. She was symptomatic with dizziness and hence given IVF while holding any further diuresis. She remains euvolemic and looks and feels better - Cardio following- might need diuresis prn (3) Hypertensive urgency: Plan: Possibly the etiology of her dyspnea. This has resolved now today with normalization of her blood pressure. She doesn't have HTN but is on Toprol in setting of nonobstructive CAD. She has CKD and was very stressed out last night just before arrival. (4) Elevated troponin: Plan: 2/2 fluid retention vs critical BP in setting of CKD. No evidence os ACS. (5) Itching: Plan: New itching issues with back rash that has been going on for a couple of months. 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 Ordered as per daughter's request. (6) CKD (chronic kidney disease) stage 4, GFR 15-29 ml/min: Plan: Follows with nephro (7) Aortic stenosis: Plan: s/p TAVR. Bioprosthetic valve appeared fine on echo this admission. (8) H/O polymyalgia rheumatica: Plan: not on prednisone at this time. (9) DVT prophylaxis: Plan: Apixaban Full Dispo- likely discharge tomorrow if clinically and labs remain stable Updated daughter over phone and answered all questions Admission and Anticipated Discharge Date Admission Date: March 30, 2022 Subjective No new issues. She feels fine. She is ready to go home. Denies any chest pain, shortness of breath, increased swelling. Physical Exam Physical Exam: General: Lying comfortably in bed, not in distress, on room air HEENT: EOMI, LUZMA, MMM Chest: Clear breath sounds bilaterally, no wheezes or crackles CVS: Regular rate and rhythm, normal heart sounds, no murmur Abdomen: Soft, non tender, not distended, normal bowel sounds Neuro: Awake, alert, oriented, conversing well, non focal Extremities: No cyanosis, clubbing, mild edema Results & Data Results & Data ([facility]) Vital Signs (Past 12 Hours) Vital Signs Temp Pulse Pulse Pulse Resp BP BP 04/01/22 16:00 04/01/22 15:22 72 04/01/22 11:15 36.6 C 68 19 115/67 04/01/22 08:00 04/01/22 07:40 36.7 C 73 18 134/81 04/01/22 07:23 65 Pulse Ox Pulse Ox 04/01/22 16:00 97 04/01/22 15:22 04/01/22 11:15 97 04/01/22 08:00 94 04/01/22 07:40 94 04/01/22 07:23 Laboratory Results BMP 04/01/22 06:30 Sodium 138 Potassium 4.8 Chloride 108 H Carbon Dioxide 25 BUN 37 H Creatinine 2.01 H Glucose 80 Calcium 8.3 L Medications Administered Current Inpatient Medications Acetaminophen (Acetaminophen 325 Mg Tab) 650 mg PO Q4H PRN PRN Reason: Pain or Fever Stop: 04/29/22 02:05 Apixaban (Apixaban 2.5 Mg Tab) 2.5 mg PO [facility] Stop: 04/29/22 08:59 Last Admin: 04/01/22 08:14 Dose: 2.5 mg Documented by: Fexofenadine HCl (Fexofenadine Hcl 180 Mg Tab) 180 mg PO [facility] Stop: 05/01/22 20:59 Promethazine HCl 6.25 mg/ (Sodium Chloride) 50.25 mls @ 201 mls/hr IV Q6H PRN PRN Reason: Nausea And Vomiting Stop: 04/29/22 02:05 Lactated Ringer's (Lr) 1,000 mls @ 80 mls/hr IV .[id number] [facility] Stop: 04/02/22 08:44 Last Infusion: 04/01/22 18:57 Dose: 80 mls/hr Documented by: Levothyroxine Sodium (Levothyroxine Sodium 75 Mcg Tablet) [facility] Stop: 04/29/22 06:29 Last Admin: 04/01/22 05:24 Dose: 75 mcg Documented by: Metoprolol Tartrate (Metoprolol Tartrate 50 Mg Tab) 50 mg PO BID [facility] Stop: 04/29/22 08:59 Last Admin: 04/01/22 08:14 Dose: 50 mg Documented by: Nitroglycerin (Nitroglycerin Sl 0.4 Mg/Tab Tab) 0.4 mg SL Q5M PRN PRN Reason: Chest Pain Stop: 04/29/22 02:05 Pantoprazole Sodium (Pantoprazole 40 Mg Tab) 40 mg PO BID [facility] Stop: 04/29/22 08:59 Last Admin: 04/01/22 08:14 Dose: 40 mg Documented by: Potassium Chloride (Potassium Chloride Crtab 20 Meq Tabcr) 40 meq PO BID17 [facility] Stop: 04/29/22 16:59 Last Admin: 04/01/22 18:00 Dose: 40 meq Documented by: Rosuvastatin Calcium (Rosuvastatin Calcium 10 Mg Tab) 10 mg PO HS [facility] Stop: 04/29/22 20:59 Last Admin: 03/31/22 21:18 Dose: 10 mg Documented by: Trazodone HCl (Trazodone Hcl 50 Mg Tab) 50 mg PO [facility] Stop: 04/29/22 20:59 Last Admin: 03/31/22 21:18 Dose: 50 mg Documented by: (1) Aortic stenosis Cardiac valve disease etiology: etiology unspecified Qualified Code(s): I35.0 - Nonrheumatic aortic (valve) stenosis
[2022-04-01] MEDS: FEXOFENADINE HCL 180 MG TAB PO SCH (19:47)
[2022-04-01] MEDS: traZODone HCL 50 MG TAB PO SCH (19:48)
[2022-04-01] MEDS: ROSUVASTATIN CALCIUM 10 MG TAB PO SCH (19:49)
[2022-04-02] MEDS: LEVOTHYROXINE SODIUM 75 MCG TABLET PO SCH (06:35)
[2022-04-02 08:13] LABS: BUN Creatinine Ratio 18.4 (10-20); Calcium 8.5 mg/dl (8.5-10.1); Creatinine Clr Calc Pharmacy 22.9 ml/min; Est GFR (Non-African American) 25.9 ml/min
[2022-04-02] MEDS: FEXOFENADINE HCL 180 MG TAB PO SCH (08:54)
[2022-04-02] MEDS: APIXABAN 2.5 MG TAB PO SCH (08:54)
[2022-04-02] MEDS: PANTOprazole 40 MG TAB PO SCH (08:57)
[2022-04-02] MEDS: METOPROLOL TARTRATE 50 MG TAB PO SCH (08:57)
[2022-04-02] MEDS: POTASSIUM CHLORIDE CRTAB 20 MEQ TABCR PO SCH (08:57)
--- NOTE | 2022-04-02 10:31 | Discharge Summary ---
Date of Service April 02, 2022 Admission HPI Per Admitting Provider History obtained from patient, family, and records. Patient is a fair historian. Medical history significant for history of CAD, status post TAVR, PVD, hypertension, hyperlipidemia, recurrent PE on Eliquis, CRI (baseline creatinine 1.5), hypothyroidism, history of polymyalgia rheumatica as per records. Last confinement June 2021 for right knee pain attributed to anserine bursitis. Blood pressure elevated during confinement. Patient discharged on amlodipine. 2 days history of shortness of breath symptoms without chest pain. Legs more swollen than usual. Patient compliant with home medications. Patient complains of abdominal discomfort to daughter which patient currently denies. Usual confusion as per daughter. Patient noted to have weight gain at PCPs office. Patient sent to the ER for evaluation. IV Lasix administered at the ER. 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 Admission Exam Per Admitting Provider GENERAL: Oriented to place, slightly uncomfortable and anxious, slightly hard of hearing, obese, no respiratory distress SKIN: Normal color, warm HEENT: [place] palpebral conjunctivae, no ptosis, dry buccal mucosa NECK : Supple, short neck, no tenderness CHEST : Decreased breath sounds, no tenderness HEART : RRR, no obvious murmurs ABDOMEN: Some distention, nontender EXTREMITIES : bilateral LE swelling, no tenderness NEUROLOGIC : Oriented to place , no facial asymmetry, slightly hard of hearing, gait and stance not assessed Principal Diagnosis Hypertensive urgency, DEDRICK on CKD4 Discharge Exam General: Lying comfortably in bed, not in distress, on room air HEENT: EOMI, LUZMA, MMM Chest: Clear breath sounds bilaterally, no wheezes or crackles CVS: Regular rate and rhythm, normal heart sounds, no murmur Abdomen: Soft, non tender, not distended, normal bowel sounds Neuro: Awake, alert, oriented, conversing well, non focal Extremities: No cyanosis, clubbing, chronic mild edema which is stable Discharge Data Allergies Allergy/AdvReac Type Severity Reaction Status Date / Time etodolac Allergy Unknown Unknown Verified 03/29/22 21:15 morphine Allergy Unknown Could not Verified 03/29/22 21:15 breathe as per px NSAIDS (Non-Steroidal Allergy Unknown ITCH Verified 03/29/22 21:15 Anti-Inflamma hydromorphone AdvReac Unknown DIZZY,NAUSE Verified 03/29/22 21:15 A Consultations 03/29/22 21:25 ED Decision to Admit Stat 03/30/22 02:06 Consult Cardiology Routine Ordered Studies 03/29/22 19:44 CT abd pelvis wo con Stat Hospital Course (1) Acute kidney injury superimposed on chronic kidney disease: likely related to diuresis. Cr baseline of 1.5, peaked to 2 and now down to 1.7. likely from diuretic, improved with IVF. Recommend repeat BMP in 3-4 days with PCP. (2) Acute right-sided congestive heart failure: Reduced right ventricular function on echo. She had a clear chest xray but was considered to be fluid overloaded with peripheral edema in lower extremities and subsequently given lasix x 2 overnight the earlier day. She was symptomatic with dizziness and hence given IVF while holding any further diuresis. She remains euvolemic and looks and feels better. Unclear whether she actually has right sided CHF but to me it seems like flash pulmonary edema with hypertensive urgency which rapidly improved with improvement in BP and lasix. Her leg edema seems chronic, stable- recommend compression stocking and leg elevation. - Seen by cardio- cleared for discharge. Recommend prn lasix (3) Hypertensive urgency: Possibly the etiology of her dyspnea. This has resolved now today with normalization of her blood pressure. She doesn't have HTN but is on Toprol in setting of nonobstructive CAD. She has CKD and was very stressed out last night just before arrival. (4) Elevated troponin: 2/2 fluid retention vs critical BP in setting of CKD. No evidence os ACS. (5) Itching: New itching issues with back rash that has been going on for a couple of months. 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 (6) CKD (chronic kidney disease) stage 4, GFR 15-29 ml/min: Follows with nephro (7) Aortic stenosis: s/p TAVR. Bioprosthetic valve appeared fine on echo this admission. (8) H/O polymyalgia rheumatica: not on prednisone at this time. (9) DVT prophylaxis: Apixaban Dispo- stable for discharge home. Spoke to son and daughter over the phone and answered all questions. She lives with her son at home and denies any needs. Total Time Total Time Spent Total Time Spent (In Minutes): 40 Discharge Plan Discharge Items Patient Disposition: Home - Self-Care Reason For Visit: CHF Discharge Diagnosis: Hypertensive urgency, possible right CHF vs flash pulmonary edema, DEDRICK on CKD Activity: Resume your previous activity Non-emergency contact: Primary Care Provider Call non-emergency contact if: you have any medication questions and your symptoms worsen Follow-up/Referrals: Moreno Parham [Primary Care Provider] - 04/05/22 2:30 pm Diet: Regular Addtl Attending Provider Instructions: You can take lasix as needed for shortness of breath or increase in weight gain as below Follow up with cardiology and family doctor Recommend repeat blood work(BMP) for kidney number in 3-4 days. Call 911 and go to the Emergency Room if: * You have tightness or pain in your chest that does not go away with rest or Nitroglycerin * You are very short of breath even with rest Call your doctor if any of the following symptoms or problems start or get worse: * Shortness of breath or difficulty breathing * Wake up at night short of breath * Chest pain * Cough * Swelling of your hands, fee, or legs * More fatigued or tired with your normal activity * Palpitations - sudden fast heart beats WEIGHT * Weigh yourself every morning after using the bathroom. * Use the same scale. * Wear the same amount of clothing. * Write your weight down on your chart. * Call your doctor if you gain more than 2-3 pounds in 1-2 days. MEDICATIONS * Use this discharge instruction sheet for instructions. * Take your medications at the time your doctor ordered. * Do not skip a dose of your medicines. * If you miss a dose of medicine, take as soon as possible, but DO NOT DOUBLE A DOSE. * Read your medicine information when you get home. * Know all of the side effects of your medicine. * Call your doctor's office if you have any side effects. * Be sure all of your doctors know what medicine and herbs you take (including cold, flu, and herbal medicine). * Pain Medicine: If you do not get relief from your pain, please call your doctor for help. Take the following with you to your follow-up doctor appointments: * Weight Chart * Medication List * List of questions Do not drink excessive alcohol, beer or wine. Pending Studies at Discharge: No Stand-Alone Forms: [facility], Smoking Cessation Medications and DC Order Prescriptions: New furosemide [Lasix] 20 mg tablet 20 mg PO DAILY PRN (Reason: edema) Qty: 30 RF: 0 Continued trazodone 50 mg tablet 50 mg PO HS RF: 0 pantoprazole [Protonix] 20 mg tablet,delayed release (DR/EC) 20 mg PO BID RF: 0 levothyroxine [Synthroid] 75 mcg tablet 75 mcg PO QAM RF: 0 nitroglycerin [Nitrostat] 0.4 mg tablet, sublingual 0.4 mg sublingual UD PRN (Reason: Chest Pain) RF: 0 Eliquis 2.5 mg tablet 2.5 mg PO AMHS RF: 0 acetaminophen [Tylenol Extra Strength] 500 mg Tablet 500 mg PO TID RF: 0 rosuvastatin 10 mg tablet 10 mg PO HS RF: 0 fexofenadine [Allergy Relief (fexofenadine)] 180 mg tablet 180 mg PO AMPM RF: 0 metoprolol tartrate 50 mg Tablet 50 mg PO BID RF: 0 cholecalciferol (vitamin D3) [Vitamin D3] 50 mcg (2,000 unit) Tablet 50 mcg PO DAILY RF: 0 Discharge Orders: Discharge Order (Routine); Ordered 04/02/22 Ordered By: Pancho Harper Admission Data Admit Date/Time: 03/30/22 14:38 Attending Provider: Pancho Harper Admit Provider: Fermín Sheldon Primary Care Provider: Moreno Parham Other Providers: Fermín Sheldon ; Aime Pinedo ; Sharan Randall ; Stan Pichardo ; Jeremias Barrow ; Lavell Villafuerte ; Jhony Lee ; Safia Edwards ; Inocencia Foster ; Carmella Maldonado ; Deyvi Vela Other Interventions: Discharge Summary Assessment (RN) Last Done: 04/02/22 13:38
== END 2022-04-02 16:30 | disposition home or self-care (01) | DRG 291 ==
LOC: 2S 19:06 → ED 19:06 → 2S 03-30 01:42 → SUATTDRO 03-30 14:38
DX: I50.811 Acute right heart failure; I25.10 Atherosclerotic heart disease of native coronary artery without angina pectoris; K21.9 Gastro-esophageal reflux disease without esophagitis; I73.9 Peripheral vascular disease, unspecified; J81.0 Acute pulmonary edema; Z79.890 Hormone replacement therapy; N17.9 Acute kidney failure, unspecified; Z88.5 Allergy status to narcotic agent; Z88.6 Allergy status to analgesic agent; Z79.01 Long term (current) use of anticoagulants; I16.0 Hypertensive urgency; E03.9 Hypothyroidism, unspecified; I13.0 Hypertensive heart and chronic kidney disease with heart failure and stage 1 through stage 4 chronic kidney disease, or unspecified chronic kidney disease; Z86.711 Personal history of pulmonary embolism; N18.4 Chronic kidney disease, stage 4 (severe); Z95.2 Presence of prosthetic heart valve

== ENCOUNTER 2023-06-03 18:57 | Inpatient (IN) ==
[2023-06-03 20:34] LABS: Basophils # (auto) 0.05 K/uL (0-0.2); Basophils % (auto) 0.8 %; Eosinophils # (auto) 0.28 K/uL (0-0.50); Eosinophils % (auto) 4.2 %; Hematocrit (blood only) 37.7 % (37.0-47.0); Hemoglobin 12.4 g/dl (12.0-16.0); Immature Granulocytes # (auto) 0.01 K/uL (0.01-0.20); Immature Granulocytes % (auto) 0.2 %; Lymphocytes % (auto) 30.1 %; Mean Corpuscular Hemoglobin 29.9 pg (25.0-34.0); Mean Corpuscular Hgb Conc 32.9 g/dL (32.0-36.0); Mean Corpuscular Volume 90.8 fL (80.0-100.0); Mean Platelet Volume 9.1 fL (9.4-12.4); Neutrophils # (auto) 3.51 K/uL (1.40-6.50); Neutrophils % (auto) 52.7 %; Platelet Count 218 K/uL (130-400); RDW Coefficient of Variation 13.7 % (11.5-14.5); RDW Standard Deviation 44.9 fL (36.4-46.3); Red Blood Count 4.15 M/uL (4.20-5.40); White Blood Count 6.65 K/ul (4.8-10.8)
[2023-06-03 20:38] LABS: Influenza A virus by PCR Negative (Neg); Influenza B virus by PCR Negative (Neg); RSV by PCR Negative (Neg)
[2023-06-03 20:48] LABS: Albumin Globulin Ratio 1.4 (0.9-2); Albumin Level 3.6 gm/dl (3.4-5.0); BUN Creatinine Ratio 15.8 (10-20); Bilirubin,Total 0.5 mg/dl (0.2-1.0); Calcium 8.7 mg/dl (8.6-10.3); Est GFR (African American) 36.9 ml/min; Est GFR (Non-African American) 31.8 ml/min; Globulin 2.5 gm/dl (2.5-4.0); Potassium 3.4 mmol/L (3.5-5.1); Total Protein 6.1 gm/dl (6.0-8.3)
[2023-06-03 20:58] LABS: Partial Thromboplastin Ratio 0.9; Partial Thromboplastin Time 26.3 Seconds (21.0-31.0); Prothrombin Time 10.7 Seconds (9.0-12.0)
[2023-06-03 21:06] LABS: Troponin I High Sensitivity 67.4 pg/ml (0-14)
[2023-06-03 21:10] LABS: SARS CoV2 RNA(COVID-19) Ceph POSITIVE (Negative)
[2023-06-03] MEDS ORDERED: IOVERSOL 350 MG 125mL Prefilled Syringe IV ONE (22:36)
--- NOTE | 2023-06-03 22:55 | CT Scan Report ---
Exam(s): CTA CHEST IV Amt: 118 ML OPTIRAY 350 EXAM: CT Angiography Chest With Intravenous Contrast CLINICAL HISTORY: Reason for exam: ro pe. TECHNIQUE: Axial computed tomographic angiography images of the chest with intravenous contrast. CTDI is 16.62 mGy and DLP is 823.8 mGy-cm. Automated exposure control was utilized for the study. A dose lowering technique was utilized adhering to the principles of ALARA. MIP reconstructed images were created and reviewed. COMPARISON: No relevant prior studies available. FINDINGS: Pulmonary arteries: Unremarkable. No pulmonary embolism. Aorta: Atherosclerotic changes of the aorta. 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 Lungs: Unremarkable. No mass. No consolidation. Pleural space: Unremarkable. No focal consolidation, pleural effusion, or pneumothorax. Heart: Cardiomegaly. Prosthetic aortic valve. No significant pericardial effusion. No evidence of RV dysfunction. Bones/joints: Degenerative changes of the spine. No acute fracture. No dislocation. Soft tissues: Unremarkable. Lymph nodes: Unremarkable. No enlarged lymph nodes. IMPRESSION: 1. No focal consolidation, pleural effusion, or pneumothorax. 2. 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 3. No acute pulmonary embolism. Electronically signed by: Brian Nicolas MD 06/03/23 22:53 PM
--- NOTE | 2023-06-03 23:24 | Emergency Department Note ---
History of Present Illness General Chief Complaint: Shortness of Breath/Dyspnea Stated Complaint: SHORTNESS OF BREATH XCOUPLE DAYS Time Seen by Provider: 06/03/23 19:54 History of Present Illness Provider Complaint: shortness of breath and cough Onset (ago): day(s) (2) Severity: moderate Relieved By: + nothing Exacerbated By: + exertion Known history of: congestive heart failure Associated symptoms: + cough, + sputum production and + chest congestion; no chest pain, no wheezing or no nausea/vomiting Home Medications Medication Instructions Recorded Confirmed Type apixaban 2.5 mg tablet (Eliquis) 2.5 mg PO AMHS 05/29/19 06/03/23 History levothyroxine 75 mcg tablet 75 mcg PO QAM 05/29/19 06/03/23 History (Synthroid) nitroglycerin 0.4 mg sublingual 0.4 mg sublingual UD PRN Chest Pain 05/29/19 06/03/23 History tablet (Nitrostat) pantoprazole 20 mg tablet,delayed 20 mg PO DAILY 05/29/19 06/03/23 History release (Protonix) trazodone 50 mg tablet 50 mg PO HS 05/29/19 06/03/23 History acetaminophen 500 mg tablet 500 mg PO TID 04/12/20 06/03/23 History (Tylenol Extra Strength) rosuvastatin 10 mg tablet 10 mg PO HS 06/12/21 06/03/23 History metoprolol tartrate 50 mg tablet 50 mg PO BID 03/29/22 06/03/23 History isosorbide mononitrate 60 mg 60 mg PO QAM 06/03/23 06/03/23 History tablet,extended release 24 hr prednisone 2.5 mg tablet 2.5 mg PO .DAILY@HS 06/03/23 06/03/23 History torsemide 5 mg tablet 5 mg PO DAILY 06/03/23 06/03/23 History Allergies Allergy/AdvReac Type Severity Reaction Status Date / Time etodolac Allergy Unknown Unknown Verified 06/03/23 21:21 morphine Allergy Unknown Could not Verified 06/03/23 21:21 breathe as per px NSAIDS (Non-Steroidal Allergy Unknown ITCH Verified 06/03/23 21:21 Anti-Inflamma hydromorphone AdvReac Unknown DIZZY,NAUSE Verified 06/03/23 21:21 A Past Med/Surg History Medical History Aortic stenosis s/p TAVR Arthritis C2 cervical fracture Chest pain Dyslipidemia Dysphagia Essential tremor GERD (gastroesophageal reflux disease) GI bleed H/O polymyalgia rheumatica Hearing loss in left ear History of palpitations History of pulmonary embolism History of syncope Hypertension Hypothyroidism Osteoporosis Paroxysmal tachycardia "Cardiac Zio event monitor captured a 10 beat trina of non sustained VT and several brief SVT episodes" Pulmonary embolism Surgical History H/O knee surgery History of cataract surgery S/P section S/P cholecystectomy Family History Other Cancer Coronary heart disease Rheumatoid arthritis Stroke Social History Smoking Status: Never smoker Second Hand Exposure: No; Do You Dip or Chew Tobacco: No; Hx Alcohol Use: No Hx Substance Use: No Preferred Language: Korean Communication Ability: Effective 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 Beliefs That Will Affect Care: None marital status: / Current Living Situation: Family Current Living Situation Comment: lives w/ son How many Children do You have: 3 Feels Safe at Home: Yes Assistive Devices: Walker Physical Exam Vital Signs: Vital Signs - 24 hr 06/03/23 19:09 06/03/23 19:12 06/03/23 19:56 Temperature 36.7 C Temperature Source Oral Pulse Rate 90 73 Pulse Rate [Apical ] Pulse Rate from Sp O2 Sensor Pulse Rhythm Regular Pulse Strength Normal Respiratory Rate 24 Respiratory Effort / Characteristics Non-Labored Sponta neous Non-Labored Sponta neous Respiratory Depth Normal Normal Respiratory Patter n Regular Regular Blood Pressure 145/85 H Blood Pressure Catie n 105 Blood Pressure Pos ition Sitting Pulse Oximetry 95 Oxygen Delivery Me thod Room Air Room Air Sepsis Recent Feve r Within 48 Hours No Sepsis New/Unexpla ined Change in Men ginger Status N/A Sepsis Action Take n by Nursing No Action Required 06/03/23 20:31 06/03/23 20:32 06/03/23 20:20 Temperature Temperature Source Pulse Rate 85 Pulse Rate [Apical ] 83 Pulse Rate from Sp O2 Sensor 85 Pulse Rhythm Pulse Strength Respiratory Rate 16 Respiratory Effort / Characteristics Respiratory Depth Respiratory Patter n Blood Pressure 133/100 Blood Pressure Catie n 111 Blood Pressure Pos ition Pulse Oximetry 97 97 97 Oxygen Delivery Me thod Room Air Room Air Room Air Sepsis Recent Feve r Within 48 Hours Sepsis New/Unexpla ined Change in Men ginger Status Sepsis Action Take n by Nursing 06/03/23 21:30 Temperature Temperature Source Pulse Rate 70 Pulse Rate [Apical ] Pulse Rate from Sp O2 Sensor 72 Pulse Rhythm Pulse Strength Respiratory Rate 15 Respiratory Effort / Characteristics Respiratory Depth Respiratory Patter n Blood Pressure Blood Pressure Catie n Blood Pressure Pos ition Pulse Oximetry 97 Oxygen Delivery Me thod Room Air Sepsis Recent Feve r Within 48 Hours Sepsis New/Unexpla ined Change in Men ginger Status Sepsis Action Take n by Nursing Physical Exam: Physical Exam HENT: Exam performed. -Head: Normocephalic and atraumatic. -Right Ear: External ear normal. No mastoid erythema -Left Ear: External ear normal. No mastoid erythema EYES: Conjunctivae and EOM are normal. Pupils are equal, round, and reactive to light. Right eye exhibits no discharge. Left eye exhibits no discharge. No scleral icterus. NECK: Normal range of motion. Neck supple. No JVD present. No tracheal deviation and normal range of motion present. CV: Normal rate, regular rhythm, normal heart sounds and intact distal pulses. Palpable radial pulses bue. PULM/CHEST: Effort normal and breath sounds normal. No respiratory distress. No stridor. She has no wheezes. She has no rales. ABD: The abdomen is soft. There is no tenderness. There is no rebound, no guarding MUSC/SKEL: Normal range of motion. There is no tenderness or deformity. 2+ pitting edema of bilateral lower extremities LYMPH: No cervical adenopathy. NEURO: Motor and sensation grossly intact. Course Course 1953: The patient was evaluated in room C8. A complete history and physical exam was performed Cardiac monitoring: An order was placed for continuous cardiac monitoring. The monitor shows a rate of 80 with sinus rhythm interpreted by me 2322: Vital signs stable. Patient's oxygen saturation stable on room air. No r espiratory distress. Labs show an elevated troponin of 67.4. Patient is COVID- positive. CT of the chest negative for PE. Patient will be admitted to the [facility] team Dr. Bennett aware Administered Medications Discontinued Medications Ioversol (Ioversol 350 Mg 125ml Prefilled Syringe) 125 ml IV ONCE ONE Stop: 06/03/23 22:37 Last Admin: 06/03/23 22:36 Dose: 118 ml Documented By: MARIO Medical Decision Making Laboratory Data Attestation: I reviewed the patient's lab results. 06/03/23 20:22 06/03/23 19:30 Lab Results 06/03/23 06/03/23 06/03/23 Range/Units 19:30 19:30 19:35 WBC (4.8-10.8) K/ul RBC (4.20-5.40) M/uL Hgb (12.0-16.0) g/dl Hct (37.0-47.0) % MCV (80.0-100.0) fL MCH (25.0-34.0) pg MCHC (32.0-36.0) g/dL RDW Std Deviation (36.4-46.3) fL RDW Coeff of Jing (11.5-14.5) % Plt Count (130-400) K/uL MPV (9.4-12.4) fL Immature Gran % (Auto) % Neut % (Auto) % Lymph % (Auto) % [place] % (Auto) % Eos % (Auto) % Baso % (Auto) % Neut # (Auto) (1.40-6.50) K/uL Lymph # (Auto) (1.2-3.4) K/uL [place] # (Auto) (0.11-0.59) K/uL Eos # (Auto) (0-0.50) K/uL Baso # (Auto) (0-0.2) K/uL Immature Gran # (Auto) (0.01-0.20) K/uL PT 10.7 (9.0-12.0) Seconds INR 1.0 (0.9-1.1) APTT 26.3 (21.0-31.0) Seconds PTT Ratio 0.9 Sodium 139 (136-145) mmol/L Potassium 3.4 L (3.5-5.1) mmol/L Chloride 107 (98-107) mmol/L Carbon Dioxide 24 (21-32) mmol/L Anion Gap 8 (3-11) BUN 23 (6-23) mg/dl Creatinine 1.46 H (0.6-1.2) mg/dl Est Cr Clr Drug Dosing 27.0 ml/min Est GFR ( Amer) 36.9 ml/min Est GFR (Non-Af Amer) 31.8 ml/min BUN/Creatinine Ratio 15.8 (10-20) Glucose 120 H (70-99(Fasting)) mg/dl Calcium 8.7 (8.6-10.3) mg/dl Total Bilirubin 0.5 (0.2-1.0) mg/dl AST 19 (13-39) U/L ALT 10 (7-52) U/L Alkaline Phosphatase 58 (34-104) U/L Troponin I High Sens 67.4 H* (0-14) pg/ml B-Natriuretic Peptide (0-100) pg/ml Total Protein 6.1 (6.0-8.3) gm/dl Albumin 3.6 (3.4-5.0) gm/dl Globulin 2.5 (2.5-4.0) gm/dl Albumin/Globulin Ratio 1.4 (0.9-2) SARS-CoV-2 (PCR) POSITIVE A* (Negative) Influenza Type A (PCR) Negative (Neg) Influenza Type B (PCR) Negative (Neg) RSV (RT-PCR) Negative (Neg) 06/03/23 06/03/23 Range/Units 20:22 20:22 WBC 6.65 (4.8-10.8) K/ul RBC 4.15 L (4.20-5.40) M/uL Hgb 12.4 (12.0-16.0) g/dl Hct 37.7 (37.0-47.0) % MCV 90.8 (80.0-100.0) fL MCH 29.9 (25.0-34.0) pg MCHC 32.9 (32.0-36.0) g/dL RDW Std Deviation 44.9 (36.4-46.3) fL RDW Coeff of Jing 13.7 (11.5-14.5) % Plt Count 218 (130-400) K/uL MPV 9.1 L (9.4-12.4) fL Immature Gran % (Auto) 0.2 % Neut % (Auto) 52.7 % Lymph % (Auto) 30.1 % [place] % (Auto) 12.0 % Eos % (Auto) 4.2 % Baso % (Auto) 0.8 % Neut # (Auto) 3.51 (1.40-6.50) K/uL Lymph # (Auto) 2.00 (1.2-3.4) K/uL [place] # (Auto) 0.80 H (0.11-0.59) K/uL Eos # (Auto) 0.28 (0-0.50) K/uL Baso # (Auto) 0.05 (0-0.2) K/uL Immature Gran # (Auto) 0.01 (0.01-0.20) K/uL PT (9.0-12.0) Seconds INR (0.9-1.1) APTT (21.0-31.0) Seconds PTT Ratio Sodium (136-145) mmol/L Potassium (3.5-5.1) mmol/L Chloride (98-107) mmol/L Carbon Dioxide (21-32) mmol/L Anion Gap (3-11) BUN (6-23) mg/dl Creatinine (0.6-1.2) mg/dl Est Cr Clr Drug Dosing ml/min Est GFR ( Amer) ml/min Est GFR (Non-Af Amer) ml/min BUN/Creatinine Ratio (10-20) Glucose (70-99(Fasting)) mg/dl Calcium (8.6-10.3) mg/dl Total Bilirubin (0.2-1.0) mg/dl AST (13-39) U/L ALT (7-52) U/L Alkaline Phosphatase (34-104) U/L Troponin I High Sens (0-14) pg/ml B-Natriuretic Peptide 94 (0-100) pg/ml Total Protein (6.0-8.3) gm/dl Albumin (3.4-5.0) gm/dl Globulin (2.5-4.0) gm/dl Albumin/Globulin Ratio (0.9-2) SARS-CoV-2 (PCR) (Negative) Influenza Type A (PCR) (Neg) Influenza Type B (PCR) (Neg) RSV (RT-PCR) (Neg) Imaging Data Attestation: I personally reviewed and interpreted this imaging study as stacey sanchez: My Impression: Chest x-ray negative. Airway clear. No pneumothorax. No consolidation. No cardiomegaly or cephalization.. No free air under the diaphragm. No fractures of the skeletal structures. Radiologist's Impression: Chest CTA 06/03/23 21:24 Exam(s): CTA CHEST IV Amt: 118 ML OPTIRAY 350 EXAM: CT Angiography Chest With Intravenous Contrast CLINICAL HISTORY: Reason for exam: ro pe. TECHNIQUE: Axial computed tomographic angiography images of the chest with intravenous contrast. CTDI is 16.62 mGy and DLP is 823.8 mGy-cm. Automated exposure control was utilized for the study. A dose lowering technique was utilized adhering to the principles of ALARA. MIP reconstructed images were created and reviewed. COMPARISON: No relevant prior studies available. FINDINGS: Pulmonary arteries: Unremarkable. No pulmonary embolism. Aorta: Atherosclerotic changes of the aorta. 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 Lungs: Unremarkable. No mass. No consolidation. Pleural space: Unremarkable. No focal consolidation, pleural effusion, or pneumothorax. Heart: Cardiomegaly. Prosthetic aortic valve. No significant pericardial effusion. No evidence of RV dysfunction. Bones/joints: Degenerative changes of the spine. No acute fracture. No dislocation. Soft tissues: Unremarkable. Lymph nodes: Unremarkable. No enlarged lymph nodes. IMPRESSION: 1. No focal consolidation, pleural effusion, or pneumothorax. 2. 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 3. No acute pulmonary embolism. Electronically signed by: Brian Nicolas MD 06/03/23 22:53 PM ECG Data Attestation: I personally reviewed and interpreted this ECG as follows: Interpretation: Sinus rhythm with a rate of 82. [place] 208 QRS [address] elevation or ST depression. [facility] Narrative 1954: The patient was evaluated in room C8. A complete history and physical exam was performed Cardiac monitoring: An order was placed for continuous cardiac monitoring. The monitor shows a rate of 80 with sinus rhythm interpreted by me 2322: Vital signs stable. Patient's oxygen saturation stable on room air. No respiratory distress. Labs show an elevated troponin of 67.4. Patient is COVID-positive. CT of the chest negative for PE. Patient will be admitted to the [facility] team Dr. Bennett aware Impression & Plan COVID-19, Elevated troponin Discharge Plan Visit Data Chief Complaint: Shortness of Breath/Dyspnea Stated Complaint: SHORTNESS OF BREATH XCOUPLE DAYS ED Provider: Orlin Carson Discharge Problem: COVID-19, Elevated troponin Patient Disposition: Admitted As Inpatient Forms Stand Alone Forms: My [facility] Prescriptions Prescriptions: No Action trazodone 50 mg tablet 50 mg PO HS pantoprazole [Protonix] 20 mg tablet,delayed release (DR/EC) 20 mg PO DAILY levothyroxine [Synthroid] 75 mcg tablet 75 mcg PO QAM nitroglycerin [Nitrostat] 0.4 mg tablet, sublingual 0.4 mg sublingual UD PRN (Reason: Chest Pain) Eliquis 2.5 mg tablet 2.5 mg PO AMHS acetaminophen [Tylenol Extra Strength] 500 mg Tablet 500 mg PO TID prednisone 2.5 mg Tablet 2.5 mg PO .DAILY@HS isosorbide mononitrate 60 mg Tablet Extended Release 24 Hr 60 mg PO QAM torsemide 5 mg Tablet 5 mg PO DAILY rosuvastatin 10 mg tablet 10 mg PO HS metoprolol tartrate 50 mg Tablet 50 mg PO BID Referrals Referrals: Moreno Parham [Primary Care Provider] -
[2023-06-04] MEDS ORDERED: diphenhydrAMINE Capsule 25 MG CAP PO STA (00:31)
[2023-06-04] MEDS ORDERED: POTASSIUM CHLORIDE CRTAB 20 MEQ TABCR PO STA (00:51)
--- NOTE | 2023-06-04 00:51 | History & Physical Report ---
Date of Service June 04, 2023 Assessment & Plan (1) COVID-19: Plan: 88-year-old female with past medical significant for hypothyroidism history of nontoxic multinodular goiter, hyperlipidemia, pulmonary embolus, aortic stenosis, palpitations, chronic pulmonary embolus, chronic kidney stage III, polymyalgia rheumatica, osteoporosis, history of syncope, history of iron deficiency anemia, long-term use of systemic steroids who lives with her son ambulates with a walker was brought in by daughter because of weakness and found to have COVID. COVID Vaccinated but not boosted Saturating okay CTA chest okay COVID precaution Gentle fluids and supportive care Isolation precautions next monitor Weakness Most likely from COVID PT OT when stable Elevated troponin Troponin 67 mostly from COVID No chest pains. EKG okay. No change in her baseline shortness of breath We will follow serial enzymes If any concern will get echo Monitor in med telemetry Hypothyroidism Synthyroid History of CAD nonobstructive Mid LAD 50% stenosis per Cardiac cath June 2020 On beta-andrei, statin and Eliquis Heart failure with preserved ejection fraction On torsemide which we will continue Getting gentle fluids monitor for volume overload Severe aortic stenosis s/p TAVR August 2020 Recurrent pulm embolism On Eliquis Chronic kidney disease stage III Presented with creatinine 1.4 seems at baseline We will follow the labs Polymyalgia rheumatica on prednisone DVT prophylaxis on Eliquis Disposition med telemetry Full code if chance of recovery as per my discussion with the patient History of Present Illness Chief Complaint: Weakness Primary Care Provider: Moreno Parham 88-year-old female with past medical significant for hypothyroidism history of nontoxic multinodular goiter, hyperlipidemia, pulmonary embolus, aortic stenosis, palpitations, chronic pulmonary embolus, chronic kidney stage III, polymyalgia rheumatica, osteoporosis, history of syncope, history of iron deficiency anemia, long-term use of systemic steroids who lives with her son ambulates with a walker was brought in by daughter because of weakness and found to have COVID. As per daughter patient did not go out of the house. She is vaccinated but not boosted. Since last 10 days she is feeling weak but today she called her daughter and stated that she is feeling extremely weak thus the reason she was brought in here today. Today she also had a mild headache and nausea. No vomitings. No diarrhea. No chest pain. Patient is always short of breath because of scars from pulmonary embolism as per daughter. No change in shortness of breath. No blurred visions. No earache. No runny nose. No sore throat. No difficulty swallowing. Normal bowel and bladder movements. Patient likes to go home. Hemodynamically stable. Allergies Allergy/AdvReac Type Severity Reaction Status Date / Time etodolac Allergy Unknown Unknown Verified 06/03/23 21:21 morphine Allergy Unknown Could not Verified 06/03/23 21:21 breathe as per px NSAIDS (Non-Steroidal Allergy Unknown ITCH Verified 06/03/23 21:21 Anti-Inflamma hydromorphone AdvReac Unknown DIZZY,NAUSE Verified 06/03/23 21:21 A Home Medications Medication Instructions Recorded Confirmed Type apixaban 2.5 mg tablet (Eliquis) 2.5 mg PO AMHS 05/29/19 06/03/23 History levothyroxine 75 mcg tablet 75 mcg PO QAM 05/29/19 06/03/23 History (Synthroid) nitroglycerin 0.4 mg sublingual 0.4 mg sublingual UD PRN Chest Pain 05/29/19 06/03/23 History tablet (Nitrostat) pantoprazole 20 mg tablet,delayed 20 mg PO DAILY 05/29/19 06/03/23 History release (Protonix) trazodone 50 mg tablet 50 mg PO HS 05/29/19 06/03/23 History acetaminophen 500 mg tablet 500 mg PO TID 04/12/20 06/03/23 History (Tylenol Extra Strength) rosuvastatin 10 mg tablet 10 mg PO HS 06/12/21 06/03/23 History isosorbide mononitrate 60 mg 60 mg PO QAM 06/03/23 06/03/23 History tablet,extended release 24 hr metoprolol succinate 50 mg 50 mg PO BID 06/03/23 06/03/23 History tablet,extended release 24 hr prednisone 2.5 mg tablet 2.5 mg PO .DAILY@HS 06/03/23 06/03/23 History torsemide 5 mg tablet 5 mg PO DAILY 06/03/23 06/03/23 History Past Med/Surg History Medical History Aortic stenosis s/p TAVR Arthritis C2 cervical fracture Chest pain Dyslipidemia Dysphagia Essential tremor GERD (gastroesophageal reflux disease) GI bleed H/O polymyalgia rheumatica Hearing loss in left ear History of palpitations History of pulmonary embolism History of syncope Hypertension Hypothyroidism Osteoporosis Paroxysmal tachycardia "Cardiac Zio event monitor captured a 10 beat trina of non sustained VT and several brief SVT episodes" Pulmonary embolism Surgical History H/O knee surgery History of cataract surgery S/P section S/P cholecystectomy Family History Other Cancer Coronary heart disease Rheumatoid arthritis Stroke Social History Smoking Status: Never smoker Second Hand Exposure: No; Do You Dip or Chew Tobacco: No; Hx Alcohol Use: No Hx Substance Use: No Preferred Language: Indonesian Communication Ability: Effective 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: No Beliefs That Will Affect Care: None marital status: / Current Living Situation: Family Current Living Situation Comment: lives w/ son How many Children do You have: 3 Feels Safe at Home: Yes Assistive Devices: Walker Review of Systems Review of Systems: All systems reviewed & are unremarkable except as noted in Subjective Physical Exam Physical Exam: General- Not in distress Head- atraumatic Eyes- PERRLA ENT- oropharynx clear Neck- supple, no JVD Lungs- clear to auscultation and percussion Heart- regular rhythm; no murmur, no gallop, no rub appreciated Abdomen- normal bowel sounds, soft, nontender, no distension Extremities- no pretibial edema, no erythema seen Neuro- alert, oriented x 3; PERRLA, no facial palsy; no dysarthria;obeys commands, moves extremities. Skin- warm & dry Results & Data Results & Data Vital Signs (Past 12 Hours) Vital Signs Temp Pulse Pulse Resp BP Pulse Ox O2 Del Method 06/03/23 23:30 88 19 96 Room Air 06/03/23 23:30 164/95 H 06/03/23 21:30 70 15 97 Room Air 06/03/23 20:20 85 16 133/100 97 Room Air 06/03/23 20:32 83 97 Room Air 06/03/23 20:31 97 Room Air 06/03/23 19:56 73 06/03/23 19:12 Room Air 06/03/23 19:09 36.7 C 90 24 145/85 H 95 Room Air Diagnostic Findings Laboratory Results WBC 6.65 K/ul (4.8-10.8) 06/03/23 20:22 RBC 4.15 M/uL (4.20-5.40) L 06/03/23 20:22 Hgb 12.4 g/dl (12.0-16.0) 06/03/23 20: Hct 37.7 % (37.0-47.0) 06/03/23 20: MCV 90.8 fL (80.0-100.0) 06/03/23 20: MCH 29.9 pg (25.0-34.0) 06/03/23 20: MCHC 32.9 g/dL (32.0-36.0) 06/03/23 20:22 RDW Std Deviation 44.9 fL (36.4-46.3) 06/03/23 20: RDW Coeff of Jing 13.7 % (11.5-14.5) 06/03/23 20: Plt Count 218 K/uL (130-400) 06/03/23 20:22 MPV 9.1 fL (9.4-12.4) L 06/03/23 20:22 Immature Gran % (Auto) 0.2 % 06/03/23 20: Neut % (Auto) 52.7 % 06/03/23 20:22 Lymph % (Auto) 30.1 % 06/03/23 20:22 [place] % (Auto) 12.0 % 06/03/23 20:22 Eos % (Auto) 4.2 % 06/03/23 20:22 Baso % (Auto) 0.8 % 06/03/23 20:22 Neut # (Auto) 3.51 K/uL (1.40-6.50) 06/03/23 20:22 Lymph # (Auto) 2.00 K/uL (1.2-3.4) 06/03/23 20:22 [place] # (Auto) 0.80 K/uL (0.11-0.59) H 06/03/23 20:22 Eos # (Auto) 0.28 K/uL (0-0.50) 06/03/23 20:22 Baso # (Auto) 0.05 K/uL (0-0.2) 06/03/23 20:22 Immature Gran # (Auto) 0.01 K/uL (0.01-0.20) 06/03/23 20:22 PT 10.7 Seconds (9.0-12.0) 06/03/23 19:30 INR 1.0 (0.9-1.1) 06/03/23 19:30 APTT 26.3 Seconds (21.0-31.0) 06/03/23 19:30 PTT Ratio 0.9 06/03/23 19:30 Sodium 139 mmol/L (136-145) 06/03/23 19:30 Potassium 3.4 mmol/L (3.5-5.1) L 06/03/23 19:30 Chloride 107 mmol/L (98-107) 06/03/23 19:30 Carbon Dioxide 24 mmol/L (21-32) 06/03/23 19:30 Anion Gap 8 (3-11) 06/03/23 19:30 BUN 23 mg/dl (6-23) 06/03/23 19:30 Creatinine 1.46 mg/dl (0.6-1.2) H 06/03/23 19:30 Est Cr Clr Drug Dosing 27.0 ml/min 06/03/23 19:30 Est GFR ( Amer) 36.9 ml/min 06/03/23 19:30 Est GFR (Non-Af Amer) 31.8 ml/min 06/03/23 19:30 BUN/Creatinine Ratio 15.8 (10-20) 06/03/23 19:30 Glucose 120 mg/dl (70-99(Fasting)) H 06/03/23 19:30 Calcium 8.7 mg/dl (8.6-10.3) 06/03/23 19:30 Total Bilirubin 0.5 mg/dl (0.2-1.0) 06/03/23 19:30 AST 19 U/L (13-39) 06/03/23 19:30 ALT 10 U/L (7-52) 06/03/23 19:30 Alkaline Phosphatase 58 U/L (34-104) 06/03/23 19:30 Troponin I High Sens 67.4 pg/ml (0-14) H* 06/03/23 19:30 B-Natriuretic Peptide 94 pg/ml (0-100) 06/03/23 20:22 Total Protein 6.1 gm/dl (6.0-8.3) 06/03/23 19:30 Albumin 3.6 gm/dl (3.4-5.0) 06/03/23 19:30 Globulin 2.5 gm/dl (2.5-4.0) 06/03/23 19:30 Albumin/Globulin Ratio 1.4 (0.9-2) 06/03/23 19:30 SARS-CoV-2 (PCR) POSITIVE (Negative) A* 06/03/23 19:35 Influenza Type A (PCR) Negative (Neg) 06/03/23 19:35 Influenza Type B (PCR) Negative (Neg) 06/03/23 19:35 RSV (RT-PCR) Negative (Neg) 06/03/23 19:35 Impressions Chest CTA 06/03/23 21:24 Exam(s): CTA CHEST IV Amt: 118 ML OPTIRAY 350 EXAM: CT Angiography Chest With Intravenous Contrast CLINICAL HISTORY: Reason for exam: ro pe. TECHNIQUE: Axial computed tomographic angiography images of the chest with intravenous contrast. CTDI is 16.62 mGy and DLP is 823.8 mGy-cm. Automated exposure control was utilized for the study. A dose lowering technique was utilized adhering to the principles of ALARA. MIP reconstructed images were created and reviewed. COMPARISON: No relevant prior studies available. FINDINGS: Pulmonary arteries: Unremarkable. No pulmonary embolism. Aorta: Atherosclerotic changes of the aorta. 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 Lungs: Unremarkable. No mass. No consolidation. Pleural space: Unremarkable. No focal consolidation, pleural effusion, or pneumothorax. Heart: Cardiomegaly. Prosthetic aortic valve. No significant pericardial effusion. No evidence of RV dysfunction. Bones/joints: Degenerative changes of the spine. No acute fracture. No dislocation. Soft tissues: Unremarkable. Lymph nodes: Unremarkable. No enlarged lymph nodes. IMPRESSION: 1. No focal consolidation, pleural effusion, or pneumothorax. 2. 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 3. No acute pulmonary embolism. Electronically signed by: Brian Nicolas MD 06/03/23 22:53 PM ECG Additional Comments: ECG normal sinus rhythm with sinus rhythm at rate of [address] changes seen Code Status & VTE Plan VTE Prophylaxis Plan VTE Prophylaxis will be ordered: Yes
[2023-06-04] MEDS ORDERED: ONDANSETRON INJ 2 MG/ML 2 ML VIAL IV PRN (01:24)
[2023-06-04] MEDS ORDERED: ACETAMINOPHEN 325 MG TAB PO PRN (01:24)
[2023-06-04] MEDS ORDERED: traZODone HCL 50 MG TAB PO SCH (01:24)
[2023-06-04] MEDS ORDERED: D5W AND NSS 1,000 ML IV SCH (01:24)
[2023-06-04] MEDS ORDERED: NITROGLYCERIN SL 0.4 MG/TAB TAB SL PRN ×2 (01:24)
[2023-06-04] MEDS ORDERED: FEXOFENADINE HCL 180 MG TAB PO PRN (01:24)
[2023-06-04] MEDS: ACETAMINOPHEN 500 MG TAB PO SCH ×2 (06:20→13:30)
[2023-06-04] MEDS ORDERED: LEVOTHYROXINE SODIUM 75 MCG TABLET PO SCH (06:30)
--- NOTE | 2023-06-04 07:53 | XRay Report ---
XR chest 1V not portable HISTORY: Chest pain, nonspecific COMPARISON: Chest 03/29/2022. FINDINGS: A cardiac valve prosthesis is again noted. The heart is normal in size. No pleural effusion s. No pneumothorax. No focal lung consolidations to suggest a pneumonia. No evidence for pulmonary ed darryl. Degenerative changes noted within the shoulders. Mild emphysema. IMPRESSION: No acute process. ACT 112: Negative or not required by law. Electronically signed by: Kory Harris M.D. 06/04/2023 7:52 AM
[2023-06-04 07:54] LABS: Basophils # (auto) 0.06 K/uL (0-0.2); Basophils % (auto) 0.9 %; Eosinophils # (auto) 0.23 K/uL (0-0.50); Eosinophils % (auto) 3.5 %; Hematocrit (blood only) 36.6 % (37.0-47.0); Hemoglobin 12.3 g/dl (12.0-16.0); Immature Granulocytes # (auto) 0.02 K/uL (0.01-0.20); Immature Granulocytes % (auto) 0.3 %; Lymphocytes % (auto) 27.4 %; Mean Corpuscular Hemoglobin 29.8 pg (25.0-34.0); Mean Corpuscular Hgb Conc 33.6 g/dL (32.0-36.0); Mean Corpuscular Volume 88.6 fL (80.0-100.0); Mean Platelet Volume 9.6 fL (9.4-12.4); Monocytes # (auto) 0.85 K/uL (0.11-0.59); Neutrophils % (auto) 54.9 %; Platelet Count 225 K/uL (130-400); RDW Coefficient of Variation 13.6 % (11.5-14.5); RDW Standard Deviation 43.8 fL (36.4-46.3); Red Blood Count 4.13 M/uL (4.20-5.40); White Blood Count 6.56 K/ul (4.8-10.8)
[2023-06-04 08:12] LABS: BUN Creatinine Ratio 15.4 (10-20); Calcium 8.6 mg/dl (8.6-10.3); Creatinine Clr Calc Pharmacy 28.5 ml/min; Est GFR (African American) 40.2 ml/min; Est GFR (Non-African American) 34.7 ml/min; Magnesium 1.9 mg/dl (1.7-2.4); Potassium 3.7 mmol/L (3.5-5.1)
[2023-06-04] MEDS ORDERED: METOPROLOL SUCC 50MG EXT REL TAB PO SCH (09:00)
[2023-06-04] MEDS ORDERED: PANTOprazole 40 MG TAB PO SCH (09:00)
[2023-06-04] MEDS ORDERED: APIXABAN 2.5 MG TAB PO SCH (09:00)
[2023-06-04] MEDS ORDERED: ISOSORBIDE MONO EXTENDED REL 60 MG TABCR PO SCH (09:00)
[2023-06-04] MEDS ORDERED: TORSEMIDE 10 MG TAB PO SCH (09:00)
--- NOTE | 2023-06-04 11:36 | Electrocardiogram Report ---
Test Reason : Blood Pressure : / mmHG Vent. Rate : 082 BPM Atrial Rate : 082 BPM P-R Int : 208 ms QRS Dur : 076 ms QT Int : 370 ms P-R-T Axes : 060 028 062 degrees QTc Int : 432 ms Normal sinus rhythm with sinus arrhythmia Normal ECG When compared with ECG of 29-MAR-2022 19:30, No significant change was found Confirmed by Jose Elias Kaur ([id number]) on 06/04/2023 11:36:20 AM Referred By: REFERRED SELF Confirmed By:Jose Elias Kaur
--- NOTE | 2023-06-04 15:18 | Discharge Summary ---
Date of Service June 04, 2023 Admission HPI Per Admitting Provider 88-year-old female with past medical significant for hypothyroidism history of nontoxic multinodular goiter, hyperlipidemia, pulmonary embolus, aortic stenosis, palpitations, chronic pulmonary embolus, chronic kidney stage III, polymyalgia rheumatica, osteoporosis, history of syncope, history of iron deficiency anemia, long-term use of systemic steroids who lives with her son ambulates with a walker was brought in by daughter because of weakness and found to have COVID. As per daughter patient did not go out of the house. She is vaccinated but not boosted. Since last 10 days she is feeling weak but today she called her daughter and stated that she is feeling extremely weak thus the reason she was brought in here today. Today she also had a mild headache and nausea. No vomitings. No diarrhea. No chest pain. Patient is always short of breath because of scars from pulmonary embolism as per daughter. No change in shortness of breath. No blurred visions. No earache. No runny nose. No sore throat. No difficulty swallowing. Normal bowel and bladder movements. Patient likes to go home. Hemodynamically stable. Admission Exam Per Admitting Provider General- Not in distress Head- atraumatic Eyes- PERRLA ENT- oropharynx clear Neck- supple, no JVD Lungs- clear to auscultation and percussion Heart- regular rhythm; no murmur, no gallop, no rub appreciated Abdomen- normal bowel sounds, soft, nontender, no distension Extremities- no pretibial edema, no erythema seen Neuro- alert, oriented x 3; PERRLA, no facial palsy; no dysarthria;obeys commands, moves extremities. Skin- warm & dry Principal Diagnosis COVID-19 infection Discharge Exam Constitutional: WD/WN, vitals as above, NAD, sitting up in bed, pleasant, conversing easily Respiratory: normal respiratory effort, lungs clear to auscultation, no wheeze, rales, rhonchi. Normal insp/exp effort, no accessory muscle use Cardiovascular: RRR, no murmur, no edema Vessels: no JVD or carotid bruit Chest: normal inspection of chest Abdomen: normal bowel sounds, soft, nontender, no hepatosplenomegaly Musculoskeletal: no cyanosis or clubbing, extremities motor strength 5/5 Skin: no rashes, warm and dry normal turgor Neurologic: PERRL, EOMI, accommodation nl, no face palsy, no dysarthria CN's II- XI intact bilaterally and moves all extremities Psychiatric: A+Ox3, euthymic affect Discharge Data Allergies Allergy/AdvReac Type Severity Reaction Status Date / Time etodolac Allergy Unknown Unknown Verified 06/03/23 21:21 morphine Allergy Unknown Could not Verified 06/03/23 21:21 breathe as per px NSAIDS (Non-Steroidal Allergy Unknown ITCH Verified 06/03/23 21:21 Anti-Inflamma hydromorphone AdvReac Unknown DIZZY,NAUSE Verified 06/03/23 21:21 A Consultations 06/03/23 22:59 ED Decision to Admit Stat Ordered Studies 06/03/23 21:24 CT angio chest PE protocol Stat Hospital Course (1) COVID-19: 88-year-old female with past medical significant for hypothyroidism history of nontoxic multinodular goiter, hyperlipidemia, pulmonary embolus, aortic stenosis, palpitations, chronic pulmonary embolus, chronic kidney stage III, polymyalgia rheumatica, osteoporosis, history of syncope, history of iron deficiency anemia, long-term use of systemic steroids who lives with her son ambulates with a walker was brought in by daughter because of weakness and found to have COVID. COVID infection Patient is brought to the hospital due to weakness. She was found to have COVID infection. CTA chest was done which did not show any PE or pneumonia. Patient was given supportive care. She saturated in room air throughout the hospitalization. Patient was discharged home with instruction to follow-up with PCP. PT OT evaluation was done patient was found to be at baseline functional status. Elevated troponin likely due to demand ischemia Troponin 67 mostly from COVID No chest pains. EKG showed normal sinus rhythm with sinus arrhythmia.. No change in her baseline shortness of breath Echo done last hospitalization on March test EF of 55 to 60%. Grade 1 diastolic dysfunction. Discussed with her daughter over the phone. Daughter is agreeable with the plan. Patient to follow-up with her primary care doctor Total Time Total Time Spent Total Time Spent (In Minutes): 40 Total Time Includes: Examination of the Patient, Discharge Planning, Medication Reconciliation, Communication With Other Providers and Other Discharge Plan Discharge Items Patient Disposition: Home - Self-Care Reason For Visit: SOB Discharge Diagnosis: COVID infection Activity: Resume your previous activity Non-emergency contact: Primary Care Provider Call non-emergency contact if: you have any medication questions and your symptoms worsen Follow-up/Referrals: Moreno Parham [Primary Care Provider] - 06/11/23 2:00 pm Diet: Regular Addtl Attending Provider Instructions: You were admitted to the hospital due to COVID-19 infection. You had chest x- ray done which did not show any pneumonia. Please do not overexert yourself for the next few days. An appointment will be set up with your PCP for later this week or next week. Pending Studies at Discharge: No Stand-Alone Forms: [facility], Smoking Cessation Medications and DC Order Prescriptions: Continued trazodone 50 mg tablet 50 mg PO HS pantoprazole [Protonix] 20 mg tablet,delayed release (DR/EC) 20 mg PO DAILY levothyroxine [Synthroid] 75 mcg tablet 75 mcg PO QAM nitroglycerin [Nitrostat] 0.4 mg tablet, sublingual 0.4 mg sublingual UD PRN (Reason: Chest Pain) Eliquis 2.5 mg tablet 2.5 mg PO AMHS acetaminophen [Tylenol Extra Strength] 500 mg Tablet 500 mg PO TID prednisone 2.5 mg Tablet 2.5 mg PO .DAILY@HS isosorbide mononitrate 60 mg Tablet Extended Release 24 Hr 60 mg PO QAM torsemide 5 mg Tablet 5 mg PO DAILY metoprolol succinate 50 mg Tablet Extended Release 24 Hr 50 mg PO BID rosuvastatin 10 mg tablet 10 mg PO HS Discharge Orders: Discharge Order (Routine); Ordered 06/04/23 Ordered By: Rony Rosa Admission Data Admit Date/Time: 06/04/23 00:15 Attending Provider: Rony Rosa Admit Provider: Nav Bennett Primary Care Provider: Moreno Parham Other Providers: Nav Bennett
[2023-06-04] MEDS ORDERED: predniSONE 2.5 MG TAB PO SCH (21:00)
[2023-06-04] MEDS ORDERED: ROSUVASTATIN CALCIUM 10 MG TAB PO SCH (21:00)
== END 2023-06-04 16:45 | disposition home or self-care (01) | DRG 178 ==
LOC: ED 18:57 → EDINP 06-04 00:15 → 2N 06-04 01:23

== ENCOUNTER 2024-03-02 14:26 | Inpatient (IN) ==
--- NOTE | 2024-03-02 14:48 | Emergency Department Note ---
Impression & Plan Fall from standing, Acute pain of left hip, Generalized weakness, Ambulatory dysfunction ED Provider Note HISTORY OF PRESENT ILLNESS: Patient is an 89-year-old female presenting with left hip pain and left forearm pain after a fall. Patient presents via EMS after witnessed fall down 1 step. Patient lost her footing getting off of a chair lift and fell down 1 step, landing on her left side. She denies striking her head or loss of consciousness. She is on Eliquis. Patient is complaining of left hip and left groin pain. Denies any numbness or tingling in her extremities. Denies any chest pain, shortness of breath or lightheadedness prior to the fall. ROS: as above PHYSICAL EXAM: Constitutional: Patient appears in no acute distress. HENT: Head: Normocephalic and atraumatic. Eyes: EOMI, PERRL Mouth/Throat: Mucous membranes moist. Neck: Trachea midline. Neck supple. Cardiovascular: RRR, No rubs or gallops. Intact distal pulses. Pulmonary/Chest: No respiratory distress. Breath sounds clear and equal bilaterally. No wheezes or rales. No chest wall tenderness to palpation. Abdominal: Abdomen soft, no tenderness, rebound or guarding. Back: No midline spinal tenderness, no paraspinal tenderness, no CVA tenderness. Patient is unable to straight leg raise with the left leg. Pain with internal and external rotation of the left hip. Musculoskeletal: No edema, tenderness or deformity noted. Skin: Warm and dry. Ecchymosis to the proximal left forearm. Psychiatric: Appropriate mood and affect for situation. Neurological: Alert and keenly responsive. CN II-XII grossly intact, moving all extremities equally and fully. MDM: - Vitals signs stable. - History obtained via patient. History as above. - Chronic conditions affecting care: aortic stenosis (S/p TAVR); HTN; HLD; PE; GERD; hx of C2 fracture - Differential diagnoses include, but are not limited to: CVA; intracranial hemorrhage; shoulder fracture; pelvic fracture; femur fracture; intra-abdominal injury - Order placed for continuous cardiac monitoring. At this time, monitor showed rate of 65 bpm with normal sinus rhythm, per my interpretation. - External medical records reviewed. Discharge summary dated 06/04/2023 was reviewed. Patient was admitted at that time for COVID-19 infection and secondary weakness. - EKG interpreted by myself showed normal sinus rhythm. Rate 62 bpm. QT 450. No acute ischemic changes. Noted to have significant artifact on the EKG. - Laboratory workup interpreted by myself showed normal WBC; stable electrolytes; CKD (Cr 1.31); normal lactate; elevated troponin (20.2) - Xray pelvis negative for acute fracture or dislocation - Xray left shoulder negative for fracture or dislocation, per my interpretation. - Patient given 50 mcg IV fentanyl for pain control in ER. - CT head wo contrast negative for acute pathology - CT cervical spine wo contrast negative for acute pathology. 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 - CT chest with IV contrast negative for acute traumatic injuries. - CT abdomen/pelvis with IV contrast showed no acute traumatic injury. Noted to have a 2.1 cm cystic lesion within pancreatic tail. - Discussed results with patient and daughter/MPOA at bedside. Daughter expresses significant concern about the patient's ability to get around and care for herself. Reports the patient lives with patient's disabled son, who also has difficulties getting around. They have a chairlift at home, but the chairlift does not get all the way down all of their stairs, and the patient has to climb down stairs, which resulted in her fall today. States had progressively worsening weakness over the last few weeks. Family and patient are interested in placement. - Discussion was had with medical case worker about patient's case and need for admission - Hospitalist consulted for admission - Patient admitted to [facility] hospitalist service for further evaluation and management. ASSESSMENT AND PLAN: Diagnosis: Fall from standing; left hip pain; generalized weakness; ambulatory dysfunction Plan: Admit Past Med/Surg History Medical History Hearing loss in left ear Chest pain History of pulmonary embolism GI bleed Dysphagia C2 cervical fracture GERD (gastroesophageal reflux disease) Hypertension Osteoporosis History of syncope History of palpitations H/O polymyalgia rheumatica Paroxysmal tachycardia "Cardiac Zio event monitor captured a 10 beat trina of non sustained VT and several brief SVT episodes" Aortic stenosis s/p TAVR Hypothyroidism Essential tremor Dyslipidemia Pulmonary embolism Arthritis Surgical History S/P cholecystectomy H/O knee surgery S/P section History of cataract surgery Family History Other Cancer Coronary heart disease Rheumatoid arthritis Stroke Social History Smoking Status: Never smoker Second Hand Exposure: No; Do You Dip or Chew Tobacco: No; Hx Alcohol Use: No Hx Substance Use: No Preferred Language: Tamazight Communication Ability: Effective Ballet Teacher Required: No Beliefs That Will Affect Care: None marital status: / Current Living Situation: Family Current Living Situation Comment: lives w/ son How many Children do You have: 3 Feels Safe at Home: Yes Assistive Devices: Walker Allergies Allergies Allergy/AdvReac Type Severity Reaction Status Date / Time dobutamine Allergy Severe psych Verified 01/29/24 18:57 complications morphine Allergy Severe Could not Verified 01/29/24 18:57 breathe as per px NSAIDS (Non-Steroidal Allergy Intermediate ITCH Verified 01/29/24 18:57 Anti-Inflamma etodolac Allergy Unknown Unknown Verified 01/29/24 18:57 nabumetone [From Relafen] Allergy Unknown Unknown Verified 01/29/24 18:57 hydromorphone AdvReac Intermediate DIZZY,NAUSE Verified 01/29/24 18:57 A minocycline AdvReac Intermediate Nausea Verified 01/29/24 18:57 Home Meds Home Medications Medication Instructions Recorded Confirmed apixaban 2.5 mg tablet (Eliquis) 2.5 mg PO AMHS 05/29/19 01/29/24 nitroglycerin 0.4 mg sublingual 0.4 mg sublingual UD PRN Chest Pain 05/29/19 01/29/24 tablet (Nitrostat) pantoprazole 20 mg tablet,delayed 20 mg PO BID 05/29/19 01/29/24 release (Protonix) trazodone 50 mg tablet 50 mg PO HS 05/29/19 01/29/24 acetaminophen 500 mg tablet 500 mg PO AMPM 04/12/20 01/29/24 (Tylenol Extra Strength) rosuvastatin 10 mg tablet 10 mg PO HS 06/12/21 01/29/24 isosorbide mononitrate 60 mg 60 mg PO QAM 06/03/23 01/29/24 tablet,extended release 24 hr metoprolol succinate 50 mg 50 mg PO BID 06/03/23 01/29/24 tablet,extended release 24 hr prednisone 2.5 mg tablet 2.5 mg PO HS 06/03/23 01/29/24 allopurinol 100 mg tablet 200 mg PO QAM 11/14/23 01/29/24 donepezil 5 mg disintegrating 5 mg PO HS 11/14/23 01/29/24 tablet levothyroxine 88 mcg tablet 88 mcg PO DAILYBB 11/14/23 01/29/24 (Synthroid) torsemide 5 mg tablet 5 mg PO 3XWK 11/14/23 01/29/24 amoxicillin 500 mg capsule 2,000 mg PO DIRECTED PRN PRIOR 01/29/24 01/29/24 TO DENTAL PROCEDURES Results & Data (ED) Vital Signs Vital Signs - 24 hr 03/02/24 14:34 03/02/24 14:40 03/02/24 14:50 Temperature 36.5 C 36.5 C Temperature Source Oral Oral Pulse Rate 62 65 Pulse Rate [Apical] 65 Pulse Rate from SpO2 Sensor Pulse Rhythm Regular Pulse Rhythm [Apical] Regular Pulse Strength Normal Pulse Strength [Apical] Normal Respiratory Rate 18 18 Respiratory Effort / Characteristics Non-Labored Spontaneous Non-Labored Spontaneous Respiratory Depth Normal Normal Respiratory Pattern Regular Regular Blood Pressure 139/71 Blood Pressure [Right Arm] 139/71 Blood Pressure Mean 93 Blood Pressure Mean [Right Arm] 93 Blood Pressure Position Sitting Pulse Oximetry 96 96 Oxygen Delivery Method Room Air Room Air Sepsis Recent Fever Within 48 Hours No Sepsis New/Unexplained Change in Mental Status No Sepsis Action Taken by Nursing No Action Required 03/02/24 15:00 03/02/24 15:30 03/02/24 16:00 Temperature Temperature Source Pulse Rate 64 68 67 Pulse Rate [Apical] Pulse Rate from SpO2 Sensor 63 69 66 Pulse Rhythm Pulse Rhythm [Apical] Pulse Strength Pulse Strength [Apical] Respiratory Rate 14 22 22 Respiratory Effort / Characteristics Respiratory Depth Respiratory Pattern Blood Pressure 148/80 H 155/99 H 141/110 H Blood Pressure [Right Arm] Blood Pressure Mean 102 117 120 Blood Pressure Mean [Right Arm] Blood Pressure Position Pulse Oximetry 99 100 99 Oxygen Delivery Method Room Air Room Air Room Air Sepsis Recent Fever Within 48 Hours Sepsis New/Unexplained Change in Mental Status Sepsis Action Taken by Nursing 03/02/24 16:10 Temperature Temperature Source Pulse Rate 65 Pulse Rate [Apical] Pulse Rate from SpO2 Sensor 63 Pulse Rhythm Pulse Rhythm [Apical] Pulse Strength Pulse Strength [Apical] Respiratory Rate 20 Respiratory Effort / Characteristics Respiratory Depth Respiratory Pattern Blood Pressure Blood Pressure [Right Arm] Blood Pressure Mean Blood Pressure Mean [Right Arm] Blood Pressure Position Pulse Oximetry 94 Oxygen Delivery Method Room Air Sepsis Recent Fever Within 48 Hours Sepsis New/Unexplained Change in Mental Status Sepsis Action Taken by Nursing Laboratory Data 03/02/24 15:06 03/02/24 15:06 Lab Results 03/02/24 Range/Units 15:06 WBC 6.94 (4.8-10.8) K/ul RBC 4.55 (4.20-5.40) M/uL Hgb 13.4 (12.0-16.0) g/dl Hct 41.0 (37.0-47.0) % MCV 90.1 (80.0-100.0) fL MCH 29.5 (25.0-34.0) pg MCHC 32.7 (32.0-36.0) g/dL RDW Std Deviation 44.8 (36.4-46.3) fL RDW Coeff of Jing 13.5 (11.5-14.5) % Plt Count 229 (130-400) K/uL MPV 9.4 (9.4-12.4) fL Immature Gran % (Auto) 0.1 % Neut % (Auto) 55.5 % Lymph % (Auto) 24.9 % [place] % (Auto) 11.0 % Eos % (Auto) 7.6 % Baso % (Auto) 0.9 % Neut # (Auto) 3.85 (1.40-6.50) K/uL Lymph # (Auto) 1.73 (1.20-3.40) K/uL [place] # (Auto) 0.76 H (0.11-0.59) K/uL Eos # (Auto) 0.53 H (0.00-0.50) K/uL Baso # (Auto) 0.06 (0.00-0.20) K/uL Immature Gran # (Auto) 0.01 (0.01-0.20) K/uL PT 11.0 (9.0-12.0) Seconds INR 1.0 (0.9-1.1) Sodium 139 (136-145) mmol/L Potassium 3.8 (3.5-5.1) mmol/L Chloride 107 (98-107) mmol/L Carbon Dioxide 25 (21-32) mmol/L Anion Gap 7 (3-11) BUN 15 (6-23) mg/dl Creatinine 1.31 H (0.6-1.2) mg/dl Est Cr Clr Drug Dosing 28.2 ml/min Est GFR ( Amer) 41.7 ml/min Est GFR (Non-Af Amer) 36.0 ml/min BUN/Creatinine Ratio 11.5 (10-20) Glucose 89 (70-99(Fasting)) mg/dl Lactate 1.3 (0.4-2.0) mmol/L Calcium 8.8 (8.6-10.3) mg/dl Total Bilirubin 0.8 (0.2-1.0) mg/dl AST 22 (13-39) U/L ALT 9 (7-52) U/L Alkaline Phosphatase 59 (34-104) U/L Troponin I High Sens 20.2 H (0-14) pg/ml Total Protein 6.1 (6.0-8.3) gm/dl Albumin 3.4 (3.4-5.0) gm/dl Globulin 2.7 (2.5-4.0) gm/dl Albumin/Globulin Ratio 1.3 (0.9-2) Blood Type AB Negative Antibody Screen NEGATIVE Administered Medications Discontinued Medications Fentanyl Citrate (Fentanyl Citrate Pf 100 Mcg/2 Ml Vial) 50 mcg IV NOW STA Stop: 03/02/24 15:36 Last Admin: 03/02/24 15:56 Dose: 50 mcg Documented By: [facility] Ioversol (Optiray 320 100ml) 92 ml IV ONCE ONE Stop: 03/02/24 16:43 Last Admin: 03/02/24 16:42 Dose: 92 ml Documented By: [employer] Radiologist's Impression: Abdomen/Pelvis CT 03/02/24 14:45 CT OF THE ABDOMEN AND PELVIS WITH CONTRAST CLINICAL HISTORY: Trauma COMPARISON STUDY: CT of the abdomen and pelvis March 29, 2022. Pelvis and left hip radiograph performed earlier today. TECHNIQUE: Following IV administration of 92 mL of Optiray, axial images of the abdomen and pelvis were obtained from the lung bases to the proximal femurs. Images were reviewed in the axial, sagittal, and coronal planes. IV contrast was administered without complication. Automated exposure control was utilized for the study. A dose lowering technique was utilized adhering to the principles of ALARA. CT DOSE: 3324.13 mGy.cm FINDINGS: No hemoperitoneum or pneumoperitoneum is present. There is no evidence for traumatic injury to the liver, spleen, adrenal glands, kidneys or pancreas. A 2.1 cm cystic lesion within the pancreatic tail is present. This was not evident on prior CT. Biliary ductal dilatation is unchanged. The gallbladder is not visualized and likely surgically absent. The appendix is normal. The caliber and wall thickness of small and large bowel are normal. There is colonic diverticulosis without evidence for acute diverticulitis. No acute lumbar spine, pelvic or hip fractures identified. There are no acute fractures within the visualized portions of the lower ribs. IMPRESSION: 1. No acute traumatic findings within the abdomen or pelvis. 2. No bowel obstruction. No bowel wall thickening. Colonic diverticulosis. No evidence for acute diverticulitis. 3. 2.1 cm cystic lesion within the pancreatic tail. This may reflect a side branch IPMN. This could be assessed with a pancreas protocol MRI in 6 months. ACT 112: Negative or not required by law. Electronically signed by: Salas Chaudhari M.D. 03/02/2024 5:[address] 03/02/24 14:[address] DOSE: HISTORY: Trauma TECHNIQUE: Multiaxial CT images of the cervical spine were performed and reformatted in the sagittal and coronal plane without the use of contrast. A dose lowering technique was utilized adhering to the principles of ALARA. COMPARISON: Cervical spine CT 06/08/2017. FINDINGS: Opacified left mastoid air cells and middle ear cavity. The right mastoid air cells are clear. There is an old nonunited type II odontoid fracture which is nondisplaced. The left occipital condyle and lateral mass of C1 are fused. The C2-C3 vertebral bodies and facets are also fused. No acute fractures within the cervical spine. There is 2 mm of anterolisthesis of C5 on C6. This is likely chronic. Moderate facet degenerative changes are noted. The prevertebral soft tissues are intact. The C1-C2 interval is also fused. IMPRESSION: 1. No acute fractures within the cervical spine. 2. Old nonunited type II odontoid fracture. ACT 112: Negative or not required by law. Electronically signed by: Kory Harris M.D. 03/02/2024 5:[address] 03/02/24 14:[address] WITH CONTRAST CT DOSE: HISTORY: Trauma TECHNIQUE: Multiaxial CT images of the chest were performed following the intravenous administration of contrast. A dose lowering technique was utilized adhering to the principles of ALARA. COMPARISON: Chest CTA 06/03/2023. FINDINGS: No acute fractures within the chest. The central airways are patent. No pneumothorax. No pleural effusions. Mild dependent changes seen within the lung bases. No focal lung consolidations. No evidence for pulmonary edema. The abdominal structures will be reported on the same day abdomen and pelvis CT. Normal esophagus. The heart remains mildly enlarged. No pericardial effusion. Aortic valve prosthesis is again noted. No mediastinal hematoma or lymphadenopathy. The central pulmonary arteries are patent. Normal caliber thoracic aorta with no evidence for a dissection. Severe coronary artery calcifications are noted. 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 This remains unchanged. The focal ulcerated plaque at the proximal right aberrant subclavian artery best seen on image 61. This remains unchanged. IMPRESSION: 1. No acute traumatic process within the chest. 2. Stable cardiomegaly. 3. 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 ACT 112: Negative or not required by law. Electronically signed by: Kory Harris M.D. 03/02/2024 5:[address] 03/02/24 14:45 CT OF THE HEAD WITHOUT CONTRAST CLINICAL HISTORY: Trauma COMPARISON STUDY: Head CT January 29, 2024. TECHNIQUE: Helical axial images of the head were obtained without IV contrast. Automated exposure control was utilized for the study. A dose lowering technique was utilized adhering to the principles of ALARA. FINDINGS: This exam is moderately compromised by motion artifact. No acute intracranial hemorrhage, midline shift or mass effect is present. Basal cisterns are patent. There are no extra axial collections. Ventricular system is stable. Left mastoid air cells are opacified. This is unchanged. No depressed calvarial fractures are identified. IMPRESSION: 1. No acute intracranial findings. Exam moderately compromised by motion artifact. 2. No depressed calvarial fractures. ACT 112: Negative or not required by law. Electronically signed by: Salas Chaudhari M.D. 03/02/2024 5:03 PM Hip/Pelvis X-Ray 03/02/24 14:45 XR hip LT 2V w pelvis CLINICAL HISTORY: L hip pain s/p fall COMPARISON: CT of the abdomen and pelvis March 29, 2022. FINDINGS: Sacroiliac joints and symphysis pubis are intact. There is no acute fracture within the pelvis or hips. Moderate joint space narrowing and osteophytosis of both hips is present. IMPRESSION: No fractures within the pelvis or hips. ACT 112: Negative or not required by law. Electronically signed by: Salas Chaudhari M.D. 03/02/2024 4:18 PM Shoulder X-Ray 03/02/24 15:35 XR shoulder LT min 2V routine CLINICAL HISTORY: Left shoulder pain s/p fall COMPARISON STUDY: None. FINDINGS: No acute fracture or dislocation within the left shoulder. The left clavicle is intact. Advanced degenerative changes at the glenohumeral joint. Narrowing of the subacromial space consistent with chronic rotator cuff injury. IMPRESSION: No acute fracture or dislocation within the left shoulder. ACT 112: Negative or not required by law. Electronically signed by: Kory Harris M.D. 03/02/2024 4:26 PM Discharge Plan Visit Data Chief Complaint: Fall Stated Complaint: FALL, LEFT SIDE INJURIES ED Provider: Bhavana Mercado Discharge Problem: Fall from standing, Acute pain of left hip, Generalized weakness, Ambulatory dysfunction Forms Stand Alone Forms: [facility] Prescriptions Prescriptions: No Action trazodone 50 mg tablet 50 mg PO HS pantoprazole [Protonix] 20 mg tablet,delayed release (DR/EC) 20 mg PO BID nitroglycerin [Nitrostat] 0.4 mg tablet, sublingual 0.4 mg sublingual UD PRN (Reason: Chest Pain) Eliquis 2.5 mg tablet 2.5 mg PO AMHS acetaminophen [Tylenol Extra Strength] 500 mg Tablet 500 mg PO AMPM prednisone 2.5 mg Tablet 2.5 mg PO HS isosorbide mononitrate 60 mg Tablet Extended Release 24 Hr 60 mg PO QAM metoprolol succinate 50 mg Tablet Extended Release 24 Hr 50 mg PO BID donepezil 5 mg tablet,disintegrating 5 mg PO HS levothyroxine [Synthroid] 88 mcg tablet 88 mcg PO DAILYBB allopurinol 100 mg tablet 200 mg PO QAM torsemide 5 mg tablet 5 mg PO 3XWK Rx Instructions: M/W/ rosuvastatin 10 mg tablet 10 mg PO HS amoxicillin 500 mg capsule 2,000 mg PO DIRECTED PRN (Reason: PRIOR TO DENTAL PROCEDURES) Referrals Referrals: Moreno Parham [Primary Care Provider] -
[2024-03-02 15:23] LABS: Basophils # (auto) 0.06 K/uL (0.00-0.20); Basophils % (auto) 0.9 %; Eosinophils # (auto) 0.53 K/uL (0.00-0.50); Eosinophils % (auto) 7.6 %; Hemoglobin 13.4 g/dl (12.0-16.0); Immature Granulocytes # (auto) 0.01 K/uL (0.01-0.20); Immature Granulocytes % (auto) 0.1 %; Lymphocytes # (auto) 1.73 K/uL (1.20-3.40); Lymphocytes % (auto) 24.9 %; Mean Corpuscular Hemoglobin 29.5 pg (25.0-34.0); Mean Corpuscular Hgb Conc 32.7 g/dL (32.0-36.0); Mean Corpuscular Volume 90.1 fL (80.0-100.0); Mean Platelet Volume 9.4 fL (9.4-12.4); Monocytes # (auto) 0.76 K/uL (0.11-0.59); Neutrophils # (auto) 3.85 K/uL (1.40-6.50); Neutrophils % (auto) 55.5 %; Platelet Count 229 K/uL (130-400); RDW Coefficient of Variation 13.5 % (11.5-14.5); RDW Standard Deviation 44.8 fL (36.4-46.3); Red Blood Count 4.55 M/uL (4.20-5.40); White Blood Count 6.94 K/ul (4.8-10.8)
[2024-03-02 15:40] LABS: Albumin Globulin Ratio 1.3 (0.9-2); Albumin Level 3.4 gm/dl (3.4-5.0); BUN Creatinine Ratio 11.5 (10-20); Bilirubin,Total 0.8 mg/dl (0.2-1.0); Calcium 8.8 mg/dl (8.6-10.3); Creatinine Clr Calc Pharmacy 28.2 ml/min; Est GFR (African American) 41.7 ml/min; Globulin 2.7 gm/dl (2.5-4.0); Potassium 3.8 mmol/L (3.5-5.1); Total Protein 6.1 gm/dl (6.0-8.3)
[2024-03-02 15:46] LABS: Troponin I High Sensitivity 20.2 pg/ml (0-14)
--- NOTE | 2024-03-02 15:47 | Electrocardiogram Report ---
Test Reason : Blood Pressure : / mmHG Vent. Rate : 062 BPM Atrial Rate : 062 BPM P-R Int : 210 ms QRS Dur : 086 ms QT Int : 450 ms P-R-T Axes : 067 036 041 degrees QTc Int : 456 ms Poor data quality, interpretation may be adversely affected Sinus rhythm with 1st degree A-V block Otherwise normal ECG When compared with ECG of 29-JAN-2024 16:13, No significant change was found Confirmed by Kolby Martinez ([id number]) on 03/02/2024 3:46:46 PM Referred By: Confirmed By:Kolby Martinez
[2024-03-02] MEDS: fentaNYL citrate PF 100 MCG/2 ML VIAL IV STA (15:56)
--- NOTE | 2024-03-02 16:19 | XRay Report ---
XR hip LT 2V w pelvis CLINICAL HISTORY: L hip pain s/p fall COMPARISON: CT of the abdomen and pelvis March 29, 2022. FINDINGS: Sacroiliac joints and symphysis pubis are intact. There is no acute fracture within the pe lvis or hips. Moderate joint space narrowing and osteophytosis of both hips is present. IMPRESSION: No fractures within the pelvis or hips. ACT 112: Negative or not required by law. Electronically signed by: Salas Chaudhari M.D. 03/02/2024 4:18 PM
--- NOTE | 2024-03-02 16:27 | XRay Report ---
XR shoulder LT min 2V routine CLINICAL HISTORY: Left shoulder pain s/p fall COMPARISON STUDY: None. FINDINGS: No acute fracture or dislocation within the left shoulder. The left clavicle is intact. Adv anced degenerative changes at the glenohumeral joint. Narrowing of the subacromial space consistent w ith chronic rotator cuff injury. IMPRESSION: No acute fracture or dislocation within the left shoulder. ACT 112: Negative or not required by law. Electronically signed by: Kory Harris M.D. 03/02/2024 4:26 PM
[2024-03-02] MEDS: OPTIRAY 320 100ml IV ONE (16:42)
--- NOTE | 2024-03-02 17:04 | CT Scan Report ---
CT OF THE HEAD WITHOUT CONTRAST CLINICAL HISTORY: Trauma COMPARISON STUDY: Head CT January 29, 2024. TECHNIQUE: Helical axial images of the head were obtained without IV contrast. Automated exposure con trol was utilized for the study. A dose lowering technique was utilized adhering to the principles o f ALARA. FINDINGS: This exam is moderately compromised by motion artifact. No acute intracranial hemorrhage, m idline shift or mass effect is present. Basal cisterns are patent. There are no extra axial collectio ns. Ventricular system is stable. Left mastoid air cells are opacified. This is unchanged. No depress ed calvarial fractures are identified. IMPRESSION: 1. No acute intracranial findings. Exam moderately compromised by motion artifact. 2. No depressed calvarial fractures. ACT 112: Negative or not required by law. Electronically signed by: Salas Chaudhari M.D. 03/02/2024 5:03 PM
--- NOTE | 2024-03-02 17:14 | CT Scan Report ---
CT OF THE ABDOMEN AND PELVIS WITH CONTRAST CLINICAL HISTORY: Trauma COMPARISON STUDY: CT of the abdomen and pelvis March 29, 2022. Pelvis and left hip radiograph performe d earlier today. TECHNIQUE: Following IV administration of 92 mL of Optiray, axial images of the abdomen and pelvis we re obtained from the lung bases to the proximal femurs. Images were reviewed in the axial, sagittal, and coronal planes. IV contrast was administered without complication. Automated exposure control wa s utilized for the study. A dose lowering technique was utilized adhering to the principles of ALARA . CT DOSE: 3324.13 mGy.cm FINDINGS: No hemoperitoneum or pneumoperitoneum is present. There is no evidence for traumatic injury to the liver, spleen, adrenal glands, kidneys or pancreas. A 2.1 cm cystic lesion within the pancrea tic tail is present. This was not evident on prior CT. Biliary ductal dilatation is unchanged. The ga llbladder is not visualized and likely surgically absent. The appendix is normal. The caliber and wal l thickness of small and large bowel are normal. There is colonic diverticulosis without evidence for acute diverticulitis. No acute lumbar spine, pelvic or hip fractures identified. There are no acute fractures within the visualized portions of the lower ribs. IMPRESSION: 1. No acute traumatic findings within the abdomen or pelvis. 2. No bowel obstruction. No bowel wall thickening. Colonic diverticulosis. No evidence for acute dive rticulitis. 3. 2.1 cm cystic lesion within the pancreatic tail. This may reflect a side branch IPMN. This could b e assessed with a pancreas protocol MRI in 6 months. ACT 112: Negative or not required by law. Electronically signed by: Salas Chaudhari M.D. 03/02/2024 5:13 PM
--- NOTE | 2024-03-02 17:18 | CT Scan Report ---
CERVICAL SPINE CT CT DOSE: HISTORY: Trauma TECHNIQUE: Multiaxial CT images of the cervical spine were performed and reformatted in the sagittal and coronal plane without the use of contrast. A dose lowering technique was utilized adhering to th e principles of ALARA. COMPARISON: Cervical spine CT 06/08/2017. FINDINGS: Opacified left mastoid air cells and middle ear cavity. The right mastoid air cells are elise ar. There is an old nonunited type II odontoid fracture which is nondisplaced. The left occipital con dyle and lateral mass of C1 are fused. The C2-C3 vertebral bodies and facets are also fused. No acute fractures within the cervical spine. There is 2 mm of anterolisthesis of C5 on C6. This is likely ch ronic. Moderate facet degenerative changes are noted. The prevertebral soft tissues are intact. The C 1-C2 interval is also fused. IMPRESSION: 1. No acute fractures within the cervical spine. 2. Old nonunited type II odontoid fracture. ACT 112: Negative or not required by law. Electronically signed by: Kory Harris M.D. 03/02/2024 5:16 PM
--- NOTE | 2024-03-02 17:33 | CT Scan Report ---
CHEST CT WITH CONTRAST CT DOSE: HISTORY: Trauma TECHNIQUE: Multiaxial CT images of the chest were performed following the intravenous administration of contrast. A dose lowering technique was utilized adhering to the principles of ALARA. COMPARISON: Chest CTA 06/03/2023. FINDINGS: No acute fractures within the chest. The central airways are patent. No pneumothorax. No pl eural effusions. Mild dependent changes seen within the lung bases. No focal lung consolidations. No evidence for pulmonary edema. The abdominal structures will be reported on the same day abdomen and p colten CT. Normal esophagus. The heart remains mildly enlarged. No pericardial effusion. Aortic valve prosthesis is again noted. No mediastinal hematoma or lymphadenopathy. The central pulmonary arteries are patent. Normal caliber thoracic aorta with no evidence for a dissection. Severe coronary artery calcifications are noted. There is an aberrant right subclavian artery again noted with fusiform aneu rysmal dilatation proximally measuring up to 2.9 cm best seen on axial image 63. This remains unchang ed. The focal ulcerated plaque at the proximal right aberrant subclavian artery best seen on image 61 . This remains unchanged. IMPRESSION: 1. No acute traumatic process within the chest. 2. Stable cardiomegaly. 3. 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 ACT 112: Negative or not required by law. Electronically signed by: Kory Harris M.D. 03/02/2024 5:31 PM
[2024-03-02] MEDS ORDERED: ONDANSETRON INJ 2 MG/ML 2 ML VIAL IV PRN (18:21)
[2024-03-02] MEDS ORDERED: ALUMINUM/MAGNESIUM SUSP 30 ML UDC PO PRN (18:21)
[2024-03-02] MEDS ORDERED: MAGNESIUM HYDROXIDE SUSP 30 ML UDC PO PRN (18:21)
[2024-03-02] MEDS ORDERED: POLYETHYLENE (MIRALAX) 17 GM PACK PO PRN (18:21)
[2024-03-02] MEDS ORDERED: NITROGLYCERIN SL 0.4 MG/TAB TAB SL PRN (19:04)
--- NOTE | 2024-03-02 19:07 | History & Physical Report ---
Date of Service March 02, 2024 Assessment & Plan (1) Ambulatory dysfunction: (2) Acute pain of left hip: (3) Fall from standing: Plan: Patient is a 89-year-old female with Past medical history of nontoxic multinodular goiter, hyperlipidemia, PE, CKD stage III, PMR, osteoporosis, use who presented to the ED after mechanical fall. On presentation to the ED, patient was normotensive, afebrile and saturating well on room air CT head without contrast - did not show any acute finding Hip/pelvic x-rayno fracture within pelvis/hip Shoulder x-rayno fracture Chest CTno traumatic process within the chest CT abdomen pelvis2.1 cm cystic lesion within the pancreatic tail. May reflect a sidebranch IPMN.This could be assessed with a pancreas protocol MRI in 6 months. I discussed the findings with patient's daughter Saba; she agreed on following up on it outpatient. Given patient's left groin pain and painful ROM of the left hip; will obtain CT left hip to rule out occult fracture. Patient may need MRI if she continues to have pain and difficulty moving her left hip Will hold off on Eliquis for the time being; to be resume if patient is not going any procedure Pain control with Tylenol PT OT eval Chronic conditions; Hypothyroidism Continue levothyroxine History of CAD nonobstructive Mid LAD 50% stenosis per Cardiac cath June 2020 On beta-andrei, statin. Eliquis currently on hold. Heart failure with preserved ejection fraction On torsemide; continue Severe aortic stenosis s/p TAVR August 2020 Recurrent pulm embolism On Eliquis; currently on hold Chronic kidney disease stage III Creatinine on baseline Polymyalgia rheumatica on prednisone; continue DVT prophylaxis on Eliquis on hold Time spent evaluating patient, direct bedside care, chart review, placing orders, interpretation of diagnostic studies, discussion with consultants, patient, and family members, as well as other required patient management activities is 75 minutes Please note the above document was generated using voice recognition software. It may contain grammatical, syntax or spelling errors. Any formal questions or concerns about the content, text or information contained within the body of t his dictation should be directly addressed to the provider for clarification History of Present Illness Chief Complaint: Mechanical fall Primary Care Provider: Moreno Parham History obtained from interview with the patient and patient's daughter at bedside as well as chart review. Past medical history of nontoxic multinodular goiter, hyperlipidemia, PE, CKD stage III, PMR, osteoporosis, history of long-term systemic steroid use Patient presented to the hospital after mechanical fall after fall on the stairs. Patient lost her footing while getting off of a chairlift and fell down 1 step landing on her left side She denies striking her head, no loss of consciousness. Patient reports left groin pain after the fall and has been having pain while moving her left groin She bruised her left forearm and has a laceration on her left dorsal aspect of her hand She lives with her son who is disabled; helps her with medications. Patient also has 2 daughters who live close by. Patient has history of mild cognitive dysfunction; is forgetful and requires reorientation. On presentation to the ED, patient was normotensive, afebrile and saturating well on room air CT head without contrast test did not show any acute finding Hip/pelvic x-rayno fracture within pelvis/hip Shoulder x-rayno fracture Chest CTno traumatic process within the chest CT abdomen pelvis2.1 cm cystic lesion within the pancreatic tail. May reflect a sidebranch IPMN.This could be assessed with a pancreas protocol MRI in 6 months. Patient was then referred for admission. Allergies Allergy/AdvReac Type Severity Reaction Status Date / Time dobutamine Allergy Severe psych Verified 03/02/24 18:37 complications morphine Allergy Severe Could not Verified 03/02/24 18:37 breathe as per px NSAIDS (Non-Steroidal Allergy Intermediate ITCH Verified 03/02/24 18:37 Anti-Inflamma etodolac Allergy Unknown Unknown Verified 03/02/24 18:37 nabumetone [From Relafen] Allergy Unknown Unknown Verified 03/02/24 18:37 hydromorphone AdvReac Intermediate DIZZY,NAUSE Verified 03/02/24 18:37 A minocycline AdvReac Intermediate Nausea Verified 03/02/24 18:37 Home Medications Medication Instructions Recorded Confirmed Type apixaban 2.5 mg tablet (Eliquis) 2.5 mg PO AMHS 05/29/19 03/02/24 History nitroglycerin 0.4 mg sublingual 0.4 mg sublingual UD PRN Chest Pain 05/29/19 03/02/24 History tablet (Nitrostat) pantoprazole 20 mg tablet,delayed 0 mg PO BID 05/29/19 03/02/24 History release (Protonix) trazodone 50 mg tablet 50 mg PO HS 05/29/19 03/02/24 History acetaminophen 500 mg tablet 500 mg PO AMPM 04/12/20 03/02/24 History (Tylenol Extra Strength) rosuvastatin 10 mg tablet 10 mg PO HS 06/12/21 03/02/24 History isosorbide mononitrate 60 mg 60 mg PO QAM 06/03/23 03/02/24 History tablet,extended release 24 hr metoprolol succinate 50 mg 0 mg PO BID 06/03/23 03/02/24 History tablet,extended release 24 hr torsemide 5 mg tablet 5 mg PO 3XWK 11/14/23 03/02/24 History amoxicillin 500 mg capsule 2,000 mg PO DIRECTED PRN PRIOR 01/29/24 03/02/24 History TO DENTAL PROCEDURES fexofenadine 180 mg tablet 180 mg PO BID rash 03/02/24 03/02/24 History (Allergy Relief (fexofenadine)) levothyroxine 75 mcg tablet 75 mcg PO DAILYBB 03/02/24 03/02/24 History prednisone 2.5 mg tablet 2.5 mg PO DAILY 03/02/24 03/02/24 History Past Med/Surg History Medical History Hearing loss in left ear Chest pain History of pulmonary embolism GI bleed Dysphagia C2 cervical fracture GERD (gastroesophageal reflux disease) Hypertension Osteoporosis History of syncope History of palpitations H/O polymyalgia rheumatica Paroxysmal tachycardia "Cardiac Zio event monitor captured a 10 beat trina of non sustained VT and several brief SVT episodes" Aortic stenosis s/p TAVR Hypothyroidism Essential tremor Dyslipidemia Pulmonary embolism Arthritis Surgical History S/P cholecystectomy H/O knee surgery S/P section History of cataract surgery Family History Other Cancer Coronary heart disease Rheumatoid arthritis Stroke Social History Smoking Status: Never smoker Second Hand Exposure: No; Do You Dip or Chew Tobacco: No; Hx Alcohol Use: No Hx Substance Use: No Preferred Language: Telugu Communication Ability: Effective Mine Shifter Required: No Beliefs That Will Affect Care: None marital status: / Current Living Situation: Family Current Living Situation Comment: lives w/ son How many Children do You have: 3 Feels Safe at Home: Yes Assistive Devices: Walker Physical Exam Physical Exam: Constitutional: Alert oriented to self and place. Requires reorientation Respiratory: Bilateral vesicular breath sound Cardiovascular: RRR, no murmur, no edema Vessels: no JVD or carotid bruit Chest: normal inspection of chest Abdomen: normal bowel sounds, soft, nontender, no hepatosplenomegaly Musculoskeletal: Pain in left groin; ROM limited by pain on left hip. Bruise present on left arm; skin tear present on left hand on dorsal aspectno bleeding noted. Skin: no rashes, warm and dry normal turgor Neurologic: PERRL, EOMI, accommodation nl, no face palsy, no dysarthria CN's II- XI intact bilaterally and moves all extremities Results & Data Results & Data Vital Signs (Past 12 Hours) Vital Signs Temp Pulse Pulse Resp BP BP Pulse Ox 03/02/24 16:10 65 20 94 03/02/24 16:00 67 22 141/110 H 99 03/02/24 15:30 68 22 155/99 H 100 03/02/24 15:00 64 14 148/80 H 99 03/02/24 14:50 65 03/02/24 14:40 36.5 C 65 18 139/71 96 03/02/24 14:34 36.5 C 62 18 139/71 96 O2 Del Method 03/02/24 16:10 Room Air 03/02/24 16:00 Room Air 03/02/24 15:30 Room Air 03/02/24 15:00 Room Air 03/02/24 14:50 03/02/24 14:40 Room Air 03/02/24 14:34 Room Air Code Status & VTE Plan VTE Prophylaxis Plan VTE Prophylaxis will be ordered: Yes
[2024-03-02] MEDS ORDERED: ACETAMINOPHEN 500 MG TAB PO SCH (19:15)
--- NOTE | 2024-03-02 20:08 | CT Scan Report ---
Exam(s): CT LEFT HIP Without Contrast EXAM: CT Left Lower Extremity Without Intravenous Contrast, Hip CLINICAL HISTORY: hip pain, ROM limited. TECHNIQUE: Axial computed tomography images of the left hip without intravenous contrast. CTDI is 24.91 mGy and DLP is 575.6 mGy-cm. Automated exposure control was utilized for the study. A dose lowering technique was utilized adhering to the principles of ALARA. COMPARISON: No relevant prior studies available. FINDINGS: Bones/joints: No acute osseous traumatic injury involving the proximal left femur. The included bones are unremarkable. Hypertrophic degenerative changes noted involving the sepsis pubis and, to a lesser extent the left sacroiliac joint. No dislocation. Soft tissues: No significant overlying acute traumatic soft tissue abnormality identified. Vasculature: Incidental regional arterial calcification. Bladder: Excreted contrast noted in the moderately distended bladder. IMPRESSION: No acute findings in the left hip. Electronically signed by: Aaron Hayes MD 03/02/24 20:07 PM
[2024-03-02] MEDS: PANTOprazole 40 MG TAB PO SCH (22:10)
[2024-03-02] MEDS: ROSUVASTATIN CALCIUM 10 MG TAB PO SCH (22:11)
[2024-03-02] MEDS: METOPROLOL SUCC 50MG EXT REL TAB PO SCH (22:12)
[2024-03-02] MEDS: traZODone HCL 50 MG TAB PO SCH (22:12)
[2024-03-02] MEDS: ACETAMINOPHEN 325 MG TAB PO PRN (23:14)
[2024-03-03] MEDS ORDERED: PROMETHAZINE HCL 6.25 MG in SODIUM CHLORIDE 0.9% 50 ML IV PRN (00:24)
[2024-03-03] MEDS: HALOPERIDOL LACTATE 5 MG/ML 1 ML VIAL IM PRN (00:56)
[2024-03-03] MEDS: traMADol HCL 50 MG TABLET PO STA (00:56)
[2024-03-03 01:58] LABS: Appearance Urine Clear (Clear); Bilirubin Urine Negative (Negative); Blood Urine Negative (Negative); Color Urine Yellow; Glucose Urine UA Negative (Negative); Ketones Urine Negative (Negative); Leukocyte Esterase Urine Negative (Negative); Nitrite Urine Negative (Negative); Protein Urine Negative (Negative); Specific Gravity Urine > 1.045 (1.000-1.030); Urobilinogen Urine Negative (Negative); pH Urine 6.5 (4.5-7.5)
[2024-03-03] MEDS: LEVOTHYROXINE SODIUM 75 MCG TABLET PO SCH (08:08)
[2024-03-03] MEDS: predniSONE 2.5 MG TAB PO SCH (08:40)
[2024-03-03] MEDS: ISOSORBIDE MONO EXTENDED REL 60 MG TABCR PO SCH (08:40)
--- NOTE | 2024-03-03 12:17 | Hospitalist Progress Note ---
Date of Service March 03, 2024 Assessment & Plan (1) Ambulatory dysfunction: (2) Acute pain of left hip: (3) Fall from standing: Plan: Patient is a 89-year-old female with Past medical history of nontoxic multinodular goiter, hyperlipidemia, PE, CKD stage III, PMR, osteoporosis, use who presented to the ED 03/02 after mechanical fall. On presentation to the ED, patient was normotensive, afebrile and saturating well on room air CT head without contrast - did not show any acute finding Hip/pelvic x-rayno fracture within pelvis/hip Shoulder x-rayno fracture Chest CTno traumatic process within the chest CT abdomen pelvis2.1 cm cystic lesion within the pancreatic tail. May reflect a sidebranch IPMN.This could be assessed with a pancreas protocol MRI in 6 months. Prior attending discussed the findings with patient's daughter Saba; she agreed on following up on it outpatient. left Hip CT - no acute findings. Patient with no complain of pain today. Pain control with Tylenol PT OT eval Chronic conditions; Hypothyroidism: Continue levothyroxine History of CAD nonobstructive: Mid LAD 50% stenosis per Cardiac cath June 2020. On beta-andrei, statin. resume Eliquis. Heart failure with preserved ejection fraction: On torsemide; continue Severe aortic stenosis s/p TAVR August 2020 Recurrent pulm embolism: On Eliquis; continue Chronic kidney disease stage III: Creatinine on baseline Polymyalgia rheumatica on prednisone; continue DVT prophylaxis on Eliquis. Please note the above document was generated using voice recognition software. It may contain grammatical, syntax or spelling errors. Any formal questions or concerns about the content, text or information contained within the body of this dictation should be directly addressed to the provider for clarification Admission and Anticipated Discharge Date Admission Date: March 02, 2024 Subjective Patient was seen and examined at bedside. Patient was lying in bed, on room air, resting comfortably, not in any acute distress. Patient reports eating okay and moving bowels okay. Patient denies any pain, denies any headache, denies any trouble swallowing. Patient denies any fever/chills/chest pain/palpitation/acute changes in bowel or bladder habits. Physical Exam Physical Exam: Constitutional: Alert oriented to self and place. Requires reorientation Respiratory: Bilateral vesicular breath sound Cardiovascular: RRR, no murmur, no edema Vessels: no JVD or carotid bruit Chest: normal inspection of chest Abdomen: normal bowel sounds, soft, nontender, no hepatosplenomegaly Musculoskeletal: Pain in left groin; ROM limited by pain on left hip. Bruise present on left arm; skin tear present on left hand on dorsal aspectno bleeding noted. Skin: no rashes, warm and dry normal turgor Neurologic: PERRL, EOMI, accommodation nl, no face palsy, no dysarthria CN's II- XI intact bilaterally and moves all extremities Results & Data Results & Data Vital Signs (Past 12 Hours) Vital Signs Pulse Pulse Resp BP BP Pulse Ox O2 Del Method 03/03/24 11:00 56 L 18 129/65 97 Room Air 03/03/24 08:06 54 L 18 136/81 96 Room Air 03/03/24 06:56 58 L 03/03/24 06:00 55 L 14 116/72 96 03/03/24 05:00 49 L 13 125/63 98 03/03/24 03:00 51 L 14 98/52 L 95 03/03/24 02:00 62 22 116/72 83 L 03/03/24 01:01 129/72 97 03/03/24 01:00 99 03/03/24 00:10 68 19 91
[2024-03-03] MEDS: traMADol HCL 50 MG TABLET PO PRN (14:16)
[2024-03-03 14:43] LABS: Hemoglobin 13.1 g/dl (12.0-16.0); Mean Corpuscular Hemoglobin 29.4 pg (25.0-34.0); Mean Corpuscular Hgb Conc 32.8 g/dL (32.0-36.0); Mean Corpuscular Volume 89.9 fL (80.0-100.0); Mean Platelet Volume 9.5 fL (9.4-12.4); Platelet Count 220 K/uL (130-400); RDW Coefficient of Variation 13.4 % (11.5-14.5); RDW Standard Deviation 44.1 fL (36.4-46.3); Red Blood Count 4.45 M/uL (4.20-5.40); White Blood Count 6.22 K/ul (4.8-10.8)
[2024-03-03 15:03] LABS: Albumin Level 3.3 gm/dl (3.4-5.0); Bilirubin,Total 0.6 mg/dl (0.2-1.0); Calcium 8.7 mg/dl (8.6-10.3); Magnesium 1.8 mg/dl (1.7-2.4); Potassium 4.1 mmol/L (3.5-5.1)
[2024-03-03 15:09] LABS: Albumin Globulin Ratio 1.3 (0.9-2); BUN Creatinine Ratio 12.6 (10-20); Est GFR (African American) 46.9 ml/min; Est GFR (Non-African American) 40.4 ml/min; Globulin 2.6 gm/dl (2.5-4.0); Total Protein 5.9 gm/dl (6.0-8.3)
[2024-03-03] MEDS: APIXABAN 2.5 MG TAB PO SCH (21:21)
[2024-03-04 07:56] LABS: Hematocrit (blood only) 39.7 % (37.0-47.0); Hemoglobin 13.3 g/dl (12.0-16.0); Mean Corpuscular Hemoglobin 29.6 pg (25.0-34.0); Mean Corpuscular Hgb Conc 33.5 g/dL (32.0-36.0); Mean Corpuscular Volume 88.4 fL (80.0-100.0); Mean Platelet Volume 9.6 fL (9.4-12.4); Platelet Count 255 K/uL (130-400); RDW Coefficient of Variation 13.3 % (11.5-14.5); RDW Standard Deviation 43.4 fL (36.4-46.3); Red Blood Count 4.49 M/uL (4.20-5.40); White Blood Count 6.18 K/ul (4.8-10.8)
[2024-03-04] MEDS: TORSEMIDE 10 MG TAB PO SCH (08:02)
[2024-03-04 08:22] LABS: Calcium 8.7 mg/dl (8.6-10.3); Est GFR (African American) 37.9 ml/min; Est GFR (Non-African American) 32.7 ml/min; Magnesium 1.8 mg/dl (1.7-2.4); Phosphorus 3.4 mg/dl (2.5-4.9); Potassium 3.6 mmol/L (3.5-5.1)
--- NOTE | 2024-03-04 14:03 | Hospitalist Progress Note ---
Date of Service March 04, 2024 Assessment & Plan (1) Ambulatory dysfunction: (2) Acute pain of left hip: (3) Fall from standing: Plan: Patient is a 89-year-old female with Past medical history of nontoxic multinodular goiter, hyperlipidemia, PE, CKD stage III, PMR, osteoporosis, use who presented to the ED 03/02 after mechanical fall. On presentation to the ED, patient was normotensive, afebrile and saturating well on room air CT head without contrast - did not show any acute finding Hip/pelvic x-rayno fracture within pelvis/hip Shoulder x-rayno fracture Chest CTno traumatic process within the chest CT abdomen pelvis2.1 cm cystic lesion within the pancreatic tail. May reflect a sidebranch IPMN.This could be assessed with a pancreas protocol MRI in 6 months. Prior attending discussed the findings with patient's daughter Saba; she agreed on following up on it outpatient. left Hip CT - no acute findings. Patient with no complain of pain today. Pain control with Tylenol PT OT heena CM is assisting patient with LTC placement as she is caregiver for Chronic conditions; Hypothyroidism: Continue levothyroxine History of CAD nonobstructive: Mid LAD 50% stenosis per Cardiac cath June 2020. On beta-andrei, statin. resume Eliquis. Heart failure with preserved ejection fraction: On torsemide; continue Severe aortic stenosis s/p TAVR August 2020 Recurrent pulm embolism: On Eliquis; continue Chronic kidney disease stage III: Creatinine on baseline, cr 1.19 on admit and 1.42 today, repeat renal function in a.m. and avoid nephrotoxic agents Polymyalgia rheumatica on prednisone; continue DVT prophylaxis on Eliquis. FULL CODE Dispo: awaiting placement, medically stable PCP: Dr. Parham Admission and Anticipated Discharge Date Admission Date: March 02, 2024 Subjective Patient was seen in 388. Follow-up after mechanical fall. She is sitting in bed without any acute concerns. Denies fever, chills, sweats, dizziness, lightheadedness, chest pain, shortness breath, nausea or vomiting. She currently denies any pain. Review of Systems Review of Systems: All systems reviewed & are unremarkable except as noted in HPI & below Physical Exam Physical Exam: Gen: WD/WN, F, sitting up in bed, NAD, A&O x3 HEENT: Normocephalic, atraumatic, conjunctivae moist, sclerae anicteric, mucous membranes moist. Lung: Clear to Auscultation bilaterally, no wheezes/rales/rhonchi Heart: Regular rate, regular rhythm, no murmurs, rubs, or gallops Abdomen: Soft, NT, ND +BS x 4 Extremities: No edema, significant bruising in various stages of healing on extremities Skin: Warm, no rash, negative turgor. Results & Data Results & Data Vital Signs (Past 12 Hours) Vital Signs Temp Pulse Resp BP Pulse Ox O2 Del Method 03/04/24 07:49 36.4 C L 65 16 179/92 H 98 Room Air Laboratory Results Short CBC 03/04/24 Range/Units 07:03 WBC 6.18 (4.8-10.8) K/ul Hgb 13.3 (12.0-16.0) g/dl Hct 39.7 (37.0-47.0) % Plt Count 255 (130-400) K/uL BMP 03/03/24 03/04/24 14:32 07:03 Sodium 136 138 Potassium 4.1 3.6 Chloride 105 106 Carbon Dioxide 24 25 BUN 15 17 Creatinine 1.19 1.42 H Glucose 104 H 83 Calcium 8.7 8.7 Liver Function 03/03/24 Range/Units 14:32 Total Bilirubin 0.6 (0.2-1.0) mg/dl AST 24 (13-39) U/L ALT 9 (7-52) U/L Alkaline Phosphatase 65 (34-104) U/L Albumin 3.3 L (3.4-5.0) gm/dl Medications Administered Current Inpatient Medications Acetaminophen (Acetaminophen 325 Mg Tab) 650 mg PO Q4H PRN PRN Reason: Pain or Fever Stop: 04/01/24 18:20 Last Admin: 03/02/24 23:14 Dose: 650 mg Al Hydrox/Mg Hydrox/Simethicone (Aluminum/Magnesium Susp 30 Ml Udc) 15 ml PO Q4H PRN PRN Reason: Dyspepsia Stop: 04/01/24 18:20 Apixaban (Apixaban 2.5 Mg Tab) 2.5 mg PO AMHS JORGE Stop: 04/02/24 20:59 Last Admin: 03/04/24 08:01 Dose: 2.5 mg Haloperidol Lactate (Haloperidol Lactate 5 Mg/Ml 1 Ml Vial) 2 mg IM Q2H PRN PRN Reason: Agitation Stop: 04/02/24 00:22 Last Admin: 03/03/24 00:56 Dose: 2 mg Promethazine HCl 6.25 mg/ (Sodium Chloride) 50.25 mls @ 201 mls/hr IV Q6H PRN PRN Reason: Nausea And Vomiting Stop: 04/02/24 00:23 Isosorbide Mononitrate (Isosorbide [place] Extended Rel 60 Mg Tabcr) 60 mg PO QAM [facility] Stop: 04/02/24 08:59 Last Admin: 03/04/24 08:02 Dose: 60 mg Levothyroxine Sodium (Levothyroxine Sodium 75 Mcg Tablet) 75 mcg PO DAILYBB [facility] Stop: 04/02/24 06:29 Last Admin: 03/04/24 05:31 Dose: 75 mcg Magnesium Hydroxide (Magnesium Hydroxide Susp 30 Ml Udc) 30 ml PO Q12H PRN PRN Reason: Constipation Stop: 04/01/24 18:20 Metoprolol Succinate (Metoprolol Succ 50mg Ext Rel Tab) 50 mg PO BID [facility] Stop: 04/01/24 20:59 Last Admin: 03/04/24 08:01 Dose: 50 mg Nitroglycerin (Nitroglycerin Sl 0.4 Mg/Tab Tab) 0.4 mg SL UD PRN PRN Reason: Chest Pain Stop: 04/01/24 19:03 Pantoprazole Sodium (Pantoprazole 40 Mg Tab) 40 mg PO BID [facility]; Protocol Stop: 04/01/24 20:59 Last Admin: 03/04/24 08:00 Dose: 40 mg Polyethylene Glycol (Polyethylene (Miralax) 17 Gm Pack) 17 gm PO DAILY PRN PRN Reason: Constipation Stop: 04/01/24 18:20 Prednisone (Prednisone 2.5 Mg Tab) 2.5 mg PO DAILY [facility] Stop: 04/02/24 08:59 Last Admin: 03/04/24 08:02 Dose: 2.5 mg Rosuvastatin Calcium (Rosuvastatin Calcium 10 Mg Tab) 10 mg PO HS [facility] Stop: 04/01/24 20:59 Last Admin: 03/03/24 21:20 Dose: 10 mg Torsemide (Torsemide 10 Mg Tab) 5 mg PO [id number] [facility] Stop: 04/03/24 08:59 Last Admin: 03/04/24 08:02 Dose: 5 mg Tramadol HCl (Tramadol Hcl 50 Mg Tablet) 25 mg PO Q4H PRN PRN Reason: Pain Stop: 04/02/24 00:23 Last Admin: 03/03/24 14:16 Dose: 25 mg Trazodone HCl (Trazodone Hcl 50 Mg Tab) 50 mg PO HS JORGE Stop: 04/01/24 20:59 Last Admin: 03/03/24 21:20 Dose: 50 mg
[2024-03-04] MEDS: OLANZAPINE 2.5 MG TAB PO STA (21:00)
[2024-03-04] MEDS: CETIRIZINE HCL 10 MG TABLET PO ONE (21:00)
[2024-03-05 08:36] LABS: BUN Creatinine Ratio 15.1 (10-20); Calcium 8.9 mg/dl (8.6-10.3); Creatinine Clr Calc Pharmacy 25.5 ml/min; Est GFR (African American) 38.8 ml/min; Est GFR (Non-African American) 33.5 ml/min; Potassium 3.5 mmol/L (3.5-5.1)
--- NOTE | 2024-03-05 17:48 | Hospitalist Progress Note ---
Date of Service March 05, 2024 Assessment & Plan (1) Ambulatory dysfunction: (2) Acute pain of left hip: (3) Fall from standing: Plan: Patient is a 89-year-old female with Past medical history of nontoxic multinodular goiter, hyperlipidemia, PE, CKD stage III, PMR, osteoporosis, who presented to the ED 03/02 after mechanical fall. On presentation to the ED, patient was normotensive, afebrile and saturating well on room air CT head without contrast - did not show any acute finding Hip/pelvic x-rayno fracture within pelvis/hip Shoulder x-rayno fracture Chest CTno traumatic process within the chest Left hip CT-no acute findings Noted the patient has been receiving PRN Haldol the last 3 evenings, will trial Seroquel 12.5 mg HS - up titrate as tolerated for effectiveness. D/C Haldol. Today, patient is confused however cooperative and pleasant. Initial PT evaluation recommended patient return home with 24-hour supervision. Extensive conversation with patient's daughter today regarding discharge planning. States that patient lives with her son who has medical issues and is not able to assist. Daughter also unable to assist due to medical issues. Daughter expresses concern with her brother's drug use. States that patient is not safe to return there. Discussed with case management. Will have PT reevaluate patient tomorrow and submit for insurance authorization for SNF placement. If denied, consider peer to peer and/or office of aging involvement. IPMN CT abdomen pelvis2.1 cm cystic lesion within the pancreatic tail. May reflect a sidebranch IPMN. This could be assessed with a pancreas protocol MRI in 6 months. Patient currently denies abdominal pain, nausea, vomiting. Re-discussed findings with daughter. Recommend close outpatient follow-up with GI and pancreas protocol MRI in 6 months. Daughter agreeable. DEDRICK on CKD stage III Baseline creatinine low 1s Creatinine 1.42 -> 1.39 Hold torsemide, gentle IVF overnight Follow-up renal functions in a.m. Hypothyroidism Continue levothyroxine History of CAD nonobstructive: Mid LAD 50% stenosis per Cardiac cath June 2020. On beta-andrei, nitrate, statin Heart failure with preserved ejection fraction On torsemide, holding tomorrow's dose due to mild DEDRICK, resume as able Severe aortic stenosis s/p TAVR August 2020 Recurrent pulm embolism On Eliquis, continue Polymyalgia rheumatica On chronic prednisone DVT PROPHYLAXIS On Eliquis Dispo -medically stable for discharge, placement pending, see discussion with daughter as above Patient seen in collaboration with Dr. Rodriges. Admission and Anticipated Discharge Date Admission Date: March 02, 2024 Subjective Follow-up for ambulatory dysfunction, mechanical fall. Patient seen and examined. Confused however pleasant and cooperative. Offers no complaints. Physical Exam Constitutional: WD/WN, vitals as above no acute distress Respiratory: normal respiratory effort, lungs clear to auscultation Cardiovascular: Rate/Rhythm: regular rate and regular rhythm Extremities: + edema (+1-2 edema BLE) Gastrointestinal (Abdomen): Percussion/Palpation: abdomen soft; abdomen nontender Skin: no rashes, warm and dry Neurologic: no focal motor deficits Psychiatric: Orientation: alert, oriented to person and cooperative; + not oriented to place and + not oriented to time Results & Data Results & Data Vital Signs (Past 12 Hours) Vital Signs Temp Pulse Pulse Resp BP BP Pulse Ox 03/05/24 14:40 36.6 C 87 16 116/68 95 03/05/24 10:06 60 18 111/75 94 03/05/24 08:30 88 20 180/90 H 96 O2 Del Method 03/05/24 14:40 Room Air 03/05/24 10:06 Room Air 03/05/24 08:30 Room Air Laboratory Results BMP 03/05/24 07:40 Sodium 134 L Potassium 3.5 Chloride 102 Carbon Dioxide 24 BUN 21 Creatinine 1.39 H Glucose 95 Calcium 8.9
[2024-03-05] MEDS: SODIUM CHLORIDE 0.9% 1,000 ML IV SCH (17:52)
[2024-03-05] MEDS: QUEtiapine FUMARATE 25 MG TABLET PO SCH (21:58)
[2024-03-06 09:09] LABS: BUN Creatinine Ratio 14.4 (10-20); Calcium 8.1 mg/dl (8.6-10.3); Creatinine Clr Calc Pharmacy 28.5 ml/min; Est GFR (African American) 44.2 ml/min; Est GFR (Non-African American) 38.1 ml/min; Potassium 3.5 mmol/L (3.5-5.1)
--- NOTE | 2024-03-06 17:30 | Hospitalist Progress Note ---
Date of Service March 06, 2024 Assessment & Plan (1) Ambulatory dysfunction: (2) Acute pain of left hip: (3) Fall from standing: Plan: Patient is a 89-year-old female with Past medical history of nontoxic multinodular goiter, hyperlipidemia, PE, CKD stage III, PMR, osteoporosis, who presented to the ED 03/02 after mechanical fall. On presentation to the ED, patient was normotensive, afebrile and saturating well on room air CT head without contrast - did not show any acute finding Hip/pelvic x-rayno fracture within pelvis/hip Shoulder x-rayno fracture Chest CTno traumatic process within the chest Left hip CT-no acute findings Will DC any antipsychotic for the time being Delirium precautions IPMN CT abdomen pelvis2.1 cm cystic lesion within the pancreatic tail. May reflect a sidebranch IPMN. This could be assessed with a pancreas protocol MRI in 6 months. Patient currently denies abdominal pain, nausea, vomiting. Discussion was done with patient's daughter at admission. Recommend close outpatient follow-up with GI and pancreas protocol MRI in 6 months. Daughter agreeable. DEDRICK on CKD stage III Baseline creatinine low 1s Creatinine 1.42 -> 1.25 Avoid nephrotoxic agent Hypothyroidism Continue levothyroxine History of CAD nonobstructive: Mid LAD 50% stenosis per Cardiac cath June 2020. On beta-andrei, nitrate, statin Heart failure with preserved ejection fraction On torsemide, continue Severe aortic stenosis s/p TAVR August 2020 Recurrent pulm embolism On Eliquis, continue Polymyalgia rheumatica On chronic prednisone DVT PROPHYLAXIS On Eliquis Dispo -medically stable for discharge, placement pending, see discussion with daughter as above Please note the above document was generated using voice recognition software. It may contain grammatical, syntax or spelling errors. Any formal questions or concerns about the content, text or information contained within the body of this dictation should be directly addressed to the provider for clarification Admission and Anticipated Discharge Date Admission Date: March 02, 2024 Subjective Send seen and examined at bedside. She is comfortable lying in the bed; not in distress. She is oriented to self, date of . Requires frequent reorientation. Review of Systems Review of Systems: All systems reviewed & are unremarkable except as noted in Subjective Physical Exam Physical Exam: Constitutional: Alert oriented to self and place. Requires reorientation Respiratory: Bilateral vesicular breath sound Cardiovascular: RRR, no murmur, no edema Vessels: no JVD or carotid bruit Chest: normal inspection of chest Abdomen: normal bowel sounds, soft, nontender, no hepatosplenomegaly Musculoskeletal: No pedal edema. Skin: no rashes, warm and dry normal turgor Neurologic: PERRL, EOMI, accommodation nl, no face palsy, no dysarthria CN's II- XI intact bilaterally and moves all extremities Results & Data Results & Data Vital Signs (Past 12 Hours) Vital Signs Temp Pulse Resp BP BP Pulse Ox O2 Del Method 03/06/24 15:06 Room Air 03/06/24 14:00 36.4 C L 72 16 125/59 L 93 Room Air 03/06/24 07:57 36.8 C 60 16 162/89 H 97 Room Air
--- NOTE | 2024-03-07 14:45 | Hospitalist Progress Note ---
Date of Service March 07, 2024 Assessment & Plan (1) Ambulatory dysfunction: (2) Acute pain of left hip: (3) Fall from standing: Plan: Patient is a 89-year-old female with Past medical history of nontoxic multinodular goiter, hyperlipidemia, PE, CKD stage III, PMR, osteoporosis, who presented to the ED 03/02 after mechanical fall. On presentation to the ED, patient was normotensive, afebrile and saturating well on room air CT head without contrast - did not show any acute finding Hip/pelvic x-rayno fracture within pelvis/hip Shoulder x-rayno fracture Chest CTno traumatic process within the chest Left hip CT-no acute findings Continue PT OT Bowel regimen Delirium precaution IPMN CT abdomen pelvis2.1 cm cystic lesion within the pancreatic tail. May reflect a sidebranch IPMN. This could be assessed with a pancreas protocol MRI in 6 months. Patient currently denies abdominal pain, nausea, vomiting. Discussion was done with patient's daughter at admission. Recommend close outpatient follow-up with GI and pancreas protocol MRI in 6 months. Daughter agreeable. DEDRICK on CKD stage III Baseline creatinine low 1s Creatinine 1.42 -> 1.25 Avoid nephrotoxic agent Hypothyroidism Continue levothyroxine History of CAD nonobstructive: Mid LAD 50% stenosis per Cardiac cath June 2020. On beta-andrei, nitrate, statin Heart failure with preserved ejection fraction On torsemide, continue Severe aortic stenosis s/p TAVR August 2020 Recurrent pulm embolism On Eliquis, continue Polymyalgia rheumatica On chronic prednisone DVT PROPHYLAXIS On Eliquis Dispo -medically stable for discharge, placement pending, Please note the above document was generated using voice recognition software. It may contain grammatical, syntax or spelling errors. Any formal questions or concerns about the content, text or information contained within the body of this dictation should be directly addressed to the provider for clarification Admission and Anticipated Discharge Date Admission Date: March 02, 2024 Subjective Patient seen and examined at bedside. Comfortable; not in distress. Denies fever, chills, chest pain, shortness of breath, abdominal pain or urinary symptoms. No significant overnight events Review of Systems Review of Systems: All systems reviewed & are unremarkable except as noted in Subjective Physical Exam Physical Exam: Constitutional: Alert oriented to self and place. Requires reorientation Respiratory: Bilateral vesicular breath sound Cardiovascular: RRR, no murmur, no edema Vessels: no JVD or carotid bruit Chest: normal inspection of chest Abdomen: normal bowel sounds, soft, nontender, no hepatosplenomegaly Musculoskeletal: No pedal edema. Skin: no rashes, warm and dry normal turgor Neurologic: PERRL, EOMI, accommodation nl, no face palsy, no dysarthria CN's II- XI intact bilaterally and moves all extremities Results & Data Results & Data Vital Signs (Past 12 Hours) Vital Signs Temp Pulse Resp BP Pulse Ox O2 Del Method 03/07/24 14:13 36.7 C 75 103/61 93 Room Air 03/07/24 08:06 36.5 C 75 16 124/80 98 Room Air
[2024-03-07] MEDS: POLYETHYLENE (MIRALAX) 17 GM PACK PO SCH (15:19)
[2024-03-08] MEDS: ONDANSETRON INJ 2 MG/ML 2 ML VIAL IV STA (02:15)
[2024-03-08 06:51] LABS: Albumin Globulin Ratio 1.2 (0.9-2); Albumin Level 3.2 gm/dl (3.4-5.0); BUN Creatinine Ratio 20.7 (10-20); Bilirubin,Total 0.5 mg/dl (0.2-1.0); Calcium 7.7 mg/dl (8.6-10.3); Creatinine Clr Calc Pharmacy 24.6 ml/min; Est GFR (African American) 36.9 ml/min; Est GFR (Non-African American) 31.8 ml/min; Globulin 2.6 gm/dl (2.5-4.0); Potassium 3.8 mmol/L (3.5-5.1); Total Protein 5.8 gm/dl (6.0-8.3)
--- NOTE | 2024-03-08 11:17 | Hospitalist Progress Note ---
Date of Service March 08, 2024 Assessment & Plan (1) Ambulatory dysfunction: (2) Acute pain of left hip: (3) Fall from standing: Plan: Patient is a 89-year-old female with Past medical history of nontoxic multinodular goiter, hyperlipidemia, PE, CKD stage III, PMR, osteoporosis, who presented to the ED 03/02 after mechanical fall. On presentation to the ED, patient was normotensive, afebrile and saturating well on room air CT head without contrast - did not show any acute finding Hip/pelvic x-rayno fracture within pelvis/hip Shoulder x-rayno fracture Chest CTno traumatic process within the chest Left hip CT-no acute findings Continue PT OT Bowel regimen Delirium precaution IPMN CT abdomen pelvis2.1 cm cystic lesion within the pancreatic tail. May reflect a sidebranch IPMN. This could be assessed with a pancreas protocol MRI in 6 months. Patient currently denies abdominal pain, nausea, vomiting. Discussion was done with patient's daughter at admission. Recommend close outpatient follow-up with GI and pancreas protocol MRI in 6 months. Daughter agreeable. CKD stage III Creatinine at baseline of 1.2-1.4. Avoid nephrotoxic agent Hypothyroidism Continue levothyroxine History of CAD nonobstructive: Mid LAD 50% stenosis per Cardiac cath June 2020. On beta-andrei, nitrate, statin Heart failure with preserved ejection fraction On torsemide, continue Severe aortic stenosis s/p TAVR August 2020 Recurrent pulm embolism On Eliquis, continue Polymyalgia rheumatica On chronic prednisone DVT PROPHYLAXIS On Eliquis Dispo -medically stable for discharge, placement pending, Please note the above document was generated using voice recognition software. It may contain grammatical, syntax or spelling errors. Any formal questions or concerns about the content, text or information contained within the body of this dictation should be directly addressed to the provider for clarification Admission and Anticipated Discharge Date Admission Date: March 02, 2024 Subjective Patient seen and examined at bedside. She is comfortable; not in distress. No episode of agitation overnight Alert and oriented to self and place. Review of Systems Review of Systems: All systems reviewed & are unremarkable except as noted in Subjective Physical Exam Physical Exam: Constitutional: Alert oriented to self and place. Requires reorientation Respiratory: Bilateral vesicular breath sound Cardiovascular: RRR, no murmur, no edema Vessels: no JVD or carotid bruit Chest: normal inspection of chest Abdomen: normal bowel sounds, soft, nontender, no hepatosplenomegaly Musculoskeletal: No pedal edema. Skin: no rashes, warm and dry normal turgor Neurologic: PERRL, EOMI, accommodation nl, no face palsy, no dysarthria CN's II- XI intact bilaterally and moves all extremities Results & Data Results & Data Vital Signs (Past 12 Hours) Vital Signs Temp Pulse Pulse Resp BP Pulse Ox O2 Del Method 03/08/24 08:00 69 109/64 03/08/24 06:55 36.4 C L 76 16 148/76 H 96 Room Air
--- NOTE | 2024-03-09 15:09 | Discharge Summary ---
Date of Service March 09, 2024 Admission HPI Per Admitting Provider History obtained from interview with the patient and patient's daughter at bedside as well as chart review. Past medical history of nontoxic multinodular goiter, hyperlipidemia, PE, CKD stage III, PMR, osteoporosis, history of long-term systemic steroid use Patient presented to the hospital after mechanical fall after fall on the stairs. Patient lost her footing while getting off of a chairlift and fell down 1 step landing on her left side She denies striking her head, no loss of consciousness. Patient reports left groin pain after the fall and has been having pain while moving her left groin She bruised her left forearm and has a laceration on her left dorsal aspect of her hand She lives with her son who is disabled; helps her with medications. Patient also has 2 daughters who live close by. Patient has history of mild cognitive dysfunction; is forgetful and requires reorientation. On presentation to the ED, patient was normotensive, afebrile and saturating well on room air CT head without contrast test did not show any acute finding Hip/pelvic x-rayno fracture within pelvis/hip Shoulder x-rayno fracture Chest CTno traumatic process within the chest CT abdomen pelvis2.1 cm cystic lesion within the pancreatic tail. May reflect a sidebranch IPMN.This could be assessed with a pancreas protocol MRI in 6 months. Patient was then referred for admission. Admission Exam Per Admitting Provider Constitutional: Alert oriented to self and place. Requires reorientation Respiratory: Bilateral vesicular breath sound Cardiovascular: RRR, no murmur, no edema Vessels: no JVD or carotid bruit Chest: normal inspection of chest Abdomen: normal bowel sounds, soft, nontender, no hepatosplenomegaly Musculoskeletal: Pain in left groin; ROM limited by pain on left hip. Bruise present on left arm; skin tear present on left hand on dorsal aspectno bleeding noted. Skin: no rashes, warm and dry normal turgor Neurologic: PERRL, EOMI, accommodation nl, no face palsy, no dysarthria CN's II- XI intact bilaterally and moves all extremities Principal Diagnosis Ambulatory dysfunction Mechanical fall Discharge Exam Constitutional: Alert oriented to self and place. Requires reorientation Respiratory: Bilateral vesicular breath sound Cardiovascular: RRR, no murmur, no edema Vessels: no JVD or carotid bruit Chest: normal inspection of chest Abdomen: normal bowel sounds, soft, nontender, no hepatosplenomegaly Musculoskeletal: No pedal edema. Skin: no rashes, warm and dry normal turgor Neurologic: PERRL, EOMI, accommodation nl, no face palsy, no dysarthria CN's II- XI intact bilaterally and moves all extremities Discharge Data Allergies Allergy/AdvReac Type Severity Reaction Status Date / Time dobutamine Allergy Severe psych Verified 03/02/24 18:37 complications morphine Allergy Severe Could not Verified 03/02/24 18:37 breathe as per px NSAIDS (Non-Steroidal Allergy Intermediate ITCH Verified 03/02/24 18:37 Anti-Inflamma etodolac Allergy Unknown Unknown Verified 03/02/24 18:37 nabumetone [From Relafen] Allergy Unknown Unknown Verified 03/02/24 18:37 hydromorphone AdvReac Intermediate DIZZY,NAUSE Verified 03/02/24 18:37 A minocycline AdvReac Intermediate Nausea Verified 03/02/24 18:37 Consultations 03/02/24 18:00 ED Decision to Admit Stat Ordered Studies 03/02/24 14:45 CT abd pelvis IV con only Stat CT cervical spine wo con Stat CT chest diagnostic w con Stat CT head/brain wo con Stat 03/02/24 18:36 CT hip LT wo con Stat Hospital Course (1) Ambulatory dysfunction: (2) Acute pain of left hip: (3) Fall from standing: Patient is a 89-year-old female with Past medical history of nontoxic multinodular goiter, hyperlipidemia, PE, CKD stage III, PMR, osteoporosis, who presented to the ED 03/02 after mechanical fall. On presentation to the ED, patient was normotensive, afebrile and saturating well on room air CT head without contrast - did not show any acute finding Hip/pelvic x-rayno fracture within pelvis/hip Shoulder x-rayno fracture Chest CTno traumatic process within the chest Left hip CT-no acute findings During the hospitalization, PT OT evaluation was done. She was able to walk 120 feet with the help of rolling walker. She was recommended to go home with 24-hour care. Case management discussed with daughter; agreeable to go back home. Patient discharged home; no medication changes done at discharge. Please note the above document was generated using voice recognition software. It may contain grammatical, syntax or spelling errors. Any formal questions or concerns about the content, text or information contained within the body of this dictation should be directly addressed to the provider for clarification Total Time Total Time Spent Total Time Spent (In Minutes): 45 Total Time Includes: Examination of the Patient, Discharge Planning, Medication Reconciliation, Communication With Other Providers and Other Discharge Plan Discharge Items Patient Disposition: Home - Self-Care Reason For Visit: PLACEMENT/INCREASED ADL NEEDS Discharge Diagnosis: Ambulatory dysfunction Mechanical fall Activity: Resume your previous activity Non-emergency contact: Primary Care Provider Call non-emergency contact if: you have any medication questions and your symptoms worsen Follow-up/Referrals: Moreno Parham [Primary Care Provider] - Diet: Regular Addtl Attending Provider Instructions: You were admitted to the hospital due to mechanical fall. You underwent CT of the head, pelvic x-ray, shoulder x-ray, chest CT and left hip CT which did not show any fracture or traumatic injury. You are found to have 2.1 cm cystic lesion within the pancreatic tail. May reflect a sidebranch IPMN. This could be assessed with a pancreas protocol MRI in 6 months. No medication changes have since been done. An appointment with your primary care will be set up for sometime later this week or next week. Pending Studies at Discharge: No Stand-Alone Forms: My [facility] [email or web address], Smoking Cessation Medications and DC Order Prescriptions: Continued trazodone 50 mg tablet 50 mg PO HS Rx Instructions: May take 25mg by mouth during the day if needed pantoprazole [Protonix] 20 mg tablet,delayed release (DR/EC) 0 mg PO BID Rx Instructions: Last filled 11/2023 x90 day supply. Original Directions: 20mg by mouth twice daily nitroglycerin [Nitrostat] 0.4 mg tablet, sublingual 0.4 mg sublingual UD PRN (Reason: Chest Pain) Eliquis 2.5 mg tablet 2.5 mg PO AMHS acetaminophen [Tylenol Extra Strength] 500 mg Tablet 500 mg PO AMPM isosorbide mononitrate 60 mg Tablet Extended Release 24 Hr 60 mg PO QAM metoprolol succinate 50 mg Tablet Extended Release 24 Hr 0 mg PO BID Rx Instructions: Last filled 11/2023 x90 day supply. Original Directions: 50mg by mouth twice daily torsemide 5 mg tablet 5 mg PO [id number] Rx Instructions: M/W/F rosuvastatin 10 mg tablet 10 mg PO HS amoxicillin 500 mg capsule 2,000 mg PO DIRECTED PRN (Reason: PRIOR TO DENTAL PROCEDURES) fexofenadine [Allergy Relief (fexofenadine)] 180 mg tablet 180 mg PO BID levothyroxine 75 mcg tablet 75 mcg PO DAILYBB prednisone 2.5 mg tablet 2.5 mg PO DAILY Discharge Orders: Discharge Order (Routine); Ordered 03/09/24 Ordered By: Rony Rosa Admission Data Admit Date/Time: 03/02/24 18:21 Attending Provider: Rony Rosa Admit Provider: Rony Rosa Primary Care Provider: Moreno Parham Other Providers: Masha Woodard; Rony Rosa
== END 2024-03-09 16:09 | disposition home or self-care (01) | DRG 556 ==
LOC: ED 14:26 → SUATTDRO 18:21 → EDINP 18:21 → 3N 22:46

== ENCOUNTER 2024-03-20 17:59 | Inpatient (IN) ==
--- NOTE | 2024-03-20 18:14 | Emergency Department Note ---
Impression & Plan Generalized weakness, Dementia, Acute UTI ED Provider Note Provider: Fili Navarro MD DATE OF SERVICE: 03/20/2024 CHIEF COMPLAINT: Weak, had all body pain HISTORY OF PRESENT ILLNESS: Patient is a 89-year-old female history of dementia, CKD, PE, PMR, aortic stenosis, hypertension, GERD, and osteoporosis presenting via ambulance from home today reportedly experiencing ambulatory dysfunction and generalized weakness with reports earlier having some pain all over her body. Patient herself states that home health visited today and she was feeling nauseous earlier and did not look well and [facility] recommended she come get evaluated here. She denies falling. She is not the best historian however and does not know the month, year, and believes it is the fall season when it is March. Patient does appear little bit tachypneic at times and anxious during exam but states she does not feel this way or short of breath. Denies chest pain or abdominal pain or any pain at the current time. States she lives at home with her son. Reached out to primary contact listed in the medical record her daughter who relayed that home health had said the patient was breathing but fast and not well and seemed cold and clammy with concern for possible sepsis. Patient evidently has been having possibly some anxiety as well as some owning since recent hospitalization here. No falls are reported. PAST MEDICAL HISTORY: As noted above MEDICATIONS: Reviewed home medication list SOCIAL HISTORY: Lives at home with son PHYSICAL EXAM: GENERAL: alert and oriented to her birthday but not the current time/month/year/season occasionally a little bit anxious appearing and tachypneic. Head: normocephalic and atraumatic EYES: No injection, discharge or icterus. PERRL, EOMI. NECK: Trachea midline. Supple. ENT: Mucous membranes pink and moist. Pharynx without erythema or exudate. LUNGS: Airway patent. No retractions. Breath sounds clear with good air entry bilaterally. HEART: Regular rate and rhythm. No chest wall tenderness ABDOMEN: Soft and non-tender, without guarding or rebound. SKIN: Acyanotic, warm, dry, with some scattered bruises on the upper extremities. EXTREMITIES: Without swelling, tenderness or deformity NEUROLOGICAL: No focal deficits. No aphasia. No facial droop or slurred speech. Normal strength and tone in the extremities. Sensation to gross touch normal. EK bpm some artifact but what appears to be sinus rhythm with a QTc of [address] segment elevation or depression. CONTINUOUS CARDIAC MONITORING: was ordered and showed a heart rate of 60s bpm in sinus rhythm Patient's laboratory studies and imaging reviewed. Differential includes Infection, dehydration, metabolic abnormality, hypo/hyperglycemia, electrolyte disturbance, anemia, hypoxia, cardiac sources, intracerebral event, toxicologic, neurologic, as well as other pathologies. IMPRESSION/MEDICAL DECISION MAKING: Patient appears a bit anxious but vitals are reassuring upon arrival. Denies any trauma. States generalized weakness evidently had some pain earlier and nausea but that is resolved at the current time. Lives at home with her son who evidently has some disability himself. Given question of possible infectious etiology given the cold clammy and breathing concerns chest x-ray basic labs were obtained. Anticoagulated with Eliquis and I doubt VTE. CT head obtained given her dementia status just to ensure with the anticoagulation to ensure no intracranial bleeding. Does not appear lethargic on exam. 1 view chest x-ray per interpretation: No evidence of any acute free air, pneumonia, pneumothorax, or significant pulmonary opacities. Blood work here reassuring without anemia or leukocytosis. No significant renal dysfunction or evidence of electrolyte abnormality. CK normal as is troponin. Symptoms ongoing this morning I doubt this represents acute ACS. Anticoagulated again I doubt PE. CT head completed per radiology report without acute abnormality noted. Urinalysis concerning for infection. Will cover with a dose ceftriaxone at this time. Discussed with daughter via phone. Recommended given her infection and concerns for care at home while I do not believe she is septic hospitalization will be pursued. Hospitalist team contacted DIAGNOSIS: Weakness, UTI, dementia DISPOSITION: Hospitalist will evaluate Patient was agreeable with this plan. Past Med/Surg History Medical History Hearing loss in left ear Chest pain History of pulmonary embolism GI bleed Dysphagia C2 cervical fracture GERD (gastroesophageal reflux disease) Hypertension Osteoporosis History of syncope History of palpitations H/O polymyalgia rheumatica Paroxysmal tachycardia "Cardiac Zio event monitor captured a 10 beat trina of non sustained VT and several brief SVT episodes" Aortic stenosis s/p TAVR Hypothyroidism Essential tremor Dyslipidemia Pulmonary embolism Arthritis Surgical History S/P cholecystectomy H/O knee surgery S/P section History of cataract surgery Family History Other Cancer Coronary heart disease Rheumatoid arthritis Stroke Social History Smoking Status: Former smoker Second Hand Exposure: No; Do You Dip or Chew Tobacco: No; Hx Alcohol Use: No Hx Substance Use: No Preferred Language: French Communication Ability: Effective Vineyardist Required: No Beliefs That Will Affect Care: None marital status: / Current Living Situation: Family Current Living Situation Comment: lives with son who helps with care How many Children do You have: 3 Feels Safe at Home: Yes Assistive Devices: Walker Allergies Allergies Allergy/AdvReac Type Severity Reaction Status Date / Time dobutamine Allergy Severe psych Verified 03/02/24 18:37 complications morphine Allergy Severe Could not Verified 03/02/24 18:37 breathe as per px NSAIDS (Non-Steroidal Allergy Intermediate ITCH Verified 03/02/24 18:37 Anti-Inflamma etodolac Allergy Unknown Unknown Verified 03/02/24 18:37 nabumetone [From Relafen] Allergy Unknown Unknown Verified 03/02/24 18:37 hydromorphone AdvReac Intermediate DIZZY,NAUSE Verified 03/02/24 18:37 A minocycline AdvReac Intermediate Nausea Verified 03/02/24 18:37 Home Meds Home Medications Medication Instructions Recorded Confirmed apixaban 2.5 mg tablet (Eliquis) 2.5 mg PO AMHS 05/29/19 03/20/24 nitroglycerin 0.4 mg sublingual 0.4 mg sublingual UD PRN Chest Pain 05/29/19 03/20/24 tablet (Nitrostat) pantoprazole 20 mg tablet,delayed 20 mg PO AMPM 05/29/19 03/20/24 release (Protonix) trazodone 50 mg tablet 50 mg PO HS 05/29/19 03/20/24 acetaminophen 500 mg tablet 500 mg PO AMPM 04/12/20 03/20/24 (Tylenol Extra Strength) rosuvastatin 10 mg tablet 10 mg PO HS 06/12/21 03/20/24 isosorbide mononitrate 60 mg 60 mg PO QAM 06/03/23 03/20/24 tablet,extended release 24 hr metoprolol succinate 50 mg 50 mg PO AMPM 06/03/23 03/20/24 tablet,extended release 24 hr torsemide 5 mg tablet 5 mg PO [id number] 11/14/23 03/20/24 amoxicillin 500 mg capsule 2,000 mg PO DIRECTED PRN PRIOR 01/29/24 03/20/24 TO DENTAL PROCEDURES fexofenadine 180 mg tablet 180 mg PO BID rash 03/02/24 03/20/24 (Allergy Relief (fexofenadine)) levothyroxine 75 mcg tablet 75 mcg PO DAILYBB 03/02/24 03/20/24 prednisone 2.5 mg tablet 2.5 mg PO DAILY 03/02/24 03/20/24 Results & Data (ED) Vital Signs Vital Signs - 24 hr 03/20/24 18:06 03/20/24 18:07 03/20/24 18:07 Temperature 36.6 C Temperature Source Oral Pulse Rate 67 66 Pulse Rate [Apical] Respiratory Rate 28 H Respiratory Effort / Characteristics Respiratory Depth Respiratory Pattern Blood Pressure 167/84 H Blood Pressure [Right Arm] Blood Pressure Mean 111 Blood Pressure Mean [Right Arm] Pulse Oximetry 98 Oxygen Delivery Method Room Air Room Air Sepsis Recent Fever Within 48 Hours No Sepsis New/Unexplained Change in Mental Status No Sepsis Action Taken by Nursing No Action Required 03/20/24 18:17 03/20/24 19:00 03/20/24 21:00 Temperature Temperature Source Pulse Rate Pulse Rate [Apical] 69 68 Respiratory Rate 18 18 Respiratory Effort / Characteristics Non-Labored Non-Labored Respiratory Depth Normal Normal Respiratory Pattern Regular Regular Blood Pressure Blood Pressure [Right Arm] 161/88 H 165/86 H Blood Pressure Mean Blood Pressure Mean [Right Arm] 112 112 Pulse Oximetry 96 98 Oxygen Delivery Method Room Air Room Air Room Air Sepsis Recent Fever Within 48 Hours Sepsis New/Unexplained Change in Mental Status Sepsis Action Taken by Nursing 03/20/24 22:27 Temperature Temperature Source Pulse Rate 67 Pulse Rate [Apical] Respiratory Rate Respiratory Effort / Characteristics Respiratory Depth Respiratory Pattern Blood Pressure Blood Pressure [Right Arm] Blood Pressure Mean Blood Pressure Mean [Right Arm] Pulse Oximetry Oxygen Delivery Method Sepsis Recent Fever Within 48 Hours Sepsis New/Unexplained Change in Mental Status Sepsis Action Taken by Nursing Laboratory Data 03/20/24 18:14 03/20/24 18:14 Lab Results 03/20/24 03/20/2403/20/24 Range/Units 18:14 18:27 19:50 WBC 7.22 (4.8-10.8) K/ul RBC 4.15 L (4.20-5.40) M/uL Hgb 12.0 (12.0-16.0) g/dl Hct 35.9 L (37.0-47.0) % MCV 86.5 (80.0-100.0) fL MCH 28.9 (25.0-34.0) pg MCHC 33.4 (32.0-36.0) g/dL RDW Std Deviation 42.6 (36.4-46.3) fL RDW Coeff of Jing 13.6 (11.5-14.5) % Plt Count 258 (130-400) K/uL MPV 9.6 (9.4-12.4) fL Immature Gran % (Auto) 0.3 % Neut % (Auto) 51.6 % Lymph % (Auto) 24.4 % Bell % (Auto) 9.7 % Eos % (Auto) 13.0 % Baso % (Auto) 1.0 % Neut # (Auto) 3.73 (1.40-6.50) K/uL Lymph # (Auto) 1.76 (1.20-3.40) K/uL Bell # (Auto) 0.70 H (0.11-0.59) K/uL Eos # (Auto) 0.94 H (0.00-0.50) K/uL Baso # (Auto) 0.07 (0.00-0.20) K/uL Immature Gran # (Auto) 0.02 (0.01-0.20) K/uL PT 11.0 (9.0-12.0) Seconds INR 1.0 (0.9-1.1) Sodium 138 (136-145) mmol/L Potassium 3.7 (3.5-5.1) mmol/L Chloride 107 (98-107) mmol/L Carbon Dioxide 23 (21-32) mmol/L Anion Gap 8 (3-11) BUN 11 (6-23) mg/dl Creatinine 1.18 (0.6-1.2) mg/dl Est Cr Clr Drug Dosing 30.8 ml/min Est GFR ( Amer) 47.4 ml/min Est GFR (Non-Af Amer) 40.9 ml/min BUN/Creatinine Ratio 9.3 L (10-20) Glucose 102 H (70-99(Fasting)) mg/dl Calcium 8.5 L (8.6-10.3) mg/dl Magnesium 1.8 (1.7-2.4) mg/dl Total Bilirubin 0.6 (0.2-1.0) mg/dl AST 22 (13-39) U/L ALT 10 (7-52) U/L Alkaline Phosphatase 64 (34-104) U/L Total Creatine Kinase 123 (26-192) U/L Troponin I High Sens 13.7 (0-14) pg/ml Total Protein 5.9 L (6.0-8.3) gm/dl Albumin 3.2 L (3.4-5.0) gm/dl Globulin 2.7 (2.5-4.0) gm/dl Albumin/Globulin Ratio 1.2 (0.9-2) TSH 9.222 H (0.300-4.500) uIu/ml Free T4 1.17 (0.61-1.60) ng/dl Urine Color Yellow Urine Appearance Cloudy A (Clear) Urine pH 7.5 (4.5-7.5) Ur Specific [place] 1.011 (1.000-1.030) Urine Protein Negative (Negative) Urine Glucose (UA) Negative (Negative) Urine Ketones Negative (Negative) Urine Blood Negative (Negative) Urine Nitrite Negative (Negative) Urine Bilirubin Negative (Negative) Urine Urobilinogen Negative (Negative) Ur Leukocyte Esterase 2+ H (Negative) Urine WBC (Auto) 6-10 H (0-5) /hpf Urine RBC (Auto) 0-2 (0-2) /hpf U Hyaline Cast (Auto) 0-2 (0-2) /lpf U Epithel Cells (Auto) 0-2 (0-2) /hpf Urine Bacteria (Auto) 3+ H (None Seen) SARS-CoV-2, RNA, NAAT NEGATIVE (NEGATIVE) Administered Medications Discontinued Medications Ceftriaxone Sodium (Rocephin) 2,000 mg in 50 mls @ 100 mls/hr IV NOW STA Stop: 03/20/24 21:19 Last Infusion: 03/20/24 22:28 Dose: Infused Documented By: Admin: 03/20/24 21:34 Dose: 100 mls/hr Documented By: ALEXANDER Imaging Data Radiologist's Impression: Head CT 03/20/24 18:33 Exam(s): CT HEAD Without Contrast EXAM: CT Head Without Intravenous Contrast CLINICAL HISTORY: Reason for exam: confusion, weakness. TECHNIQUE: Axial computed tomography images of the head/brain without intravenous contrast. CTDI is 37.87 mGy and DLP is 546.36 mGy-cm. Automated exposure control was utilized for the study. A dose lowering technique was utilized adhering to the principles of ALARA. COMPARISON: 03/02/2024. FINDINGS: Brain: Moderate generalized brain atrophy. Decreased attenuation within the deep periventricular white matter compatible with microangiopathic disease. No hemorrhage. Ventricles: Unremarkable. No ventriculomegaly. Bones/joints: Unremarkable. No acute fracture. Soft tissues: Unremarkable. Sinuses: Unremarkable as visualized. No acute sinusitis. Mastoid air cells: There is complete opacification of the left mastoid air cells which may be associated with mastoid effusion/mastoiditis. Clinical correlation recommended. IMPRESSION: Chronic changes as described. No acute intracranial hemorrhage or space-occupying lesion. Electronically signed by: Maricel Hernandez MD 03/20/24 20:42 PM Discharge Plan Visit Data Chief Complaint: Weakness ED Provider: Fili Navarro Discharge Problem: Generalized weakness, Dementia, Acute UTI Patient Disposition: Being Evaluated by Hospitalist Forms Stand Alone Forms: [facility] Prescriptions Prescriptions: No Action trazodone 50 mg tablet 50 mg PO HS pantoprazole [Protonix] 20 mg tablet,delayed release (DR/EC) 20 mg PO AMPM nitroglycerin [Nitrostat] 0.4 mg tablet, sublingual 0.4 mg sublingual UD PRN (Reason: Chest Pain) Eliquis 2.5 mg tablet 2.5 mg PO AMHS acetaminophen [Tylenol Extra Strength] 500 mg Tablet 500 mg PO AMPM isosorbide mononitrate 60 mg Tablet Extended Release 24 Hr 60 mg PO QAM metoprolol succinate 50 mg Tablet Extended Release 24 Hr 50 mg PO AMPM torsemide 5 mg tablet 5 mg PO [id number] Rx Instructions: M/W/F rosuvastatin 10 mg tablet 10 mg PO HS amoxicillin 500 mg capsule 2,000 mg PO DIRECTED PRN (Reason: PRIOR TO DENTAL PROCEDURES) fexofenadine [Allergy Relief (fexofenadine)] 180 mg tablet 180 mg PO BID levothyroxine 75 mcg tablet 75 mcg PO DAILYBB prednisone 2.5 mg tablet 2.5 mg PO DAILY Referrals Referrals: Moreno Parham [Primary Care Provider] - Discharge Problem: Dementia Qualifiers: Dementia type: unspecified type
[2024-03-20 18:47] LABS: Basophils # (auto) 0.07 K/uL (0.00-0.20); Eosinophils # (auto) 0.94 K/uL (0.00-0.50); Hematocrit (blood only) 35.9 % (37.0-47.0); Immature Granulocytes # (auto) 0.02 K/uL (0.01-0.20); Immature Granulocytes % (auto) 0.3 %; Lymphocytes # (auto) 1.76 K/uL (1.20-3.40); Lymphocytes % (auto) 24.4 %; Mean Corpuscular Hemoglobin 28.9 pg (25.0-34.0); Mean Corpuscular Hgb Conc 33.4 g/dL (32.0-36.0); Mean Corpuscular Volume 86.5 fL (80.0-100.0); Mean Platelet Volume 9.6 fL (9.4-12.4); Monocytes % (auto) 9.7 %; Neutrophils # (auto) 3.73 K/uL (1.40-6.50); Neutrophils % (auto) 51.6 %; Platelet Count 258 K/uL (130-400); RDW Coefficient of Variation 13.6 % (11.5-14.5); RDW Standard Deviation 42.6 fL (36.4-46.3); Red Blood Count 4.15 M/uL (4.20-5.40); White Blood Count 7.22 K/ul (4.8-10.8)
[2024-03-20 19:20] LABS: Albumin Globulin Ratio 1.2 (0.9-2); Albumin Level 3.2 gm/dl (3.4-5.0); BUN Creatinine Ratio 9.3 (10-20); Bilirubin,Total 0.6 mg/dl (0.2-1.0); Calcium 8.5 mg/dl (8.6-10.3); Creatinine Clr Calc Pharmacy 30.8 ml/min; Est GFR (African American) 47.4 ml/min; Est GFR (Non-African American) 40.9 ml/min; Globulin 2.7 gm/dl (2.5-4.0); Magnesium 1.8 mg/dl (1.7-2.4); Potassium 3.7 mmol/L (3.5-5.1); Total Protein 5.9 gm/dl (6.0-8.3)
[2024-03-20 19:26] LABS: Troponin I High Sensitivity 13.7 pg/ml (0-14)
[2024-03-20 19:36] LABS: Thyroid Stimulating Hormone 9.222 uIu/ml (0.300-4.500)
[2024-03-20 20:11] LABS: T4 Free Thyroxine 1.17 ng/dl (0.61-1.60)
[2024-03-20 20:23] LABS: Appearance Urine Cloudy (Clear); Bacteria Urine Automated 3+ (None Seen); Bilirubin Urine Negative (Negative); Blood Urine Negative (Negative); Cast Urine Automated 0-2 /lpf (0-2); Color Urine Yellow; Epithelial Cell Urine Auto 0-2 /hpf (0-2); Glucose Urine UA Negative (Negative); Ketones Urine Negative (Negative); Leukocyte Esterase Urine 2+ (Negative); Nitrite Urine Negative (Negative); Protein Urine Negative (Negative); Specific Gravity Urine 1.011 (1.000-1.030); Urobilinogen Urine Negative (Negative); pH Urine 7.5 (4.5-7.5)
[2024-03-20 20:36] LABS: RBC Urine Automated 0-2 /hpf (0-2)
--- NOTE | 2024-03-20 20:43 | CT Scan Report ---
Exam(s): CT HEAD Without Contrast EXAM: CT Head Without Intravenous Contrast CLINICAL HISTORY: Reason for exam: confusion, weakness. TECHNIQUE: Axial computed tomography images of the head/brain without intravenous contrast. CTDI is 37.87 mGy and DLP is 546.36 mGy-cm. Automated exposure control was utilized for the study. A dose lowering technique was utilized adhering to the principles of ALARA. COMPARISON: 03/02/2024. FINDINGS: Brain: Moderate generalized brain atrophy. Decreased attenuation within the deep periventricular white matter compatible with microangiopathic disease. No hemorrhage. Ventricles: Unremarkable. No ventriculomegaly. Bones/joints: Unremarkable. No acute fracture. Soft tissues: Unremarkable. Sinuses: Unremarkable as visualized. No acute sinusitis. Mastoid air cells: There is complete opacification of the left mastoid air cells which may be associated with mastoid effusion/mastoiditis. Clinical correlation recommended. IMPRESSION: Chronic changes as described. No acute intracranial hemorrhage or space-occupying lesion. Electronically signed by: Maricel Hernandez MD 03/20/24 20:42 PM
[2024-03-20] MEDS: cefTRIAXone SODIUM 2,000 MG/50 ML BAG IV STA (21:34)
[2024-03-20] MEDS: LORazepam 0.5 MG TAB PO STA (23:18)
--- NOTE | 2024-03-21 01:06 | History & Physical Report ---
Date of Service March 21, 2024 Assessment & Plan (1) AMS (altered mental status): Plan: 89-year-old female with past medical history significant for nontoxic multinodular goiter, hyperlipidemia, history of PE, CKD stage III, polymyalgia rheumatica, osteoporosis, Aortic stenosis s/p TAVR was brought in because of confusion and found to have UTI. As per daughter patient's dementia is getting worse. Sometimes she does not know where she is. And today she was was not herself and she was more confused than usual. This reason she was brought to the hospital. She lives with her son. Son also has some disability from rheumatoid arthritis. Daughter lives about 6 miles away. Patient is also getting home health currently. Eats regular food. Patient is somewhat restless currently. Want to sit on chair. Ambulating okay in the ER with help. Patient can tell her name. But does not seem to know where she is. Denies any headache. Denies chest pain. Denies shortness of breath. Denies abdominal pain. Denies back pain. Denies pain in the legs. Denies nausea. States having normal bowel and bladder movements. No cough. Afebrile. Hemodynamically stable. Could not get much history from patient currently.Was recently in the hospital for fall and ambulatory dysfunction. Altered mental status Patient has dementia Possible from UTI Rocephin, gentle fluids Monitoring med/telemetry History of PE On Eliquis Hypothyroidism On Synthyroid Aortic stenosis S/p TAVR Hypertension On metoprolol succinate and Imdur CKD stage III Creatinine 1.1 Will follow labs Dementia Will monitor for delirium DVT prophylaxis On Eliquis Disposition Med/telemetry Full code as per my discussion with the daughter Daughter thinks patient may require long-term placement as he is getting more confused and sundowning at home and difficult to take care of her.. History of Present Illness Chief Complaint: Altered mental status and UTI Primary Care Provider: Moreno Parham 89-year-old female with past medical history significant for nontoxic multinodular goiter, hyperlipidemia, history of PE, CKD stage III, polymyalgia rheumatica, osteoporosis, Aortic stenosis s/p TAVR was brought in because of confusion and found to have UTI. As per daughter patient's dementia is getting worse. Sometimes she does not know where she is. And today she was was not herself and she was more confused than usual. This reason she was brought to the hospital. She lives with her son. Son also has some disability from rheumatoid arthritis. Daughter lives about 6 miles away. Patient is also getting home health currently. Eats regular food. Patient is somewhat restless currently. Want to sit on chair. Ambulating okay in the ER with help. Patient can tell her name. But does not seem to know where she is. Denies any headache. Denies chest pain. Denies shortness of breath. Denies abdominal pain. Denies back pain. Denies pain in the legs. Denies nausea. States having normal bowel and bladder movements. No cough. Afebrile. Hemodynamically stable. Could not get much history from patient currently.Was recently in the hospital for fall and ambulatory dysfunction. Past medical history. As mentioned above. Past surgical history. S/p cholecystectomy. Knee surgery. . Cataract surgery. Coronary angiography. TAVR. Social history. . Current lives with her son. No smoking. No alcohol use. No drug use. Family history. Mother had rheumatoid arthritis. Son has rheumatoid arthritis.. Sister has rheumatoid arthritis. Allergies Allergy/AdvReac Type Severity Reaction Status Date / Time dobutamine Allergy Severe psych Verified 03/02/24 18:37 complications morphine Allergy Severe Could not Verified 03/02/24 18:37 breathe as per px NSAIDS (Non-Steroidal Allergy Intermediate ITCH Verified 03/02/24 18:37 Anti-Inflamma etodolac Allergy Unknown Unknown Verified 03/02/24 18:37 nabumetone [From Relafen] Allergy Unknown Unknown Verified 03/02/24 18:37 hydromorphone AdvReac Intermediate DIZZY,NAUSE Verified 03/02/24 18:37 A minocycline AdvReac Intermediate Nausea Verified 03/02/24 18:37 Home Medications Medication Instructions Recorded Confirmed Type apixaban 2.5 mg tablet (Eliquis) 2.5 mg PO AMHS 05/29/19 03/20/24 History nitroglycerin 0.4 mg sublingual 0.4 mg sublingual UD PRN Chest Pain 05/29/19 03/20/24 History tablet (Nitrostat) pantoprazole 20 mg tablet,delayed 20 mg PO AMPM 05/29/19 03/20/24 History release (Protonix) trazodone 50 mg tablet 50 mg PO HS 05/29/19 03/20/24 History acetaminophen 500 mg tablet 500 mg PO AMPM 04/12/20 03/20/24 History (Tylenol Extra Strength) rosuvastatin 10 mg tablet 10 mg PO HS 06/12/21 03/20/24 History isosorbide mononitrate 60 mg 60 mg PO QAM 06/03/23 03/20/24 History tablet,extended release 24 hr metoprolol succinate 50 mg 50 mg PO AMPM 06/03/23 03/20/24 History tablet,extended release 24 hr torsemide 5 mg tablet 5 mg PO 3XWK 11/14/23 03/20/24 History amoxicillin 500 mg capsule 2,000 mg PO DIRECTED PRN PRIOR 01/29/24 03/20/24 History TO DENTAL PROCEDURES fexofenadine 180 mg tablet 180 mg PO BID rash 03/02/24 03/20/24 History (Allergy Relief (fexofenadine)) levothyroxine 75 mcg tablet 75 mcg PO DAILYBB 03/02/24 03/20/24 History prednisone 2.5 mg tablet 2.5 mg PO DAILY 03/02/24 03/20/24 History Past Med/Surg History Medical History Hearing loss in left ear Chest pain History of pulmonary embolism GI bleed Dysphagia C2 cervical fracture GERD (gastroesophageal reflux disease) Hypertension Osteoporosis History of syncope History of palpitations H/O polymyalgia rheumatica Paroxysmal tachycardia "Cardiac Zio event monitor captured a 10 beat trina of non sustained VT and several brief SVT episodes" Aortic stenosis s/p TAVR Hypothyroidism Essential tremor Dyslipidemia Pulmonary embolism Arthritis Surgical History S/P cholecystectomy H/O knee surgery S/P section History of cataract surgery Family History Other Cancer Coronary heart disease Rheumatoid arthritis Stroke Social History Smoking Status: Never smoker Second Hand Exposure: No; Do You Dip or Chew Tobacco: No; Hx Alcohol Use: No Hx Substance Use: No Preferred Language: Frisian Communication Ability: Effective 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 ENT- oropharynx clear Neck- supple, no JVD. Lungs- clear to auscultation no wheezing or crackles. Heart- regular rhythm; no murmur, no gallop. Abdomen- normal bowel sounds, soft, nontender, no distension. Extremities- b/l lower extremity edema present. No erythema seen. Neuro- alert, oriented x 1; PERRL, no facial palsy; no dysarthria; moves exremities. Results & Data Results & Data Vital Signs (Past 12 Hours) Vital Signs Temp Pulse Pulse Resp BP BP Pulse Ox 03/20/24 23:00 68 18 164/80 H 99 03/20/24 22:27 67 03/20/24 21:00 68 18 165/86 H 98 03/20/24 19:00 69 18 161/88 H 96 03/20/24 18:17 03/20/24 18:07 03/20/24 18:07 36.6 C 66 28 H 167/84 H 98 03/20/24 18:06 67 O2 Del Method 03/20/24 23:00 Room Air 03/20/24 22:27 03/20/24 21:00 Room Air 03/20/24 19:00 Room Air 03/20/24 18:17 Room Air 03/20/24 18:07 Room Air 03/20/24 18:07 Room Air 03/20/24 18:06 Diagnostic Findings Laboratory Results WBC 7.22 K/ul (4.8-10.8) 03/20/24 18:14 RBC 4.15 M/uL (4.20-5.40) L 03/20/24 18:14 Hgb 12.0 g/dl (12.0-16.0) 03/20/24 18:14 Hct 35.9 % (37.0-47.0) L 03/20/24 18:14 MCV 86.5 fL (80.0-100.0) 03/20/24 18:14 MCH 28.9 pg (25.0-34.0) 03/20/24 18:14 MCHC 33.4 g/dL (32.0-36.0) 03/20/24 18:14 RDW Std Deviation 42.6 fL (36.4-46.3) 03/20/24 18:14 RDW Coeff of Jing 13.6 % (11.5-14.5) 03/20/24 18:14 Plt Count 258 K/uL (130-400) 03/20/24 18:14 MPV 9.6 fL (9.4-12.4) 03/20/24 18:14 Immature Gran % (Auto) 0.3 % 03/20/24 18:14 Neut % (Auto) 51.6 % 03/20/24 18:14 Lymph % (Auto) 24.4 % 03/20/24 18:14 [place] % (Auto) 9.7 % 03/20/24 18:14 Eos % (Auto) 13.0 % 03/20/24 18:14 Baso % (Auto) 1.0 % 03/20/24 18:14 Neut # (Auto) 3.73 K/uL (1.40-6.50) 03/20/24 18:14 Lymph # (Auto) 1.76 K/uL (1.20-3.40) 03/20/24 18:14 [place] # (Auto) 0.70 K/uL (0.11-0.59) H 03/20/24 18:14 Eos # (Auto) 0.94 K/uL (0.00-0.50) H 03/20/24 18:14 Baso # (Auto) 0.07 K/uL (0.00-0.20) 03/20/24 18:14 Immature Gran # (Auto) 0.02 K/uL (0.01-0.20) 03/20/24 18:14 PT 11.0 Seconds (9.0-12.0) 03/20/24 18:14 INR 1.0 (0.9-1.1) 03/20/24 18:14 Sodium 138 mmol/L (136-145) 03/20/24 18:14 Potassium 3.7 mmol/L (3.5-5.1) 03/20/24 18:14 Chloride 107 mmol/L (98-107) 03/20/24 18:14 Carbon Dioxide 23 mmol/L (21-32) 03/20/24 18:14 Anion Gap 8 (3-11) 03/20/24 18:14 BUN 11 mg/dl (6-23) 03/20/24 18:14 Creatinine 1.18 mg/dl (0.6-1.2) 03/20/24 18:14 Est Cr Clr Drug Dosing 30.8 ml/min 03/20/24 18:14 Est GFR ( Amer) 47.4 ml/min 03/20/24 18:14 Est GFR (Non-Af Amer) 40.9 ml/min 03/20/24 18:14 BUN/Creatinine Ratio 9.3 (10-20) L 03/20/24 18:14 Glucose 102 mg/dl (70-99(Fasting)) H 03/20/24 18:14 Calcium 8.5 mg/dl (8.6-10.3) L 03/20/24 18:14 Magnesium 1.8 mg/dl (1.7-2.4) 03/20/24 18:14 Total Bilirubin 0.6 mg/dl (0.2-1.0) 03/20/24 18:14 AST 22 U/L (13-39) 03/20/24 18:14 ALT 10 U/L (7-52) 03/20/24 18:14 Alkaline Phosphatase 64 U/L (34-104) 03/20/24 18:14 Total Creatine Kinase 123 U/L (26-192) 03/20/24 18:14 Troponin I High Sens 13.7 pg/ml (0-14) 03/20/24 18:14 Total Protein 5.9 gm/dl (6.0-8.3) L 03/20/24 18:14 Albumin 3.2 gm/dl (3.4-5.0) L 03/20/24 18:14 Globulin 2.7 gm/dl (2.5-4.0) 03/20/24 18:14 Albumin/Globulin Ratio 1.2 (0.9-2) 03/20/24 18:14 TSH 9.222 uIu/ml (0.300-4.500) H 03/20/24 18:14 Free T4 1.17 ng/dl (0.61-1.60) 03/20/24 18:14 Urine Color Yellow 03/20/24 19:50 Urine Appearance Cloudy (Clear) A 03/20/24 19:50 Urine pH 7.5 (4.5-7.5) 03/20/24 19:50 Ur Specific [place] 1.011 (1.000-1.030) 03/20/24 19:50 Urine Protein Negative (Negative) 03/20/24 19:50 Urine Glucose (UA) Negative (Negative) 03/20/24 19:50 Urine Ketones Negative (Negative) 03/20/24 19:50 Urine Blood Negative (Negative) 03/20/24 19:50 Urine Nitrite Negative (Negative) 03/20/24 19:50 Urine Bilirubin Negative (Negative) 03/20/24 19:50 Urine Urobilinogen Negative (Negative) 03/20/24 19:50 Ur Leukocyte Esterase 2+ (Negative) H 03/20/24 19:50 Urine WBC (Auto) 6-10 /hpf (0-5) H 03/20/24 19:50 Urine RBC (Auto) 0-2 /hpf (0-2) 03/20/24 19:50 U Hyaline Cast (Auto) 0-2 /lpf (0-2) 03/20/24 19:50 U Epithel Cells (Auto) 0-2 /hpf (0-2) 03/20/24 19:50 Urine Bacteria (Auto) 3+ (None Seen) H 03/20/24 19:50 SARS-CoV-2, RNA, NAAT NEGATIVE (NEGATIVE) 03/20/24 18:[address] 03/20/24 18:33 Exam(s): CT HEAD Without Contrast EXAM: CT Head Without Intravenous Contrast CLINICAL HISTORY: Reason for exam: confusion, weakness. TECHNIQUE: Axial computed tomography images of the head/brain without intravenous contrast. CTDI is 37.87 mGy and DLP is 546.36 mGy-cm. Automated exposure control was utilized for the study. A dose lowering technique was utilized adhering to the principles of ALARA. COMPARISON: 03/02/2024. FINDINGS: Brain: Moderate generalized brain atrophy. Decreased attenuation within the deep periventricular white matter compatible with microangiopathic disease. No hemorrhage. Ventricles: Unremarkable. No ventriculomegaly. Bones/joints: Unremarkable. No acute fracture. Soft tissues: Unremarkable. Sinuses: Unremarkable as visualized. No acute sinusitis. Mastoid air cells: There is complete opacification of the left mastoid air cells which may be associated with mastoid effusion/mastoiditis. Clinical correlation recommended. IMPRESSION: Chronic changes as described. No acute intracranial hemorrhage or space-occupying lesion. Electronically signed by: Maricel Hernandez MD 03/20/24 20:42 PM Code Status & VTE Plan VTE Prophylaxis Plan VTE Prophylaxis will be ordered: Yes
[2024-03-21] MEDS: traZODone HCL 50 MG TAB PO STA (01:27)
[2024-03-21] MEDS ORDERED: NITROGLYCERIN SL 0.4 MG/TAB TAB SL PRN (02:05)
[2024-03-21] MEDS ORDERED: ACETAMINOPHEN 325 MG TAB PO PRN (02:05)
[2024-03-21] MEDS: SODIUM CHLORIDE 0.9% 1,000 ML IV SCH (02:44)
[2024-03-21] MEDS: METOPROLOL SUCC 50MG EXT REL TAB PO SCH (03:16)
[2024-03-21] MEDS: LEVOTHYROXINE SODIUM 75 MCG TABLET PO SCH (05:13)
--- NOTE | 2024-03-21 07:02 | XRay Report ---
XR chest 1V portable CLINICAL HISTORY: weakness TECHNIQUE: Single frontal radiograph of the chest was obtained. Comparison: Comparison is made to chest radiograph 01/28/2014 FINDINGS: No lines and tubes are seen. Cardiomegaly is noted. The aortic arch is calcified. The lungs are clear . No evidence of pleural effusion or pneumothorax. IMPRESSION: No acute chest disease. ACT 112: Negative or not required by law. Electronically signed by: Donavan Driscoll M.D. 03/21/2024 7:01 AM
--- NOTE | 2024-03-21 07:03 | Electrocardiogram Report ---
Test Reason : Blood Pressure : / mmHG Vent. Rate : 066 BPM Atrial Rate : 000 BPM P-R Int : 000 ms QRS Dur : 086 ms QT Int : 432 ms P-R-T Axes : 000 018 042 degrees QTc Int : 452 ms Sinus rhythm with 1st degree AV block Abnormal ECG Confirmed by Kyrie Wallace ([id number]) on 03/21/2024 7:02:39 AM Referred By: REFERRED SELF Confirmed By:Jasbir Wallace
[2024-03-21 07:04] LABS: Basophils # (auto) 0.07 K/uL (0.00-0.20); Basophils % (auto) 1.1 %; Eosinophils # (auto) 0.93 K/uL (0.00-0.50); Eosinophils % (auto) 15.1 %; Hematocrit (blood only) 37.3 % (37.0-47.0); Hemoglobin 12.3 g/dl (12.0-16.0); Immature Granulocytes # (auto) 0.01 K/uL (0.01-0.20); Immature Granulocytes % (auto) 0.2 %; Lymphocytes # (auto) 1.56 K/uL (1.20-3.40); Lymphocytes % (auto) 25.4 %; Mean Corpuscular Hemoglobin 28.9 pg (25.0-34.0); Mean Corpuscular Volume 87.8 fL (80.0-100.0); Mean Platelet Volume 9.6 fL (9.4-12.4); Monocytes # (auto) 0.74 K/uL (0.11-0.59); Neutrophils # (auto) 2.84 K/uL (1.40-6.50); Neutrophils % (auto) 46.2 %; Platelet Count 239 K/uL (130-400); RDW Coefficient of Variation 13.5 % (11.5-14.5); RDW Standard Deviation 43.8 fL (36.4-46.3); Red Blood Count 4.25 M/uL (4.20-5.40); White Blood Count 6.15 K/ul (4.8-10.8)
[2024-03-21 07:14] LABS: BUN Creatinine Ratio 8.5 (10-20); Calcium 8.3 mg/dl (8.6-10.3); Creatinine Clr Calc Pharmacy 30.8 ml/min; Est GFR (African American) 47.8 ml/min; Est GFR (Non-African American) 41.3 ml/min; Magnesium 1.9 mg/dl (1.7-2.4); Potassium 4.1 mmol/L (3.5-5.1)
[2024-03-21] MEDS: predniSONE 2.5 MG TAB PO SCH (11:17)
[2024-03-21] MEDS: PANTOprazole 40 MG TAB PO SCH (11:17)
[2024-03-21] MEDS: ACETAMINOPHEN 500 MG TAB PO SCH (11:17)
[2024-03-21] MEDS: APIXABAN 2.5 MG TAB PO SCH (11:17)
[2024-03-21] MEDS: ISOSORBIDE MONO EXTENDED REL 60 MG TABCR PO SCH (11:18)
--- NOTE | 2024-03-21 13:36 | Hospitalist Progress Note ---
Date of Service March 21, 2024 Assessment & Plan (1) AMS (altered mental status): Plan: 89-year-old female with past medical history significant for nontoxic multinodular goiter, hyperlipidemia, history of PE, CKD stage III, polymyalgia rheumatica, osteoporosis, Aortic stenosis s/p TAVR was brought in because of confusion and found to have UTI. Altered mental status Acute UTI Patient presents with altered mental status. At baseline, patient is alert orie nted to self and place. Recent admission with ambulatory dysfunction and fall; discharge home CBC reviewed; no leukocytosis BUN/creatinine within normal limits TSH elevated to 9.2; free T4 within normal limits Urinalysis suggestive of possible infection Urine culture growing gram-negative bacilli Continue on antibiotics; will follow-up on urine culture PT OT evaluation Delirium precautions History of PE On Eliquis, Continue Hypothyroidism On Synthyroid, Continue Aortic stenosis S/p TAVR Hypertension On metoprolol succinate and Imdur, , Continue CKD stage III Creatinine 1.1 monitor DVT prophylaxis On Eliquis Disposition Med/telemetry Full code as per my discussion with the daughter Please note the above document was generated using voice recognition software. It may contain grammatical, syntax or spelling errors. Any formal questions or concerns about the content, text or information contained within the body of this dictation should be directly addressed to the provider for clarification Admission and Anticipated Discharge Date Admission Date: March 21, 2024 Subjective Patient seen and examined at bedside. She is lying on the bed comfortably; not in distress. She is alert and oriented to herself and place. Review of Systems Review of Systems: All systems reviewed & are unremarkable except as noted in Subjective Physical Exam Physical Exam: General- Not in distress Head- atraumatic Eyes- PERRL. ENT- oropharynx clear Neck- supple, no JVD. Lungs- clear to auscultation no wheezing or crackles. Heart- regular rhythm; no murmur, no gallop. Abdomen- normal bowel sounds, soft, nontender, no distension. Extremities- b/l lower extremity edema present. No erythema seen. Neuro- alert, oriented x self and place; PERRL, no facial palsy; no dysarthria; moves exremities. Results & Data Results & Data Vital Signs (Past 12 Hours) Vital Signs Temp Pulse Pulse Pulse Resp BP BP 03/21/24 11:39 36.4 C L 70 15 146/84 H 03/21/24 07:13 36.2 C L 75 15 173/87 H 03/21/24 05:48 81 03/21/24 02:53 135/83 03/21/24 02:05 36.5 C 58 L 18 178/72 H Pulse Ox O2 Del Method 03/21/24 11:39 95 Room Air 03/21/24 07:13 99 Room Air 03/21/24 05:48 03/21/24 02:53 03/21/24 02:05 97 Room Air
[2024-03-21] MEDS: traZODone HCL 50 MG TAB PO SCH (20:38)
[2024-03-21] MEDS: OLANZapine ZYDIS 5 MG ORALLY DIS. TAB PO STA (20:40)
[2024-03-21] MEDS: ROSUVASTATIN CALCIUM 10 MG TAB PO SCH (20:40)
[2024-03-21] MEDS: cefTRIAXone SODIUM 2,000 MG/50 ML BAG IV SCH (20:41)
[2024-03-22 08:35] LABS: Creatinine Clr Calc Pharmacy 27.1 ml/min; Est GFR (African American) 41.4 ml/min; Est GFR (Non-African American) 35.7 ml/min
[2024-03-22] MEDS: CYANOCOBALAMIN 1000 MCG/ML VIAL IM SCH (09:26)
[2024-03-22] MEDS: ERTAPENEM SODIUM 500 MG in SYRINGE 0 ML IV SCH (10:06)
--- NOTE | 2024-03-22 11:43 | Hospitalist Progress Note ---
Date of Service March 22, 2024 Assessment & Plan (1) AMS (altered mental status): Plan: 89-year-old female with past medical history significant for nontoxic multinodular goiter, hyperlipidemia, history of PE, CKD stage III, polymyalgia rheumatica, osteoporosis, Aortic stenosis s/p TAVR was brought in because of confusion and found to have UTI. Altered mental status Acute UTI Vitamin B12 deficiency Patient presents with altered mental status. At baseline, patient is alert oriented to self and place. Recent admission with ambulatory dysfunction and fall; discharge home CBC reviewed; no leukocytosis BUN/creatinine within normal limits TSH elevated to 9.2; free T4 within normal limits Urinalysis suggestive of possible infection Urine culture growing ESBL E. coli. Antibiotic changed to ertapenem and dosed as per renal function. Plan to treat for 5 days Vitamin B2 level of 164 pg/ml; started on IM vitamin B12 supplement; plan to send an oral at discharge PT OT evaluation Delirium precaution History of PE On Eliquis, Continue Hypothyroidism On Synthyroid, Continue.TSH elevated to 9. Follow-up with as outpatient Aortic stenosis S/p TAVR Hypertension On metoprolol succinate and Imdur, , Continue CKD stage III Creatinine at baseline monitor DVT prophylaxis On Eliquis Disposition Med/telemetry Full code Please note the above document was generated using voice recognition software. It may contain grammatical, syntax or spelling errors. Any formal questions or concerns about the content, text or information contained within the body of this dictation should be directly addressed to the provider for clarification Admission and Anticipated Discharge Date Admission Date: March 21, 2024 Subjective Patient seen more awake today. She is sitting up at the side of the bed; not in any distress. She is answering questions appropriately. She is still unsure when she came to the hospital. Review of Systems Review of Systems: All systems reviewed & are unremarkable except as noted in Subjective Physical Exam Physical Exam: General- Not in distress Head- atraumatic Eyes- PERRL. ENT- oropharynx clear Neck- supple, no JVD. Lungs- clear to auscultation no wheezing or crackles. Heart- regular rhythm; no murmur, no gallop. Abdomen- normal bowel sounds, soft, nontender, no distension. Extremities- b/l lower extremity edema present. No erythema seen. Neuro- alert, oriented x self and place; PERRL, no facial palsy; no dysarthria; moves exremities. Results & Data Results & Data Vital Signs (Past 12 Hours) Vital Signs Temp Pulse Pulse Resp BP BP Pulse Ox 03/22/24 08:16 36.6 C 67 16 172/81 H 96 03/22/24 04:18 36.7 C 70 20 112/72 95 03/22/24 00:31 80 O2 Del Method 03/22/24 08:16 Room Air 03/22/24 04:18 Room Air 03/22/24 00:31
[2024-03-22] MEDS: diphenhydrAMINE Capsule 25 MG CAP PO ONE (22:51)
[2024-03-23] MEDS: TORSEMIDE 10 MG TAB PO SCH (11:02)
[2024-03-23] MEDS: POLYETHYLENE (MIRALAX) 17 GM PACK PO PRN (11:04)
[2024-03-23 12:31] LABS: Basophils # (auto) 0.06 K/uL (0.00-0.20); Eosinophils # (auto) 1.25 K/uL (0.00-0.50); Eosinophils % (auto) 19.8 %; Hematocrit (blood only) 37.2 % (37.0-47.0); Hemoglobin 12.3 g/dl (12.0-16.0); Immature Granulocytes # (auto) 0.01 K/uL (0.01-0.20); Immature Granulocytes % (auto) 0.2 %; Lymphocytes # (auto) 1.54 K/uL (1.20-3.40); Lymphocytes % (auto) 24.4 %; Mean Corpuscular Hemoglobin 29.3 pg (25.0-34.0); Mean Corpuscular Hgb Conc 33.1 g/dL (32.0-36.0); Mean Corpuscular Volume 88.6 fL (80.0-100.0); Mean Platelet Volume 9.4 fL (9.4-12.4); Monocytes # (auto) 0.51 K/uL (0.11-0.59); Monocytes % (auto) 8.1 %; Neutrophils # (auto) 2.94 K/uL (1.40-6.50); Neutrophils % (auto) 46.5 %; Platelet Count 273 K/uL (130-400); RDW Coefficient of Variation 13.8 % (11.5-14.5); RDW Standard Deviation 44.5 fL (36.4-46.3); White Blood Count 6.31 K/ul (4.8-10.8)
[2024-03-23 12:48] LABS: BUN Creatinine Ratio 7.9 (10-20); Calcium 8.1 mg/dl (8.6-10.3); Creatinine Clr Calc Pharmacy 25.9 ml/min; Est GFR (African American) 38.8 ml/min; Est GFR (Non-African American) 33.5 ml/min; Potassium 3.7 mmol/L (3.5-5.1)
--- NOTE | 2024-03-23 15:06 | Hospitalist Progress Note ---
Date of Service March 23, 2024 Assessment & Plan (1) AMS (altered mental status): Plan: 89-year-old female with past medical history significant for nontoxic multinodular goiter, hyperlipidemia, history of PE, CKD stage III, polymyalgia rheumatica, osteoporosis, Aortic stenosis s/p TAVR was brought in because of confusion and found to have UTI. Altered mental status Acute UTI Vitamin B12 deficiency Patient presents with altered mental status. At baseline, patient is alert oriented to self and place. Recent admission with ambulatory dysfunction and fall; discharge home CBC reviewed; no leukocytosis BUN/creatinine within normal limits TSH elevated to 9.2; free T4 within normal limits Urinalysis suggestive of possible infection Urine culture growing ESBL E. coli. Antibiotic changed to ertapenem and dosed as per renal function. Obtain blood culture Vitamin B2 level of 164 pg/ml; started on IM vitamin B12 supplement; plan to send an oral at discharge PT OT evaluation;Was done; recommend SNF. Delirium precaution History of PE On Eliquis, Continue Hypothyroidism On Synthyroid, Continue.TSH elevated to 9. Follow-up with as outpatient Aortic stenosis S/p TAVR Hypertension On metoprolol succinate and Imdur, , Continue CKD stage III Creatinine at baseline monitor DVT prophylaxis On Eliquis Disposition PT OT recommends SNF. Patient has a bed at [facility]. Blood culture obtained to rule out bacteremia. Plan to discharge in next few days after blood cultures results are available. Full code Please note the above document was generated using voice recognition software. It may contain grammatical, syntax or spelling errors. Any formal questions or concerns about the content, text or information contained within the body of this dictation should be directly addressed to the provider for clarification Admission and Anticipated Discharge Date Admission Date: March 21, 2024 Subjective Patient seen and examined at bedside Patient appears tired and reports that she is not feeling well Afebrile and hemodynamically stable. Review of Systems Review of Systems: All systems reviewed & are unremarkable except as noted in Subjective Physical Exam Physical Exam: General- Not in distress Lungs- clear to auscultation no wheezing or crackles. Heart- regular rhythm; no murmur, no gallop. Abdomen- normal bowel sounds, soft, nontender, no distension. Extremities- b/l lower extremity edema present. No erythema seen. Neuro- alert, oriented x self and place; PERRL, no facial palsy; no dysarthria; moves exremities. Results & Data Results & Data Vital Signs (Past 12 Hours) Vital Signs Temp Pulse Resp BP Pulse Ox O2 Del Method 03/23/24 07:54 36.3 C L 70 16 158/90 H 98 Room Air
[2024-03-23] MEDS: diphenhydrAMINE Capsule 25 MG CAP PO ONE (20:46)
--- NOTE | 2024-03-24 13:20 | Hospitalist Progress Note ---
Date of Service March 24, 2024 Assessment & Plan (1) AMS (altered mental status): Plan: 89-year-old female with past medical history significant for nontoxic multinodular goiter, hyperlipidemia, history of PE, CKD stage III, polymyalgia rheumatica, osteoporosis, Aortic stenosis s/p TAVR was brought in because of confusion and found to have UTI. Altered mental status Acute UTI Vitamin B12 deficiency Patient presents with altered mental status. At baseline, patient is alert oriented to self and place. Recent admission with ambulatory dysfunction and fall; discharge home CBC reviewed; no leukocytosis BUN/creatinine within normal limits TSH elevated to 9.2; free T4 within normal limits Urinalysis suggestive of possible infection Urine culture growing ESBL E. coli. Antibiotic changed to ertapenem and dosed as per renal function. Blood culture obtain; no growth in 24 hours Vitamin B2 level of 164 pg/ml; started on IM vitamin B12 supplement; plan to send an oral at discharge PT OT evaluation;Was done; recommend SNF. Delirium precaution History of PE On Eliquis, Continue Hypothyroidism On Synthyroid, Continue.TSH elevated to 9. Follow-up with as outpatient Aortic stenosis S/p TAVR Hypertension On metoprolol succinate and Imdur, , Continue CKD stage III Creatinine at baseline monitor DVT prophylaxis On Eliquis Disposition PT OT recommends SNF. Patient has a bed at [facility]. Blood culture obtained to rule out bacteremia. Plan to discharge tomorrow a.m. to [facility] on ertapenem till if blood culture continues to be negative. Full code Please note the above document was generated using voice recognition software. It may contain grammatical, syntax or spelling errors. Any formal questions or concerns about the content, text or information contained within the body of this dictation should be directly addressed to the provider for clarification Admission and Anticipated Discharge Date Admission Date: March 21, 2024 Subjective Patient appears comfortable; not in distress Denies fever, chills, chest pain or shortness of breath No significant events overnight Review of Systems Review of Systems: All systems reviewed & are unremarkable except as noted in Subjective Physical Exam Physical Exam: General- Not in distress Lungs- clear to auscultation no wheezing or crackles. Heart- regular rhythm; no murmur, no gallop. Abdomen- normal bowel sounds, soft, nontender, no distension. Extremities- b/l lower extremity edema present. No erythema seen. Neuro- alert, oriented x self and place; PERRL, no facial palsy; no dysarthria; moves exremities. Results & Data Results & Data Vital Signs (Past 12 Hours) Vital Signs Temp Pulse Resp BP Pulse Ox O2 Del Method 03/24/24 08:00 Room Air 03/24/24 07:03 36.6 C 67 20 150/83 H 98 Room Air
[2024-03-24] MEDS: LORATADINE 10 MG TAB PO ONE (14:37)
[2024-03-25 08:37] LABS: Basophils # (auto) 0.07 K/uL (0.00-0.20); Eosinophils # (auto) 1.54 K/uL (0.00-0.50); Eosinophils % (auto) 22.2 %; Hematocrit (blood only) 36.8 % (37.0-47.0); Hemoglobin 12.1 g/dl (12.0-16.0); Immature Granulocytes # (auto) 0.02 K/uL (0.01-0.20); Immature Granulocytes % (auto) 0.3 %; Lymphocytes # (auto) 1.81 K/uL (1.20-3.40); Mean Corpuscular Hgb Conc 32.9 g/dL (32.0-36.0); Mean Corpuscular Volume 88.2 fL (80.0-100.0); Mean Platelet Volume 9.4 fL (9.4-12.4); Monocytes # (auto) 0.53 K/uL (0.11-0.59); Monocytes % (auto) 7.6 %; Neutrophils # (auto) 2.98 K/uL (1.40-6.50); Neutrophils % (auto) 42.9 %; Platelet Count 247 K/uL (130-400); RDW Standard Deviation 45.2 fL (36.4-46.3); Red Blood Count 4.17 M/uL (4.20-5.40); White Blood Count 6.95 K/ul (4.8-10.8)
[2024-03-25 08:53] LABS: BUN Creatinine Ratio 10.7 (10-20); Calcium 7.8 mg/dl (8.6-10.3); Creatinine Clr Calc Pharmacy 23.9 ml/min; Est GFR (African American) 35.7 ml/min; Est GFR (Non-African American) 30.8 ml/min; Potassium 3.4 mmol/L (3.5-5.1)
[2024-03-25] MEDS: POTASSIUM CHLORIDE CRTAB 20 MEQ TABCR PO STA (09:22)
[2024-03-25] MEDS: HYDROCORTISONE 2.5% CR 30 GM TUBE EXT PRN (15:38)
--- NOTE | 2024-03-25 18:56 | Hospitalist Progress Note ---
Date of Service March 25, 2024 Assessment & Plan (1) AMS (altered mental status): Plan: Pt is an 89-year-old female with past medical history significant for nontoxic multinodular goiter, hyperlipidemia, history of PE, CKD stage III, polymyalgia rheumatica, osteoporosis, Aortic stenosis s/p TAVR who was brought in because of confusion and found to have UTI. Altered mental status Acute UTI Vitamin B12 deficiency Patient presents with altered mental status. At baseline, patient is alert oriented to self and place. Recent admission with ambulatory dysfunction and fall; discharge home CBC reviewed; no leukocytosis BUN/creatinine within normal limits TSH elevated to 9.2; free T4 within normal limits Urinalysis suggestive of possible infection Urine culture growing ESBL E. coli. Antibiotic changed to ertapenem and dosed as per renal function. Blood culture obtained; no growth to date Vitamin B2 level of 164 pg/ml; started on IM vitamin B12 supplement; plan to send an oral at discharge PT OT evaluation completed; recommend SNF. Delirium precautions Rash Uncertain etiology PRN hydrocortisone cream Home tamar resumed History of PE On Eliquis, Continue Hypothyroidism On Synthroid, Continue.TSH elevated to 9. Follow-up with as outpatient Aortic stenosis S/p TAVR Hypertension On metoprolol succinate and Imdur, , Continue CKD stage III Creatinine at baseline monitor DVT prophylaxis: On Eliquis Disposition: PT OT recommends SNF. Patient has a bed at [facility]. Admission and Anticipated Discharge Date Admission Date: March 21, 2024 Subjective pt was seen sitting in chair at bedside. Per nursing, new rash on back, very itchy. Review of Systems Review of Systems: All systems reviewed & are unremarkable except as noted in Subjective Physical Exam Physical Exam: General: Alert, oriented. No acute distress Skin: Excoriated maculopapular eruption noted on back Psych: Appropriate mood and affect Neuro: No gross deficits HEENT: NC/AT CV: RRR Resp: Breath sounds clear bilaterally, no increased effort of breathing. Abdomen: Soft, nontender, nondistended. Extremities: +++ edema in lower extremities bilaterally. Results & Data Results & Data Vital Signs (Past 12 Hours) Vital Signs Temp Pulse Pulse Resp BP Pulse Ox O2 Del Method 03/25/24 07:28 36.5 C 70 17 125/71 94 Room Air 03/24/24 22:55 Room Air 05/14/24 22:35 36.5 C 74 14 100/63 95 Room Air 03/24/24 20:27 105/58 L 03/24/24 20:26 67 94/61 L
[2024-03-25] MEDS: FEXOFENADINE 60 MG TAB PO SCH (20:13)
[2024-03-26] MEDS ORDERED: diphenhydrAMINE 2%/ZINC 0.1% CREAM 28.4GM TUBE EXT PRN (01:52)
[2024-03-26] MEDS: diphenhydrAMINE 50 MG/ML VIAL IV STA (02:03)
[2024-03-26 08:09] LABS: Basophils # (auto) 0.07 K/uL (0.00-0.20); Eosinophils # (auto) 1.72 K/uL (0.00-0.50); Eosinophils % (auto) 24.5 %; Hematocrit (blood only) 36.2 % (37.0-47.0); Hemoglobin 11.9 g/dl (12.0-16.0); Immature Granulocytes # (auto) 0.01 K/uL (0.01-0.20); Immature Granulocytes % (auto) 0.1 %; Lymphocytes # (auto) 1.51 K/uL (1.20-3.40); Lymphocytes % (auto) 21.5 %; Mean Corpuscular Hemoglobin 29.2 pg (25.0-34.0); Mean Corpuscular Hgb Conc 32.9 g/dL (32.0-36.0); Mean Corpuscular Volume 88.7 fL (80.0-100.0); Mean Platelet Volume 9.5 fL (9.4-12.4); Monocytes # (auto) 0.56 K/uL (0.11-0.59); Neutrophils # (auto) 3.15 K/uL (1.40-6.50); Neutrophils % (auto) 44.9 %; Platelet Count 249 K/uL (130-400); RDW Standard Deviation 44.9 fL (36.4-46.3); Red Blood Count 4.08 M/uL (4.20-5.40); White Blood Count 7.02 K/ul (4.8-10.8)
[2024-03-26 08:22] LABS: Albumin Globulin Ratio 1.3 (0.9-2); BUN Creatinine Ratio 12.8 (10-20); Bilirubin,Total 0.4 mg/dl (0.2-1.0); Calcium 7.8 mg/dl (8.6-10.3); Creatinine Clr Calc Pharmacy 23.8 ml/min; Est GFR (African American) 35.7 ml/min; Est GFR (Non-African American) 30.8 ml/min; Globulin 2.3 gm/dl (2.5-4.0); Potassium 3.9 mmol/L (3.5-5.1); Total Protein 5.3 gm/dl (6.0-8.3)
--- NOTE | 2024-03-26 13:16 | Discharge Summary ---
Discharge Summary Date of Service March 26, 2024 Notes For Next Care Provider Pt completed treatment for ESBL UTI. Also with episodes of delirium. PCP followup for continued monitoring. B12 levels were low, supplemented Please ensure followup of thyroid levels and medication adjustment as needed after acute illness Medication Changes From Visit B12 supplement prescribed Completed Ertapenem treatment in hospital Admission HPI Per Admitting Provider 89-year-old female with past medical history significant for nontoxic multinodular goiter, hyperlipidemia, history of PE, CKD stage III, polymyalgia rheumatica, osteoporosis, Aortic stenosis s/p TAVR was brought in because of confusion and found to have UTI. As per daughter patient's dementia is getting worse. Sometimes she does not know where she is. And today she was was not herself and she was more confused than usual. This reason she was brought to the hospital. She lives with her son. Son also has some disability from rheumatoid arthritis. Daughter lives about 6 miles away. Patient is also getting home health currently. Eats regular food. Patient is somewhat restless currently. Want to sit on chair. Ambulating okay in the ER with help. Patient can tell her name. But does not seem to know where she is. Denies any headache. Denies chest pain. Denies shortness of breath. Denies abdominal pain. Denies back pain. Denies pain in the legs. Denies nausea. States having normal bowel and bladder movements. No cough. Afebrile. Hemodynamically stable. Could not get much history from patient currently.Was recently in the hospital for fall and ambulatory dysfunction. Past medical history. As mentioned above. Past surgical history. S/p cholecystectomy. Knee surgery. . Cataract surgery. Coronary angiography. TAVR. Social history. . Current lives with her son. No smoking. No alcohol use. No drug use. Family history. Mother had rheumatoid arthritis. Son has rheumatoid arthritis.. Sister has rheumatoid arthritis. Admission Exam Per Admitting Provider General- Not in distress Head- atraumatic Eyes- PERRL. ENT- oropharynx clear Neck- supple, no JVD. Lungs- clear to auscultation no wheezing or crackles. Heart- regular rhythm; no murmur, no gallop. Abdomen- normal bowel sounds, soft, nontender, no distension. Extremities- b/l lower extremity edema present. No erythema seen. Neuro- alert, oriented x 1; PERRL, no facial palsy; no dysarthria; moves exremities. Principal Dx & Hospital Course #1 = Principal Diagnosis (1) AMS (altered mental status): Pt is an 89-year-old female with past medical history significant for nontoxic multinodular goiter, hyperlipidemia, history of PE, CKD stage III, polymyalgia rheumatica, osteoporosis, Aortic stenosis s/p TAVR who was brought in because of confusion and found to have UTI. Altered mental status Acute UTI Vitamin B12 deficiency Patient presented with altered mental status. At baseline, patient is alert oriented to self and place. Recent admission with ambulatory dysfunction and fall Head CT with no acute changes CBC reviewed; no leukocytosis BUN/creatinine within normal limits TSH elevated to 9.2; free T4 within normal limits Urinalysis suggestive of possible infection Urine culture growing ESBL E. coli. Antibiotic changed to ertapenem and dosed as per renal function. Blood culture obtained; no growth to date Vitamin B2 level of 164 pg/ml; started on IM vitamin B12 supplement; discharged with oral supplement as well PT OT evaluation completed; recommend SNF. Delirium precautions Rash Uncertain etiology PRN hydrocortisone and benadryl cream Home tamar resumed History of PE On Eliquis, Continue Hypothyroidism On Synthroid, Continue.TSH elevated to 9. PCP followup as outpatient Aortic stenosis S/p TAVR Hypertension On metoprolol succinate and Imdur, , Continue CKD stage III Creatinine at baseline monitor Discharge Exam General: Alert. No acute distress Skin: Excoriated maculopapular eruption noted on back, improved Neuro: No gross deficits while sitting in chair HEENT: NC/AT CV: RRR Resp: Breath sounds clear bilaterally, no increased effort of breathing. Abdomen: Soft, nontender, nondistended. Extremities: +++ edema in lower extremities bilaterally. Updated Medication List Medication Instructions Recorded Confirmed Type apixaban 2.5 mg tablet (Eliquis) 2.5 mg PO AMHS 05/29/19 03/20/24 History nitroglycerin 0.4 mg sublingual 0.4 mg sublingual UD PRN Chest Pain 05/29/19 03/20/24 History tablet (Nitrostat) pantoprazole 20 mg tablet,delayed 20 mg PO AMPM 05/29/19 03/20/24 History release (Protonix) trazodone 50 mg tablet 50 mg PO HS 05/29/19 03/20/24 History acetaminophen 500 mg tablet 500 mg PO AMPM 04/12/20 03/20/24 History (Tylenol Extra Strength) rosuvastatin 10 mg tablet 10 mg PO HS 06/12/21 03/20/24 History isosorbide mononitrate 60 mg 60 mg PO QAM 06/03/23 03/20/24 History tablet,extended release 24 hr metoprolol succinate 50 mg 50 mg PO AMPM 06/03/23 03/20/24 History tablet,extended release 24 hr torsemide 5 mg tablet 5 mg PO 3XWK 11/14/23 03/20/24 History amoxicillin 500 mg capsule 2,000 mg PO DIRECTED PRN PRIOR 01/29/24 03/20/24 History TO DENTAL PROCEDURES fexofenadine 180 mg tablet 180 mg PO BID rash 03/02/24 03/20/24 History (Allergy Relief (fexofenadine)) levothyroxine 75 mcg tablet 75 mcg PO DAILYBB 03/02/24 03/20/24 History prednisone 2.5 mg tablet 2.5 mg PO DAILY 03/02/24 03/20/24 History cyanocobalamin (vitamin B-12) 1,000 mcg PO DAILY #30 tabs 03/26/24 Rx 1,000 mcg tablet Hospital Stay Data Consultations 03/20/24 20:57 ED Decision to Admit Stat Diagnostic Imagining Performed 03/20/24 18:33 CT head/brain wo con Stat Chest X-Ray 03/20/24 18:08 XR chest 1V portable CLINICAL HISTORY: weakness TECHNIQUE: Single frontal radiograph of the chest was obtained. Comparison: Comparison is made to chest radiograph 01/28/2014 FINDINGS: No lines and tubes are seen. Cardiomegaly is noted. The aortic arch is calcified. The lungs are clear. No evidence of pleural effusion or pneumothorax. IMPRESSION: No acute chest disease. ACT 112: Negative or not required by law. Electronically signed by: Donavan Driscoll M.D. 03/21/2024 7:[address] 03/20/24 18:33 Exam(s): CT HEAD Without Contrast EXAM: CT Head Without Intravenous Contrast CLINICAL HISTORY: Reason for exam: confusion, weakness. TECHNIQUE: Axial computed tomography images of the head/brain without intravenous contrast. CTDI is 37.87 mGy and DLP is 546.36 mGy-cm. Automated exposure control was utilized for the study. A dose lowering technique was utilized adhering to the principles of ALARA. COMPARISON: 03/02/2024. FINDINGS: Brain: Moderate generalized brain atrophy. Decreased attenuation within the deep periventricular white matter compatible with microangiopathic disease. No hemorrhage. Ventricles: Unremarkable. No ventriculomegaly. Bones/joints: Unremarkable. No acute fracture. Soft tissues: Unremarkable. Sinuses: Unremarkable as visualized. No acute sinusitis. Mastoid air cells: There is complete opacification of the left mastoid air cells which may be associated with mastoid effusion/mastoiditis. Clinical correlation recommended. IMPRESSION: Chronic changes as described. No acute intracranial hemorrhage or space-occupying lesion. Electronically signed by: Maricel Hernandez MD 03/20/24 20:42 PM Pending Results Patient Have Any Pending Studies at Discharge: No Discharge Instructions Given to Patient (Per Discharging Provider) No, You are being discharged after completing treatment in the hospital for a urinary tract infection that we believed was contributing to your confusion. You also have a component of Delirium playing a part as well. We encourage you to follow up with your primary care provider for further treatment options for this. Your Vitamin B12 levels were low. We are discharging you with a supllement for this. Once again, please keep close follow up with your primary care provider after discharge. Please do not hesitate to come back to the emergency room if your symptoms worsen or return. It was a pleasure taking care of you while you were here. Total Time Total Time Spent Total Time Spent (In Minutes): 75
[2024-03-26] MEDS: LORazepam 0.5 MG TAB PO STA (13:54)
== END 2024-03-26 14:36 | DRG 689 ==
LOC: ED 17:59 → 2W 03-21 00:49 → SUATTDRO 03-21 00:49 → 2W 03-21 01:46 → 3W 03-24 22:40

== ENCOUNTER 2024-04-15 11:41 | Inpatient (IN) ==
--- NOTE | 2024-04-15 11:58 | Emergency Department Note ---
Impression & Plan Cellulitis, Leukocytosis, Rash, Hypocalcemia ED Provider Note NAME: GABRIELA QUAN AGE: 89 SEX: F : 1935 ARRIVES VIA: Ambulance INFORMANT: [Patient][EMS, nursing] ED PROVIDER(S): [Robinson Sarabia MD] CHIEF COMPLAINT: Leg swelling, legs are red HISTORY OF PRESENT ILLNESS: The patient is an 89-year-old female who is from [facility]. The patient has a chronic rash of unknown etiology. Today, she was sent to the ED because of increasing leg swelling and some leg erythema. There was concern for infection. She does have wounds on both feet. There are dressings in place. The patient is a poor historian. She does have some dementia. She is not sure why she is here. PMHx/PSHx/Social Hx: See Below PHYSICAL EXAM: GENERAL: Patient is in no acute distress. HEENT: No acute trauma, normocephalic atraumatic, mucous membranes somewhat dry, no nasal congestion. NECK: No stridor, no adenopathy, no meningismus, trachea is midline. LUNGS: Clear to auscultation bilaterally when listening anterior, no wheeze, no rhonchi, breath sounds equal. HEART: Subtle systolic murmur, regular rate and rhythm. ABDOMEN: Soft, nontender, no peritonitis. EXTREMITIES: No cyanosis. The patient does have some mild bilateral pedal edema. There are dressings on both ankles and feet. The dressings were removed. There are wounds underneath the dressings to both the right and left foot. The left foot has larger wounds and there is some left foot/ankle erythema with some warmth. There are some blisters containing blood across both feet and toes. NEUROLOGIC: Awake, interactive, no acute motor or sensory deficits, no focal weakness. Dementia noted. SKIN: No jaundice, no diaphoresis. She has a patchy erythematous raised rash noted primarily on the chest, abdomen and back. It does phani. DIFFERENTIAL DIAGNOSIS: Sepsis or bacteremia, cellulitis, dehydration, coagulopathy, UTI, fluid overload, among others. EMERGENCY DEPARTMENT PROCEDURES: MEDICAL DECISION MAKING: There is a mild leukocytosis, this could be consistent with infection. There is a normal hemoglobin. There is a normal platelet count. No coagulopathy. The patient does have some renal insufficiency, this appears baseline. Calcium is low at 7.3. There is no elevation of lactic acid making severe sepsis less likely. No concerning liver enzyme elevation. ECG shows a sinus rhythm with a first-degree AV block, no obvious acute ischemia. Cardiac enzyme testing x 1 was slightly elevated. This troponin elevation could be secondary to cardiac injury or mismatch. Looking back at previous testing, she has had a mildly elevated troponin previously. Chest x-ray did not show pneumonia or CHF. Urinalysis was suggestive of infection with 4+ bacteria. Anaplasmosis and Babesia smears were negative. On exam, the patient did appear to have a cellulitis to the lower extremities, especially the left. Open wounds were present. Her blood pressure was somewhat low in the 90s systolic. The patient was given IV saline, 1 L in total. She received IV cefepime as antibiotic coverage. She was given IV calcium. The patient's blood pressure has improved. The value is now 120 systolic. I do not feel the patient is severely septic. I do believe the patient would benefit from a hospital stay, antibiotic therapy and further workup/care. I did speak with the patient and case management, the on-call hospitalist was consulted. Prior/Outside records/notes reviewed: Discharge summary note from 03/26/2024 describing her presentation for an altered mental status and UTI. The rash was present and no etiology was determined. ECG per my interpretation: Indication was possible bacteremia/sepsis. The ECG shows a sinus rhythm with a first-degree AV block. The rate was 67. There was no acute ST elevation, no PVCs. The QTc was 435. Continuous Cardiac Monitoring per my interpretation: An order was placed for continuous cardiac monitoring. The monitor shows a rate of 67 with sinus rhythm with a first-degree block. Imaging/x-ray results per my interpretation: Chest x-ray shows some findings that appear chronic, I see no pneumonia or CHF. Chronic Medical/Social conditions affecting care: Advanced age, skilled nursing resident. Care/Management discussed with: Case management, the on-call hospitalist. Level of care consideration(s): After review of the information above and other included data: --I feel the patient can be managed safely as an outpatient DISPOSITION: Admission Past Med/Surg History Problem List (Updated 04/15/24 @ 15:56 by Robinson Sarabia MD) Hypocalcemia (Acute) Rash (Acute) Leukocytosis (Acute) Cellulitis (Acute) Cellulitis AMS (altered mental status) Ambulatory dysfunction (Acute) Generalized weakness (Acute) Acute pain of left hip (Acute) Fall from standing (Acute) COVID-19 (Acute) Elevated troponin (Acute) Acute kidney injury superimposed on chronic kidney disease DEDRICK (acute kidney injury) Acute right-sided congestive heart failure DVT prophylaxis Itching SOB (shortness of breath) CHF (congestive heart failure) (Acute) Acute pain of right knee (Acute) Hearing loss in left ear Severe aortic stenosis Elevated d-dimer Hypertensive urgency Chest pain (Acute) Headache (Acute) Elevated troponin I level (Acute) Hypokalemia CKD (chronic kidney disease) stage 4, GFR 15-29 ml/min (Acute) DVT prophylaxis Mastoiditis of left side Ecchymosis NSTEMI (non-ST elevated myocardial infarction) (Acute) Chest pain (Acute) Pulmonary embolism (Acute) Anticoagulated on Coumadin (Acute) Supratherapeutic INR (Acute) Headache (Acute) Dog bite of forearm Chest pain (Acute) Pulmonary embolism (Acute) Arthritis (Chronic) Dyslipidemia (Chronic) Essential tremor (Chronic) Hypothyroidism (Chronic) Aortic stenosis (Chronic) s/p TAVR Paroxysmal tachycardia (Chronic) "Cardiac Zio event monitor captured a 10 beat trina of non sustained VT and several brief SVT episodes" H/O polymyalgia rheumatica (Chronic) History of palpitations (Chronic) History of syncope (Chronic) Osteoporosis (Chronic) Hypertension (Chronic) GERD (gastroesophageal reflux disease) (Chronic) History of cataract surgery (Chronic) S/P section (Chronic) H/O knee surgery (Chronic) S/P cholecystectomy (Chronic) Dysphagia GI bleed History of pulmonary embolism Medical History Acute UTI Dementia Elevated troponin Family History Other Cancer Coronary heart disease Rheumatoid arthritis Stroke Social History Smoking Status: Never smoker Second Hand Exposure: No; Do You Dip or Chew Tobacco: No; Hx Alcohol Use: No Hx Substance Use: No Preferred Language: [place] Communication Ability: Effective Political Consultant Required: No Beliefs That Will Affect Care: None marital status: / Current Living Situation: Family Current Living Situation Comment: lives with son who helps with care How many Children do You have: 3 Feels Safe at Home: Yes Assistive Devices: Walker Allergies Allergies Allergy/AdvReac Type Severity Reaction Status Date / Time dobutamine Allergy Severe psych Verified 04/15/24 14:01 complications morphine Allergy Severe Could not Verified 04/15/24 14:01 breathe as per px NSAIDS (Non-Steroidal Allergy Intermediate ITCH Verified 04/15/24 14:01 Anti-Inflamma etodolac Allergy Unknown Unknown Verified 04/15/24 14:01 nabumetone [From Relafen] Allergy Unknown Unknown Verified 04/15/24 14:01 hydromorphone AdvReac Intermediate DIZZY,NAUSE Verified 04/15/24 14:01 A minocycline AdvReac Intermediate Nausea Verified 04/15/24 14:01 Home Meds Home Medications Medication Instructions Recorded Confirmed apixaban 2.5 mg tablet (Eliquis) 2.5 mg PO AMHS 05/29/19 04/15/24 nitroglycerin 0.4 mg sublingual 0.4 mg sublingual UD PRN Chest Pain 05/29/19 04/15/24 tablet (Nitrostat) pantoprazole 20 mg tablet,delayed 20 mg PO AMPM 05/29/19 04/15/24 release (Protonix) trazodone 50 mg tablet 50 mg PO .SUPPER & HS 05/29/19 04/15/24 acetaminophen 500 mg tablet 500 mg PO AMHS 04/12/20 04/15/24 (Tylenol Extra Strength) rosuvastatin 10 mg tablet 10 mg PO HS 06/12/21 04/15/24 isosorbide mononitrate 60 mg 60 mg PO QAM 06/03/23 04/15/24 tablet,extended release 24 hr torsemide 5 mg tablet 5 mg PO 3XWK 11/14/23 04/15/24 amoxicillin 500 mg capsule 2,000 mg PO DIRECTED PRN PRIOR 01/29/24 04/15/24 TO DENTAL PROCEDURES levothyroxine 75 mcg tablet 75 mcg PO DAILYBB 03/02/24 04/15/24 acetaminophen 325 mg tablet 650 mg PO Q4 PRN Pain 04/15/24 04/15/24 (Tylenol) diphenhydramine HCl 25 mg tablet 25 mg PO TID PRN Itching 04/15/24 04/15/24 (Benadryl Allergy) escitalopram oxalate 10 mg tablet 10 mg PO QAM 04/15/24 04/15/24 gabapentin 300 mg capsule 300 mg PO BID 04/15/24 04/15/24 methylprednisolone 4 mg tablet 4 mg PO QAM 04/15/24 04/15/24 metoprolol succinate 25 mg 25 mg PO AMHS 04/15/24 04/15/24 tablet,extended release 24 hr povidone-iodine 10 % topical 1 applic topical .BID & PRN 04/15/24 04/15/24 solution silver-calcium alginate 4" X 8" 1 ea topical .BID&PRN 04/15/24 04/15/24 bandage tramadol 50 mg tablet 50 mg PO TID PRN Pain 04/15/24 04/15/24 Results & Data (ED) Vital Signs Vital Signs - 24 hr 04/15/24 11:54 04/15/24 12:15 04/15/24 12:19 Temperature Temperature Source Pulse Rate 67 Pulse Rate [Apical] 75 Pulse Rate from SpO2 Sensor Respiratory Rate 24 Respiratory Effort / Characteristics Respiratory Depth Respiratory Pattern Blood Pressure Blood Pressure [Right Arm] 107/63 Blood Pressure Mean Blood Pressure Mean [Right Arm] 77 Blood Pressure Position Pulse Oximetry 99 Oxygen Delivery Method Room Air Room Air Sepsis Recent Fever Within 48 Hours Sepsis New/Unexplained Change in Mental Status Sepsis Action Taken by Nursing 04/15/24 12:19 04/15/24 12:30 04/15/24 12:30 Temperature 36.6 C Temperature Source Oral Pulse Rate 69 62 Pulse Rate [Apical] Pulse Rate from SpO2 Sensor 61 Respiratory Rate 18 17 Respiratory Effort / Characteristics Non-Labored Spontaneous Respiratory Depth Normal Respiratory Pattern Regular Blood Pressure 107/63 99/69 L Blood Pressure [Right Arm] Blood Pressure Mean 77 80 Blood Pressure Mean [Right Arm] Blood Pressure Position Lying Pulse Oximetry 100 100 Oxygen Delivery Method Room Air Room Air Sepsis Recent Fever Within 48 Hours No Sepsis New/Unexplained Change in Mental Status No Sepsis Action Taken by Nursing No Action Required 04/15/24 12:45 04/15/24 13:15 04/15/24 13:33 Temperature Temperature Source Pulse Rate 58 L 61 68 Pulse Rate [Apical] Pulse Rate from SpO2 Sensor 57 L 58 L 57 L Respiratory Rate 16 19 21 Respiratory Effort / Characteristics Respiratory Depth Respiratory Pattern Blood Pressure 103/54 L Blood Pressure [Right Arm] Blood Pressure Mean 70 Blood Pressure Mean [Right Arm] Blood Pressure Position Pulse Oximetry 97 96 93 Oxygen Delivery Method Room Air Room Air Room Air Sepsis Recent Fever Within 48 Hours Sepsis New/Unexplained Change in Mental Status Sepsis Action Taken by Nursing 04/15/24 13:45 04/15/24 13:57 04/15/24 14:00 Temperature Temperature Source Pulse Rate 64 58 L Pulse Rate [Apical] Pulse Rate from SpO2 Sensor 59 L 58 L Respiratory Rate 20 19 Respiratory Effort / Characteristics Respiratory Depth Respiratory Pattern Blood Pressure 117/69 Blood Pressure [Right Arm] Blood Pressure Mean 87 Blood Pressure Mean [Right Arm] Blood Pressure Position Pulse Oximetry 97 97 Oxygen Delivery Method Room Air Room Air Sepsis Recent Fever Within 48 Hours Sepsis New/Unexplained Change in Mental Status Sepsis Action Taken by Nursing 04/15/24 14:03 04/15/24 14:15 04/15/24 14:15 Temperature Temperature Source Pulse Rate 60 60 Pulse Rate [Apical] Pulse Rate from SpO2 Sensor 60 59 L Respiratory Rate 24 15 Respiratory Effort / Characteristics Respiratory Depth Respiratory Pattern Blood Pressure 114/69 Blood Pressure [Right Arm] Blood Pressure Mean 80 Blood Pressure Mean [Right Arm] Blood Pressure Position Pulse Oximetry 98 98 Oxygen Delivery Method Room Air Room Air Sepsis Recent Fever Within 48 Hours Sepsis New/Unexplained Change in Mental Status Sepsis Action Taken by Nursing 04/15/24 14:51 04/15/24 15:00 04/15/24 15:25 Temperature Temperature Source Pulse Rate 57 L 56 L Pulse Rate [Apical] Pulse Rate from SpO2 Sensor 57 L 57 L Respiratory Rate 21 21 Respiratory Effort / Characteristics Respiratory Depth Respiratory Pattern Blood Pressure 123/73 Blood Pressure [Right Arm] Blood Pressure Mean 89 Blood Pressure Mean [Right Arm] Blood Pressure Position Pulse Oximetry 98 100 Oxygen Delivery Method Room Air Room Air Room Air Sepsis Recent Fever Within 48 Hours Sepsis New/Unexplained Change in Mental Status Sepsis Action Taken by [facility] Medications Current Medication List: was personally reviewed by me Laboratory Data Attestation: I reviewed the patient's lab results. 04/15/24 12:01 04/15/24 12:01 Lab Results 04/15/24 04/15/24 04/15/24 Range/Units 12:01 13:10 13:56 WBC 11.19 H (4.8-10.8) K/ul RBC 4.25 (4.20-5.40) M/uL Hgb 12.6 (12.0-16.0) g/dl Hct 38.2 (37.0-47.0) % MCV 89.9 (80.0-100.0) fL MCH 29.6 (25.0-34.0) pg MCHC 33.0 (32.0-36.0) g/dL RDW Std Deviation 51.8 H (36.4-46.3) fL RDW Coeff of Jing 15.8 H (11.5-14.5) % Plt Count 244 (130-400) K/uL MPV 9.1 L (9.4-12.4) fL Immature Gran % (Auto) 0.3 % Neut % (Auto) 52.1 % Lymph % (Auto) 10.4 % Victoria % (Auto) 6.6 % Eos % (Auto) 30.4 % Baso % (Auto) 0.2 % Neut # (Auto) 5.84 (1.40-6.50) K/uL Lymph # (Auto) 1.16 L (1.20-3.40) K/uL Victoria # (Auto) 0.74 H (0.11-0.59) K/uL Eos # (Auto) 3.40 H (0.00-0.50) K/uL Baso # (Auto) 0.02 (0.00-0.20) K/uL Immature Gran # (Auto) 0.03 (0.01-0.20) K/uL ESR 13 (0-30) mm/hr PT 11.1 (9.0-12.0) Seconds INR 1.0 (0.9-1.1) APTT 27 (21-31) Seconds PTT Ratio 1.0 Sodium 138 (136-145) mmol/L Potassium 4.2 (3.5-5.1) mmol/L Chloride 109 H (98-107) mmol/L Carbon Dioxide 23 (21-32) mmol/L Anion Gap 6 (3-11) BUN 34 H (6-23) mg/dl Creatinine 1.79 H (0.6-1.2) mg/dl Est Cr Clr Drug Dosing 22.6 ml/min Est GFR ( Amer) 28.6 ml/min Est GFR (Non-Af Amer) 24.7 ml/min BUN/Creatinine Ratio 19.0 (10-20) Glucose 120 H (70-99(Fasting)) mg/dl Lactate 1.3 (0.4-2.0) mmol/L Calcium 7.3 L (8.6-10.3) mg/dl Magnesium 2.0 (1.7-2.4) mg/dl Total Bilirubin 0.3 (0.2-1.0) mg/dl Direct Bilirubin 0.1 (0-0.2) mg/dl AST 15 (13-39) U/L ALT 9 (7-52) U/L Alkaline Phosphatase 54 (34-104) U/L Troponin I High Sens 36.2 H 32.1 H (0-14) pg/ml C-Reactive Protein 2.72 H (0-0.5) mg/dl B-Natriuretic Peptide 94 (0-100) pg/ml Total Protein 5.1 L (6.0-8.3) gm/dl Albumin 2.7 L (3.4-5.0) gm/dl Procalcitonin 0.16 (0-0.5) ng/ml Urine Color Yellow Urine Appearance Clear (Clear) Urine pH 5.5 (4.5-7.5) Ur Specific [place] 1.015 (1.000-1.030) Urine Protein Negative (Negative) Urine Glucose (UA) Negative (Negative) Urine Ketones Negative (Negative) Urine Blood Negative (Negative) Urine Nitrite Positive A (Negative) Urine Bilirubin Negative (Negative) Urine Urobilinogen Negative (Negative) Ur Leukocyte Esterase 1+ H (Negative) Urine WBC (Auto) 6-10 H (0-5) /hpf Urine RBC (Auto) 0-2 (0-2) /hpf U Hyaline Cast (Auto) 0-2 (0-2) /lpf U Epithel Cells (Auto) 0-2 (0-2) /hpf Urine Bacteria (Auto) 4+ H (None Seen) Anaplasma Smear See Comment Babesia Smear See Comment Administered Medications Discontinued Medications Sodium Chloride (Nss) 500 mls @ 999 mls/hr IV .Q31M JORGE Stop: 04/15/24 12:30 Last Infusion: 04/15/24 12:41 Dose: Infused Documented By: Admin: 04/15/24 12:10 Dose: 999 mls/hr Documented By: KALPANA Cefepime HCl (Maxipime) 2,000 mg in 20 mls @ 5 mls/min IV NOW STA; Protocol Stop: 04/15/24 11:54 Last Admin: 04/15/24 12:15 Dose: 5 mls/min Documented By: KALPANA Calcium Gluconate () 1,000 mg in 60 mls @ 240 mls/hr IV NOW STA Stop: 04/15/24 12:49 Last Infusion: 04/15/24 13:14 Dose: Infused Documented By: Admin: 04/15/24 12:59 Dose: 240 mls/hr Documented By: KALPANA Sodium Chloride (Nss) 500 mls @ 999 mls/hr IV .Q31M ONE Stop: 04/15/24 13:44 Last Admin: 04/15/24 13:29 Dose: 999 mls/hr Documented By: KALPANA Imaging Data Radiologist's Impression: Chest X-Ray 04/15/24 11:51 SINGLE VIEW CHEST CLINICAL HISTORY: Sepsis FINDINGS: An AP, portable, upright chest radiograph is compared to study dated 03/20/2024 and correlated with chest CT dated 03/02/2024. The heart is enlarged noting atherosclerotic calcification of the thoracic aorta. The pulmonary vasculature is noncongested. There is evidence of previous cardiac valve surgery. Chronic interstitial thickening similar to previous. There is bibasilar scarring/atelectasis. No airspace consolidation or large pleural effusion is identified. No pneumothorax is seen. The skeletal structures are osteopenic. The bony thorax is grossly intact. Advanced arthritic change is seen in the shoulders. IMPRESSION: Cardiomegaly with no active disease in the chest. ACT 112: Negative or not required by law. Electronically signed by: Robinson Villa M.D. 04/15/2024 12:[address] 04/15/24 13:46 CT foot RT wo con HISTORY: 89 years-old Female Eval for necrosis, wounds soft tissue infection with possible osteomyelitis COMPARISON: None TECHNIQUE: Multiple axial CT images of the bilateral feet were obtained without IV contrast. A dose lowering technique was used consistent with the principals of CALEB. FINDINGS: Extensive arterial calcifications. There is atrophy of the musculature. Moderate subcutaneous edema with skin thickening of the foot no drainable fluid collections are identified. Limited evaluation of the tendons and ligaments by CT technique. Probable peroneal tendinosis. Demineralized appearance of the bones. There is suboptimal visualization of the distal toes secondary to motion artifact. Large calcaneal enthesophyte with dystrophic calcifications in the distal end Achilles tendon. Multifocal mild to moderate osteoarthritis. No acute fracture, dislocation or osseous erosion is identified. IMPRESSION: 1. No acute osseous abnormality identified, specifically there is no CT evidence of acute osteomyelitis, however there is limited visualization of the distal phalanges secondary to motion artifact. 2. Subcutaneous edema with skin thickening is nonspecific. Differential considerations include cellulitis, venous stasis or lymphedema. 3. No fluid collections. 4. Arterial calcifications with chronic denervation changes. ACT 112: Negative or not required by law. The above report was generated using voice recognition software. It may contain grammatical, syntax or spelling errors. Electronically signed by: David aBrber M.D. 04/15/2024 3:[address] 04/15/24 13:[address] DOSE: 588.05 mGy.cm HISTORY: Eval for necrosis, wounds, 2nd toe TECHNIQUE: Multiaxial CT images of the left foot were performed and reformatted in the sagittal and coronal plane without the use of contrast. A dose lowering technique was utilized adhering to the principles of ALARA. COMPARISON: None. FINDINGS: No acute fracture or dislocation within the left foot. No bony destructive changes to suggest osteomyelitis. Soft tissue thickening within the second toe. This favors a cellulitis. No loculated fluid collections to suggest an abscess. There is diffuse mild subcutaneous trace edema within the left foot. Vascular calcifications are noted. No loculated fluid collections on this noncontrast study to suggest an abscess. No radiopaque foreign bodies. There are plantar and posterior calcaneal spurs. Mild to moderate osteoarthritis within the left foot. The Lisfranc joint appears aligned. IMPRESSION: 1. Focal soft tissue swelling within the left second toe. No underlying bony destruction to suggest an osteomyelitis. 2. No acute fracture or dislocation within the left foot. 3. [id number] osteoarthritis. 4. Mild diffuse subcutaneous edema within the left foot. ACT 112: Negative or not required by law. Electronically signed by: Kory Harris M.D. 04/15/2024 3:32 PM Discharge Plan Visit Data Chief Complaint: Illness Stated Complaint: RASH, SWOLLEN LEGS ED Provider: Feese,Robinson J Discharge Problem: Cellulitis, Leukocytosis, Rash, Hypocalcemia Patient Disposition: Admitted As Inpatient Condition: Fair Discharge Instructions Interventions: ED Discharge Assessment Last Done: 04/15/24 15:25 Forms Stand Alone Forms: [facility], Important Visit Information Prescriptions Prescriptions: No Action trazodone 50 mg tablet 50 mg PO .SUPPER & HS pantoprazole [Protonix] 20 mg tablet,delayed release (DR/EC) 20 mg PO AMPM nitroglycerin [Nitrostat] 0.4 mg tablet, sublingual 0.4 mg sublingual UD PRN (Reason: Chest Pain) Eliquis 2.5 mg tablet 2.5 mg PO AMHS acetaminophen [Tylenol Extra Strength] 500 mg Tablet 500 mg PO AMHS isosorbide mononitrate 60 mg Tablet Extended Release 24 Hr 60 mg PO QAM Rx Instructions: Hold if sbp less then or = to 110 torsemide 5 mg tablet 5 mg PO 3XWK Rx Instructions: M/W/F rosuvastatin 10 mg tablet 10 mg PO HS amoxicillin 500 mg capsule 2,000 mg PO DIRECTED PRN (Reason: PRIOR TO DENTAL PROCEDURES) levothyroxine 75 mcg tablet 75 mcg PO DAILYBB methylprednisolone 4 mg Tablet 4 mg PO QAM Rx Instructions: Give after breakfast gabapentin 300 mg Capsule 300 mg PO BID metoprolol succinate 25 mg Tablet Extended Release 24 Hr 25 mg PO AMHS escitalopram oxalate 10 mg Tablet 10 mg PO QAM povidone-iodine 10 % Solution 1 applic TOPICAL .BID & PRN Rx Instructions: Left dorsal foot, right medial foot, right planter great toe, cleanse with NSS, apply betadine soaked guaze to blister & lissett wound for 5 min,secure dorsal & medial foot with super absorbent & rolled guaze, leave great toe open to air. SILVERCEL 4 X 8 " Bandage 1 ea TOPICAL .BID&PRN Rx Instructions: cleanse with nss, apply betadine soaked guaze to blister and lissett wound for 5 min then cover open areas with silver alginate, secure with super absorbent & rolled guaze. acetaminophen [Tylenol] 325 mg Tablet 650 mg PO Q4 PRN (Reason: Pain) tramadol 50 mg Tablet 50 mg PO TID PRN (Reason: Pain) Rx Instructions: moderate-severe pain diphenhydramine HCl [Benadryl Allergy] 25 mg Tablet 25 mg PO TID PRN (Reason: Itching) Referrals Referrals: Moreno Parham [Primary Care Provider] - Discharge Problem: Cellulitis Qualifiers: Site of cellulitis: extremity Site of cellulitis of extremity: lower extremity Laterality: unspecified laterality Qualified Code(s): L03.119 - Cellulitis of unspecified part of limb Leukocytosis Qualifiers: Leukocytosis type: unspecified Qualified Code(s): D72.829 - Elevated white blood cell count, unspecified
[2024-04-15] MEDS: SODIUM CHLORIDE 0.9% 500 ML IV SCH (12:10)
[2024-04-15] MEDS: CEFEPIME 2,000 MG/20 ML VIAL IV STA (12:15)
[2024-04-15 12:23] LABS: Basophils # (auto) 0.02 K/uL (0.00-0.20); Basophils % (auto) 0.2 %; Eosinophils % (auto) 30.4 %; Hematocrit (blood only) 38.2 % (37.0-47.0); Hemoglobin 12.6 g/dl (12.0-16.0); Immature Granulocytes # (auto) 0.03 K/uL (0.01-0.20); Immature Granulocytes % (auto) 0.3 %; Lymphocytes # (auto) 1.16 K/uL (1.20-3.40); Lymphocytes % (auto) 10.4 %; Mean Corpuscular Hemoglobin 29.6 pg (25.0-34.0); Mean Corpuscular Volume 89.9 fL (80.0-100.0); Mean Platelet Volume 9.1 fL (9.4-12.4); Monocytes # (auto) 0.74 K/uL (0.11-0.59); Monocytes % (auto) 6.6 %; Neutrophils # (auto) 5.84 K/uL (1.40-6.50); Neutrophils % (auto) 52.1 %; Platelet Count 244 K/uL (130-400); RDW Coefficient of Variation 15.8 % (11.5-14.5); RDW Standard Deviation 51.8 fL (36.4-46.3); Red Blood Count 4.25 M/uL (4.20-5.40); White Blood Count 11.19 K/ul (4.8-10.8)
[2024-04-15 12:31] LABS: Potassium 4.2 mmol/L (3.5-5.1)
[2024-04-15 12:32] LABS: Albumin Level 2.7 gm/dl (3.4-5.0); Bilirubin Direct 0.1 mg/dl (0-0.2); Bilirubin,Total 0.3 mg/dl (0.2-1.0); Calcium 7.3 mg/dl (8.6-10.3); Creatinine Clr Calc Pharmacy 22.6 ml/min; Est GFR (African American) 28.6 ml/min; Est GFR (Non-African American) 24.7 ml/min; Total Protein 5.1 gm/dl (6.0-8.3)
[2024-04-15 12:38] LABS: Troponin I High Sensitivity 36.2 pg/ml (0-14)
[2024-04-15 12:42] LABS: Partial Thromboplastin Time 27 Seconds (21-31); Prothrombin Time 11.1 Seconds (9.0-12.0)
--- NOTE | 2024-04-15 12:46 | XRay Report ---
SINGLE VIEW CHEST CLINICAL HISTORY: Sepsis FINDINGS: An AP, portable, upright chest radiograph is compared to study dated 03/20/2024 and correlat ed with chest CT dated 03/02/2024. The heart is enlarged noting atherosclerotic calcification of the t horacic aorta. The pulmonary vasculature is noncongested. There is evidence of previous cardiac valve surgery. Chronic interstitial thickening similar to previous. There is bibasilar scarring/atelectasi s. No airspace consolidation or large pleural effusion is identified. No pneumothorax is seen. The sk eletal structures are osteopenic. The bony thorax is grossly intact. Advanced arthritic change is see n in the shoulders. IMPRESSION: Cardiomegaly with no active disease in the chest. ACT 112: Negative or not required by law. Electronically signed by: Robinson Villa M.D. 04/15/2024 12:45 PM
[2024-04-15] MEDS: CALCIUM GLUCONATE 1,000 MG/60 ML BAG IV STA (12:59)
--- NOTE | 2024-04-15 13:17 | History & Physical Report ---
Date of Service April 15, 2024 Assessment & Plan (1) Cellulitis: (2) AMS (altered mental status): (3) Ambulatory dysfunction: (4) Generalized weakness: (5) CHF (congestive heart failure): (6) CKD (chronic kidney disease) stage 4, GFR 15-29 ml/min: Plan: Cellulitis LLE Necrosis of Left 2nd toe Multiple foot wounds Right and Left - Admit to [facility] - WBC 11.9, blood cultures obtained, started on cefepime IV, add daptomycin IV, left lower extremity cellulitis as patient presented with increased erythema, edema - BP appears to be slightly soft at 99/69 upon admission, received small amount of fluids - Afebrile, heart rate is stable in the 60s - Wound consulted for ulcerations/wounds on feet, Podiatry consulted for possible debridement - Obtain CT bilateral feet with wounds and areas of necrosis - Doppler bilat LE, obtain TATO bilateral lower ext - Check MRSA swab nose Rash - Diffuse, pruritic, large lesions systemically with bullae - Discussed with Dr. 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 - Will plan to obtain skin biopsy likely tomorrow, no formal consultation - Continue topical clobetasol for itch - Pt has recently completed prednisone taper, also appears she is on methyl prednisolone 5 mg daily per her med rec UTI - UA appears to be infected, follow urine culture - Continue antibiotics as above AMS Dementia -History of such, reported in previous documentation this is been progressing over time - She is alert and oriented to self, not time or place Ambulatory dysfunction -PT/OT consults Chronic CHF Aortic stenosis s/p TAVR Hx of PE - Anticoagulated on eliquis at home - HOLD for now - continue ,metoprolol succ 25 mg BID, imdur 60 mg QAM DEDRICK on CKD stage III - creatinine on admission 1.79, BUN 34 - Avoid nephrotoxins and renally dose medications-trend with a.m. labs Polymyalgia rheumatica Osteoporosis - Chronic, stable Hypothyroidism - Cont levothyroxine Discussed pt care plan with her daughter via phone call. She expressed understanding. DVT ppx: teds, scds, will hold eliquis in case needs for OR for debridement, will place on therapeutic lovenox tonight, will need to determine in am if can have eliquis is no surgery planned Lines: 1 PIV FEN/GI: Allow HH diet CODE: Full code Dispo: From home, likely to remain in the hospital x 1-2 days A total of 85 minutes were spent with greater than 50% of that time face to face with the patient, personally reviewing all current laboratories, imaging studies, past medication reconciliation, outpatient chart review, and discussion with specialists to collaborate care for the patient with attending. Please see attending documentation for corrections and/or additions. History of Present Illness Chief Complaint: Leg swelling, redness Primary Care Provider: Moreno Parham This is an 89 yo F with PMHx of nontoxic multinodular goiter, hyperlipidemia, history of PE, CKD stage III, polymyalgia rheumatica, osteoporosis, Aortic stenosis s/p TAVR, disseminated rash, dementia. Pt is sent from [facility] with concerns for worsening leg erythema and swelling. Pt herself if a very poor historian, only oriented to self, not date or place. She does think she is in a hospital but cannot name it. She cannot specify if her legs are worse. She has difficulty seeing the nurse button on her call skelton. She has had multiple recent hospitalizations including 1 for fall and ambulatory dysfunction in February, and then again in March for confusion found to have a UTI. Discussed with daughter, Elizabeth, over the phone who reports that the rash started right before her discharge from the hospital several weeks ago. She had requested wound care, and daughter states she could not believe the difference in her feet from a week ago. Reports that she finished a prednisone taper and had an IM shot for steroids and finished about 1.5 week ago. She saw her mom about 2 days ago and was shocked at the appearance of her one toe. Agrees that she is a FULL code. Allergies Allergy/AdvReac Type Severity Reaction Status Date / Time dobutamine Allergy Severe psych Verified 04/15/24 14:01 complications morphine Allergy Severe Could not Verified 04/15/24 14:01 breathe as per px NSAIDS (Non-Steroidal Allergy Intermediate ITCH Verified 04/15/24 14:01 Anti-Inflamma etodolac Allergy Unknown Unknown Verified 04/15/24 14:01 nabumetone [From Relafen] Allergy Unknown Unknown Verified 04/15/24 14:01 hydromorphone AdvReac Intermediate DIZZY,NAUSE Verified 04/15/24 14:01 A minocycline AdvReac Intermediate Nausea Verified 04/15/24 14:01 Home Medications Medication Instructions Recorded Confirmed Type apixaban 2.5 mg tablet (Eliquis) 2.5 mg PO AMHS 05/29/19 04/15/24 History nitroglycerin 0.4 mg sublingual 0.4 mg sublingual UD PRN Chest Pain 05/29/19 04/15/24 History tablet (Nitrostat) pantoprazole 20 mg tablet,delayed 20 mg PO AMPM 05/29/19 04/15/24 History release (Protonix) trazodone 50 mg tablet 50 mg PO .SUPPER & HS 05/29/19 04/15/24 History acetaminophen 500 mg tablet 500 mg PO AMHS 04/12/20 04/15/24 History (Tylenol Extra Strength) rosuvastatin 10 mg tablet 10 mg PO HS 06/12/21 04/15/24 History isosorbide mononitrate 60 mg 60 mg PO QAM 06/03/23 04/15/24 History tablet,extended release 24 hr torsemide 5 mg tablet 5 mg PO 3XWK 11/14/23 04/15/24 History amoxicillin 500 mg capsule 2,000 mg PO DIRECTED PRN PRIOR 01/29/24 04/15/24 History TO DENTAL PROCEDURES levothyroxine 75 mcg tablet 75 mcg PO DAILYBB 03/02/24 04/15/24 History acetaminophen 325 mg tablet 650 mg PO Q4 PRN Pain 04/15/24 04/15/24 History (Tylenol) diphenhydramine HCl 25 mg tablet 25 mg PO TID PRN Itching 04/15/24 04/15/24 History (Benadryl Allergy) escitalopram oxalate 10 mg tablet 10 mg PO QAM 04/15/24 04/15/24 History gabapentin 300 mg capsule 300 mg PO BID 04/15/24 04/15/24 History methylprednisolone 4 mg tablet 4 mg PO QAM 04/15/24 04/15/24 History metoprolol succinate 25 mg 25 mg PO AMHS 04/15/24 04/15/24 History tablet,extended release 24 hr povidone-iodine 10 % topical 1 applic topical .BID & PRN 04/15/24 04/15/24 His tory solution silver-calcium alginate 4" X 8" 1 ea topical .BID&PRN 04/15/24 04/15/24 History bandage tramadol 50 mg tablet 50 mg PO TID PRN Pain 04/15/24 04/15/24 History Past Med/Surg History Problem List (Updated 04/15/24 @ 15:56 by Robinson Sarabia MD) Hypocalcemia (Acute) Rash (Acute) Leukocytosis (Acute) Cellulitis (Acute) Cellulitis AMS (altered mental status) Ambulatory dysfunction (Acute) Generalized weakness (Acute) Acute pain of left hip (Acute) Fall from standing (Acute) COVID-19 (Acute) Elevated troponin (Acute) Acute kidney injury superimposed on chronic kidney disease DEDRICK (acute kidney injury) Acute right-sided congestive heart failure DVT prophylaxis Itching SOB (shortness of breath) CHF (congestive heart failure) (Acute) Acute pain of right knee (Acute) Hearing loss in left ear Severe aortic stenosis Elevated d-dimer Hypertensive urgency Chest pain (Acute) Headache (Acute) Elevated troponin I level (Acute) Hypokalemia CKD (chronic kidney disease) stage 4, GFR 15-29 ml/min (Acute) DVT prophylaxis Mastoiditis of left side Ecchymosis NSTEMI (non-ST elevated myocardial infarction) (Acute) Chest pain (Acute) Pulmonary embolism (Acute) Anticoagulated on Coumadin (Acute) Supratherapeutic INR (Acute) Headache (Acute) Dog bite of forearm Chest pain (Acute) Pulmonary embolism (Acute) Arthritis (Chronic) Dyslipidemia (Chronic) Essential tremor (Chronic) Hypothyroidism (Chronic) Aortic stenosis (Chronic) s/p TAVR Paroxysmal tachycardia (Chronic) "Cardiac Zio event monitor captured a 10 beat trina of non sustained VT and several brief SVT episodes" H/O polymyalgia rheumatica (Chronic) History of palpitations (Chronic) History of syncope (Chronic) Osteoporosis (Chronic) Hypertension (Chronic) GERD (gastroesophageal reflux disease) (Chronic) History of cataract surgery (Chronic) S/P section (Chronic) H/O knee surgery (Chronic) S/P cholecystectomy (Chronic) Dysphagia GI bleed History of pulmonary embolism Medical History Acute UTI Dementia Elevated troponin Family History Other Cancer Coronary heart disease Rheumatoid arthritis Stroke Social History Smoking Status: Never smoker Second Hand Exposure: No; Do You Dip or Chew Tobacco: No; Hx Alcohol Use: No Hx Substance Use: No Preferred Language: Vietnamese Communication Ability: Effective Hot Top Liner 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 Required: No Beliefs That Will Affect Care: None marital status: / Current Living Situation: Alf Current Living Situation Comment: lives with son who helps with care How many Children do You have: 3 Other Information That Helps Us Care for You: No Feels Safe at Home: Yes Safety Concerns: Feels Safe At This Time Assistive Devices: None and Walker Review of Systems Review of Systems: General: awake, alert, no apparent distress Head: Normocephalic, atraumatic ENT: PERRL, EOMI, no pharyngeal exudate, mucous membranes moist Chest: Clear to auscultation, on room air, no adventitious breath sounds Cardiac: Regular rate and rhythm, no murmur, no JVD, normal peripheral pulses, good capillary refill Abdominal: NABS x 4 quadrants, soft, nondistended, nontender to palpation, no rebound or guarding Extremities: Normal inspection, no peripheral edema or erythema, calfs nontender to palpation Psych: Normal mood and affect Neuro: AAO x 3, strength intact bilaterally and rated 5/5, no motor deficits, speech is clear, no peripheral sensory deficits Physical Exam Physical Exam: Please see attending addendum for PE. Results & Data Results & Data Vital Signs (Past 12 Hours) Vital Signs Temp Pulse Pulse Resp BP BP Pulse Ox 04/15/24 12:30 99/69 L 04/15/24 12:30 62 17 100 04/15/24 12:19 36.6 C 69 18 107/63 100 04/15/24 12:19 04/15/24 12:15 75 24 107/63 99 04/15/24 11:54 67 O2 Del Method 04/15/24 12:30 04/15/24 12:30 Room Air 04/15/24 12:19 Room Air 04/15/24 12:19 Room Air 04/15/24 12:15 Room Air 04/15/24 11:54 Laboratory Results 04/15/24 12:11 Aerobic Blood Culture - Pending Blood Anaerobic Blood Culture - Pending 04/15/24 12:01 Aerobic Blood Culture - Pending Blood Anaerobic Blood Culture - Pending 04/15/24 12:01 WBC 11.19 H RBC 4.25 Hgb 12.6 Hct 38.2 MCV 89.9 MCH 29.6 MCHC 33.0 RDW Std Deviation 51.8 H RDW Coeff of Jing 15.8 H Plt Count 244 MPV 9.1 L Immature Gran % (Auto) 0.3 Neut % (Auto) 52.1 Lymph % (Auto) 10.4 Wilson % (Auto) 6.6 Eos % (Auto) 30.4 Baso % (Auto) 0.2 Neut # (Auto) 5.84 Lymph # (Auto) 1.16 L Wilson # (Auto) 0.74 H Eos # (Auto) 3.40 H Baso # (Auto) 0.02 Immature Gran # (Auto) 0.03 PT 11.1 INR 1.0 APTT 27 PTT Ratio 1.0 Sodium 138 Potassium 4.2 Chloride 109 H Carbon Dioxide 23 Anion Gap 6 BUN 34 H Creatinine 1.79 H Est Cr Clr Drug Dosing 22.6 Est GFR ( Amer) 28.6 Est GFR (Non-Af Amer) 24.7 BUN/Creatinine Ratio 19.0 Glucose 120 H Lactate 1.3 Calcium 7.3 L Magnesium 2.0 Total Bilirubin 0.3 Direct Bilirubin 0.1 AST 15 ALT 9 Alkaline Phosphatase 54 Troponin I High Sens 36.2 H Total Protein 5.1 L Albumin 2.7 L Procalcitonin 0.16 Diagnostic Findings Chest X-Ray 04/15/24 11:51 SINGLE VIEW CHEST CLINICAL HISTORY: Sepsis FINDINGS: An AP, portable, upright chest radiograph is compared to study dated 03/20/2024 and correlated with chest CT dated 03/02/2024. The heart is enlarged noting atherosclerotic calcification of the thoracic aorta. The pulmonary vasculature is noncongested. There is evidence of previous cardiac valve surgery. Chronic interstitial thickening similar to previous. There is bibasilar scarring/atelectasis. No airspace consolidation or large pleural effusion is identified. No pneumothorax is seen. The skeletal structures are osteopenic. The bony thorax is grossly intact. Advanced arthritic change is seen in the shoulders. IMPRESSION: Cardiomegaly with no active disease in the chest. ACT 112: Negative or not required by law. Electronically signed by: Robinson Villa M.D. 04/15/2024 12:45 PM Code Status & VTE Plan Code Status Full code - discussed with pt at bedside. Supervising Physician Co-Signing Physician Notes I have seen and discussed the case with the collaborating advanced practitioner. I agree with the above H&P. I have reviewed and confirmed the patients medical history, the findings on physical examination, and the patients diagnosis and treatment plan with Nasreen STOCKTON and agree with the information documented. In short, Ms. Haynes is an 89 yo F with PMHx of nontoxic multinodular goiter, hyperlipidemia, history of PE, CKD stage III, polymyalgia rheumatica, osteoporosis, Aortic stenosis s/p TAVR, disseminated rash, dementia who is admitted for evaluation of progressive rash, bullous lesions, and superimposed cellulitis foot lesions. Patient is unable to provide much history. She reports feeling "itchy" but denies any acute concerns. When asked about the rash she states she " doesn't know". Rash seems to have been progressive for last 2-3 weeks. GENERAL APPEARANCE: AxOx1,pleasantly confused no acute distress. HEENT: NC, AT. MMM. EOMI, clear conjunctiva, oropharynx clear. NECK: Supple without lymphadenopathy. No stiffness or restricted ROM. HEART: Normal rate and regular rhythm, normal S1/S1, no m/r/g LUNGS: CTAB, moving air well. No crackles or wheezes are heard. ABDOMEN: Soft, nontender, nondistended with good bowel sounds heard. BACK: No CVAT, no obvious deformity. EXTREMITIES: Without cyanosis, clubbing or edema. NEUROLOGICAL: Grossly nonfocal. Alert and oriented, moving all 4 extremities. CN not formally tested but appear grossly intact. Skin: diffused erythematous lesions, round target like areas with confluence on torso/back/extremities, scattered tense bullae on back, scattered excoriations. Bilateral 1+ pitting edema of lower extremities, nontender; large hemorrhagic bullae on left LE 2nd digit, and small on hemorrhagic on 3-4rd digit right #Diffuse skin exanthem, c/w erythema multiforme #Scattered bullae Discussed over Spring Text with Dr. Saavedra--reports ?if related to bullous pemphigoid Plan for possible skin biopsy tomorrow, Will confirm Derm availability in am clobetasol BID #Bilateral lower extremity wounds #Bilateral lower extremity edema c/f superimposed cellulitis given white count -Dapt/Cefepime MRSA nare Podiatry and wound consult Doppler negative TATO not tolerated NPO midnight in case of debridement Hold apixaban, IV dose of lovenox in evening -Last apixaban 06/05am -Contingent on surgical planning, resume apixaban #DEDRICK on CKD concern for UTI, follow culture ABX as above BMP in am Rest of plan as above I spent a total of 35 minutes coordinating, documenting, and providing care for this patient excluding time spent in the performance of separately billed services. All of the aforementioned completed outside of collaborating with the assigned advanced practitioner for a full treatment plan. I have reviewed the advanced practitioner's documentation, and I agree with, and take responsibility for the plan of care (5) CHF (congestive heart failure) Heart failure chronicity: acute Heart failure type: unspecified Qualified Code(s): I50.9 - Heart failure, unspecified
[2024-04-15] MEDS: SODIUM CHLORIDE 0.9% 500 ML IV ONE (13:29)
[2024-04-15 13:33] LABS: Appearance Urine Clear (Clear); Bacteria Urine Automated 4+ (None Seen); Bilirubin Urine Negative (Negative); Blood Urine Negative (Negative); Cast Urine Automated 0-2 /lpf (0-2); Color Urine Yellow; Epithelial Cell Urine Auto 0-2 /hpf (0-2); Glucose Urine UA Negative (Negative); Ketones Urine Negative (Negative); Leukocyte Esterase Urine 1+ (Negative); Nitrite Urine Positive (Negative); Protein Urine Negative (Negative); RBC Urine Automated 0-2 /hpf (0-2); Specific Gravity Urine 1.015 (1.000-1.030); Urobilinogen Urine Negative (Negative); pH Urine 5.5 (4.5-7.5)
[2024-04-15] MEDS ORDERED: TRIAMCINOLONE ACET 0.1% CR 80 GM TUBE EXT PRN (13:50)
[2024-04-15 14:39] LABS: C Reactive Protein 2.72 mg/dl (0-0.5)
[2024-04-15 14:47] LABS: Troponin I High Sensitivity 32.1 pg/ml (0-14)
--- NOTE | 2024-04-15 15:23 | CT Scan Report ---
CT foot RT wo con HISTORY: 89 years-old Female Eval for necrosis, wounds soft tissue infection with possible osteomyel itis COMPARISON: None TECHNIQUE: Multiple axial CT images of the bilateral feet were obtained without IV contrast. A dose l owering technique was used consistent with the principals of CALEB. FINDINGS: Extensive arterial calcifications. There is atrophy of the musculature. Moderate subcutaneous edema w ith skin thickening of the foot no drainable fluid collections are identified. Limited evaluation of the tendons and ligaments by CT technique. Probable peroneal tendinosis. Demineralized appearance of the bones. There is suboptimal visualization of the distal toes secondary to motion artifact. Large calcaneal enthesophyte with dystrophic calcifications in the distal end Ac hilles tendon. Multifocal mild to moderate osteoarthritis. No acute fracture, dislocation or osseous erosion is identified. IMPRESSION: 1. No acute osseous abnormality identified, specifically there is no CT evidence of acute osteomyelit is, however there is limited visualization of the distal phalanges secondary to motion artifact. 2. Subcutaneous edema with skin thickening is nonspecific. Differential considerations include cellul itis, venous stasis or lymphedema. 3. No fluid collections. 4. Arterial calcifications with chronic denervation changes. ACT 112: Negative or not required by law. The above report was generated using voice recognition software. It may contain grammatical, syntax o r spelling errors. Electronically signed by: David Barber M.D. 04/15/2024 3:21 PM
--- NOTE | 2024-04-15 15:34 | CT Scan Report ---
LEFT FOOT CT CT DOSE: 588.05 mGy.cm HISTORY: Eval for necrosis, wounds, 2nd toe TECHNIQUE: Multiaxial CT images of the left foot were performed and reformatted in the sagittal and c oronal plane without the use of contrast. A dose lowering technique was utilized adhering to the megha Bauer. COMPARISON: None. FINDINGS: No acute fracture or dislocation within the left foot. No bony destructive changes to sugge st osteomyelitis. Soft tissue thickening within the second toe. This favors a cellulitis. No loculate d fluid collections to suggest an abscess. There is diffuse mild subcutaneous trace edema within the left foot. Vascular calcifications are noted. No loculated fluid collections on this noncontrast stud y to suggest an abscess. No radiopaque foreign bodies. There are plantar and posterior calcaneal spur s. Mild to moderate osteoarthritis within the left foot. The Lisfranc joint appears aligned. IMPRESSION: 1. Focal soft tissue swelling within the left second toe. No underlying bony destruction to suggest a n osteomyelitis. 2. No acute fracture or dislocation within the left foot. 3. [id number]-[id number] osteoarthritis. 4. Mild diffuse subcutaneous edema within the left foot. ACT 112: Negative or not required by law. Electronically signed by: Kory Harris M.D. 04/15/2024 3:32 PM
--- NOTE | 2024-04-15 16:28 | Ultrasound Report ---
US ankle/brachial index ltd CLINICAL HISTORY: Eval blood flow, necrotic lesion COMPARISON STUDY: FINDINGS: The bilateral dorsalis pedis arteries were noncompressible. The patient was unable to chetna ate imaging of the posterior tibial arteries. Therefore, the ankle brachial indices were unable to be obtained. IMPRESSION: The bilateral ankle brachial indices were unable to be obtained. ACT 112: Negative or not required by law. Electronically signed by: Kory Harris M.D. 04/15/2024 4:27 PM
--- NOTE | 2024-04-15 16:40 | Ultrasound Report ---
BILATERAL LOWER EXTREMITY VENOUS DOPPLER HISTORY: eval for dvt, necrotic lesion COMPARISON STUDY: None. FINDINGS: There is normal compressibility, flow, and augmentation within the bilateral lower extremit y deep venous systems. Of note, the bilateral superficial femoral veins are small in caliber and diff icult to visualize. IMPRESSION: No DVT within the right or left lower extremity. ACT 112: Negative or not required by law. Electronically signed by: Kory Harris M.D. 04/15/2024 4:38 PM
[2024-04-15] MEDS ORDERED: ONDANSETRON INJ 2 MG/ML 2 ML VIAL IV PRN (16:53)
[2024-04-15] MEDS ORDERED: ACETAMINOPHEN 325 MG TAB PO PRN (16:53)
[2024-04-15] MEDS: DAPTOmycin 240 MG in SYRINGE 0 ML IV SCH (17:57)
[2024-04-15] MEDS: PANTOprazole 40 MG TAB PO SCH (17:58)
[2024-04-15] MEDS: CLOBETASOL PROPIONATE 0.05% CREAM 15 GM TUBE EXT SCH (20:52)
[2024-04-15] MEDS: ACETAMINOPHEN 500 MG TAB PO SCH (20:52)
[2024-04-15] MEDS: ENOXAPARIN 80 MG/0.8 ML SYR SQ ONE (20:52)
[2024-04-15] MEDS: GABAPENTIN 300 MG CAP PO SCH (20:53)
[2024-04-15] MEDS: traZODone HCL 50 MG TAB PO SCH (20:53)
[2024-04-15] MEDS: METOPROLOL SUCC 25MG EXT REL TAB PO SCH (20:53)
[2024-04-15] MEDS ORDERED: APIXABAN 2.5 MG TAB PO SCH (21:00)
[2024-04-15] MEDS: LORATADINE 10 MG TAB PO ONE (22:19)
[2024-04-15] MEDS: hydrOXYzine HCl 10 MG TAB PO STA (22:42)
--- NOTE | 2024-04-15 23:01 | Electrocardiogram Report ---
Test Reason : Blood Pressure : / mmHG Vent. Rate : 067 BPM Atrial Rate : 067 BPM P-R Int : 240 ms QRS Dur : 084 ms QT Int : 412 ms P-R-T Axes : 059 008 033 degrees QTc Int : 435 ms Sinus rhythm with 1st degree A-V block Otherwise normal ECG When compared with ECG of 20-MAR-2024 18:04, No significant change Confirmed by Watson Victoria ([id number]) on 04/15/2024 11:01:34 PM Referred By: REFERRED SELF Confirmed By:Watson Victoria
[2024-04-16] MEDS: CEFEPIME 1,000 MG in SYRINGE 0 ML IV SCH (00:02)
--- OUTSIDE RECORDS SUMMARY | 2024-04-16 03:05 | External Medical Summary | Continuity Of Care Document ---
Author Name Unknown Address [address] [place] [address] Organization [facility]) Care Team Providers Care Electrocardiographic Technician Name Role Phone Sobeida Parham Primary Care Provider [phone] Allergies Allergy Reaction Start Date End Date Status DOBUTAMINE Disorientation Active MORPHINE Difficulty breathing Acti ve NSAIDS (NON-STEROIDAL ANTI-INFLAMMATORY DRUG) Itching Active ETODOLAC Active NABUMETONE Active HYDROMORPHONE Dizziness, Nausea Acti ve MINOCYCLINE Nausea Active Problems Code Description Start Date End Date Status R41.82 Altered mental status, unspecified 03/26/2024 0 Active N39.0 Urinary tract infection, site not specified Active I10. Essential (primary) hypertension 03/26/2024 Active N18.30 Chronic kidney disease, stage 3 unspecified Active E78.5 Hyperlipidemia, unspecified 03/26/2024 00 Active I26.99 Other pulmonary embo lism without acute cor pulmonale 03/26/2024 Active M35.3 Polymyalgia rheumatica 03/26/2024 Ac tive R26.81 Unsteadiness on feet 04/02/2024 Acti ve R53.1 Weakness 04/02/2024 Active M62.81 Muscle weakness (generalized) 04/02/2024 Active R48.8 Other symbolic dysfunctions 04/02/2024 00/00/00 00 Active VITAL SIGNS Date Time Diastolic blood pressure Systolic blood pressure Body height Body weight Temperature SpO2 Blood Sugar Pulse Respirations 31811 516 78250 9 82.00 mm[Hg] - Sitting 156.00 mm[Hg] - Sitting 96.70 Ear 93.00 % 61.00/ min 20.00/min 29227 516 75515 3 60 NI 165.00 NI 52404 517 48341 9 60.00 mm[Hg] - Sitting 160.00 mm[Hg] - Sitting 97.10 Oral 94.00 % 71.00/ min 18.00/min 37171 517 18521 8 66.00 mm[Hg] - Sitting 119.00 mm[Hg] - Sitting 97.80 Oral 99.00 % 67.00/ min 18.00/min 96694 517 56893 0 166.00 NI 54019 518 73427 7 74.00 mm[Hg] - Sitting 116.00 mm[Hg] - Sitting 98.10 Ear 94.00 % 65.00/ min 16.00/min 59227 519 18188 0 97.60 Ear 66530 519 35489 5 60.00 mm[Hg] - Sitting 98.00 mm[Hg] - Sitting 94.00 % 61.00/ min 16.00/min 50271 520 36709 1 65.00 mm[Hg] - Sitting 114.00 mm[Hg] - Sitting 98.00 Ear 96.00 % 66.00/ min 18.00/min 75132 521 98251 0 60.00 mm[Hg] - Sitting 128.00 mm[Hg] - Sitting 96.80 Ear 98.00 % 70.00/ min 18.00/min 522 65088 4 165.00 [place] 31497 523 57982 4 70.00 mm[Hg] - Sitting 120.00 mm[Hg] - Sitting 97.20 Ear 98.00 % 63.00/ min 20.00/min 77709 523 46312 9 84.00 mm[Hg] - Sitting 152.00 mm[Hg] - Sitting 98.10 Oral 94.00 % 67.00/ min 18.00/min 42102 523 65876 1 165.00 [place] 51172 525 20312 9 64.00 mm[Hg] - Sitting 117.00 mm[Hg] - Sitting 96.90 Ear 96.00 % 66.00/ min 18.00/min 23543 525 62297 7 72.00 mm[Hg] - Sitting 139.00 mm[Hg] - Sitting 97.30 Ear 96.00 % 68.00/ min 18.00/min 63173 526 25155 7 74.00 mm[Hg] - Sitting 118.00 mm[Hg] - Sitting 98.20 Ear 92.00 % 54.00/ min 18.00/min 33813 527 39921 2 163.00 NI 30473 527 38677 4 77.00 mm[Hg] - Sitting 140.00 mm[Hg] - Sitting 99.30 Ear 97.00 % 93.00/ min 20.00/min 84063 528 89778 8 69.00 mm[Hg] - Sitting 134.00 mm[Hg] - Sitting 97.20 Ear 96.00 % 66.00/ min 16.00/min 01228 529 73376 3 72.00 mm[Hg] - Sitting 137.00 mm[Hg] - Sitting 97.80 Ear 98.00 % 69.00/ min 20.00/min 05710 530 73397 6 166.00 NI [id number] 530 62412 2 69.00 mm[Hg] - Sitting 119.00 mm[Hg] - Sitting 97.20 Ear 92.00 % 76.00/ min 20.00/min 71693 601 40480 1 61.00 mm[Hg] - Sitting 128.00 mm[Hg] - Sitting 98.10 Ear 98.00 % 80.00/ min 20.00/min Immunizations Vaccine Date Status COVID-19 01/10/2021 Completed COVID-19 01/31/2021 Completed COVID-19 09/11/2021 Completed COVID-19 10/11/2021 Completed Influenza 10/15/2022 Completed (PPSV23)Pneumococcal 06/14/2021 Completed
--- OUTSIDE RECORDS SUMMARY | 2024-04-16 03:06 | External Medical Summary | Continuity Of Care Document ---
Author Name Unknown Address [address] [place] [address] Organization [facility] ( ) Care Team Providers Care Supervisor Agency Appointments Name Role Phone Sobeida Parham Primary Care Provider [phone] Allergies Allergy Reaction Start Date End Date [...] Active M35.3 Polymyalgia rheumatica 03/26/2024 Ac tive VITAL SIGNS Date Time Diastolic blood pressure Systolic blood pressure Body height Body weight Temperature SpO2 Blood Sugar Pulse Respirations 26209 516 89091 9 82.00 mm[Hg] - Sitting 156.00 mm[Hg] - Sitting 96.70 Ear 93.00 % 61.00/ min 20.00/min 72924 516 23071 3 60 NI 165.00 NI 70968 517 73037 9 60.00 mm[Hg] - Sitting 160.00 mm[Hg] - Sitting 97.10 Oral 94.00 % 71.00/ min 18.00/min 73762 517 56435 8 66.00 mm[Hg] - Sitting 119.00 mm[Hg] - Sitting 97.80 Oral 99.00 % 67.00/ min 18.00/min 34969 517 12753 0 166.00 NI 18878 518 15822 7 74.00 mm[Hg] - Sitting 116.00 mm[Hg] - Sitting 98.10 Ear 94.00 % 65.00/ min 16.00/min 73682 519 88000 0 97.60 Ear 65118 519 35135 5 60.00 mm[Hg] - Sitting 98.00 mm[Hg] - Sitting 94.00 % 61.00/ min 16.00/min 78310 520 32473 1 65.00 mm[Hg] - Sitting 114.00 mm[Hg] - Sitting 98.00 Ear 96.00 % 66.00/ min 18.00/min 92710 521 70583 0 60.00 mm[Hg] - Sitting 128.00 mm[Hg] - Sitting 96.80 Ear 98.00 % 70.00/ min 18.00/min 60772 522 49461 4 165.00 NI 55072 523 54357 4 70.00 mm[Hg] - Sitting 120.00 mm[Hg] - Sitting 97.20 Ear 98.00 % 63.00/ min 20.00/min 28809 523 21222 9 84.00 mm[Hg] - Sitting 152.00 mm[Hg] - Sitting 98.10 Oral 94.00 % 67.00/ min 18.00/min 69405 523 15650 1 165.00 NI 18894 525 30094 9 64.00 mm[Hg] - Sitting 117.00 mm[Hg] - Sitting 96.90 Ear 96.00 % 66.00/ min 18.00/min 79491 525 08056 7 72.00 mm[Hg] - Sitting 139.00 mm[Hg] - Sitting 97.30 Ear 96.00 % 68.00/ min 18.00/min 27584 526 26289 7 74.00 mm[Hg] - Sitting 118.00 mm[Hg] - Sitting 98.20 Ear 92.00 % 54.00/ min 18.00/min 21098 527 13144 2 163.00 NI 55148 527 64457 4 77.00 mm[Hg] - Sitting 140.00 mm[Hg] - Sitting 99.30 Ear 97.00 % 93.00/ min 20.00/min Immunizations Vaccine Date Status COVID-19 01/10/2021 Completed COVID-19 01/31/2021 Completed COVID-19 09/11/2021 Completed COVID-19 10/11/2021 Completed Influenza 10/15/2022 Completed (PPSV23)Pneumococcal 06/14/2021 Completed
--- OUTSIDE RECORDS SUMMARY | 2024-04-16 03:06 | External Medical Summary | Continuity Of Care Document ---
Author Name Unknown Address [address] [place] [address] Organization [facility]) Care Team Providers Care Roller Leveler Name Role Phone Sobeida Parham Primary Care Provider [phone] Allergies Allergy Reaction Start Date End Date [...] weight Temperature SpO2 Blood Sugar Pulse Respirations 21505 516 87648 9 82.00 mm[Hg] - Sitting 156.00 mm[Hg] - Sitting 96.70 Ear 93.00 % 61.00/ min 20.00/min 87845 516 54952 3 60 NI 165.00 NI 91401 517 12601 9 60.00 mm[Hg] - Sitting 160.00 mm[Hg] - Sitting 97.10 Oral 94.00 % 71.00/ min 18.00/min 27702 517 11491 8 66.00 mm[Hg] - Sitting 119.00 mm[Hg] - Sitting 97.80 Oral 99.00 % 67.00/ min 18.00/min 85901 517 90626 0 166.00 NI 45291 518 41131 7 74.00 mm[Hg] - Sitting 116.00 mm[Hg] - Sitting 98.10 Ear 94.00 % 65.00/ min 16.00/min 75329 519 94570 0 97.60 Ear 88554 519 25294 5 60.00 mm[Hg] - Sitting 98.00 mm[Hg] - Sitting 94.00 % 61.00/ min 16.00/min 38245 520 49182 1 65.00 mm[Hg] - Sitting 114.00 mm[Hg] - Sitting 98.00 Ear 96.00 % 66.00/ min 18.00/min 48256 521 48872 0 60.00 mm[Hg] - Sitting 128.00 mm[Hg] - Sitting 96.80 Ear 98.00 % 70.00/ min 18.00/min 522 56236 4 165.00 NI 91910 523 47844 4 70.00 mm[Hg] - Sitting 120.00 mm[Hg] - Sitting 97.20 Ear 98.00 % 63.00/ min 20.00/min 01905 523 96791 9 84.00 mm[Hg] - Sitting 152.00 mm[Hg] - Sitting 98.10 Oral 94.00 % 67.00/ min 18.00/min 76315 523 84366 1 165.00 NI 14947 525 53062 9 64.00 mm[Hg] - Sitting 117.00 mm[Hg] - Sitting 96.90 Ear 96.00 % 66.00/ min 18.00/min 51468 525 24288 7 72.00 mm[Hg] - Sitting 139.00 mm[Hg] - Sitting 97.30 Ear 96.00 % 68.00/ min 18.00/min 50235 526 22477 7 74.00 mm[Hg] - Sitting 118.00 mm[Hg] - Sitting 98.20 Ear 92.00 % 54.00/ min 18.00/min 05023 527 09719 2 163.00 NI 74215 527 05332 4 77.00 mm[Hg] - Sitting 140.00 mm[Hg] - Sitting 99.30 Ear 97.00 % 93.00/ min 20.00/min 54522 528 39506 8 69.00 mm[Hg] - Sitting 134.00 mm[Hg] - Sitting 97.20 Ear 96.00 % 66.00/ min 16.00/min 62146 529 85129 3 72.00 mm[Hg] - Sitting 137.00 mm[Hg] - Sitting 97.80 Ear 98.00 % 69.00/ min 20.00/min 27600 530 34470 6 166.00 NI 66584 530 75888 2 69.00 mm[Hg] - Sitting 119.00 mm[Hg] - Sitting 97.20 Ear 92.00 % 76.00/ min 20.00/min 23680 601 67960 1 61.00 mm[Hg] - Sitting 128.00 mm[Hg] - Sitting 98.10 Ear 98.00 % 80.00/ min 20.00/min Immunizations Vaccine Date Status COVID-19 01/10/2021 Completed COVID-19 01/31/2021 Completed COVID-19 09/11/2021 Completed COVID-19 10/11/2021 Completed Influenza 10/15/2022 Completed (PPSV23)Pneumococcal 06/14/2021 Completed
--- OUTSIDE RECORDS SUMMARY | 2024-04-16 03:06 | External Medical Summary | Continuity Of Care Document ---
Author Name Unknown Address [address] [place] [address] Organization [facility] ( ) Care Team Providers Care Bottoming Machine Operator Name Role Phone Sobeida Parham Primary Care Provider [phone] Allergies Allergy Reaction Start Date End Date [...] weight Temperature SpO2 Blood Sugar Pulse Respirations 46947 516 70153 9 82.00 mm[Hg] - Sitting 156.00 mm[Hg] - Sitting 96.70 Ear 93.00 % 61.00/ min 20.00/min 73868 516 94518 3 60 NI 165.00 NI 45723 517 40461 9 60.00 mm[Hg] - Sitting 160.00 mm[Hg] - Sitting 97.10 Oral 94.00 % 71.00/ min 18.00/min 08464 517 31155 8 66.00 mm[Hg] - Sitting 119.00 mm[Hg] - Sitting 97.80 Oral 99.00 % 67.00/ min 18.00/min 59724 517 42115 0 166.00 NI 17190 518 90023 7 74.00 mm[Hg] - Sitting 116.00 mm[Hg] - Sitting 98.10 Ear 94.00 % 65.00/ min 16.00/min 26041 519 56565 0 97.60 Ear 41131 519 24201 5 60.00 mm[Hg] - Sitting 98.00 mm[Hg] - Sitting 94.00 % 61.00/ min 16.00/min 91017 520 20186 1 65.00 mm[Hg] - Sitting 114.00 mm[Hg] - Sitting 98.00 Ear 96.00 % 66.00/ min 18.00/min 94953 521 58941 0 60.00 mm[Hg] - Sitting 128.00 mm[Hg] - Sitting 96.80 Ear 98.00 % 70.00/ min 18.00/min 03089 522 60360 4 165.00 NI 43340 523 17733 4 70.00 mm[Hg] - Sitting 120.00 mm[Hg] - Sitting 97.20 Ear 98.00 % 63.00/ min 20.00/min 18404 523 03232 9 84.00 mm[Hg] - Sitting 152.00 mm[Hg] - Sitting 98.10 Oral 94.00 % 67.00/ min 18.00/min 51067 523 10581 1 165.00 NI 71515 525 11589 9 64.00 mm[Hg] - Sitting 117.00 mm[Hg] - Sitting 96.90 Ear 96.00 % 66.00/ min 18.00/min 25869 525 59331 7 72.00 mm[Hg] - Sitting 139.00 mm[Hg] - Sitting 97.30 Ear 96.00 % 68.00/ min 18.00/min 75812 526 00330 7 74.00 mm[Hg] - Sitting 118.00 mm[Hg] - Sitting 98.20 Ear 92.00 % 54.00/ min 18.00/min 29394 527 50803 2 163.00 NI 07207 527 19656 4 77.00 mm[Hg] - Sitting 140.00 mm[Hg] - Sitting 99.30 Ear 97.00 % 93.00/ min 20.00/min Immunizations Vaccine Date Status COVID-19 01/10/2021 Completed COVID-19 01/31/2021 Completed COVID-19 09/11/2021 Completed COVID-19 10/11/2021 Completed Influenza 10/15/2022 Completed (PPSV23)Pneumococcal 06/14/2021 Completed
--- OUTSIDE RECORDS SUMMARY | 2024-04-16 03:06 | External Medical Summary | Continuity Of Care Document ---
Author Name Unknown Address [address] [place] [address] Organization [facility]) Care Team Providers Care State Fire Marshal Name Role Phone Sobeida Parham Primary Care Provider [phone] Allergies Allergy Reaction Start Date End Date Status DOBUTAMINE Disorientation Active MORPHINE Difficulty breathing Acti ve NSAIDS (NON-STEROIDAL ANTI-INFLAMMATORY DRUG) Itching Active ETODOLAC Active NABUMETONE Active HYDROMORPHONE Dizziness, Nausea Acti ve MINOCYCLINE Nausea Active VITAL SIGNS Date Time Diastolic blood pressure Systolic blood pressure Body height Body weight Temperature SpO2 Blood Sugar Pulse Respirations 24374 516 88188 9 82.00 mm[Hg] - Sitting 156.00 mm[Hg] - Sitting 96.70 Ear 93.00 % 61.00/ min 20.00/min 68183 516 39086 3 60 NI 165.00 NI 55479 517 00507 9 60.00 mm[Hg] - Sitting 160.00 mm[Hg] - Sitting 97.10 Oral 94.00 % 71.00/ min 18.00/min 41272 517 71748 8 66.00 mm[Hg] - Sitting 119.00 mm[Hg] - Sitting 97.80 Oral 99.00 % 67.00/ min 18.00/min Immunizations Vaccine Date Status COVID-19 01/10/2021 Completed COVID-19 01/31/2021 Completed COVID-19 09/11/2021 Completed COVID-19 10/11/2021 Completed Influenza 10/15/2022 Completed (PPSV23)Pneumococcal 06/14/2021 Completed
--- OUTSIDE RECORDS SUMMARY | 2024-04-16 03:06 | External Medical Summary | Continuity Of Care Document ---
Author Name Unknown Address [address] [place] [address] Organization [facility]) Care Team Providers Care Trial Attorney Name Role Phone Sobeida Parham Primary Care Provider [phone] Allergies Allergy Reaction Start Date End Date [...] weight Temperature SpO2 Blood Sugar Pulse Respirations 81454 516 62827 9 82.00 mm[Hg] - Sitting 156.00 mm[Hg] - Sitting 96.70 Ear 93.00 % 61.00/ min 20.00/min 88362 516 14875 3 60 NI 165.00 NI 57209 517 06643 9 60.00 mm[Hg] - Sitting 160.00 mm[Hg] - Sitting 97.10 Oral 94.00 % 71.00/ min 18.00/min 46200 517 68122 8 66.00 mm[Hg] - Sitting 119.00 mm[Hg] - Sitting 97.80 Oral 99.00 % 67.00/ min 18.00/min 23234 517 70438 0 166.00 NI 74413 518 87306 7 74.00 mm[Hg] - Sitting 116.00 mm[Hg] - Sitting 98.10 Ear 94.00 % 65.00/ min 16.00/min 66342 519 01060 0 97.60 Ear 45238 519 70026 5 60.00 mm[Hg] - Sitting 98.00 mm[Hg] - Sitting 94.00 % 61.00/ min 16.00/min 97228 520 47157 1 65.00 mm[Hg] - Sitting 114.00 mm[Hg] - Sitting 98.00 Ear 96.00 % 66.00/ min 18.00/min 23599 521 73282 0 60.00 mm[Hg] - Sitting 128.00 mm[Hg] - Sitting 96.80 Ear 98.00 % 70.00/ min 18.00/min 522 13780 4 165.00 NI 69010 523 19236 4 70.00 mm[Hg] - Sitting 120.00 mm[Hg] - Sitting 97.20 Ear 98.00 % 63.00/ min 20.00/min 50599 523 90655 9 84.00 mm[Hg] - Sitting 152.00 mm[Hg] - Sitting 98.10 Oral 94.00 % 67.00/ min 18.00/min 61395 523 45391 1 165.00 NI 03280 525 29244 9 64.00 mm[Hg] - Sitting 117.00 mm[Hg] - Sitting 96.90 Ear 96.00 % 66.00/ min 18.00/min 26857 525 30602 7 72.00 mm[Hg] - Sitting 139.00 mm[Hg] - Sitting 97.30 Ear 96.00 % 68.00/ min 18.00/min 54320 526 66519 7 74.00 mm[Hg] - Sitting 118.00 mm[Hg] - Sitting 98.20 Ear 92.00 % 54.00/ min 18.00/min 98287 527 57858 2 163.00 NI 45098 527 14108 4 77.00 mm[Hg] - Sitting 140.00 mm[Hg] - Sitting 99.30 Ear 97.00 % 93.00/ min 20.00/min 33478 528 42718 8 69.00 mm[Hg] - Sitting 134.00 mm[Hg] - Sitting 97.20 Ear 96.00 % 66.00/ min 16.00/min 91648 529 36530 3 72.00 mm[Hg] - Sitting 137.00 mm[Hg] - Sitting 97.80 Ear 98.00 % 69.00/ min 20.00/min 66448 530 98188 6 166.00 NI Immunizations Vaccine Date Status COVID-19 01/10/2021 Completed COVID-19 01/31/2021 Completed COVID-19 09/11/2021 Completed COVID-19 10/11/2021 Completed Influenza 10/15/2022 Completed (PPSV23)Pneumococcal 06/14/2021 Completed
--- OUTSIDE RECORDS SUMMARY | 2024-04-16 03:06 | External Medical Summary | Continuity Of Care Document ---
Author Name Unknown Address [address] [place] [address] Organization [facility]) Care Team Providers Care Automobile Mechanic Name Role Phone Sobeida Parham Primary Care Provider [phone] Allergies Allergy Reaction Start Date End Date [...] weight Temperature SpO2 Blood Sugar Pulse Respirations 76153 516 20852 9 82.00 mm[Hg] - Sitting 156.00 mm[Hg] - Sitting 96.70 Ear 93.00 % 61.00/ min 20.00/min 19223 516 87298 3 60 NI 165.00 NI 45013 517 17405 9 60.00 mm[Hg] - Sitting 160.00 mm[Hg] - Sitting 97.10 Oral 94.00 % 71.00/ min 18.00/min 17031 517 73929 8 66.00 mm[Hg] - Sitting 119.00 mm[Hg] - Sitting 97.80 Oral 99.00 % 67.00/ min 18.00/min 70302 517 95209 0 166.00 NI 10945 518 75460 7 74.00 mm[Hg] - Sitting 116.00 mm[Hg] - Sitting 98.10 Ear 94.00 % 65.00/ min 16.00/min 07131 519 99890 0 97.60 Ear 01545 519 02399 5 60.00 mm[Hg] - Sitting 98.00 mm[Hg] - Sitting 94.00 % 61.00/ min 16.00/min 12443 520 85368 1 65.00 mm[Hg] - Sitting 114.00 mm[Hg] - Sitting 98.00 Ear 96.00 % 66.00/ min 18.00/min 41161 521 19341 0 60.00 mm[Hg] - Sitting 128.00 mm[Hg] - Sitting 96.80 Ear 98.00 % 70.00/ min 18.00/min 522 87487 4 165.00 NI 22166 523 39291 4 70.00 mm[Hg] - Sitting 120.00 mm[Hg] - Sitting 97.20 Ear 98.00 % 63.00/ min 20.00/min 01786 523 19814 9 84.00 mm[Hg] - Sitting 152.00 mm[Hg] - Sitting 98.10 Oral 94.00 % 67.00/ min 18.00/min 19606 523 87480 1 165.00 NI 74186 525 82154 9 64.00 mm[Hg] - Sitting 117.00 mm[Hg] - Sitting 96.90 Ear 96.00 % 66.00/ min 18.00/min 28392 525 86396 7 72.00 mm[Hg] - Sitting 139.00 mm[Hg] - Sitting 97.30 Ear 96.00 % 68.00/ min 18.00/min 35235 526 49321 7 74.00 mm[Hg] - Sitting 118.00 mm[Hg] - Sitting 98.20 Ear 92.00 % 54.00/ min 18.00/min 00622 527 90311 2 163.00 NI 03199 527 28460 4 77.00 mm[Hg] - Sitting 140.00 mm[Hg] - Sitting 99.30 Ear 97.00 % 93.00/ min 20.00/min 96377 528 67002 8 69.00 mm[Hg] - Sitting 134.00 mm[Hg] - Sitting 97.20 Ear 96.00 % 66.00/ min 16.00/min 77900 529 16196 3 72.00 mm[Hg] - Sitting 137.00 mm[Hg] - Sitting 97.80 Ear 98.00 % 69.00/ min 20.00/min 65038 530 09036 6 166.00 NI Immunizations Vaccine Date Status COVID-19 01/10/2021 Completed COVID-19 01/31/2021 Completed COVID-19 09/11/2021 Completed COVID-19 10/11/2021 Completed Influenza 10/15/2022 Completed (PPSV23)Pneumococcal 06/14/2021 Completed
--- OUTSIDE RECORDS SUMMARY | 2024-04-16 03:06 | External Medical Summary | Continuity Of Care Document ---
Author Name Unknown Address [address] [place] [address] Organization [facility]) Care Team Providers Care Concrete Fence Builder Name Role Phone Sobeida Parham Primary Care Provider [phone] Allergies Allergy Reaction Start Date End Date [...] weight Temperature SpO2 Blood Sugar Pulse Respirations 62623 516 30813 9 82.00 mm[Hg] - Sitting 156.00 mm[Hg] - Sitting 96.70 Ear 93.00 % 61.00/ min 20.00/min 00260 516 77419 3 60 NI 165.00 NI 45692 517 38342 9 60.00 mm[Hg] - Sitting 160.00 mm[Hg] - Sitting 97.10 Oral 94.00 % 71.00/ min 18.00/min 71263 517 84441 8 66.00 mm[Hg] - Sitting 119.00 mm[Hg] - Sitting 97.80 Oral 99.00 % 67.00/ min 18.00/min 06347 517 37064 0 166.00 NI 49727 518 44970 7 74.00 mm[Hg] - Sitting 116.00 mm[Hg] - Sitting 98.10 Ear 94.00 % 65.00/ min 16.00/min 76960 519 94019 0 97.60 Ear 26845 519 70612 5 60.00 mm[Hg] - Sitting 98.00 mm[Hg] - Sitting 94.00 % 61.00/ min 16.00/min 89837 520 14795 1 65.00 mm[Hg] - Sitting 114.00 mm[Hg] - Sitting 98.00 Ear 96.00 % 66.00/ min 18.00/min 68479 521 54973 0 60.00 mm[Hg] - Sitting 128.00 mm[Hg] - Sitting 96.80 Ear 98.00 % 70.00/ min 18.00/min 522 01913 4 165.00 NI 27786 523 75497 4 70.00 mm[Hg] - Sitting 120.00 mm[Hg] - Sitting 97.20 Ear 98.00 % 63.00/ min 20.00/min 63708 523 78605 9 84.00 mm[Hg] - Sitting 152.00 mm[Hg] - Sitting 98.10 Oral 94.00 % 67.00/ min 18.00/min 92988 523 08088 1 165.00 NI 39425 525 07885 9 64.00 mm[Hg] - Sitting 117.00 mm[Hg] - Sitting 96.90 Ear 96.00 % 66.00/ min 18.00/min 34284 525 58935 7 72.00 mm[Hg] - Sitting 139.00 mm[Hg] - Sitting 97.30 Ear 96.00 % 68.00/ min 18.00/min 18639 526 62296 7 74.00 mm[Hg] - Sitting 118.00 mm[Hg] - Sitting 98.20 Ear 92.00 % 54.00/ min 18.00/min 75579 527 64783 2 163.00 NI 91731 527 61533 4 77.00 mm[Hg] - Sitting 140.00 mm[Hg] - Sitting 99.30 Ear 97.00 % 93.00/ min 20.00/min 85678 528 12324 8 69.00 mm[Hg] - Sitting 134.00 mm[Hg] - Sitting 97.20 Ear 96.00 % 66.00/ min 16.00/min 03841 529 17637 3 72.00 mm[Hg] - Sitting 137.00 mm[Hg] - Sitting 97.80 Ear 98.00 % 69.00/ min 20.00/min 90387 530 52621 6 166.00 NI Immunizations Vaccine Date Status COVID-19 01/10/2021 Completed COVID-19 01/31/2021 Completed COVID-19 09/11/2021 Completed COVID-19 10/11/2021 Completed Influenza 10/15/2022 Completed (PPSV23)Pneumococcal 06/14/2021 Completed
--- OUTSIDE RECORDS SUMMARY | 2024-04-16 03:06 | External Medical Summary | Continuity Of Care Document ---
Author Name Unknown Address [address] [place] [address] Organization [facility]) Care Team Providers Care Peoplesoft Analyst Name Role Phone Sobeida Parham Primary Care Provider [phone] Allergies Allergy Reaction Start Date End Date [...] weight Temperature SpO2 Blood Sugar Pulse Respirations 84784 516 36729 9 82.00 mm[Hg] - Sitting 156.00 mm[Hg] - Sitting 96.70 Ear 93.00 % 61.00/ min 20.00/min 41574 516 97643 3 60 NI 165.00 NI 50164 517 53691 9 60.00 mm[Hg] - Sitting 160.00 mm[Hg] - Sitting 97.10 Oral 94.00 % 71.00/ min 18.00/min 04156 517 56669 8 66.00 mm[Hg] - Sitting 119.00 mm[Hg] - Sitting 97.80 Oral 99.00 % 67.00/ min 18.00/min 09490 517 14237 0 166.00 NI 55357 518 03030 7 74.00 mm[Hg] - Sitting 116.00 mm[Hg] - Sitting 98.10 Ear 94.00 % 65.00/ min 16.00/min 61455 519 24722 0 97.60 Ear 92430 519 12944 5 60.00 mm[Hg] - Sitting 98.00 mm[Hg] - Sitting 94.00 % 61.00/ min 16.00/min 04855 520 17179 1 65.00 mm[Hg] - Sitting 114.00 mm[Hg] - Sitting 98.00 Ear 96.00 % 66.00/ min 18.00/min 66852 521 06916 0 60.00 mm[Hg] - Sitting 128.00 mm[Hg] - Sitting 96.80 Ear 98.00 % 70.00/ min 18.00/min 522 37247 4 165.00 NI 77842 523 16056 4 70.00 mm[Hg] - Sitting 120.00 mm[Hg] - Sitting 97.20 Ear 98.00 % 63.00/ min 20.00/min 50140 523 13545 9 84.00 mm[Hg] - Sitting 152.00 mm[Hg] - Sitting 98.10 Oral 94.00 % 67.00/ min 18.00/min 38257 523 36763 1 165.00 NI 32225 525 85667 9 64.00 mm[Hg] - Sitting 117.00 mm[Hg] - Sitting 96.90 Ear 96.00 % 66.00/ min 18.00/min 80165 525 38810 7 72.00 mm[Hg] - Sitting 139.00 mm[Hg] - Sitting 97.30 Ear 96.00 % 68.00/ min 18.00/min 50510 526 35105 7 74.00 mm[Hg] - Sitting 118.00 mm[Hg] - Sitting 98.20 Ear 92.00 % 54.00/ min 18.00/min 65380 527 46894 2 163.00 NI 80913 527 41885 4 77.00 mm[Hg] - Sitting 140.00 mm[Hg] - Sitting 99.30 Ear 97.00 % 93.00/ min 20.00/min 16796 528 40044 8 69.00 mm[Hg] - Sitting 134.00 mm[Hg] - Sitting 97.20 Ear 96.00 % 66.00/ min 16.00/min 98190 529 92758 3 72.00 mm[Hg] - Sitting 137.00 mm[Hg] - Sitting 97.80 Ear 98.00 % 69.00/ min 20.00/min 17127 530 66258 6 166.00 NI Immunizations Vaccine Date Status COVID-19 01/10/2021 Completed COVID-19 01/31/2021 Completed COVID-19 09/11/2021 Completed COVID-19 10/11/2021 Completed Influenza 10/15/2022 Completed (PPSV23)Pneumococcal 06/14/2021 Completed
[2024-04-16] MEDS: LEVOTHYROXINE SODIUM 75 MCG TABLET PO SCH (05:32)
[2024-04-16] MEDS: diphenhydrAMINE 2%/ZINC 0.1% CREAM 28.4GM TUBE EXT PRN (05:33)
[2024-04-16] MEDS: hydrOXYzine HCl 10 MG TAB PO PRN (07:14)
[2024-04-16] MEDS: methylPREDNISolone 4 MG TAB PO SCH (08:36)
[2024-04-16] MEDS: ESCITALOPRAM OXALATE 10 MG TAB PO SCH (08:36)
[2024-04-16] MEDS: ISOSORBIDE MONO EXTENDED REL 60 MG TABCR PO SCH (08:37)
[2024-04-16 08:56] LABS: Hematocrit (blood only) 35.6 % (37.0-47.0); Hemoglobin 11.5 g/dl (12.0-16.0); Mean Corpuscular Hgb Conc 32.3 g/dL (32.0-36.0); Mean Corpuscular Volume 89.7 fL (80.0-100.0); Mean Platelet Volume 9.2 fL (9.4-12.4); Platelet Count 222 K/uL (130-400); RDW Coefficient of Variation 15.4 % (11.5-14.5); RDW Standard Deviation 51.1 fL (36.4-46.3); Red Blood Count 3.97 M/uL (4.20-5.40)
--- NOTE | 2024-04-16 09:06 | Podiatry Consultation ---
Date of Consultation April 16, 2024 Assessment & Plan (1) Dermatitis, unspecified: (2) Bilateral lower leg cellulitis: (3) Other specified peripheral vascular diseases: Plan patient was examined and evaluated. She does seem to be suffering from underlying dermatologic condition leading to these skin lesions of the foot and ankle, though also throughout the body. She does have underlying peripheral arterial disease as well, consistent with her age. This would limit surgical intervention at this time, she would not benefit from surgical intervention. Her cellulitis is likely associated with the superficial blisters, that would benefit mostly from antibiotics and local wound care rather than surgical debridement. She could benefit from a wound care consult overall. Otherwise, we would defer treatment of the skin lesions to dermatology as my again, they are more likely associated with her global skin condition. we will follow her for a couple days and likely sign off on her at that time, unless surgical treatment becomes indicated. Further, because of this peripheral arterial disease, she may benefit from vascular consult, though they may decline further intervention, as well. History of Present Illness Reason for Consultation: bilateral foot blisters Attending Physician: Lianna Cartwright MD History of Present Illness Patient seen at bedside this am. Patient sleeping but arousable. She is a poor historian, alert to person and place, unsure of the year. Confused overall. Unsure how long she has been in the hospital or what she is here for. Unsure of home living situation. Chart reviewed extensively for remainder of subjective/ROS. Allergies Allergy/AdvReac Type Severity Reaction Status Date / Time dobutamine Allergy Severe psych Verified 04/15/24 14:01 complications morphine Allergy Severe Could not Verified 04/15/24 14:01 breathe as per px NSAIDS (Non-Steroidal Allergy Intermediate ITCH Verified 04/15/24 14:01 Anti-Inflamma etodolac Allergy Unknown Unknown Verified 04/15/24 14:01 nabumetone [From Relafen] Allergy Unknown Unknown Verified 04/15/24 14:01 hydromorphone AdvReac Intermediate DIZZY,NAUSE Verified 04/15/24 14:01 A minocycline AdvReac Intermediate Nausea Verified 04/15/24 14:01 Home Medications Medication Instructions Recorded Confirmed Type apixaban 2.5 mg tablet (Eliquis) 2.5 mg PO AMHS 05/29/19 04/15/24 History nitroglycerin 0.4 mg sublingual 0.4 mg sublingual UD PRN Chest Pain 05/29/19 04/15/24 History tablet (Nitrostat) pantoprazole 20 mg tablet,delayed 20 mg PO AMPM 05/29/19 04/15/24 History release (Protonix) trazodone 50 mg tablet 50 mg PO .SUPPER & HS 05/29/19 04/15/24 History acetaminophen 500 mg tablet 500 mg PO AMHS 04/12/20 04/15/24 History (Tylenol Extra Strength) rosuvastatin 10 mg tablet 10 mg PO HS 06/12/21 04/15/24 History isosorbide mononitrate 60 mg 60 mg PO QAM 06/03/23 04/15/24 History tablet,extended release 24 hr torsemide 5 mg tablet 5 mg PO 3XWK 11/14/23 04/15/24 History amoxicillin 500 mg capsule 2,000 mg PO DIRECTED PRN PRIOR 01/29/24 04/15/24 History TO DENTAL PROCEDURES levothyroxine 75 mcg tablet 75 mcg PO DAILYBB 03/02/24 04/15/24 History acetaminophen 325 mg tablet 650 mg PO Q4 PRN Pain 04/15/24 04/15/24 History (Tylenol) diphenhydramine HCl 25 mg tablet 25 mg PO TID PRN Itching 04/15/24 04/15/24 History (Benadryl Allergy) escitalopram oxalate 10 mg tablet 10 mg PO QAM 04/15/24 04/15/24 History gabapentin 300 mg capsule 300 mg PO BID 04/15/24 04/15/24 History methylprednisolone 4 mg tablet 4 mg PO QAM 04/15/24 04/15/24 History metoprolol succinate 25 mg 25 mg PO AMHS 04/15/24 04/15/24 History tablet,extended release 24 hr povidone-iodine 10 % topical 1 applic topical .BID & PRN 04/15/24 04/15/24 History solution silver-calcium alginate 4" X 8" 1 ea topical .BID&PRN 04/15/24 04/15/24 History bandage tramadol 50 mg tablet 50 mg PO TID PRN Pain 04/15/24 04/15/24 History Patient History Medical History Acute UTI Dementia Elevated troponin Family History Other Cancer Coronary heart disease Rheumatoid arthritis Stroke Social History Smoking Status: Never smoker Second Hand Exposure: No; Do You Dip or Chew Tobacco: No; Hx Alcohol Use: No Hx Substance Use: No Preferred Language: Persian Communication Ability: Impaired Wellness Specialist Required: No Beliefs That Will Affect Care: None marital status: / Current Living Situation: Long-Term Current Living Situation Comment: lives with son who helps with care How many Children do You have: 3 Other Information That Helps Us Care for You: No Feels Safe at Home: Yes Safety Concerns: Feels Safe At This Time Assistive Devices: Walker and Wheelchair Review of Systems Review of Systems: All systems reviewed & are unremarkable except as noted in HPI & below Constitutional: + weakness; no fever and no chills Eyes: no problem reported Ear, Nose, Mouth, Throat: no problem reported Respiratory: no problem reported Cardiovascular: no problem reported Gastrointestinal: no problem reported Genitourinary: no problem reported Musculoskeletal: no problem reported Integumentary: + lesions and + non-healing lesions Neurologic: + numbness; no loss of sensation Psychiatric: no problem reported Endocrine: no problem reported Physical Exam Physical Exam: bilateral lower extremity focused exam: DP/PT pulses 0/4. Advanced trophic changes to the skin bilaterally, including thinning of the skin, dry skin, loss of hair growth, dystrophic nails, and cooling proximally and distally. Multiple ecchymotic or sanguinous blisters are noted throughout the foot and ankle with potential necrosis noted to the digits bilaterally. This does appear more consistent with her more systemic bolus skin condition rather than acute dry necrosis or gangrene. Still, she does have advanced findings of peripheral arterial disease. There is pain on palpation of the bilateral foot and ankle, though light touch sensation appears to be absent. CFT remains brisk to the digits. Muscle strength appears diminished with atrophy to the bilateral foot and ankle. Pitting edema is noted to the bilateral foot and ankle as well. Constitutional: + ill appearing; no acute distress Eyes: PERRL, conjunctivae normal, anicteric sclerae ENMT: external ear and nose normal, oropharynx normal Neck: trachea midline, no thyromegaly Respiratory: normal respiratory effort; no respiratory distress Cardiovascular: Rate/Rhythm: regular rate; + abnormal rhythm Vessels: + posterior tibial pulses abnormal and + dorsalis pedis pulses abnormal Extremities: + pedal edema; no calf tenderness Gastrointestinal (Abdomen): Inspection/Auscultation: + abdomen abnormal to inspection Musculoskeletal: Head/Neck/Chest: normocephalic and head atraumatic; head normal to inspection Skin: + turgor decreased, + lesion, + indurati on, + skin atrophy, + erythema and + eschar Neurologic: + abnormal touch/pain/proprioception and + abnormal sensation to monofilament Psychiatric: Orientation: alert, oriented to person and oriented to place; + not oriented to time Results & Data Vital Signs (Past 12 Hours) Vital Signs Temp Pulse Resp BP Pulse Ox O2 Del Method 04/16/24 07:07 36.3 C L 61 16 130/75 97 Room Air 04/15/24 22:57 Room Air
[2024-04-16 09:07] LABS: BUN Creatinine Ratio 19.9 (10-20); Calcium 7.5 mg/dl (8.6-10.3); Creatinine Clr Calc Pharmacy 27.4 ml/min; Est GFR (African American) 36.6 ml/min; Est GFR (Non-African American) 31.6 ml/min; Potassium 4.5 mmol/L (3.5-5.1)
--- NOTE | 2024-04-16 12:23 | Hospitalist Progress Note ---
Date of Service April 16, 2024 Assessment & Plan (1) Cellulitis: (2) AMS (altered mental status): (3) Ambulatory dysfunction: (4) Generalized weakness: (5) CHF (congestive heart failure): (6) CKD (chronic kidney disease) stage 4, GFR 15-29 ml/min: Plan: Cellulitis LLE Necrosis of Left 2nd toe Multiple foot wounds Right and Left - Admit to [facility] - WBC 11.9, improving - blood cultures obtained, started on cefepime IV, add daptomycin IV, left lower extremity cellulitis as patient presented with increased erythema, edema - BP appears to be slightly soft at 99/69 upon admission, received small amount of fluids - Afebrile, heart rate is stable in the 60s - Wound consulted for ulcerations/wounds on feet - Podiatry consulted for possible debridement - appreciate recs - no surgical intervention today - Obtain CT bilateral feet with wounds and areas of necrosis -- reviewed personally, no acute osteomyelitis. - Doppler bilat LE negative - TATO bilateral lower ext was unable to be obtained as pt was in pain with attempt by imaging department and wound. Podiatry can assess vs vascular? - Negative MRSA swab nose Rash - Diffuse, pruritic, large lesions systemically with bullae - [place] illness workup pending - no babesia or anaplasmosis on smear - Discussed with Dr. 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 - Will plan to obtain skin biopsy today - confirmed via tigertext - Continue topical clobetasol for itch - Pt has recently completed prednisone taper, also appears she is on methylprednisolone 5 mg daily per her med rec Acute cystitis - UA appears to be infected, follow urine culture, growing gram negative bacilli prelim on 04/16 -- previous culture on 03/20/24 growing ESBL e.coli, was resistant to cefepime so will stop and switch to ertapenum. Pt also on daptomycin IV. Will await culture results for abx. WBC is improving, afebrile. AMS Dementia -History of such, reported in previous documentation this is been progressing over time - She is alert and oriented to self, not time or place Ambulatory dysfunction -PT/OT consults Chronic CHF Aortic stenosis s/p TAVR Hx of PE - Anticoagulated on eliquis at home - HOLD for now - continue metoprolol succ 25 mg BID, imdur 60 mg QAM DEDRICK on CKD stage III - creatinine on admission 1.79, BUN 34 --- improving, Cr 1.46/BUN 29 - Avoid nephrotoxins and renally dose medications-trend with a.m. labs Polymyalgia rheumatica Osteoporosis - Chronic, stable Hypothyroidism - Cont levothyroxine DVT ppx: teds, scds, HOLD eliquis Lines: 1 PIV FEN/GI: Allow HH diet CODE: Full code Dispo: From home, likely to remain in the hospital x 1-2 days A total of 45 minutes were spent with greater than 50% of that time face to face with the patient, personally reviewing all current laboratories, imaging studies, past medication reconciliation, outpatient chart review, and discussion with specialists to collaborate care for the patient with attending. Please see attending documentation for corrections and/or additions. Admission and Anticipated Discharge Date Admission Date: April 15, 2024 Supervising Physician Co-Signing Physician Notes Patient seen and examined Poor historian. Alert and oriented to person only Wound has been dressed. Pics in chart reviewed Generalized erythematous plaques, urticarial in nature in some parts, edematous with few bullae in some parts. Reviewed foot CT Podiatry evaluation appreciated Appreciate Dermatology eval UCX is growing GNR. Considering history of ESBL E coli last month, Cefepime was changed to ertapenem (renally dosed) for now until speciation and sensitivities Continue daptomycin Follow up infectious workup Patient reviewed with Advanced Practitioner Agree with Advanced Practitioner's evaluation, findings and plans and take full responsibility Subjective The patient was seen and examined this morning. Patient reports feeling unwell, cannot pinpoint any specific complaint, but is slightly confused. Wound care was sent to the room, just redressed feet, suspect that podiatry has already been in to see the patient. She denies any fevers, chills or sweats, has some itch involving systemic rash. She cannot recall if she ate anything for breakfast this morning, has fluids at bedside, appears to be drinking these. Denies any chest pain, shortness of breath, or abdominal complaints. Physical Exam Physical Exam: General: awake, alert, no apparent distress, overweight white female, pleasantly confused, AO x 1. Head: Normocephalic, atraumatic ENT: PERRL, EOMI, no pharyngeal exudate, mucous membranes moist Chest: Clear to auscultation, on room air, no adventitious breath sounds Cardiac: Regular rate and rhythm, no murmur, no JVD, normal peripheral pulses, good capillary refill Abdominal: NABS x 4 quadrants, soft, nondistended, nontender to palpation, no rebound or guarding Extremities: Normal inspection, no peripheral edema or erythema, calfs nontender to palpation Skin: diffused erythematous lesions, round target like areas with confluence on torso/back/extremities, scattered tense bullae on back, scattered excoriations. Bilateral 1+ pitting edema of lower extremities, nontender; large hemorrhagic bullae on left LE 2nd digit, and small on hemorrhagic on 3-4rd digit right Neuro: AAO x 1, strength intact bilaterally and rated 5/5, no gross motor deficits, speech is clear, no peripheral sensory deficits Results & Data Results & Data Vital Signs (Past 12 Hours) Vital Signs Temp Pulse Resp BP Pulse Ox O2 Del Method 04/16/24 07:07 36.3 C L 61 16 130/75 97 Room Air Laboratory Results Abnormal lab results 04/16/24 Range/Units 08:35 RBC 3.97 L (4.20-5.40) M/uL Hgb 11.5 L (12.0-16.0) g/dl Hct 35.6 L (37.0-47.0) % RDW Std Deviation 51.1 H (36.4-46.3) fL RDW Coeff of Jing 15.4 H (11.5-14.5) % MPV 9.2 L (9.4-12.4) fL Chloride 111 H (98-107) mmol/L BUN 29 H (6-23) mg/dl Creatinine 1.46 H D (0.6-1.2) mg/dl Calcium 7.5 L (8.6-10.3) mg/dl (5) CHF (congestive heart failure) Heart failure chronicity: acute Heart failure type: unspecified Qualified Code(s): I50.9 - Heart failure, unspecified
[2024-04-16] MEDS: ERTAPENEM SODIUM 500 MG in SYRINGE 0 ML IV SCH (15:05)
--- NOTE | 2024-04-16 16:00 | Dermatology Consultation ---
Date of Consultation April 16, 2024 Assessment & Plan (1) Dermatitis, unspecified: DDx includes Bullous pemphigoid vs. Linear IgA bullous dermatosis vs. Bullous contact dermatitis vs. other 1) Punch biopsies x 2 taken today for DIF and H&E evaluation to help solidify diagnosis. Further treatment recommendations pending biopsy results. 2) Agree with clobetasol 0.05% cream to active areas of the trunk and extremities twice daily for now. 3) Sutures from punch biopsy sites on the right shoulder should be removed in 10 days. 4) Continued workup and supportive care for potential coexisting infection as per primary team. Present on Admission?: Yes History of Present Illness Reason for Consultation: Rash Requesting Physician: Lianna Cartwright MD Attending Physician: Lianna Cartwright MD History of Present Illness Patient is an 89 y/o WF with PMHx significant for history of PE, stage III CKD, PMR, hyperlipidemia, aortic stenosis s/p TAVR and dementia admitted to [facility] from [facility] on 04/15/2024 with altered mental status and concern for cellulitis involving the left lower leg. It was apparently noticed by her daughter wounds on her bilateral feet and toes that seemed to be new. She also was developing worsening rash on the trunk and extremities. I have been consulted for evaluation of the rash. Patient is a poor historian due to her dementia, so history has been taken primarily from the chart. Patient apparently initially developed a rash during prior hospitalization at [facility] from 03/21/2024 to 03/26/2024. Review of notes from that hospitalization suggest rash was initially noted by [facility] nursing staff on 03/25/2024. Patient was apparently treated with a prednisone taper and possible IM steroid shot following her discharge on 03/26/2024. According to nursing staff, her rash has gradually worsened since finishing steroid taper about 2 weeks ago. Patient does complain of itching. Nursing staff has noticed multiple blisters on areas of the trunk and extremities. Patient denies any irritation/sores in the mouth, eye pain/irritation, vision changes, difficulty swallowing. She denies any history of similar eruption in the past, but she is not a good historian. Since her admission, podiatry has been consulted and evaluated the patient today for blisters on her feet and toes. She is receiving empiric treatment with daptomycin and ertapenem. Clobetasol cream has been ordered to the rash twice daily. Allergies Allergy/AdvReac Type Severity Reaction Status Date / Time dobutamine Allergy Severe psych Verified 04/15/24 14:01 complications morphine Allergy Severe Could not Verified 04/15/24 14:01 breathe as per px NSAIDS (Non-Steroidal Allergy Intermediate ITCH Verified 04/15/24 14:01 Anti-Inflamma etodolac Allergy Unknown Unknown Verified 04/15/24 14:01 nabumetone [From Relafen] Allergy Unknown Unknown Verified 04/15/24 14:01 hydromorphone AdvReac Intermediate DIZZY,NAUSE Verified 04/15/24 14:01 A minocycline AdvReac Intermediate Nausea Verified 04/15/24 14:01 Home Medications Medication Instructions Recorded Confirmed Type apixaban 2.5 mg tablet (Eliquis) 2.5 mg PO AMHS 05/29/19 04/15/24 History nitroglycerin 0.4 mg sublingual 0.4 mg sublingual UD PRN Chest Pain 05/29/19 04/15/24 History tablet (Nitrostat) pantoprazole 20 mg tablet,delayed 20 mg PO AMPM 05/29/19 04/15/24 History release (Protonix) trazodone 50 mg tablet 50 mg PO .SUPPER & HS 05/29/19 04/15/24 History acetaminophen 500 mg tablet 500 mg PO AMHS 04/12/20 04/15/24 History (Tylenol Extra Strength) rosuvastatin 10 mg tablet 10 mg PO HS 06/12/21 04/15/24 History isosorbide mononitrate 60 mg 60 mg PO QAM 06/03/23 04/15/24 History tablet,extended release 24 hr torsemide 5 mg tablet 5 mg PO 3XWK 11/14/23 04/15/24 History amoxicillin 500 mg capsule 2,000 mg PO DIRECTED PRN PRIOR 01/29/24 04/15/24 H istory TO DENTAL PROCEDURES levothyroxine 75 mcg tablet 75 mcg PO DAILYBB 03/02/24 04/15/24 History acetaminophen 325 mg tablet 650 mg PO Q4 PRN Pain 04/15/24 04/15/24 History (Tylenol) diphenhydramine HCl 25 mg tablet 25 mg PO TID PRN Itching 04/15/24 04/15/24 History (Benadryl Allergy) escitalopram oxalate 10 mg tablet 10 mg PO QAM 04/15/24 04/15/24 History gabapentin 300 mg capsule 300 mg PO BID 04/15/24 04/15/24 History methylprednisolone 4 mg tablet 4 mg PO QAM 04/15/24 04/15/24 History metoprolol succinate 25 mg 25 mg PO AMHS 04/15/24 04/15/24 History tablet,extended release 24 hr povidone-iodine 10 % topical 1 applic topical .BID & PRN 04/15/24 04/15/24 History solution silver-calcium alginate 4" X 8" 1 ea topical .BID&PRN 04/15/24 04/15/24 History bandage tramadol 50 mg tablet 50 mg PO TID PRN Pain 04/15/24 04/15/24 History Patient History Medical History (Updated 04/16/24 @ 15:59 by Aaron Saavedra MD) Acute UTI Dementia Elevated troponin Family History Other Cancer Coronary heart disease Rheumatoid arthritis Stroke Social History Smoking Status: Never smoker Second Hand Exposure: No; Do You Dip or Chew Tobacco: No; Hx Alcohol Use: No Hx Substance Use: No Preferred Language: Lithuanian Communication Ability: Impaired Compliance Technician Required: No Beliefs That Will Affect Care: None marital status: / Current Living Situation: Senior Care Current Living Situation Comment: lives with son who helps with care How many Children do You have: 3 Other Information That Helps Us Care for You: No Feels Safe at Home: Yes Safety Concerns: Feels Safe At This Time Assistive Devices: Walker and Wheelchair Review of Systems Review of Systems: All systems reviewed & are unremarkable except as noted in Subjective Physical Exam Physical Exam: General Appearance:Well developed, well-nourished and in no acute distress Psych:Alert, Oriented and Appropriate Skin Type:2 Scalp/Hair:no abnormalities noted. Face:no abnormalities noted. Eyelids/Ocular Mucosa: no abnormalities noted. Lips/Teeth/Gums: no abnormalities noted. Neck: no abnormalities noted. Right Lower Extremity:+scattered erythematous, edematous/urticarial thin plaques with intercurrent tense bulla and a few background erosions on the thigh Left Lower Extremity:+scattered erythematous, edematous/urticarial thin plaques with intercurrent tense bulla and a few background erosions on the thigh Back:+scattered erythematous, edematous/urticarial thin plaques with intercurrent tense bulla Buttocks/Groin/Genitalia: not examined. Right Upper Extremity:+scattered erythematous, edematous/urticarial thin plaques with intercurrent tense bulla and a few background erosions on the lateral upper arm, forearm; +hemorrhagic bulla on the palm Left Upper Extremity:+scattered erythematous, edematous/urticarial thin plaques with intercurrent tense bulla and a few background erosions on the lateral upper arm, forearm Chest/Breast/Axillae:+scattered erythematous, edematous/urticarial thin plaques on the mid chest Abdomen:+scattered erythematous, edematous/urticarial thin plaques on the mid chest Other exam notes: Right/left foot recently wrapped/bandaged by Podiatry (not removed for exam today) Results & Data Vital Signs (Past 12 Hours) Vital Signs Temp Pulse Resp BP Pulse Ox O2 Del Method 04/16/24 07:07 36.3 C L 61 16 130/75 97 Room Air Laboratory Results 04/16/24 04/16/24 04/15/24 Range/Units Unknown 08:35 Unknown WBC 10.60 (4.8-10.8) K/ul RBC 3.97 L (4.20-5.40) M/uL Hgb 11.5 L (12.0-16.0) g/dl Hct 35.6 L (37.0-47.0) % MCV 89.7 (80.0-100.0) fL MCH 29.0 (25.0-34.0) pg MCHC 32.3 (32.0-36.0) g/dL RDW Std Deviation 51.1 H (36.4-46.3) fL RDW Coeff of Jing 15.4 H (11.5-14.5) % Plt Count 222 (130-400) K/uL MPV 9.2 L (9.4-12.4) fL Sodium 138 (136-145) mmol/L Potassium 4.5 (3.5-5.1) mmol/L Chloride 111 H (98-107) mmol/L Carbon Dioxide 22 (21-32) mmol/L Anion Gap 5 (3-11) BUN 29 H (6-23) mg/dl Creatinine 1.46 H D (0.6-1.2) mg/dl Est Cr Clr Drug Dosing 27.4 ml/min Est GFR ( Amer) 36.6 ml/min Est GFR (Non-Af Amer) 31.6 ml/min BUN/Creatinine Ratio 19.9 (10-20) Glucose 81 (70-99(Fasting)) mg/dl Calcium 7.5 L (8.6-10.3) mg/dl Nasal Screen MRSA (PCR) Negative (Negative) Tissue Pathology Pending Diagnostic Findings Imaging and Microbiology results reviewed in [facility]. Medications Administered MAR reviewed in [facility]. PG Care Time/CCT Total # of Minutes Spent Total Time Spent with Patient: Total time spent is greater than 50% in coordination of care (as documented) at patient's floor/unit and/or counseling patient: Coding Level of Care Code 48205 INT INP/OBS CARE MIN Diagnoses Dermatitis, unspecified L30.9 CPT Codes Punch Biopsy of 1 Lesion - [id number] ([id number]) Punch Biopsy of Each Additional Lesion - [id number] ([id number]) Derm Punch Biopsy Skin Lesion Number Lesion #1: Procedure performed by: Aaron Saavedra Indication: Bullous pemphigoid vs. Linear IgA bullous dermatosis vs. Bullous contact dermatitis vs. other Discussed: Patient, Risks, Benefits and Alternatives Anesthesia:: Lidocaine Lidocaine: with Epi Lidocaine with Epi: 1% (1cc) Location: right shoulder Type of Biopsy: DIF(perilesional) Preparation: Alcohol Biopsy Technique: Punch, mm: (4) Closure:: Cutaneous (5-0 nylon x 1) Dressing: Polysporin Ointment and Dressing Applied Specimen Sent to Pathology: Yes Patient Status: Tolerated Well Complications:: No Complications Lesion #2: Procedure performed by: Aaron Saavedra Indication: Bullous pemphigoid vs. Linear IgA bullous dermatosis vs. Bullous contact dermati tis vs. other Discussed: Patient, Risks, Benefits and Alternatives Anesthesia:: Lidocaine Lidocaine: with Epi Lidocaine with Epi: 1% (1cc) Location: right shoulder Type of Biopsy: H & E Preparation: Alcohol Biopsy Technique: Punch, mm: (4) Closure:: Cutaneous (5-0 nylon x 1) Dressing: Polysporin Ointment and Dressing Applied Specimen Sent to Pathology: Yes Patient Status: Tolerated Well Complications:: No Complications
[2024-04-17 07:42] LABS: Hematocrit (blood only) 33.1 % (37.0-47.0); Hemoglobin 10.8 g/dl (12.0-16.0); Mean Corpuscular Hemoglobin 29.2 pg (25.0-34.0); Mean Corpuscular Hgb Conc 32.6 g/dL (32.0-36.0); Mean Corpuscular Volume 89.5 fL (80.0-100.0); Mean Platelet Volume 9.3 fL (9.4-12.4); Platelet Count 227 K/uL (130-400); RDW Coefficient of Variation 15.5 % (11.5-14.5); RDW Standard Deviation 50.9 fL (36.4-46.3); White Blood Count 9.23 K/ul (4.8-10.8)
[2024-04-17 08:03] LABS: BUN Creatinine Ratio 20.1 (10-20); Calcium 7.9 mg/dl (8.6-10.3); Creatinine Clr Calc Pharmacy 28.8 ml/min; Est GFR (African American) 38.8 ml/min; Est GFR (Non-African American) 33.5 ml/min; Magnesium 2.2 mg/dl (1.7-2.4); Phosphorus 3.9 mg/dl (2.5-4.9); Potassium 4.2 mmol/L (3.5-5.1)
--- NOTE | 2024-04-17 10:51 | Communication Note ---
Date of Service: April 17, 2024 Patient off floor at this time Will review arterial noninvasives. Doubtful she is a candidate for any type of vascular intervention when reviewing the chart.
--- NOTE | 2024-04-17 11:52 | Ultrasound Report ---
US arterial duplex LE BI HISTORY: 89 years-old Female Eval blood flow, bilateral foot wounds peripheral arterial disease COMPARISON: None TECHNIQUE: Multiple real-time sonographic images of the lower extremity arterial structures were obta ined assessing grayscale appearance, color and spectral flow FINDINGS: RIGHT: Extensive atherosclerosis. Triphasic waveforms in the common femoral artery. Monophasic and biphasic waveforms in the superficial femoral, popliteal artery and arteries of the lower legs. No arterial oc clusion identified. LEFT: Extensive atherosclerosis. Mostly biphasic and triphasic waveforms above the level of the knee. Monop hasic and biphasic waveforms in the lower leg. No arterial occlusion or significantly elevated peak s ystolic velocity is identified to suggest high-grade stenosis. IMPRESSION: Diffuse atherosclerosis without arterial occlusion. Monophasic and biphasic waveforms not ed within the lower legs. ACT 112: Negative or not required by law. The above report was generated using voice recognition software. It may contain grammatical, syntax o r spelling errors. Electronically signed by: David Barber M.D. 04/17/2024 11:51 AM
--- NOTE | 2024-04-17 12:29 | Hospitalist Progress Note ---
Date of Service April 17, 2024 Assessment & Plan (1) Cellulitis: (2) AMS (altered mental status): (3) Ambulatory dysfunction: (4) Generalized weakness: (5) CHF (congestive heart failure): (6) CKD (chronic kidney disease) stage 4, GFR 15-29 ml/min: Plan: Cellulitis LLE Necrosis of Left 2nd toe Multiple foot wounds Right and Left - Admit to [facility] - WBC 11.9, improving - blood cultures obtained NGTD - Deescalate abx to levaquin IV ( previously on cefepime IV, daptomycin IV) - BP appears to be slightly soft at 99/69 upon admission, received small amount of fluids --resolved - Afebrile, heart rate is stable in the 60s - Wound consulted for ulcerations/wounds on feet - appreciate recs - Podiatry consulted - appreciate recs - no surgical intervention - CT bilateral feet with wounds and areas of necrosis -- reviewed personally, no acute osteomyelitis. - Doppler bilat LE negative - TATO bilateral lower ext was unable to be obtained as pt was in pain with attempt by imaging department and wound. - Check doppler arterial studies - Vascular consulted for possible revascularization - per communication note pt is unlikely a surgical candidate. Will resume eliquis. - Negative MRSA swab nose Rash, Dermatitis - Diffuse, pruritic, large lesions systemically with bullae - Schedule hydroxyzine 25 mg BID as she is demented and will not ask for med for itching although is scratchin at her skin per daughter. - Dr. Singh with dermatology - appreciate assistance -- concern for bullous pemphigoid vs Linear IgA bullous dermatosis vs. Bullous contact dermatitis - skin biopsy performed on 04/16 : Sutures from punch biopsy sites on the right shoulder should be removed in 10 days - remove 04/26 - Continue topical clobetasol BID for itch - Pt has recently completed prednisone taper, also appears she is on methylprednisolone 5 mg daily per her med rec - [place]ick[place] illness workup neg Acute cystitis - Klebsiella pneumonia, Hafnia alvei on urine culture 04/17 - Abx started 04/15: previously on cefepime, then ertapenem with previous cultures ESBL ecoli resistant to cefepime, as well as daptomycin as above. Deescalate to levaquin IV only today. - WBC is improving, afebrile. AMS Dementia - History of such, reported in previous documentation this is been progressing over time - She is alert and oriented to self, not time or place Ambulatory dysfunction -PT/OT consults Chronic Diastolic CHF Aortic stenosis s/p TAVR Hx of PE - Anticoagulated on eliquis at home - continue metoprolol succ 25 mg BID, imdur 60 mg QAM DEDRICK on CKD stage III - creatinine on admission 1.79, BUN 34 --- improving, Cr 1.46/BUN 29 - Avoid nephrotoxins and renally dose medications-trend with a.m. labs Polymyalgia rheumatica Osteoporosis - Chronic, stable Hypothyroidism - Cont levothyroxine DVT ppx: teds, scds, resume eliquis Lines: 1 PIV FEN/GI: Allow HH diet CODE: Full code Dispo: From home, likely to remain in the hospital x 1-2 days Called pt daughter and discussed updates with her on the phone for 20 min. Her questions and concerns were addressed and she expressed understanding. A total of 45 minutes were spent with greater than 50% of that time face to face with the patient, personally reviewing all current laboratories, imaging studies, past medication reconciliation, outpatient chart review, and discussion with specialists to collaborate care for the patient with attending. Please see attending documentation for corrections and/or additions. Admission and Anticipated Discharge Date Admission Date: April 15, 2024 Supervising Physician Co-Signing Physician Notes Patient seen and examined Patient is AOx1 No new complaints Had skin biopsy by Derm yesterday. Sutures to be removed on 04/26/24 Podiatry eval noted UCx growing Klebsiella pneumonia, Hafnia alvei. Antibiotics deescalated to levofloxacin based on sensitivities Dopplers/Vasc sx cs Patient reviewed with Advanced Practitioner Agree with Advanced Practitioner's evaluation, findings and plans and take full responsibility Subjective PT is doing well this morning, she denies any acute complaints. No pain, nontender Noticing a bullae on her right palm today. Up and sat in the chair, worked with OT prior to my visit Physical Exam Physical Exam: General: awake, alert, no apparent distress, overweight white female, pleasantly confused, AO x 1. Head: Normocephalic, atraumatic ENT: PERRL, EOMI, no pharyngeal exudate, mucous membranes moist Chest: Clear to auscultation, on room air, no adventitious breath sounds Cardiac: Regular rate and rhythm, no murmur, no JVD, normal peripheral pulses, good capillary refill Abdominal: NABS x 4 quadrants, soft, nondistended, nontender to palpation, no rebound or guarding Extremities: Normal inspection, no peripheral edema or erythema, calfs nontender to palpation Skin: diffused erythematous lesions, round target like areas with confluence on torso/back/extremities, scattered tense bullae on back, legs, abdomen. Large bullae R palm. scattered excoriations. Bilateral 1+ pitting edema of lower extremities, nontender; large hemorrhagic bullae on left LE 2nd digit, and small on hemorrhagic on 3-4rd digit right Neuro: AAO x 1, strength intact bilaterally and rated 5/5, no gross motor deficits, speech is clear, no peripheral sensory deficits Results & Data Results & Data Vital Signs (Past 12 Hours) Vital Signs Temp Pulse Resp BP Pulse Ox O2 Del Method 04/17/24 07:20 Room Air 04/17/24 07:10 36.7 C 64 16 122/69 97 Room Air Laboratory Results Abnormal lab results 04/17/24 Range/Units 07:01 RBC 3.70 L (4.20-5.40) M/uL Hgb 10.8 L (12.0-16.0) g/dl Hct 33.1 L (37.0-47.0) % RDW Std Deviation 50.9 H (36.4-46.3) fL RDW Coeff of Jing 15.5 H (11.5-14.5) % MPV 9.3 L (9.4-12.4) fL Chloride 112 H (98-107) mmol/L BUN 28 H (6-23) mg/dl Creatinine 1.39 H (0.6-1.2) mg/dl BUN/Creatinine Ratio 20.1 H (10-20) Calcium 7.9 L (8.6-10.3) mg/dl (5) CHF (congestive heart failure) Heart failure chronicity: acute Heart failure type: unspecified Qualified Code(s): I50.9 - Heart failure, unspecified
[2024-04-17] MEDS: hydrOXYzine HCl 25 MG TAB PO STA (15:57)
--- NOTE | 2024-04-17 17:04 | Podiatry Progress Note ---
Date of Service April 17, 2024 Assessment & Plan (1) Dermatitis, unspecified: (2) Bilateral lower leg cellulitis: (3) Other specified peripheral vascular diseases: Plan patient was examined and evaluated. - Pt unlikely a candidate for revascularization, so no new surgery plans on our end for now. - If these ulcerations worsen or become necrotic, could benefit from amputation of digits, but this is unlikely to heal and could further lead to higher amputation - Would recommend continued wound care, even wound care nursing consult. - Continue empiric abx for LE cellulitis for two weeks or obtain ID consult if not improving/worsening. - Foot/ankle is stable, [facility] when stable overall. - Will sign off for now, but do not hesitate to reconsult if needed. Thanks. Admission and Anticipated Discharge Date Admission Date: April 15, 2024 Subjective Pt seen at bedside. Asleep, but arousable. No new concerns, though patient still disoriented to time. No new pain to feet. Review of Systems Constitutional: + weakness; no fever and no chills Eyes: no problem reported Ear, Nose, Mouth, Throat: no problem reported Respiratory: no problem reported Cardiovascular: no problem reported Gastrointestinal: no problem reported Genitourinary: no problem reported Musculoskeletal: no problem reported Integumentary: + lesions and + non-healing lesions Neurologic: + numbness; no loss of sensation Psychiatric: no problem reported Endocrine: no problem reported Physical Exam Physical Exam: bilateral lower extremity focused exam: DP/PT pulses 0/4. Advanced trophic changes to the skin bilaterally, including thinning of the skin, dry skin, loss of hair growth, dystrophic nails, and cooling proximally and distally. Multiple ecchymotic or sanguinous blisters are noted throughout the foot and ankle with potential necrosis noted to the digits bilaterally. This does appear more consistent with her more systemic bolus skin condition rather than acute dry necrosis or gangrene. Still, she does have advanced findings of peripheral arterial disease. There is pain on palpation of the bilateral foot and ankle, though light touch sensation appears to be absent. CFT remains brisk to the digits. Muscle strength appears diminished with atrophy to the bilateral foot and ankle. Pitting edema is noted to the bilateral foot and ankle as well. Constitutional: + ill appearing; no acute distress Eyes: PERRL, conjunctivae normal, anicteric sclerae ENMT: external ear and nose normal, oropharynx normal Neck: trachea midline, no thyromegaly Respiratory: normal respiratory effort; no respiratory distress Cardiovascular: Rate/Rhythm: regular rate; + abnormal rhythm Vessels: + posterior tibial pulses abnormal and + dorsalis pedis pulses abnormal Extremities: + pedal edema; no calf tenderness Gastrointestinal (Abdomen): Inspection/Auscultation: + abdomen abnormal to inspection Musculoskeletal: Head/Neck/Chest: normocephalic and head atraumatic; head normal to inspection Skin: + turgor decreased, + lesion, + indurati on, + skin atrophy, + erythema and + eschar Neurologic: + abnormal touch/pain/proprioception and + abnormal sensation to monofilament Psychiatric: Orientation: alert, oriented to person and oriented to place; + not oriented to time Results & Data Results & Data Vital Signs (Past 12 Hours) Vital Signs Temp Pulse Resp BP Pulse Ox O2 Del Method 04/17/24 15:26 36.4 C L 57 L 16 115/56 L 100 Room Air 04/17/24 07:20 Room Air 04/17/24 07:10 36.7 C 64 16 122/69 97 Room Air
[2024-04-17] MEDS: levoFLOXacin/D5W 500 MG/100 ML BAG IV ONE (17:25)
[2024-04-17] MEDS ORDERED: DAPTOmycin 240 MG in SYRINGE 0 ML IV SCH (18:00)
[2024-04-17] MEDS: APIXABAN 2.5 MG TAB PO SCH (20:29)
[2024-04-18] MEDS: OLANZapine ZYDIS 5 MG ORALLY DIS. TAB PO STA (00:42)
[2024-04-18 08:22] LABS: Hemoglobin 10.3 g/dl (12.0-16.0); Mean Corpuscular Hemoglobin 28.9 pg (25.0-34.0); Mean Corpuscular Hgb Conc 32.2 g/dL (32.0-36.0); Mean Corpuscular Volume 89.9 fL (80.0-100.0); Mean Platelet Volume 9.1 fL (9.4-12.4); Platelet Count 232 K/uL (130-400); RDW Coefficient of Variation 15.7 % (11.5-14.5); RDW Standard Deviation 51.6 fL (36.4-46.3); Red Blood Count 3.56 M/uL (4.20-5.40); White Blood Count 10.76 K/ul (4.8-10.8)
[2024-04-18 08:41] LABS: BUN Creatinine Ratio 19.2 (10-20); Calcium 7.9 mg/dl (8.6-10.3); Creatinine Clr Calc Pharmacy 32.1 ml/min; Est GFR (African American) 44.2 ml/min; Est GFR (Non-African American) 38.1 ml/min; Potassium 4.2 mmol/L (3.5-5.1)
[2024-04-18] MEDS: CETIRIZINE HCL 10 MG TABLET PO SCH (09:34)
--- NOTE | 2024-04-18 13:32 | Hospitalist Progress Note ---
Date of Service April 18, 2024 Assessment & Plan (1) Cellulitis: (2) AMS (altered mental status): (3) Ambulatory dysfunction: (4) Generalized weakness: (5) CHF (congestive heart failure): (6) CKD (chronic kidney disease) stage 4, GFR 15-29 ml/min: Plan: Cellulitis LLE Necrosis of Left 2nd toe Multiple foot wounds Right and Left - Blood cultures obtained NGTD - Currently on levaquin IV ( previously on cefepime IV, daptomycin IV) - BP appears to be slightly soft at 99/69 upon admission, received small amount of fluids --resolved - Afebrile, heart rate is stable in the 60s - Continue wound care for feet - Podiatry consulted - appreciate recs - no surgical intervention - CT bilateral feet with wounds and areas of necrosis -- reviewed personally, no acute osteomyelitis. - Doppler bilat LE negative - TATO bilateral lower ext was unable to be obtained as pt was in pain with attempt by imaging department and wound. - Check doppler arterial studies - Vascular consulted for possible revascularization Rash, Dermatitis - Diffuse, pruritic, large lesions systemically with bullae - Continue hydroxyzine for pruritus - Dr. Singh with dermatology - appreciate assistance - concern for bullous pemphigoid vs Linear IgA bullous dermatosis vs. Bullous contact dermatitis - Skin biopsy performed on 04/16 : Sutures from punch biopsy sites on the right shoulder should be removed in 10 days - remove 04/26 - Continue topical clobetasol BID per Dermatology - Pt has recently completed prednisone taper, currently on methylprednisolone 5 mg daily - Tickborne illness workup neg Acute cystitis/Urinary tract infection - Klebsiella pneumonia, Hafnia alvei on urine culture 04/17 - Abx started 04/15: previously on cefepime, then ertapenem with previous cultures ESBL ecoli resistant to cefepime, as well as daptomycin as above. Deescalate to levaquin IV only today. AMS Dementia - History of such, reported in previous documentation this is been progressing over time - She is alert and oriented to self, not time or place Ambulatory dysfunction -PT/OT consults Chronic Diastolic CHF Aortic stenosis s/p TAVR Hx of PE - Anticoagulated on eliquis at home - continue metoprolol succ 25 mg BID, imdur 60 mg QAM DEDRICK on CKD stage III - creatinine on admission 1.79, BUN 34 --- improving, Cr 1.46/BUN 29 - Avoid nephrotoxins and renally dose medications-trend with a.m. labs Polymyalgia rheumatica Osteoporosis - Chronic, stable Hypothyroidism - Cont levothyroxine DVT ppx: Eliquis Lines: 1 PIV FEN/GI: Allow HH diet CODE: Full code I spent a total of 40 minutes coordinating, documenting and providing care for this patient excluding time spent in performance of separately billed services Admission and Anticipated Discharge Date Admission Date: April 15, 2024 Subjective Patient seen and examined Reports blisters Denied any other complaints Poor historian Physical Exam Constitutional: + well hydrated; no acute distress Eyes: PERRL, conjunctivae normal, anicteric sclerae ENMT: external ear and nose normal, oropharynx normal Respiratory: normal respiratory effort, lungs clear to auscultation Cardiovascular: S1 S2 Gastrointestinal (Abdomen): normal bowel sounds, soft, nontender, no hepatosplenomegaly Musculoskeletal: Dressing over feet wounds Skin: Blisters/bullae on both thighs Blisters in palms Maculopapular rash Neurologic: PERRL, EOMI, accommodation nl, no face palsy, no dysarthria Psychiatric: Alert and oriented to person only. Cooperative Results & Data Results & Data Vital Signs (Past 12 Hours) Vital Signs Temp Pulse Resp BP Pulse Ox O2 Del Method 04/18/24 08:00 Room Air 04/18/24 07:00 36.4 C L 57 L 16 143/74 H 98 Room Air Laboratory Results Abnormal lab results 04/18/24 Range/Units 08:09 RBC 3.56 L (4.20-5.40) M/uL Hgb 10.3 L (12.0-16.0) g/dl Hct 32.0 L (37.0-47.0) % RDW Std Deviation 51.6 H (36.4-46.3) fL RDW Coeff of Jing 15.7 H (11.5-14.5) % MPV 9.1 L (9.4-12.4) fL Chloride 112 H (98-107) mmol/L BUN 24 H (6-23) mg/dl Creatinine 1.25 H (0.6-1.2) mg/dl Calcium 7.9 L (8.6-10.3) mg/dl (5) CHF (congestive heart failure) Heart failure chronicity: acute Heart failure type: unspecified Qualified Code(s): I50.9 - Heart failure, unspecified
[2024-04-18] MEDS: hydrOXYzine HCl 25 MG TAB PO PRN (21:07)
[2024-04-18] MEDS: ROSUVASTATIN CALCIUM 10 MG TAB PO SCH (21:29)
[2024-04-19 03:12] LABS: Babesia microti DNA Not Detected (Not Detected)
[2024-04-19 08:23] LABS: Hematocrit (blood only) 31.9 % (37.0-47.0); Hemoglobin 10.1 g/dl (12.0-16.0); Mean Corpuscular Hemoglobin 28.9 pg (25.0-34.0); Mean Corpuscular Hgb Conc 31.7 g/dL (32.0-36.0); Mean Corpuscular Volume 91.4 fL (80.0-100.0); Mean Platelet Volume 9.4 fL (9.4-12.4); Platelet Count 239 K/uL (130-400); RDW Coefficient of Variation 15.9 % (11.5-14.5); RDW Standard Deviation 52.8 fL (36.4-46.3); Red Blood Count 3.49 M/uL (4.20-5.40)
[2024-04-19 08:43] LABS: BUN Creatinine Ratio 18.9 (10-20); Calcium 7.9 mg/dl (8.6-10.3); Creatinine Clr Calc Pharmacy 31.5 ml/min; Est GFR (African American) 43.3 ml/min; Est GFR (Non-African American) 37.4 ml/min; Potassium 4.4 mmol/L (3.5-5.1)
--- NOTE | 2024-04-19 16:00 | Hospitalist Progress Note ---
Date of Service April 19, 2024 Assessment & Plan (1) Cellulitis: (2) AMS (altered mental status): (3) Ambulatory dysfunction: (4) Generalized weakness: (5) CHF (congestive heart failure): (6) CKD (chronic kidney disease) stage 4, GFR 15-29 ml/min: Plan: Cellulitis LLE Necrosis of Left 2nd toe Multiple foot wounds Right and Left - Blood cultures obtained NGTD - Currently on levaquin IV ( previously on cefepime IV, daptomycin IV) - BP appears to be slightly soft at 99/69 upon admission, received small amount of fluids --resolved - Afebrile, heart rate is stable in the 60s - Continue wound care for feet - Podiatry consulted - appreciate recs - no surgical intervention - CT bilateral feet with wounds and areas of necrosis -- reviewed personally, no acute osteomyelitis. - Doppler bilat LE negative - TATO bilateral lower ext was unable to be obtained as pt was in pain with attempt by imaging department and wound. - Arterial duplex noted diffuse atherosclerosis without arterial occulsion Rash, Dermatitis - Diffuse, pruritic, large lesions systemically with bullae - Continue hydroxyzine for pruritus - Dr. Singh with dermatology - appreciate assistance - concern for bullous pemphigoid vs Linear IgA bullous dermatosis vs. Bullous contact dermatitis - Skin biopsy performed on 04/16 : Sutures from punch biopsy sites on the right shoulder should be removed in 10 days - remove 04/26 - Continue topical clobetasol BID per Dermatology - Pt has recently completed prednisone taper, currently on methylprednisolone 5 mg daily - Will follow up with Dermatology tomorrow about possible high dose prednisone therapy with taper/other recs - Tickborne illness workup neg Acute cystitis/Urinary tract infection - Klebsiella pneumonia, Hafnia alvei on urine culture 04/17 - Abx started 04/15: previously on cefepime, then ertapenem with previous cultures ESBL ecoli resistant to cefepime, as well as daptomycin as above. Now deescalated to levaquin. AMS Dementia - History of such, reported in previous documentation this is been progressing over time - She is alert and oriented to self, not time or place Ambulatory dysfunction -PT/OT Chronic Diastolic CHF Aortic stenosis s/p TAVR Hx of PE - Anticoagulated on eliquis at home - continue metoprolol succ 25 mg BID, imdur 60 mg QAM DEDRICK on CKD stage III - creatinine on admission 1.79, BUN 34 --- improving, Cr 1.27 today - Avoid nephrotoxins and renally dose medications Polymyalgia rheumatica Osteoporosis - Chronic, stable Hypothyroidism - Cont levothyroxine DVT ppx: Eliquis Lines: 1 PIV FEN/GI: Allow HH diet CODE: Full code I spent a total of 40 minutes coordinating, documenting and providing care for this patient excluding time spent in performance of separately billed services Admission and Anticipated Discharge Date Admission Date: April 15, 2024 Subjective Patient seen and examined Denied any other complaints Poor historian Physical Exam Constitutional: + well hydrated; no acute distress Eyes: PERRL, conjunctivae normal, anicteric sclerae ENMT: external ear and nose normal, oropharynx normal Respiratory: normal respiratory effort, lungs clear to auscultation Cardiovascular: S1 S2 Gastrointestinal (Abdomen): normal bowel sounds, soft, nontender, no hepatos plenomegaly Musculoskeletal: Blisters on both feet Some wounds from ruptures ones in different stages Skin: Blisters/bullae on both thighs Blister on right palm had ruptured Macular rash more in extremities Neurologic: PERRL, EOMI, accommodation nl, no face palsy, no dysarthria Psychiatric: Alert and oriented to person only. Cooperative Results & Data Results & Data Vital Signs (Past 12 Hours) Vital Signs Temp Pulse Resp BP Pulse Ox O2 Del Method 04/19/24 14:50 36.9 C 59 L 16 123/71 97 Room Air 04/19/24 07:01 36.8 C 58 L 18 131/71 97 Room Air Laboratory Results Abnormal lab results 04/19/24 Range/Units 07:40 RBC 3.49 L (4.20-5.40) M/uL Hgb 10.1 L (12.0-16.0) g/dl Hct 31.9 L (37.0-47.0) % MCHC 31.7 L (32.0-36.0) g/dL RDW Std Deviation 52.8 H (36.4-46.3) fL RDW Coeff of Jing 15.9 H (11.5-14.5) % Chloride 111 H (98-107) mmol/L BUN 24 H (6-23) mg/dl Creatinine 1.27 H (0.6-1.2) mg/dl Calcium 7.9 L (8.6-10.3) mg/dl (5) CHF (congestive heart failure) Heart failure chronicity: acute Heart failure type: unspecified Qualified Code(s): I50.9 - Heart failure, unspecified
[2024-04-20 07:16] LABS: Hemoglobin 9.7 g/dl (12.0-16.0); Mean Corpuscular Hemoglobin 29.2 pg (25.0-34.0); Mean Corpuscular Hgb Conc 32.3 g/dL (32.0-36.0); Mean Corpuscular Volume 90.4 fL (80.0-100.0); Mean Platelet Volume 9.6 fL (9.4-12.4); Platelet Count 242 K/uL (130-400); RDW Coefficient of Variation 15.9 % (11.5-14.5); Red Blood Count 3.32 M/uL (4.20-5.40); White Blood Count 11.27 K/ul (4.8-10.8)
[2024-04-20 07:30] LABS: BUN Creatinine Ratio 18.8 (10-20); Creatinine Clr Calc Pharmacy 26.9 ml/min; Est GFR (African American) 35.7 ml/min; Est GFR (Non-African American) 30.8 ml/min
--- NOTE | 2024-04-20 08:45 | Consultation ---
Date of Consultation April 20, 2024 Assessment & Plan (1) PAD (peripheral artery disease): This is a 89-year-old female who has diffuse atherosclerotic changes of the lower extremities on both sides. Her waveforms however are biphasic with good upstroke and quick downstroke. She also has good capillary refill in both feet. Her lesions are not secondary to arterial insufficiency and should have adequate flow to allow them to heal. No surgical or endovascular intervention is needed at this point. Thank you very much for letting us participate in the care of this patient. Please call if we are needed. History of Present Illness Reason for Consultation: Lower extremity wounds bilateral Attending Physician: Lianna Cartwright MD History of Present Illness This is an 89-year-old female who was in the hospital recently. At the time of discharge her daughter reports that she had a rash present. This is worsened in both lower extremities mostly in the feet. She has a history of PE, hyperlipidemia, CKD stage III, polymyalgia rheumatica, osteoporosis. Aortic stenosis with TAVR, multinodular goiter and dementia. The patient herself admits that she does ambulate. She has had recent hospitalizations for a fall and confusion associated with a UTI. She denies any rest pain in her feet and denies any claudication. Allergies Allergy/AdvReac Type Severity Reaction Status Date / Time dobutamine Allergy Severe psych Verified 04/15/24 14:01 complications morphine Allergy Severe Could not Verified 04/15/24 14:01 breathe as per px NSAIDS (Non-Steroidal Allergy Intermediate ITCH Verified 04/15/24 14:01 Anti-Inflamma etodolac Allergy Unknown Unknown Verified 04/15/24 14:01 nabumetone [From Relafen] Allergy Unknown Unknown Verified 04/15/24 14:01 hydromorphone AdvReac Intermediate DIZZY,NAUSE Verified 04/15/24 14:01 A minocycline AdvReac Intermediate Nausea Verified 04/15/24 14:01 Home Medications Medication Instructions Recorded Confirmed Type apixaban 2.5 mg tablet (Eliquis) 2.5 mg PO AMHS 05/29/19 04/15/24 History nitroglycerin 0.4 mg sublingual 0.4 mg sublingual UD PRN Chest Pain 05/29/19 04/15/24 History tablet (Nitrostat) pantoprazole 20 mg tablet,delayed 20 mg PO AMPM 05/29/19 04/15/24 History release (Protonix) trazodone 50 mg tablet 50 mg PO .SUPPER & HS 05/29/19 04/15/24 History acetaminophen 500 mg tablet 500 mg PO AMHS 04/12/20 04/15/24 History (Tylenol Extra Strength) rosuvastatin 10 mg tablet 10 mg PO HS 06/12/21 04/15/24 History isosorbide mononitrate 60 mg 60 mg PO QAM 06/03/23 04/15/24 History tablet,extended release 24 hr torsemide 5 mg tablet 5 mg PO 3XWK 11/14/23 04/15/24 History amoxicillin 500 mg capsule 2,000 mg PO DIRECTED PRN PRIOR 01/29/24 04/15/24 History TO DENTAL PROCEDURES levothyroxine 75 mcg tablet 75 mcg PO DAILYBB 03/02/24 04/15/24 History acetaminophen 325 mg tablet 650 mg PO Q4 PRN Pain 04/15/24 04/15/24 History (Tylenol) diphenhydramine HCl 25 mg tablet 25 mg PO TID PRN Itching 04/15/24 04/15/24 History (Benadryl Allergy) escitalopram oxalate 10 mg tablet 10 mg PO QAM 04/15/24 04/15/24 History gabapentin 300 mg capsule 300 mg PO BID 04/15/24 04/15/24 History methylprednisolone 4 mg tablet 4 mg PO QAM 04/15/24 04/15/24 History metoprolol succinate 25 mg 25 mg PO AMHS 04/15/24 04/15/24 History tablet,extended release 24 hr povidone-iodine 10 % topical 1 applic topical .BID & PRN 04/15/24 04/15/24 History solution silver-calcium alginate 4" X 8" 1 ea topical .BID&PRN 04/15/24 04/15/24 History bandage tramadol 50 mg tablet 50 mg PO TID PRN Pain 04/15/24 04/15/24 History Patient History Medical History Acute UTI Dementia Elevated troponin Family History Other Cancer Coronary heart disease Rheumatoid arthritis Stroke Social History Smoking Status: Never smoker Second Hand Exposure: No; Do You Dip or Chew Tobacco: No; Hx Alcohol Use: No Hx Substance Use: No Preferred Language: Welsh Communication Ability: Impaired City Recorder Required: No Beliefs That Will Affect Care: None marital status: / Current Living Situation: [facility] Current Living Situation Comment: lives with son who helps with care How many Children do You have: 3 Other Information That Helps Us Care for You: No Feels Safe at Home: Yes Safety Concerns: Feels Safe At This Time Assistive Devices: Walker and Wheelchair Review of Systems Review of Systems: All systems reviewed & are unremarkable except as noted in HPI & below Physical Exam Constitutional: WD/WN, vitals as above Respiratory: normal respiratory effort; no respiratory distress Cardiovascular: Rate/Rhythm: regular rate and regular rhythm Vessels: posterior tibial pulses present (Could not feel posterior tibial pulses.), sandy salis pedis pulses present (Palpable bilaterally) and radial pulses present Extremities: normal capillary refill Gastrointestinal (Abdomen): Inspection/Auscultation: abdomen normal to inspection; abdomen not distended Skin: She has multiple ulcerations on both feet Neurologic: CN's II-XI intact bilaterally and moves all extremities Psychiatric: Orientation: alert Results & Data Vital Signs (Past 12 Hours) Vital Signs Temp Pulse Resp BP Pulse Ox O2 Del Method 04/20/24 07:28 36.8 C 72 16 124/68 98 Room Air Diagnostic Findings She did have arterial noninvasives which showed biphasic waveforms of both ankles with DP and PT waveforms with good upstroke.
[2024-04-20] MEDS: predniSONE 20 MG TAB PO ONE (14:32)
--- NOTE | 2024-04-20 14:57 | Discharge Summary ---
Date of Service April 20, 2024 Admission HPI Per Admitting Provider This is an 89 yo F with PMHx of nontoxic multinodular goiter, hyperlipidemia, history of PE, CKD stage III, polymyalgia rheumatica, osteoporosis, Aortic stenosis s/p TAVR, disseminated rash, dementia. Pt is sent from [facility] with concerns for worsening leg erythema and swelling. Pt herself if a very poor historian, only oriented to self, not date or place. She does think she is in a hospital but cannot name it. She cannot specify if her legs are worse. She has difficulty seeing the nurse button on her call skelton. She has had multiple recent hospitalizations including 1 for fall and ambulatory dysfunction in February, and then again in March for confusion found to have a UTI. Discussed with daughter, Elizabeth, over the phone who reports that the rash started right before her discharge from the hospital several weeks ago. She had requested wound care, and daughter states she could not believe the difference in her feet from a week ago. Reports that she finished a prednisone taper and had an IM shot for steroids and finished about 1.5 week ago. She saw her mom about 2 days ago and was shocked at the appearance of her one toe. Agrees that she is a FULL code. Admission Exam Per Admitting Provider GENERAL APPEARANCE: AxOx1,pleasantly confused no acute distress. HEENT: NC, AT. MMM. EOMI, clear conjunctiva, oropharynx clear. NECK: Supple without lymphadenopathy. No stiffness or restricted ROM. HEART: Normal rate and regular rhythm, normal S1/S1, no m/r/g LUNGS: CTAB, moving air well. No crackles or wheezes are heard. ABDOMEN: Soft, nontender, nondistended with good bowel sounds heard. BACK: No CVAT, no obvious deformity. EXTREMITIES: Without cyanosis, clubbing or edema. NEUROLOGICAL: Grossly nonfocal. Alert and oriented, moving all 4 extremities. CN not formally tested but appear grossly intact. Skin: diffused erythematous lesions, round target like areas with confluence on torso/back/extremities, scattered tense bullae on back, scattered excoriations. Bilateral 1+ pitting edema of lower extremities, nontender; large hemorrhagic bullae on left LE 2nd digit, and small on hemorrhagic on 3-4rd digit right Principal Diagnosis Cellulitis UTI Generalized blisters/bullae Discharge Exam Neuro: AAOx4, PERRLA, no aphagia, memory changes, CNII-XII grossly intact HEENT: head normocephalic, moist mucus membranes CV: S1/S2, (-) M/G/R, (-) edema, cap refill < 3 seconds Resp: Lungs CTA in all morales. On RA GI: Abdomen S/NT/ND, Ax4 bowel sounds, (-) CVA tenderness Musculoskeletal: 5/5 B/L UE strength, 5/5 B/L LE strength. No gait disturbance Skin: (-) rashes , (-) erythema. + 1 pitting edema of BL LE, large hemorrhagic bullae on L LE 2nd digit. Psych: euthymic mood Discharge Data Allergies Allergy/AdvReac Type Severity Reaction Status Date / Time dobutamine Allergy Severe psych Verified 04/15/24 14:01 complications morphine Allergy Severe Could not Verified 04/15/24 14:01 breathe as per px NSAIDS (Non-Steroidal Allergy Intermediate ITCH Verified 04/15/24 14:01 Anti-Inflamma etodolac Allergy Unknown Unknown Verified 04/15/24 14:01 nabumetone [From Relafen] Allergy Unknown Unknown Verified 04/15/24 14:01 hydromorphone AdvReac Intermediate DIZZY,NAUSE Verified 04/15/24 14:01 A minocycline AdvReac Intermediate Nausea Verified 04/15/24 14:01 Consultations 04/15/24 13:14 ED Decision to Admit Stat 04/15/24 14:33 Consult Podiatry Routine 04/16/24 15:33 Consult Vascular Surgery Routine Ordered Studies 04/15/24 13:46 CT foot LT wo con Stat CT foot RT wo con Stat 04/15/24 14:01 US ankle brachial index [US ankle/brachial index ltd] Stat US venous doppler LE BI Stat 04/17/24 09:38 US arterial duplex LE BI Stat Hospital Course (1) Cellulitis: (2) AMS (altered mental status): (3) Ambulatory dysfunction: (4) Generalized weakness: (5) CHF (congestive heart failure): (6) CKD (chronic kidney disease) stage 4, GFR 15-29 ml/min: Cellulitis LLE Necrosis of Left 2nd toe Multiple foot wounds Right and Left - Blood cultures obtained NGTD - Was treated with levaquin IV inpatient ( previously on cefepime IV, daptomycin IV) - BP appears to be slightly soft at 99/69 upon admission, received small amount of fluids --resolved - Afebrile, heart rate is stable in the 60s - Continue wound care for feet - Podiatry consulted - appreciate recs - no surgical intervention - CT bilateral feet with wounds and areas of necrosis -- reviewed personally, no acute osteomyelitis. - Doppler bilat LE negative - TATO bilateral lower ext was unable to be obtained as pt was in pain with attempt by imaging department and wound. - Arterial duplex noted diffuse atherosclerosis without arterial occlusion Rash, Dermatitis - Diffuse, pruritic, large lesions systemically with bullae - Continue hydroxyzine for pruritus - Dr. Singh with dermatology - appreciate assistance - concern for bullous pemphigoid vs Linear IgA bullous dermatosis vs. Bullous contact dermatitis - Skin biopsy performed on 04/16 : Sutures from punch biopsy sites on the right shoulder should be removed in 10 days - remove on 04/26 - Continue topical clobetasol BID per Dermatology - Dermatology recommended prednisone 40mg daily and taper by 10mg every 7 days - PCP to follow up biopsy by Dermatology - Tickborne illness workup neg Acute cystitis/Urinary tract infection - Klebsiella pneumonia, Hafnia alvei on urine culture 04/17 - Abx started 04/15: previously on cefepime, then ertapenem with previous cultures ESBL ecoli resistant to cefepime, as well as daptomycin as above. Now deescalated to levaquin. AMS Dementia - History of such, reported in previous documentation this is been progressing over time - She is alert and oriented to self, not time or place Ambulatory dysfunction -PT/OT Chronic Diastolic CHF Aortic stenosis s/p TAVR Hx of PE - Anticoagulated on eliquis at home - continue metoprolol succ 25 mg BID, imdur 60 mg QAM DEDRICK on CKD stage III - creatinine on admission 1.79, BUN 34 --- improved. Cr 1.49 today - Avoid nephrotoxins and renally dose medications Polymyalgia rheumatica Osteoporosis - Chronic, stable Hypothyroidism - Cont levothyroxine I spent a total of 40 minutes coordinating, documenting and providing care for this patient excluding time spent in performance of separately billed services Total Time Total Time Spent Total Time Spent (In Minutes): Total time spent 52 minutes in order to collaborate with specialists, discuss a nd evaluation with patient, and assess for stability of discharge. Discharge Plan Discharge Items Patient Disposition: Personal Halfway Reason For Visit: CELLULITIS Discharge Diagnosis: Cellulitis of LLE and necrosis of left second toe Numerous foot wounds R and L UTI Dementia Condition on Discharge: Fair Activity: Resume your previous activity Non-emergency contact: Primary Care Provider Call non-emergency contact if: you have any medication questions Follow-up/Referrals: Moreno Parham [Primary Care Provider] - Diet: Regular Diet Texture: Easy to Chew Doretha Attending Provider Instructions: You were admitted to the hospital on 04/16/24 with concerns of a progressive rash and blisters on your legs. You were started on antibiotics for your ulcerations and wounds of your feet on 04/18, along with treatment for a urinary tract infection. Podiatry was able to evaluate your wounds, along with the wound nurse. Skin biopsies were obtained with results that are not back yet. Your skin biopsy results will be followed up by your provider [facility]. You were seen by vascular surgery, Dr. Sánchez on 04/20/24 and stated that your blisters did not appear to be related to any arterial insufficiency and that your blood flow should be adequate to assist with healing. He did not feel that there was any surgical or endovascular intervention needed at this time. You were started on IV antibiotics and will continue to take antibiotic pills upon discharge. New Medications on Discharge: 1. Levofloxacin 750 mg by mouth starting on Saturday04/21/24 and taking it every other day until completed. 2. Prednisone 40 mg daily orally x 6 days followed by 30 mg daily orally x7 days, followed by 20 mg daily orally x7 days; followed by 10 mg daily x 7 days. 3. Clobetasol cream 0.05% Apply to both of your lower extremities and toes twice daily. Please continue to follow up with your primary care provider at [facility] for continued treatment. Doretha Race Relations Adviser Provider Instructions: Wound Care nursing has evaluated and treated you as well. Current recommendations include covering the open blisters with Optifoam and add Kaltostat if drainage is large amount. Pending Studies at Discharge: Yes Studies:: Skin Biopsy that was obtained by Dermatology Stand-Alone Forms: [facility], Smoking Cessation Skilled Items Patient informed of condition?: Yes DNR: No Discharge Level of Care: Other Communicable Disease: No Discharge Prognosis: Stable Lines: None Urinary Catheter: No Medications and DC Order Prescriptions: New hydroxyzine HCl 25 mg Tablet 25 mg PO BID PRN (Reason: itching) Qty: 7 0RF levofloxacin 750 mg tablet 750 mg PO Q48H 4 Days Qty: 3 0RF Rx Instructions: First dose Saturday 04/21. clobetasol 0.05 % cream 1 applic topical BID 7 Days Qty: 15 0RF prednisone 10 mg tablet See Rx Instructions .ROUTE .COMPLEX Qty: 27 0RF Rx Instructions: Starting 04/21/24, take 40 mg PO daily x6 days, followed by 30 mg PO daily x 7 days, followed by 20 mg PO daily, followed by 10 mg daily until completed. Continued trazodone 50 mg tablet 50 mg PO .SUPPER & HS pantoprazole [Protonix] 20 mg tablet,delayed release (DR/EC) 20 mg PO AMPM nitroglycerin [Nitrostat] 0.4 mg tablet, sublingual 0.4 mg sublingual UD PRN (Reason: Chest Pain) Eliquis 2.5 mg tablet 2.5 mg PO AMHS acetaminophen [Tylenol Extra Strength] 500 mg Tablet 500 mg PO AMHS isosorbide mononitrate 60 mg Tablet Extended Release 24 Hr 60 mg PO QAM Rx Instructions: Hold if sbp less then or = to 110 torsemide 5 mg tablet 5 mg PO 3XWK Rx Instructions: M/W/F rosuvastatin 10 mg tablet 10 mg PO HS amoxicillin 500 mg capsule 2,000 mg PO DIRECTED PRN (Reason: PRIOR TO DENTAL PROCEDURES) levothyroxine 75 mcg tablet 75 mcg PO DAILYBB gabapentin 300 mg Capsule 300 mg PO BID metoprolol succinate 25 mg Tablet Extended Release 24 Hr 25 mg PO AMHS escitalopram oxalate 10 mg Tablet 10 mg PO QAM silver-calcium alginate 4 X 8 " Bandage 1 ea TOPICAL .BID&PRN Rx Instructions: cleanse with nss, apply betadine soaked guaze to blister and lissett wound for 5 min then cover open areas with silver alginate, secure with super absorbent & rolled guaze. acetaminophen [Tylenol] 325 mg Tablet 650 mg PO Q4 PRN (Reason: Pain) tramadol 50 mg Tablet 50 mg PO TID PRN (Reason: Pain) Rx Instructions: moderate-severe pain diphenhydramine HCl [Benadryl Allergy] 25 mg Tablet 25 mg PO TID PRN (Reason: Itching) Discontinued methylprednisolone 4 mg Tablet 4 mg PO QAM Rx Instructions: Give after breakfast povidone-iodine 10 % Solution 1 applic TOPICAL .BID & PRN Rx Instructions: Left dorsal foot, right medial foot, right planter great toe, cleanse with NSS, apply betadine soaked guaze to blister & lissett wound for 5 min,secure dorsal & medial foot with super absorbent & rolled guaze, leave great toe open to air. Discharge Orders: Discharge Order (Routine); Ordered 04/20/24 Ordered By: Natalie Gustafson Admission Data Admit Date/Time: 04/15/24 13:26 Attending Provider: Lianna Cartwright I. Admit Provider: Ewa Carias Primary Care Provider: Moreno Parham Other Providers: Ewa Carias; Fili Borja; Masha Woodard; Miak Sánchez Other Interventions: Discharge Summary Assessment (RN) Last Done: 04/20/24 15:33 Supervising Physician Co-Signing Physician Notes Patient seen and examined Agree with findings and plans as detailed by Advanced Practitioner and take full responsibility
--- NOTE | 2024-04-21 06:33 | Coding Query ---
CODING QUERY To promote full compliance with coding requirements relating to patient care, provider participation is requested in all cases of desk editor uncertainty. Please assist us with the question(s) below: Please clarify the meaning of DEDRICK. DEDRICK is not a valid abbreviation. Thank you. ( x) Acute Kidney Injury ( ) Acute Kidney Insufficiency ( ) Other (Specify): Principal Diagnosis: "that condition established after study, to be chiefly responsible for occasioning the admission of the patient to the hospital for care." Co-Existing Principal Diagnosis: "when two or more diagnoses equally meet the criteria for principal diagnosis as determined by the circumstances of admission, diagnostic work up, and/or therapy provided, and the Alphabetic Index, Tabular List, or another coding guideline does not provide sequencing direction, any one of the diagnoses may be sequenced first." "When the physician has documented what appears to be a current diagnosis in the body of the record, but has not included the diagnosis in the final diagnostic statement, the physician should be asked whether the diagnosis should be added." (Source Coding [facility] 2 QTR90. p3-4) YENI
--- NOTE | 2024-04-23 13:44 | Coding Query ---
CHRONIC KIDNEY DISEASE To promote full compliance with coding requirements relating to patient care, physician participation is requested in all cases of black mill operator uncertainty. Please assist us with the question(s) below: Coding Question(s): Can you please clarify the stage of the patient's CKD? The record reflects the following clinical findings: Per hospitalist progress note on 04/19/24 CKD (chronic kidney disease) stage 4, GFR 15-29 ml/min: And, within the same note, "DEDRICK on CKD III - creatinine on admission 1.79, BUN 34 --- improving, Cr 1.27 today - Avoid nephrotoxins and renally dose medications" Please specify the known or suspected type by placing an "X" within the parenthesis (x). If other, please document type. Please document Staging if known: ( ) Stage I >90 Kidney damage with normal or elevated GFR. ( ) Stage II 60-89 Kidney damage with mildly decreased kidney function Stage III 30-59 Moderately decreased kidney function ( ) Stage IIIA 45-59 (x ) Stage IIIB 30-44 ( ) Stage III, unspecified ( ) Stage IV 15-29 Severely decreased kidney function ( ) Stage V <15 Renal failure (or dialysis) ( ) End Stage ( ) Unknown Thank you Honey JAIME
== END 2024-04-20 15:58 | DRG 603 ==
LOC: ED 11:41 → SUATTDRO 13:26 → 3W 13:26